=== PATIENT | female | born 1935 | race Caucasian/White ===

== ENCOUNTER 2016-11-28 15:11 | Inpatient (IN) | payer MEDICARE ==
[2016-11-28] MEDS ORDERED: NALOXONE 0.4 MG/ML 1 ML VIAL IV PRN (17:45)
[2016-11-28] MEDS ORDERED: ALPRAZolam 0.25 MG TAB PO PRN (17:45)
[2016-11-28] MEDS ORDERED: ACETAMINOPHEN TAB 500 MG TAB PO PRN (17:50)
[2016-11-28] MEDS ORDERED: HYDROmorphone 0.5 MG/0.5 ML SYRINGE IVP PRN (17:50)
[2016-11-28 18:13] LABS: Basophils % (A) 0 %; CH 30.9; CHCM 33.1; Eosinophils # (A) 0.3 k/uL (0-0.7); Eosinophils % (A) 2 %; HCT 27.5 % (34.0-46.0); HGB 9.2 gm/dL (11.4-16.0); Luc # (Auto) 0.17; Luc % (Auto) 1; Lymphocytes # (A) 1.4 k/uL (1.0-4.8); Lymphocytes % (A) 9 %; MCH 31.2 pg (25.0-35.0); MCHC 33.3 g/dL (31.0-37.0); MCV 93.7 fL (80.0-100.0); Mean Platelet Volume 7.3; Monocytes # (A) 0.8 k/uL (0-1.0); Monocytes % (A) 5 %; Neutrophils % (A) 83 %; RBC 2.93 m/uL (3.80-5.40); RDW 13.2 % (11.5-15.5); WBC 15.6 k/uL (3.8-10.6); WBC (Perox) 15.72
[2016-11-28] MEDS ORDERED: PANTOPRAZOLE 40 MG TABLET PO SCH (18:30)
[2016-11-28 18:33] LABS: ALT 32 U/L (9-52); AST 38 U/L (14-36); Alkaline Phosphatase 92 U/L (38-126); Anion Gap 9 mmol/L; Blood Urea Nitrogen 20 mg/dL (7-17); Calcium 8.6 mg/dL (8.4-10.2); Carbon Dioxide 27 mmol/L (22-30); Chloride 101 mmol/L (98-107); Glucose 113 mg/dL (74-99); Non-African American GFR(MDRD) >60 (>60 ml/min/1.73 sqM); Potassium 4.4 mmol/L (3.5-5.1); Sodium 137 mmol/L (137-145); Total Bilirubin 0.6 mg/dL (0.2-1.3); Total Protein 5.9 g/dL (6.3-8.2)
--- NOTE | 2016-11-28 18:38 | XR ---
EXAMINATION TYPE: XR chest 1V portable DATE OF EXAM: 11/28/2016 COMPARISON: NONE INDICATION: CHF left shoulder fracture TECHNIQUE: Single frontal view of the chest is obtained. Patient is rotated to the right FINDINGS: The heart size is normal. The pulmonary vasculature is normal. The lungs are clear. Displaced left shoulder fracture is not identified. Subtle lucency within the distal humeral head is evident which may be a nondisplaced fracture IMPRESSION: 1. No acute pulmonary process.
--- NOTE | 2016-11-28 18:43 | XR ---
EXAMINATION TYPE: XR Hip Complete LT DATE OF EXAM: 11/28/2016 COMPARISON: NONE HISTORY: Left hip pain TECHNIQUE: 2 view left hip FINDINGS: Left hip pin and lateral plate and screws are present. No acute fractures are identified. T here is some lucency within the neck of the femur and could be external artifact. Displaced fracture is not identified. IMPRESSION: 1. Nondisplaced fracture at the subcapital region of the left hip is not excluded. However, the hip pin is through this region and no displaced fractures evident.
[2016-11-28 18:46] LABS: Creatine Kinase MB 3.5 ng/mL (0.0-2.4); Troponin I 0.042 ng/mL (0.000-0.034)
[2016-11-28] MEDS ORDERED: FLUTICASONE 50MCG/SPRAY NASAL 16GM EA NOSTRIL PRN (19:15)
[2016-11-28] MEDS ORDERED: diphenhydrAMINE 25 MG CAP PO PRN (19:15)
[2016-11-28] MEDS ORDERED: predniSONE 10 MG TAB PO PRN (19:15)
--- NOTE | 2016-11-28 19:18 | HP ---
HISTORY AND PHYSICAL CHIEF COMPLAINTS: Fall as well as the left humerus fracture. HISTORY OF PRESENT ILLNESS: This 81-year-old woman with a past medical history of multiple medical problems, including multiple sclerosis, history of trigeminal neuralgia , history of chronic back pain, history of DJD, history constipation, history of gout, history of UTIs, history hypertension being followed by Dr. Sha Jones in the outpatient setting. Apparently living by herself. The patient apparently has multiple sclerosis and multiple falls. The patient apparently had 17 falls last year. The patient started on Copaxone which controlled the falls, according to her, and today the patient went outside the house. The patient has been careful, but while coming back, the patient tripped and fell and hit her head and the patient was unable to move for almost 12 hours. The patient was taken to [facility] and was found to have left humerus fracture and patient was also found to have left frontal hematoma with some bleeding and the patient was transferred to [facility] for admission at this time. The CK was elevated and troponins were also indeterminate in [facility]. There is no history of any chest pain. No history of palpitations. No history of headache, loss conscious or seizures. No history of any of nausea, vomiting, fever, rigors or chills at this time. PAST MEDICAL HISTORY: History of DJD, multiple sclerosis, history of trigeminal neuralgia, history of gout, history of hypothyroidism, history of hypertension. MEDICATIONS PRIOR TO ADMISSION: 1. Loratadine 10 mg p.o. daily. 2. EpiPen p.r.n. 3. Benadryl 25 mg q.h.s. p.r.n. 4. Vitamins. 5. Neurontin 300 mg p.o. t.i.d. 6. Tricor 200 mg p.o. t.i.d. 7. Copaxone 20 mg p.o. daily. 8. Vitamin B6 25 mg p.o. daily. 9. Flonase 2 sprays daily. 10.Synthroid 125 mcg p.o. daily. 11.Ultram 50 mg p.o. every 6 hours p.r.n. 12.Prednisone 10 mg once daily p.r.n. 13.Protonix 40 mg b.i.d. 14.Lasix 20 mg p.o. daily. 15.Potassium 10 mEq p.o. daily. 16.Metoprolol 25 mg p.o. b.i.d. 17.Lexapro 10 mg p.o. daily. ALLERGIES: MULTIPLE ALLERGIES,INCLUDING PENICILLIN AND SULFA DRUGS WELL IODINE, CODEINE FLOXIN, DARVOCET, MORPHINE WELL BEE POLLEN, WEEDS, SOAP, PSYLLIUM, SHELLFISH, STRAWBERRIES, JALAPENO, BANANAS, NUTS, AVOCADO, COCONUTS, ZUCCHINI, WHEAT FLOUR, DETERGENTS, PEACH, LATEX, LYRICA WELL SPANDEX. FAMILY HISTORY: No history of heart disease or strokes in the family. SOCIAL HISTORY: No history of smoking. No history of alcohol intake. REVIEW OF SYSTEMS: ENT: Diminished hearing. Diminished vision. CARDIOVASCULAR: No angina. RESPIRATORY: Occasional shortness of breath. GI: No nausea, vomiting. : No dysuria. NERVOUS: No numbness, weakness. Otherwise as mentioned earlier. ALLERGY/IMMUNOLOGY: No asthma or hay fever. MUSCULOSKELETAL: As mentioned earlier. HEMATOLOGY/ONCOLOGY: No history of anemia. ENDOCRINE: No history of diabetes, hypothyroidism. CONSTITUTIONAL: As mentioned earlier. DERMATOLOGY: Negative. RHEUMATOLOGY: Negative. PSYCHIATRY: As mentioned earlier. PHYSICAL EXAM: Patient is alert, oriented x3. Pulse is 80. The blood pressure 120/80, respirations 20, temperature is normal. HEENT: Conjunctivae normal. Mucosa moist. NECK: No jugular venous distention. No carotid bruits. No lymph node enlargement. CARDIOVASCULAR SYSTEM: S1, S2 muffled. No S3. No S4. RESPIRATORY: Breath sounds diminished in the bases. A few scattered rhonchi. No crackles. ABDOMEN: Soft, nontender. No mass palpable. No hepatosplenomegaly. LEGS: No edema. No swelling. NERVOUS SYSTEM: Higher functions as mentioned earlier. Moves all 4 limbs. No focal motor or sensory deficits. LYMPHATIC: No lymph nodes palpable in neck or axillae. SKIN: No ulcer, rash or bleeding. Left arm shows some swelling and is status post left humerus fracture. SCALP: Recent hematoma. ASSESSMENT: 1. Fall and left humerus fracture. 2. Left frontal scalp laceration. 3. History of multiple sclerosis. 4. History hypertension. Hypothyroidism. 5. Indeterminate troponins, elevated CK, possible acute rhabdomyolysis present from the labs elsewhere. 6. Trigeminal neuralgia history. 7. History of multiple sclerosis. 8. History of cellulitis. 9. History of gout. 10.History of recent shortness of breath. 11.History of central pontine myelinolysis. RECOMMENDATIONS AND DISCUSSION: In this 81-year-old woman who presented with multiple complex medical issues, will monitor the patient closely. Continue the current medications and continue symptomatic treatment. Will treat the patient conservatively with pain management. Otherwise, I would also recommend cautious IV fluids based on chest x-ray. Will obtain a orthopedic evaluation, repeat troponins and if there are any abnormal troponins or abnormal findings, Cardiology be consulted. Otherwise continue to monitor. Exact etiology of the shortness of breath is unknown at this time; however, the patient appears medically stable at this time. Will monitor the patient closely. DVT prophylaxis. See orders for further details. Discussed with the patient, who understands. Further recommendations to follow. A copy of the dictation will be forwarded to Sha Jones. CONRAD / XINN: [id number] /
[2016-11-28] MEDS ORDERED: ONDANSETRON 4 MG/2 ML VIAL IVP PRN (20:42)
[2016-11-28] MEDS: traMADol 50 MG TAB PO PRN (20:49)
[2016-11-28 20:53] LABS: Glucose,Whole Blood 141 mg/dL (75-99)
[2016-11-28] MEDS: SODIUM CHLORIDE 0.9% 1,000 ML IV SCH (22:25)
[2016-11-28] MEDS: ESCITALOPRAM 10 MG TAB PO SCH (22:26)
[2016-11-28] MEDS: FUROSEMIDE 20 MG TAB PO SCH (22:27)
[2016-11-28] MEDS: PANTOPRAZOLE 40 MG TABLET PO SCH (22:27)
[2016-11-28] MEDS: HEPARIN SODIUM,PORCINE 5,000 UNIT/ML 1 ML VIAL SQ SCH (22:28)
[2016-11-28] MEDS: METOPROLOL TARTRATE 25 MG TAB PO SCH (22:28)
[2016-11-28] MEDS: MELATONIN 3 MG TABLET PO SCH (22:28)
[2016-11-28] MEDS: GABAPENTIN 300 MG CAP PO SCH (22:30)
[2016-11-28] MEDS: INSULIN LISPRO (humaLOG) 300 UNIT/3 ML VIAL SQ SCH (22:39)
[2016-11-29 01:18] LABS: Troponin I 0.034 ng/mL (0.000-0.034)
[2016-11-29 01:26] LABS: Creatine Kinase MB 3.9 ng/mL (0.0-2.4)
--- NOTE | 2016-11-29 03:28 | P.GSCN ---
History of Present Illness Consult date: 11/29/16 Reason for Consult: history of fall. History of present illness: Patient is a very pleasant 81 year old who presented after having a fall. She has a recent history of repeat falls due to suspected MS> She gell down and was unable to get for more than 6 hours. No loss of conciseness, no incontinence, No light headeness. She slipped in the floor. She was having significant amount of pain from her Hip and back joints and due to generalized weakness was unable to get up . She was discovered the following morning. She was brought in later this afternoon. On examination she was just having gnerlazed pain. She has sever arthritic changes with known spondolistheiss and hip problems that has resulted in chronic pain for which she uses ultram. She is also complaining of pain in the left shoulder and is unable to move it full range. She is able to move her fingers and forearm but limited due to pain. She is having difficulty in sitting up fully due to pain in discomfort in the hips. Review of Systems - Constitutional Reports chronic pain, Reports fatigue, Reports malaise, Denies anorexia, Denies chills, Denies chronic headaches - EENT Eyes: denies blurred vision, denies bulging eye, denies decreased vision Ears: deny: decreased hearing, tinnitus Ears, nose, mouth and throat: Denies bleeding gums, Denies dental pain, Denies dysphagia, Denies epistaxis - Breasts Reports as per HPI - Cardiovascular Cardiovascular Comment(s): Patient has recently noted worsening chest discomfort and pain on exertion Reports chest pain, Reports decreased exercise tolerance, Reports dyspnea on exertion, Denies shortness of breath - Respiratory Denies cough, Denies 7 - Gastrointestinal Reports as per HPI, Denies abdominal pain, Denies belching, Denies bloating, Denies change in bowel habits, Denies constipation - Genitourinary Menstruation: Reports amenorrhea - Musculoskeletal Reports fractures, Reports frequent falls, Reports limitation of motion, Reports low back pain, Reports muscle weakness, Denies arm numbness/tingling, Denies atrophy bilateral: hip pain - Integumentary Reports as per HPI, Denies brittle nails, Denies color changes, Denies darkening of skin, Denies lesions - Neurological Reports balance difficulties, Reports weakness, Denies aphasia, Denies ataxia, Denies burning pain, Denies change in mentation, Denies change in smell/taste, Denies change in speech, Denies confusion, Denies headaches, Denies loss of vision, Denies memory loss, Denies migraines, Denies numbness, Denies paralysis , Denies paresthesias, Denies syncope, Denies tremors, Denies vertigo - Psychiatric Denies as per HPI, Denies anhedonia, Denies anxiety, Denies anxiety attacks, Denies change in appetite, Denies change in libido, Denies change in sleep habits, Denies confusion, Denies depression, Denies difficulty concentrating, Denies disorientation, Denies hallucinations, Denies hopelessness, Denies hypersomnia, Denies insomnia, Denies irritability, Denies memory loss, Denies mood swings, Denies paranoia, Denies sadness/tearfulness, Denies sleep disturbances, Denies suicidal ideation - Endocrine Denies as per HPI, Denies cold intolerance, Denies deepening of the voice, Denies excessive sweating, Denies excessive thirst, Denies fatigue, Denies flushing, Denies heat intolerance, Denies high blood sugars, Denies increase in ring/shoe/hat size, Denies low blood sugars, Denies nocturia, Denies palpitations, Denies polydipsia, Denies polyphagia, Denies polyuria, Denies proptosis, Denies recent glucocorticoid use, Denies thyroid mass, Denies weight change - Hematologic/Lymphatic Denies easy bleeding, Denies easy bruising Past Medical History Past Medical History: Atrial Fibrillation, Asthma, GERD/Reflux, Hypertension, Thyroid Disorder Additional Past Medical History / Comment(s): Trigeminal Neur., Multiple sclerosis, Hepatitis after blood transfusion, Fall 11/27/16 History of Any Multi-Drug Resistant Organisms: None Reported Past Surgical History: Adenoidectomy, Appendectomy, Back Surgery, Cholecystectomy, Joint Replacement, Tonsillectomy Additional Past Surgical History / Comment(s): Bilat. knee replacement Past Anesthesia/Blood Transfusion Reactions: No Reported Reaction Past Psychological History: No Psychological Hx Reported Smoking Status: Never smoker Medications and Allergies Home Medications Medication Instructions Recorded Confirmed Type EPINEPHrine [Epipen 2-Hawk] 0.3 mg IM ONCE PRN 11/28/16 11/28/16 History Escitalopram [Lexapro] 10 mg PO DAILY 11/28/16 11/28/16 History Fluticasone Nasal [place] [Flonase 2 spr EA NOSTRIL DAILY PRN 11/28/16 11/28/16 History Nasal [place]] Furosemide [Lasix] 20 mg PO DAILY 11/28/16 11/28/16 History Gabapentin [Neurontin] 300 mg PO TID 11/28/16 11/28/16 History Glatiramer Acetate [Copaxone] 20 mg SQ DAILY 11/28/16 11/28/16 History Levothyroxine Sodium [Synthroid] 125 mcg PO DAILY 11/28/16 11/28/16 History Loratadine [Claritin] 10 mg PO DAILY 11/28/16 11/28/16 History Metoprolol Tartrate [Lopressor] 25 mg PO BID 11/28/16 11/28/16 History Multivitamins, Thera [Multivitamin 1 tab PO DAILY 11/28/16 11/28/16 History (formulary)] Pantoprazole Sodium [Protonix] 40 mg PO BID 11/28/16 11/28/16 History Potassium Chloride ER [K-Dur 10] 10 meq PO DAILY 11/28/16 11/28/16 History Pyridoxine [Vitamin B-6] 25 mg PO DAILY 11/28/16 11/28/16 History carBAMazepine CHEW [TEGretol CHEW] 100 mg PO TID 11/28/16 11/28/16 History diphenhydrAMINE HCL [Benadryl] 25 mg PO HS PRN 11/28/16 11/28/16 History predniSONE 10 mg PO DAILY PRN 11/28/16 11/28/16 History traMADol HCL [Ultram] 50 mg PO Q6HR PRN 11/28/16 11/28/16 History Allergies Allergy/AdvReac Type Severity Reaction Status Date / Time adhesive tape Allergy Unknown Verified 11/28/16 18:21 avocado Allergy Anaphylaxis Verified 11/28/16 18:21 banana Allergy Anaphylaxis Verified 11/28/16 18:21 bee venom protein (honey bee) Allergy Unknown Verified 11/28/16 18:21 coconut Allergy Anaphylaxis Verified 11/28/16 18:21 codeine Allergy Unknown Verified 11/28/16 18:21 Iodine and Iodide Containing Allergy Anaphylaxis Verified 11/28/16 18:21 Produc latex Allergy Unknown Verified 11/28/16 18:21 nut - unspecified Allergy Anaphylaxis Verified 11/28/16 18:21 ofloxacin [From Floxin] Allergy Unknown Verified 11/28/16 18:21 peach Allergy Itching Verified 11/28/16 18:21 Penicillins Allergy Anaphylaxis Verified 11/28/16 18:21 pregabalin [From Lyrica] Allergy Unknown Verified 11/28/16 18:31 propoxyphene [From Darvon] Allergy Unknown Verified 11/28/16 18:21 psyllium Allergy Unknown Verified 11/28/16 18:21 Quinolones Allergy Unknown Verified 11/28/16 18:21 shellfish derived [Shellfish] Allergy Anaphylaxis Verified 11/28/16 18:21 soap Allergy Itching Verified 11/28/16 18:21 strawberry Allergy Rash/Hives Verified 11/28/16 18:21 Sulfa (Sulfonamide Allergy Anaphylaxis Verified 11/28/16 18:21 Antibiotics) Tetanus Vaccines and Toxoid Allergy Anaphylaxis Verified 11/28/16 18:21 wheat Allergy Unknown Verified 11/28/16 18:21 morphine AdvReac Mental Verified 11/28/16 18:21 Confusion detergent Allergy Itching Uncoded 11/28/16 18:21 jalapeno peppers Allergy Anaphylaxis Uncoded 11/28/16 18:21 spandex Allergy Unknown Uncoded 11/28/16 18:02 zucchini Allergy Unknown Uncoded 11/28/16 18:02 Surgical - Exam Vital Signs Temp Pulse Resp BP Pulse Ox 98.4 F 94 16 122/78 100 11/28/16 17:20 11/28/16 17:20 11/28/16 17:20 11/28/16 17:20 11/28/16 17:20 - General well developed, well nourished, moderate distress - Eyes PERRL, normal ocular movement, no pale, no icteric, no deviation, no loss of movement - ENT normal pinna, normal nares, normal mucosa, no hearing loss, no congestion, no decreased hearing, no nasal discharge - Neck no no masses, trachea midline, no venous distension, no deviated trachea, no limited ROM - Respiratory normal expansion, normal respiratory effort - Cardiovascular warm extermtieis, no edeam Rhythm: regular - Abdomen Abdomen: soft, non tender, surgical scars, no guarding, no rigid, no rebound, no distended - Integumentary left side of face small abaraision no rash - Neurologic normal coordination, normal sensation, no disoriented - Musculoskeletal normal posture - Psychiatric oriented to time, oriented to person, oriented to place, speech is normal, memory intact Results - Labs 11/28/16 18:09 11/28/16 18:09 Abnormal Lab Results - Last 24 Hours (Table) 11/28/16 11/28/16 11/28/16 Range/Units 18:09 18:09 18:09 WBC 15.6 H (3.8-10.6) k/uL RBC 2.93 L (3.80-5.40) m/uL Hgb 9.2 L (11.4-16.0) gm/dL Hct 27.5 L (34.0-46.0) % Neutrophils # 13.0 H (1.3-7.7) k/uL BUN 20 H (7-17) mg/dL Glucose 113 H (74-99) mg/dL POC Glucose (mg/dL) (75-99) mg/dL AST 38 H (14-36) U/L Total Creatine Kinase (30-135) U/L CK-MB (CK-2) 3.5 H* (0.0-2.4) ng/mL Troponin I 0.042 H* (0.000-0.034) ng/mL Total Protein 5.9 L (6.3-8.2) g/dL Albumin 3.4 L (3.5-5.0) g/dL 11/28/16 11/29/16 Range/Units 20:50 00:28 WBC (3.8-10.6) k/uL RBC (3.80-5.40) m/uL Hgb (11.4-16.0) gm/dL Hct (34.0-46.0) % Neutrophils # (1.3-7.7) k/uL BUN (7-17) mg/dL Glucose (74-99) mg/dL POC Glucose (mg/dL) 141 H (75-99) mg/dL AST (14-36) U/L Total Creatine Kinase 324 H (30-135) U/L CK-MB (CK-2) 3.9 H* (0.0-2.4) ng/mL Troponin I (0.000-0.034) ng/mL Total Protein (6.3-8.2) g/dL Albumin (3.5-5.0) g/dL Diabetes panel 11/28/16 Range/Units 18:09 Sodium 137 (137-145) mmol/L Potassium 4.4 (3.5-5.1) mmol/L Chloride 101 (98-107) mmol/L Carbon Dioxide 27 (22-30) mmol/L BUN 20 H (7-17) mg/dL Creatinine 0.72 (0.52-1.04) mg/dL Glucose 113 H (74-99) mg/dL Calcium 8.6 (8.4-10.2) mg/dL AST 38 H (14-36) U/L ALT 32 (9-52) U/L Alkaline Phosphatase 92 (38-126) U/L Total Protein 5.9 L (6.3-8.2) g/dL Albumin 3.4 L (3.5-5.0) g/dL Calcium panel 11/28/16 Range/Units 18:09 Calcium 8.6 (8.4-10.2) mg/dL Albumin 3.4 L (3.5-5.0) g/dL Pituitary panel 11/28/16 Range/Units 18:09 Sodium 137 (137-145) mmol/L Potassium 4.4 (3.5-5.1) mmol/L Chloride 101 (98-107) mmol/L Carbon Dioxide 27 (22-30) mmol/L BUN 20 H (7-17) mg/dL Creatinine 0.72 (0.52-1.04) mg/dL Glucose 113 H (74-99) mg/dL Calcium 8.6 (8.4-10.2) mg/dL Adrenal panel 11/28/16 Range/Units 18:09 Sodium 137 (137-145) mmol/L Potassium 4.4 (3.5-5.1) mmol/L Chloride 101 (98-107) mmol/L Carbon Dioxide 27 (22-30) mmol/L BUN 20 H (7-17) mg/dL Creatinine 0.72 (0.52-1.04) mg/dL Glucose 113 H (74-99) mg/dL Calcium 8.6 (8.4-10.2) mg/dL Total Bilirubin 0.6 (0.2-1.3) mg/dL AST 38 H (14-36) U/L ALT 32 (9-52) U/L Alkaline Phosphatase 92 (38-126) U/L Total Protein 5.9 L (6.3-8.2) g/dL Albumin 3.4 L (3.5-5.0) g/dL - Imaging Additional studies: ct reprots were reviewed and were normal. LEft hmeral head non displace fracture reported. Assessment and Plan (1) Fall Status: Acute (2) Multiple sclerosis Status: Acute (3) Hypothyroid Status: Acute (4) Chronic back pain Status: Acute (5) Osteoarthritis Status: Acute Plan: Patient slipped and fell, She did not loose conciousness.No abdominal complaints. Mostly exacerbation of the pain from her DJD and arthritis of the hups and known back pain with spondolistheisis. No other surgical intervention planned. Await ortho input. She will need a cardiology work up and neurology follow up for unconfirmed history of multiple sclerosis.
[2016-11-29] MEDS: traMADol 50 MG TAB PO PRN ×3 (06:14→21:12)
[2016-11-29] MEDS: LEVOTHYROXINE 125 MCG TAB PO SCH (06:14)
[2016-11-29 07:28] LABS: Glucose,Whole Blood 112 mg/dL (75-99)
[2016-11-29 08:38] LABS: Creatine Kinase MB 3.4 ng/mL (0.0-2.4); Troponin I 0.055 ng/mL (0.000-0.034)
[2016-11-29] MEDS: INSULIN LISPRO (humaLOG) 300 UNIT/3 ML VIAL SQ SCH ×4 (09:59→21:12)
[2016-11-29] MEDS: PANTOPRAZOLE 40 MG TABLET PO SCH ×2 (10:13→17:05)
[2016-11-29] MEDS: ESCITALOPRAM 10 MG TAB PO SCH (10:15)
[2016-11-29] MEDS: HEPARIN SODIUM,PORCINE 5,000 UNIT/ML 1 ML VIAL SQ SCH ×2 (10:15→20:41)
[2016-11-29] MEDS: FUROSEMIDE 20 MG TAB PO SCH (10:15)
[2016-11-29] MEDS: GABAPENTIN 300 MG CAP PO SCH ×4 (10:15→20:42)
[2016-11-29] MEDS: LORATADINE 10 MG TAB PO SCH (10:16)
[2016-11-29] MEDS: METOPROLOL TARTRATE 25 MG TAB PO SCH ×2 (10:16→20:41)
[2016-11-29] MEDS: predniSONE 10 MG TAB PO SCH (10:41)
--- NOTE | 2016-11-29 11:48 | P.CNOR ---
History of Present Illness - [facility] Consult date: 11/29/16 Requesting physician: Graham Alvarado Consult reason: fracture (Proximal humerus fracture and left hip pain) History of present illness: Patient is a very pleasant 81-year-old female who is seen and examined at the bedside by Dr. Alan Ceballos and myself after were consulted for further evaluation for a left humerus fracture and left hip pain. Patient has significant medical diagnoses including multiple sclerosis. She states she has sustained multiple falls over the years. Yesterday she states she walked out of her house to walk the dog. She states tripped, fell, hit her head and was unable to get up approximately 12 hours. She was transferred to the [facility] for further evaluation treatment. At that time she was found to have a left proximal humerus fracture and left frontal wound as well as elevated CK and troponin levels. Head wound was closed prior to transfer. There was also concern for rhabdomyolysis. She was transferred to [facility] for further evaluation and treatment. While being transferred to [facility] she also complained of left-sided hip pain. X- rays were taken of the left hip while here at [facility]. Repeat labs were also taken which continued to show elevated CK-MB and troponin. Medicine is currently planning for consultation with cardiology. Patient states at the bedside she's had ongoing hip pain and she is not currently experiencing any new onset hip pain. She does have history of previous left intertrochanteric hip fracture with intramedullary nail and plate fixation. She is able to move her left lower extremity in the bed today without significant difficulty. Her most significant complaint is pain at the left shoulder. She is currently placed in a sling. She is avoiding any activities with the left upper extremity. She also has some dried blood in her hair from her head wound. She is awake, alert, oriented 3. Imaging of the left upper extremity taken at [facility] has been loaded into synapse. Past Medical History Past Medical History: Atrial Fibrillation, Asthma, GERD/Reflux, Hypertension, Thyroid Disorder Additional Past Medical History / Comment(s): Trigeminal Neur., Multiple sclerosis, Hepatitis after blood transfusion, Fall 11/27/16 History of Any Multi-Drug Resistant Organisms: None Reported Past Surgical History: Adenoidectomy, Appendectomy, Back Surgery, Cholecystectomy, Joint Replacement, Tonsillectomy Additional Past Surgical History / Comment(s): Bilat. knee replacement Past Anesthesia/Blood Transfusion Reactions: No Reported Reaction Past Psychological History: No Psychological Hx Reported Smoking Status: Never smoker Medications and Allergies Home Medications Medication Instructions Recorded Confirmed Type EPINEPHrine [Epipen 2-Hawk] 0.3 mg IM ONCE PRN 11/28/16 11/28/16 History Escitalopram [Lexapro] 10 mg PO DAILY 11/28/16 11/28/16 History Fluticasone Nasal [place] [Flonase 2 spr EA NOSTRIL DAILY PRN 11/28/16 11/28/16 History Nasal [place]] Furosemide [Lasix] 20 mg PO DAILY 11/28/16 11/28/16 History Gabapentin [Neurontin] 300 mg PO TID 11/28/16 11/28/16 History Glatiramer Acetate [Copaxone] 20 mg SQ DAILY 11/28/16 11/28/16 History Levothyroxine Sodium [Synthroid] 125 mcg PO DAILY 11/28/16 11/28/16 History Loratadine [Claritin] 10 mg PO DAILY 11/28/16 11/28/16 History Metoprolol Tartrate [Lopressor] 25 mg PO BID 11/28/16 11/28/16 History Multivitamins, Thera [Multivitamin 1 tab PO DAILY 11/28/16 11/28/16 History (formulary)] Pantoprazole Sodium [Protonix] 40 mg PO BID 11/28/16 11/28/16 History Potassium Chloride ER [K-Dur 10] 10 meq PO DAILY 11/28/16 11/28/16 History Pyridoxine [Vitamin B-6] 25 mg PO DAILY 11/28/16 11/28/16 History carBAMazepine CHEW [TEGretol CHEW] 100 mg PO TID 11/28/16 11/28/16 History diphenhydrAMINE HCL [Benadryl] 25 mg PO HS PRN 11/28/16 11/28/16 History predniSONE 10 mg PO DAILY PRN 11/28/16 11/28/16 History traMADol HCL [Ultram] 50 mg PO Q6HR PRN 11/28/16 11/28/16 History Allergies Allergy/AdvReac Type Severity Reaction Status Date / Time adhesive tape Allergy Unknown Verified 11/28/16 18:21 avocado Allergy Anaphylaxis Verified 11/28/16 18:21 banana Allergy Anaphylaxis Verified 11/28/16 18:21 bee venom protein (honey bee) Allergy Unknown Verified 11/28/16 18:21 coconut Allergy Anaphylaxis Verified 11/28/16 18:21 codeine Allergy Unknown Verified 11/28/16 18:21 Iodine and Iodide Containing Allergy Anaphylaxis Verified 11/28/16 18:21 Produc latex Allergy Unknown Verified 11/28/16 18:21 nut - unspecified Allergy Anaphylaxis Verified 11/28/16 18:21 ofloxacin [From Floxin] Allergy Unknown Verified 11/28/16 18:21 peach Allergy Itching Verified 11/28/16 18:21 Penicillins Allergy Anaphylaxis Verified 11/28/16 18:21 pregabalin [From Lyrica] Allergy Unknown Verified 11/28/16 18:31 propoxyphene [From Darvon] Allergy Unknown Verified 11/28/16 18:21 psyllium Allergy Unknown Verified 11/28/16 18:21 Quinolones Allergy Unknown Verified 11/28/16 18:21 shellfish derived [Shellfish] Allergy Anaphylaxis Verified 11/28/16 18:21 soap Allergy Itching Verified 11/28/16 18:21 strawberry Allergy Rash/Hives Verified 11/28/16 18:21 Sulfa (Sulfonamide Allergy Anaphylaxis Verified 11/28/16 18:21 Antibiotics) Tetanus Vaccines and Toxoid Allergy Anaphylaxis Verified 11/28/16 18:21 wheat Allergy Unknown Verified 11/28/16 18:21 morphine AdvReac Mental Verified 11/28/16 18:21 Confusion detergent Allergy Itching Uncoded 11/28/16 18:21 jalapeno peppers Allergy Anaphylaxis Uncoded 11/28/16 18:21 spandex Allergy Unknown Uncoded 11/28/16 18:02 zucchini Allergy Unknown Uncoded 11/28/16 18:02 Physical Examination Physical Exam: Patient is awake, alert, and oriented 3 Vital signs stable Good chest excursion with deep inspiration and expiration Abdomen soft nontender No signs or symptoms of DVT; no calf pain Left upper extremity currently placed in a sling Active range of motion left fingers, thumb and wrist without significant difficulty Left shoulder is not put through active or passive range of motion Pain with palpation over the left proximal humerus Evidence of some dried blood over the left side of the head No evidence of active drainage over left head wound Adequate range of motion bilateral lower extremities without significant difficulty No pain with internal and external rotation of the bilateral hips Dorsiflexion and plantarflexion positive sustained bilateral lower extremities Results Pertinent studies: X-rays of the left hip: Nondisplaced fracture of the subcapital region of the left hip is not excluded; evidence of left hip pain and lateral plate appears to be in good position with no evidence of displaced fracture X-rays of the left upper extremity taken outside facility at [facility]: Evidence of 2 part minimally displaced left proximal humerus fracture - Labs Labs: Abnormal Lab Results - Last 24 Hours (Table) 11/28/16 11/28/16 11/28/16 Range/Units 18:09 18:09 18:09 WBC 15.6 H (3.8-10.6) k/uL RBC 2.93 L (3.80-5.40) m/uL Hgb 9.2 L (11.4-16.0) gm/dL Hct 27.5 L (34.0-46.0) % Neutrophils # 13.0 H (1.3-7.7) k/uL BUN 20 H (7-17) mg/dL Glucose 113 H (74-99) mg/dL POC Glucose (mg/dL) (75-99) mg/dL AST 38 H (14-36) U/L Total Creatine Kinase (30-135) U/L CK-MB (CK-2) 3.5 H* (0.0-2.4) ng/mL Troponin I 0.042 H* (0.000-0.034) ng/mL Total Protein 5.9 L (6.3-8.2) g/dL Albumin 3.4 L (3.5-5.0) g/dL 11/28/16 11/29/16 11/29/16 Range/Units 20:50 00:28 07:23 WBC (3.8-10.6) k/uL RBC (3.80-5.40) m/uL Hgb (11.4-16.0) gm/dL Hct (34.0-46.0) % Neutrophils # (1.3-7.7) k/uL BUN (7-17) mg/dL Glucose (74-99) mg/dL POC Glucose (mg/dL) 141 H 112 H (75-99) mg/dL AST (14-36) U/L Total Creatine Kinase 324 H (30-135) U/L CK-MB (CK-2) 3.9 H* (0.0-2.4) ng/mL Troponin I (0.000-0.034) ng/mL Total Protein (6.3-8.2) g/dL Albumin (3.5-5.0) g/dL 11/29/16 Range/Units 07:24 WBC (3.8-10.6) k/uL RBC (3.80-5.40) m/uL Hgb (11.4-16.0) gm/dL Hct (34.0-46.0) % Neutrophils # (1.3-7.7) k/uL BUN (7-17) mg/dL Glucose (74-99) mg/dL POC Glucose (mg/dL) (75-99) mg/dL AST (14-36) U/L Total Creatine Kinase 319 H (30-135) U/L CK-MB (CK-2) 3.4 H* (0.0-2.4) ng/mL Troponin I 0.055 H* (0.000-0.034) ng/mL Total Protein (6.3-8.2) g/dL Albumin (3.5-5.0) g/dL H & H 11/28/16 Range/Units 18:09 Hgb 9.2 L (11.4-16.0) gm/dL Hct 27.5 L (34.0-46.0) % Result Diagrams: 11/28/16 18:09 11/28/16 18:09 Assessment and Plan (1) Closed fracture of left proximal humerus Status: Acute (2) Left hip pain Status: Acute (3) Elevated troponin Status: Acute (4) Elevated CK-MB level Status: Acute (5) Wound, open, head Status: Acute (6) Fall Status: Acute Plan: Assessment: Left proximal humerus fracture Status post fall Left hip pain Elevated CK-MB and troponin Open head wound closed at [facility] Plan: 1. After further evaluation of the patient, reviewing imaging, and physical examination, we are not currently planning for surgical intervention in regards to her left proximal humerus fracture or left hip pain. Her left hip pain has been ongoing without significant change following her recent fall. She has active range of motion with the left hip without significant difficulty. She has no exacerbation of pain with passive motion of the left hip. In regards to her left proximal humerus fracture, patient will continue to be nonweightbearing left upper extremity and will continue to keep left sling intact for the left upper extremity. She does have evidence of a 2 part minimally displaced left proximal humerus fracture that does not require acute surgical intervention. We will continue to follow her closely with conservative treatment for her left proximal humerus fracture. She may remove the elbow from the sling to work on gentle range of motion. She should avoid lifting and other activities of the left upper extremity. We will continue to follow patient closely. At discharge, patient plan a follow-up in the outpatient setting for further evaluation for her left proximal humerus fracture left hip fracture in approximately 7-10 days. 2. Medicine will continue following the patient for other significant medical diagnoses including current increased CK-MB and troponin; notes state medicine is currently planning for consultation with cardiology 3. Following discharge, patient may follow-up with Gianfranco Arriola PA-C or Dr. Alan Ceballos at [facility] in approximately 7-10 days for further evaluation Time with Patient: Less than 30
[2016-11-29 12:01] LABS: Hemoglobin A1C 5.8 % (4.2-6.1)
[2016-11-29 12:04] LABS: Glucose,Whole Blood 95 mg/dL (75-99)
[2016-11-29 12:21] LABS: Appearance,Urine Clear (Clear); Bilirubin,Urine Negative (Negative); Glucose,Urine (UA) Negative (Negative); Ketones,Urine Negative (Negative); Leukocyte Esterase,Urine Moderate (Negative); Mucus,Urine Rare /hpf; Nitrite,Urine Negative (Negative); PH, Urine 5.5 (5.0-8.0); Particle Count 1906; Protein,Urine Negative (Negative); RBC,Urine <1 /hpf (0-5); Specific Gravity,Urine 1.008 (1.001-1.035); UA Billing (MACRO vs. MICRO) MICRO; Urobilinogen,Urine <2.0 mg/dL (<2.0); WBC,Urine 4 /hpf (0-5)
[2016-11-29] MEDS: MULTIVITAMINS, THERA 1 EACH TAB PO SCH (13:07)
--- NOTE | 2016-11-29 14:43 | P.PN ---
Progress Note - Text The patient is an 81-year-old female who fell. She is currently feeling very overwhelmed of her situation and I recommended to the nurse to talk to her to evaluate for suicidal ideation. This will be communicated to the primary care doctor Dr. Alvarado. From the surgical standpoint and she has no new complaints no nausea no vomiting no fever no chills. Abdomen is soft she's tolerating a clear liquid diet. The patient's arm motion not moving his left arm because of the pain. His no jaundice or icterus. She is afebrile his and stable. There is no significant peripheral edema at this time. Her breathing is unlabored. Assessment and plan of the surgical standpoint no intervention is needed agree with orthopedics evaluation he will follow up with them for that. I have discussed with the nurse to evaluate the patient for suicidal ideation possible counseling per the primary care doctor. She does not need any follow-up on discharge with general surgery thank you for the consult I will sign off at this time.
[2016-11-29] MEDS: SODIUM CHLORIDE 0.9% 1,000 ML IV SCH (17:04)
[2016-11-29 17:34] LABS: Glucose,Whole Blood 112 mg/dL (75-99)
[2016-11-29 20:36] LABS: Glucose,Whole Blood 113 mg/dL (75-99)
[2016-11-29] MEDS: Glatiramer Acetate [Copaxone] 20 MG SQ SCH (20:41)
[2016-11-29] MEDS: MELATONIN 3 MG TABLET PO SCH (20:41)
[2016-11-29 21:07] VITALS: RESP 16
[2016-11-30] MEDS: LEVOTHYROXINE 125 MCG TAB PO SCH (05:58)
[2016-11-30] MEDS: traMADol 50 MG TAB PO PRN ×3 (05:58→19:39)
[2016-11-30 07:18] LABS: Glucose,Whole Blood 122 mg/dL (75-99)
--- NOTE | 2016-11-30 08:56 | P.PN ---
Progress Note - Text Patient is a very pleasant 81-year-old female who is seen and examined at the bedside for follow-up evaluation for a left humerus fracture and left hip pain. Patient has significant medical diagnoses including multiple sclerosis. She states she has sustained multiple falls over the years. Since being seen and examined yesterday, she states her left hip pain has improved. She has been able to ambulate to the restroom with assistance without significant difficulty. She has not had an exacerbation of left hip pain while ambulating. Her most significant symptom is her ongoing left upper extremity pain at the left humerus fracture site. She has kept a sling intact to the left upper extremity. She has remained nonweightbearing on the left upper extremity. Patient was initially injured on 11/28/2016 after she states she walked out of her house to walk the dog. She states tripped, fell, hit her head and was unable to get up approximately 12 hours. She was transferred to the [facility] for further evaluation treatment. At that time she was found to have a left proximal humerus fracture and left frontal wound as well as elevated CK and troponin levels. Head wound was closed prior to transfer. There was also concern for rhabdomyolysis. She was transferred to [facility] for further evaluation and treatment. While being transferred to [facility] she also complained of left-sided hip pain. X- rays were taken of the left hip while here at [facility]. Repeat labs were also taken which continued to show elevated CK-MB and troponin. She does have history of previous left intertrochanteric hip fracture with intramedullary nail and plate fixation. She is awake, alert, oriented 3. Imaging of the left upper extremity taken at [facility] has been loaded into synapse. Physical Exam: Patient is awake, alert, and oriented 3 Vital signs stable Good chest excursion with deep inspiration and expiration Abdomen soft nontender No signs or symptoms of DVT; no calf pain Left upper extremity currently placed in a sling Active range of motion left fingers, thumb and wrist without significant difficulty Left shoulder is not put through active or passive range of motion Pain with palpation over the left proximal humerus Evidence of some dried blood over the left side of the head Evidence of a well closed left scalp laceration measuring approximately 7.5 cm No evidence of active drainage over left head wound Adequate range of motion bilateral lower extremities without significant difficulty No pain with internal and external rotation of the bilateral hips Dorsiflexion and plantarflexion positive sustained bilateral lower extremities Patient is able to move lower extremities to active range of motion without significant difficulty Pertinent studies: X-rays of the left hip: Nondisplaced fracture of the subcapital region of the left hip is not excluded; evidence of left hip pain and lateral plate appears to be in good position with no evidence of displaced fracture X-rays of the left upper extremity taken outside facility at [facility]: Evidence of 2 part minimally displaced left proximal humerus fracture Assessment: Left proximal humerus fracture Status post fall Left hip pain Elevated CK-MB and troponin Open head wound closed at [facility] Plan: 1. After further evaluation of the patient, reviewing imaging, and physical examination, we are not currently planning for surgical intervention in regards to her left proximal humerus fracture or left hip pain. We will continue with conservative treatment. Her left hip pain has improved since yesterday. She's been able to ambulate to the restroom with assistance without significant difficulty. He states again at the bedside her left hip pain has been ongoing without significant change following her recent fall. She has active range of motion with the left hip without significant difficulty. She has no exacerbation of pain with passive motion of the left hip. In regards to her left proximal humerus fracture, patient will continue to be nonweightbearing left upper extremity and will continue to keep left sling intact for the left upper extremity. She does have evidence of a 2 part minimally displaced left proximal humerus fracture that does not require acute surgical intervention. We will continue with conservative treatment for her left proximal humerus fracture. She may remove the elbow from the sling to work on gentle range of motion. She should avoid lifting and other activities of the left upper extremity. She should remain nonweightbearing with the left upper extremity. At this time, patient will be cleared for discharge from orthopedic standpoint. At discharge, patient will plan to follow-up in the outpatient setting for further evaluation for her left proximal humerus fracture left hip fracture in approximately 7 days. 2. Medicine will continue following the patient for other significant medical diagnoses including current increased CK-MB and troponin; notes state medicine is currently planning for consultation with cardiology 3. Following discharge, patient may follow-up with Gianfranco Arriola PA-C or Dr. Alan Ceballos at [facility] in approximately 7 days for further evaluation
--- NOTE | 2016-11-30 09:11 | ECHOF ---
Referral Reason:SYNCOPE/FALLS MEASUREMENTS -------- HEIGHT: 152.4 cm WEIGHT: 67.1 kg BP: 130/69 IVSd: 1.3 cm (0.6 - 1.1) LVIDd: 3.0 cm (3.9 - 5.3) LVPWd: 1.3 cm (0.6 - 1.1) IVSs: 1.7 cm LVIDs: 1.7 cm LVPWs: 1.6 cm Ao Diam: 3.0 cm (2.0 - 3.7) AV Cusp: 2.2 cm (1.5 - 2.6) LA Diam: 3.1 cm (2.7 - 3.8) MV EXCURSION: 5.900 mm (> 18.000) MV EF SLOPE: 30 mm/s (70 - 150) EPSS: 0.9 cm MV E Kristopher: 0.68 m/s MV DecT: 206 ms MV A Kristopher: 0.90 m/s MV E/A Ratio: 0.75 RAP: 5.00 mmHg RVSP: 22.57 mmHg FINDINGS -------- BBB This was a technically good study. The left ventricular size is normal. There is mild concentric left ventricular hypertrophy. Overall left ventricular systolic function is low-normal with, an EF between 50 - 55 %. The right ventricle is normal in size and function. The left atrium is normal in size. The right atrium is normal in size. Aortic valve is trileaflet and is mildly thickened. The mitral valve leaflets are mildly thickened. Mild mitral regurgitation is present. Mild tricuspid regurgitation present. The right ventricular systolic pressure, as measured by Doppler, is 22.57mmHg. Pulmonic valve appears structurally normal. The aortic root size is normal. The pericardium is normal. CONCLUSIONS -------- 1. BBB 2. The mitral valve leaflets are mildly thickened. 3. Mild mitral regurgitation is present. 4. Mild tricuspid regurgitation present. 5. The right ventricular systolic pressure, as measured by Doppler, is 22.57mmHg. 6. Pulmonic valve appears structurally normal. 7. The aortic root size is normal. 8. The pericardium is normal. 9. This was a technically good study. 10. The left ventricular size is normal. 11. There is mild concentric left ventricular hypertrophy. 12. Overall left ventricular systolic function is low-normal with, an EF between 50 - 55 %. 13. The right ventricle is normal in size and function. 14. The left atrium is normal in size. 15. The right atrium is normal in size. 16. Aortic valve is trileaflet and is mildly thickened. DATA VIRTUALIZATION CONSULTANT: Kathryn Lucia RDCS
[2016-11-30] MEDS: HYDROcodone/APAP 5-325MG 1 EACH TAB PO PRN ×2 (09:44→21:17)
[2016-11-30] MEDS: LORATADINE 10 MG TAB PO SCH (09:45)
[2016-11-30] MEDS: GABAPENTIN 300 MG CAP PO SCH ×3 (09:45→21:02)
[2016-11-30] MEDS: PANTOPRAZOLE 40 MG TABLET PO SCH ×2 (09:45→17:38)
[2016-11-30] MEDS: PYRIDOXINE 50 MG TAB PO SCH (09:45)
[2016-11-30] MEDS: FUROSEMIDE 20 MG TAB PO SCH (09:46)
[2016-11-30] MEDS: predniSONE 10 MG TAB PO SCH (09:46)
[2016-11-30] MEDS: ESCITALOPRAM 10 MG TAB PO SCH (09:46)
[2016-11-30] MEDS: METOPROLOL TARTRATE 25 MG TAB PO SCH ×2 (09:46→20:48)
[2016-11-30] MEDS: INSULIN LISPRO (humaLOG) 300 UNIT/3 ML VIAL SQ SCH ×4 (09:47→20:53)
[2016-11-30] MEDS: HEPARIN SODIUM,PORCINE 5,000 UNIT/ML 1 ML VIAL SQ SCH ×2 (09:47→20:54)
[2016-11-30 11:28] LABS: Glucose,Whole Blood 128 mg/dL (75-99)
[2016-11-30] MEDS: MULTIVITAMINS, THERA 1 EACH TAB PO SCH (12:51)
[2016-11-30] MEDS: SODIUM CHLORIDE 0.9% 1,000 ML IV SCH (12:53)
--- NOTE | 2016-11-30 13:33 | P.CRDCN ---
History of Present Illness Consult date: 11/30/16 History of present illness: This is a 81-year-old female with past medical history significant for paroxysmal atrial fibrillation and essential hypertension. We have been asked to see her in consultation mildly elevated troponins. She is admitted to the hospital with left humerus fracture s/p trip and fall. She is currently being medically managed with no plans of surgery at this time per ortho. She has a history of MS and a history of frequent falls. She denies chest pain, shortness of breath, dizziness or palpitations prior to falling. She does however complain of intermittent episodes of shortness of breath associated with exertion that has been getting worse over the previous year. Echocardiogram reveals preserved LV function with EF 50-55% with mild concentric LVH, mild MR, mild TR. She complains of left shoulder pain and some trace tenderness to left chest wall. Troponin 0.042, 0.034, 0.055. BUN 20, Cr 0.72. Potassium 4.4. She follows with Dr. Paris in the office. Review of Systems Extensive review of systems performed, negative except mentioned in HPI. Past Medical History Past Medical History: Atrial Fibrillation, Asthma, GERD/Reflux, Hypertension, Thyroid Disorder Additional Past Medical History / Comment(s): Trigeminal Neur., Multiple sclerosis, Hepatitis after blood transfusion, Fall 11/27/16 History of Any Multi-Drug Resistant Organisms: None Reported Past Surgical History: Adenoidectomy, Appendectomy, Back Surgery, Cholecystectomy, Joint Replacement, Tonsillectomy Additional Past Surgical History / Comment(s): Bilat. knee replacement Past Anesthesia/Blood Transfusion Reactions: No Reported Reaction Past Psychological History: No Psychological Hx Reported Smoking Status: Never smoker Medications and Allergies Home Medications Medication Instructions Recorded Confirmed Type EPINEPHrine [Epipen 2-Hawk] 0.3 mg IM ONCE PRN 11/28/16 11/28/16 History Escitalopram [Lexapro] 10 mg PO DAILY 11/28/16 11/28/16 History Fluticasone Nasal Nichols [Flonase 2 spr EA NOSTRIL DAILY PRN 11/28/16 11/28/16 History Nasal Nichols] Furosemide [Lasix] 20 mg PO DAILY 11/28/16 11/28/16 History Gabapentin [Neurontin] 300 mg PO TID 11/28/16 11/28/16 History Glatiramer Acetate [Copaxone] 20 mg SQ DAILY 11/28/16 11/28/16 History Levothyroxine Sodium [Synthroid] 125 mcg PO DAILY 11/28/16 11/28/16 History Loratadine [Claritin] 10 mg PO DAILY 11/28/16 11/28/16 History Metoprolol Tartrate [Lopressor] 25 mg PO BID 11/28/16 11/28/16 History Multivitamins, Thera [Multivitamin 1 tab PO DAILY 11/28/16 11/28/16 History (formulary)] Pantoprazole Sodium [Protonix] 40 mg PO BID 11/28/16 11/28/16 History Potassium Chloride ER [K-Dur 10] 10 meq PO DAILY 11/28/16 11/28/16 History Pyridoxine [Vitamin B-6] 25 mg PO DAILY 11/28/16 11/28/16 History carBAMazepine CHEW [TEGretol CHEW] 100 mg PO TID 11/28/16 11/28/16 History diphenhydrAMINE HCL [Benadryl] 25 mg PO HS PRN 11/28/16 11/28/16 History predniSONE 10 mg PO DAILY PRN 11/28/16 11/28/16 History traMADol HCL [Ultram] 50 mg PO Q6HR PRN 11/28/16 11/28/16 History Allergies Allergy/AdvReac Type Severity Reaction Status Date / Time adhesive tape Allergy Unknown Verified 11/28/16 18:21 avocado Allergy Anaphylaxis Verified 11/28/16 18:21 banana Allergy Anaphylaxis Verified 11/28/16 18:21 bee venom protein (honey bee) Allergy Unknown Verified 11/28/16 18:21 coconut Allergy Anaphylaxis Verified 11/28/16 18:21 codeine Allergy Unknown Verified 11/28/16 18:21 Iodine and Iodide Containing Allergy Anaphylaxis Verified 11/28/16 18:21 Produc latex Allergy Unknown Verified 11/28/16 18:21 nut - unspecified Allergy Anaphylaxis Verified 11/28/16 18:21 ofloxacin [From Floxin] Allergy Unknown Verified 11/28/16 18:21 peach Allergy Itching Verified 11/28/16 18:21 Penicillins Allergy Anaphylaxis Verified 11/28/16 18:21 pregabalin [From Lyrica] Allergy Unknown Verified 11/28/16 18:31 propoxyphene [From Darvon] Allergy Unknown Verified 11/28/16 18:21 psyllium Allergy Unknown Verified 11/28/16 18:21 Quinolones Allergy Unknown Verified 11/28/16 18:21 shellfish derived [Shellfish] Allergy Anaphylaxis Verified 11/28/16 18:21 soap Allergy Itching Verified 11/28/16 18:21 strawberry Allergy Rash/Hives Verified 11/28/16 18:21 Sulfa (Sulfonamide Allergy Anaphylaxis Verified 11/28/16 18:21 Antibiotics) Tetanus Vaccines and Toxoid Allergy Anaphylaxis Verified 11/28/16 18:21 wheat Allergy Unknown Verified 11/28/16 18:21 morphine AdvReac Mental Verified 11/28/16 18:21 Confusion detergent Allergy Itching Uncoded 11/28/16 18:21 jalapeno peppers Allergy Anaphylaxis Uncoded 11/28/16 18:21 spandex Allergy Unknown Uncoded 11/28/16 18:02 zucchini Allergy Unknown Uncoded 11/28/16 18:02 Physical Exam Vitals: Vital Signs Temp Pulse Resp BP Pulse Ox 11/30/16 08:00 98.1 F 78 16 157/56 96 11/30/16 01:25 97.9 F 69 16 130/69 93 L 11/30/16 00:00 16 11/29/16 20:30 97.6 F 86 16 132/68 96 11/29/16 15:00 98.6 F 73 17 130/70 97 Intake and Output 11/29/16 11/30/16 11/30/16 22:59 06:59 14:59 Intake Total 200 400 Balance 200 400 Intake: Intake, IV Titration 400 Amount Sodium Chloride 0.9% 1, 400 000 ml @ 50 mls/hr IV . Q20H [facility] Rx#:[id number] Oral 200 Other: Voiding Method Toilet # Voids 1 3 GENERAL: This is a 81-year-old female in no apparent distress at the time of my examination. HEENT: Head is atraumatic, normocephalic. Pupils are equal, round. Sclerae anicteric. Conjunctivae are clear. Mucous membranes of the mouth are moist. Neck is supple. There is no jugular venous distention. No carotid bruit is heard. LUNGS: Clear to auscultation no wheezes, rales or rhonchi. Mild chest wall tenderness is noted on palpation, none with deep breathing. HEART: Regular rate and rhythm without murmurs, rubs or gallops. S1 and S2 heard. ABDOMEN: Soft, nontender. Bowel sounds are heard. No organomegaly noted. EXTREMITIES: 2+ peripheral pulses with no evidence of peripheral edema and no calf tenderness noted. NEUROLOGIC: Patient is awake, alert and oriented x3. Results 11/28/16 18:09 11/28/16 18:09 Current Medications Generic Name Dose Route Start Last Admin Trade Name Freq PRN Reason Stop Dose Admin Acetaminophen 500 mg 11/28/16 17:50 Tylenol Tab PO Q6HR PRN Fever and/ or Pain Hydrocodone Bitart/Acetaminophen 0.5 each 11/28/16 17:50 11/30/16 09:44 Bruno 5-325 PO 0.5 each Q6HR PRN Administration Pain Alprazolam 0.25 mg 11/28/16 17:45 Xanax PO Q6HR PRN Anxiety Carbamazepine 100 mg 11/28/16 22:00 11/30/16 09:46 Tegretol Chew PO 100 mg TID RIAZ Administration Diphenhydramine HCl 25 mg 11/28/16 19:15 Benadryl PO HS PRN Insomnia/Itching Escitalopram Oxalate 10 mg 11/28/16 19:30 11/30/16 09:46 Lexapro PO 10 mg DAILY RIAZ Administration Fluticasone Propionate 2 spray 11/28/16 19:15 Flonase Nasal Nichols EA NOSTRIL DAILY PRN Allergy Symptoms Furosemide 20 mg 11/28/16 19:30 11/30/16 09:46 Lasix PO 20 mg DAILY RIAZ Administration Gabapentin 300 mg 11/28/16 22:00 11/30/16 09:45 Neurontin PO 300 mg TID RIAZ Administration Heparin Sodium (Porcine) 5,000 unit 11/28/16 21:00 11/30/16 09:47 Heparin SQ 5,000 unit Q12HR RIAZ Administration Hydromorphone HCl 0.25 mg 11/28/16 17:50 11/30/16 06:36 Dilaudid Syringe IVP 0.25 mg Q6HR PRN Administration Severe Pain Sodium Chloride 1,000 mls @ 50 mls/hr 11/28/16 18:45 11/30/16 12:53 Saline 0.9% IV 50 mls/hr .Q20H RIAZ Administration Insulin Human Lispro 0 unit 11/28/16 21:00 11/30/16 11:40 Humalog SQ Not Given ACHS [facility] Protocol Levothyroxine Sodium 125 mcg 11/29/16 06:30 11/30/16 05:58 Synthroid PO 125 mcg DAILY@0630 RIAZ Administration Loratadine 10 mg 11/29/16 09:00 11/30/16 09:45 Claritin PO 10 mg DAILY RIAZ Administration Melatonin 3 mg 11/28/16 21:00 11/29/16 20:41 Melatonin PO 3 mg HS RIAZ Administration Metoprolol Tartrate 25 mg 11/28/16 21:00 11/30/16 09:46 Lopressor PO 25 mg BID RIAZ Administration Multivitamins 1 each 11/29/16 12:00 11/30/16 12:51 Theragran PO 1 each DAILY@1200 RIAZ Administration Naloxone HCl 0.2 mg 11/28/16 17:45 Narcan IV Q2M PRN Opioid Reversal Glatiramer Acetate [ 1 each 11/29/16 19:45 11/29/16 20:41 Copaxone] 20 Mg SQ 1 each DAILY RIAZ Administration Ondansetron HCl 4 mg 11/28/16 20:42 Zofran IVP Q6HR PRN Nausea And Vomiting Pantoprazole Sodium 40 mg 11/28/16 19:30 11/30/16 09:45 Protonix PO 40 mg AC-BID RIAZ Administration Prednisone 10 mg 11/29/16 09:00 11/30/16 09:46 PO 10 mg DAILY RIAZ Administration Pyridoxine HCl 25 mg 11/30/16 09:00 11/30/16 09:45 Vitamin B-6 PO 25 mg DAILY RIAZ Administration Tramadol HCl 50 mg 11/28/16 19:18 11/30/16 12:51 Ultram PO 50 mg Q6HR PRN Administration Pain Intake and Output 11/29/16 11/30/16 11/30/16 22:59 06:59 14:59 Intake Total 200 400 Balance 200 400 Intake: Intake, IV Titration 400 Amount Sodium Chloride 0.9% 1, 400 000 ml @ 50 mls/hr IV . Q20H [facility] Rx#:[id number] Oral 200 Other: Voiding Method Toilet # Voids 1 3 11/28/16 18:09 11/28/16 18:09 EKG Interpretations (text) EKG ordered. Will evaluate upon completion. Assessment and Plan Plan: ASSESSMENT 1. Mildly elevated troponin 2. Essential hypertension 3. Left humerus fracture PLAN Troponin elevation is of unclear clinical significance with no pattern suggestive of an acute coronary event. The patient is asymptomatic denies chest pain. Continue current medical management. The patient can follow-up with Dr. Paris as an outpatient once her shoulder has healed in approximately 4- 6 weeks. At that time he can undergo further cardiac evaluation. Nurse Practitioner note has been reviewed, I agree with a documented findings and plan of care. Patient was seen and examined.
[2016-11-30] MEDS: Glatiramer Acetate [Copaxone] 20 MG SQ SCH (15:54)
--- NOTE | 2016-11-30 16:11 | PN ---
PROGRESS NOTE DATE OF SERVICE: 11/29/2016 INTERVAL HISTORY: This 81-year-old woman was admitted with fall and left hip femoral fracture also had scalp laceration. Patient troponins elevated. PAST MEDICAL HISTORY: Reviewed. REVIEW OF SYSTEMS: CARDIOVASCULAR: No angina. RESPIRATORY: As mentioned earlier. GI no nausea or vomiting. no dysuria. Nervous system: No numbness or weakness. Allergy/Immunology: No asthma or hayfever. CURRENT MEDICATIONS: Reviewed and include: 1. Tylenol. 2. [place]. 3. Benadryl. 4. Lexapro. 5. Neurontin. 6. Dilaudid. 7. Synthroid. 8. Claritin. 9. Lopressor. 10.Narcan. 11.Zofran. 12.Protonix. 13.Prednisone. 14.Ultram. 15.Doses noted. PHYSICAL EXAM: Patient is alert, oriented times three. The pulse is 73, blood pressure 137/77, respirations 17, temp 98.7, pulse ox 97% on room air. HEENT: Conjunctivae normal. Neck: No jugular venous distention. Cardiovascular : S1, S2 muffled. Respiratory: Breath sounds diminished at the bases. A few scattered rhonchi and crackles. ABDOMEN: Soft, nontender. No mass palpable. Central nervous system: Diffusely weak. Examination of left arm status post . Central nervous system: No focal deficits. LABS: Accu-Cheks noted. UA noted. WBC 15.6. ASSESSMENT: 1. Fall and left humerus fracture. 2. Left frontal scalp hematoma and laceration. 3. History of multiple sclerosis. 4. History of hypertension. 5. Hypothyroidism. 6. Increased troponin elevated, CK possible acute abnormalities present from labs elsewhere. 7. Trigeminal neuralgia history. 8. Troponin 0.05 indeterminate. 9. History of multiple sclerosis. 10.History of cellulitis. 11.History of gout. 12.History of recent shortness of breath. 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 14.Gait dysfunction. RECOMMENDATIONS AND DISCUSSION: Recommend to continue current management and continue symptomatic treatment. Otherwise at this time I recommend PT/OT evaluation. Possible ECF rehab. Continue the current medications. Repeat labs. Cardiology evaluation. Prognosis guarded because of multiple complex medical issues. Pain medications. Further recommendations to follow. MMODL / IJN: [id number] / MTDD
--- NOTE | 2016-11-30 16:29 | PN ---
PROGRESS NOTE DATE OF SERVICE: 11/30/2016 This 81-year-old woman who was admitted after a left humerus fracture also had multiple other medical problems, including possible rhabdomyolysis and elevated troponin. Patient is being closely monitored. No chest pain. No palpitations. Patient also has gait dysfunction. Patient apparently had 8 falls last month. The patient also has multiple sclerosis and other multiple complicated medical issues. No shortness of breath. PHYSICAL EXAMINATION: Alert and oriented x3. Pulse 86, blood pressure 130/68, respiration 16, temperature 97.2, pulse ox 97% on room air. HEENT: Conjunctivae normal. NECK: No jugular venous distention. CARDIOVASCULAR: S1, S2 muffled. RESPIRATORY: Breath sounds diminished at the bases. A few scattered rhonchi. No crackles. ABDOMEN: Soft, nontender. LEGS: No edema. No swelling. Left humerus fracture. NERVOUS SYSTEM: Diffusely weak and wasting. LABS: WBC 15.6, hemoglobin 9.2. Other labs are noted. ASSESSMENT: 1. Fall and left humerus fracture. 2. Left frontal scalp laceration. 3. History of multiple sclerosis with history of falls and high risk of falls. 4. History of hypertension. 5. Hypothyroidism. 6. Indeterminate troponins. 7. Elevated creatine kinase; possible acute rhabdomyolysis from the fall. 8. Trigeminal neuralgia history. 9. History of multiple sclerosis. 10.History of cellulitis. 11.History of gout. 12.History of recent shortness of breath. 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 14.Gait dysfunction. RECOMMENDATIONS AND DISCUSSION: In this 81-year-old woman who presented with multiple complex medical issues, I would recommend continuing with current medications. Continue symptomatic treatment. Continue pain management. Recommend p.r.n. medication, including IV pain medications. DVT prophylaxis. Continue the rest of the medications. PT/OT evaluation. The patient has a high risk of falls. Patient lives alone by herself. I would recommend that clinical social worker/casework manager work on the social aspects as well as other issues. It seems like the patient will require ECF rehab. Patient will definitely require more than 2 nights' inpatient hospital stay. Prognosis guarded. MMODL / IJN: [id number] /
[2016-11-30 16:56] LABS: Glucose,Whole Blood 133 mg/dL (75-99)
[2016-11-30] MEDS ORDERED: PATIENTS OWN MED SQ SCH (20:00)
[2016-11-30 20:41] LABS: Glucose,Whole Blood 126 mg/dL (75-99)
[2016-11-30] MEDS: MELATONIN 3 MG TABLET PO SCH (20:48)
[2016-12-01] MEDS: traMADol 50 MG TAB PO PRN ×2 (03:18→13:45)
[2016-12-01] MEDS: LEVOTHYROXINE 125 MCG TAB PO SCH (05:29)
[2016-12-01 07:01] LABS: Glucose,Whole Blood 107 mg/dL (75-99)
[2016-12-01 07:09] VITALS: PULSE 66
[2016-12-01] MEDS: INSULIN LISPRO (humaLOG) 300 UNIT/3 ML VIAL SQ SCH ×2 (07:36→12:11)
[2016-12-01] MEDS: PANTOPRAZOLE 40 MG TABLET PO SCH (07:59)
[2016-12-01] MEDS: FUROSEMIDE 20 MG TAB PO SCH (08:02)
[2016-12-01] MEDS: ESCITALOPRAM 10 MG TAB PO SCH (08:02)
[2016-12-01] MEDS: HEPARIN SODIUM,PORCINE 5,000 UNIT/ML 1 ML VIAL SQ SCH (08:03)
[2016-12-01] MEDS: GABAPENTIN 300 MG CAP PO SCH (08:03)
[2016-12-01] MEDS: LORATADINE 10 MG TAB PO SCH (08:04)
[2016-12-01] MEDS: METOPROLOL TARTRATE 25 MG TAB PO SCH (08:05)
[2016-12-01] MEDS: predniSONE 10 MG TAB PO SCH (08:06)
[2016-12-01] MEDS: PYRIDOXINE 50 MG TAB PO SCH (08:07)
--- NOTE | 2016-12-01 08:41 | P.PN ---
Progress Note - Text Patient is a very pleasant 81-year-old female who is seen and examined at the bedside for follow-up evaluation for a left humerus fracture and left hip pain. Patient has significant medical diagnoses including multiple sclerosis. She states she has sustained multiple falls over the years. Since being seen and examined yesterday, her symptoms have not significantly changed. She continues to deny significant left hip pain. She has been able to ambulate to the restroom with assistance without significant difficulty. She has not had an exacerbation of left hip pain while ambulating. Her most significant symptom is her ongoing left upper extremity pain at the left humerus fracture site. She has kept a sling intact to the left upper extremity. She has remained nonweightbearing on the left upper extremity. Patient was initially injured on 11/28/2016 after she states she walked out of her house to walk the dog. She states tripped, fell, hit her head and was unable to get up approximately 12 hours. She was transferred to the [facility] for further evaluation treatment. At that time she was found to have a left proximal humerus fracture and left frontal wound as well as elevated CK and troponin levels. Head wound was closed prior to transfer. There was also concern for rhabdomyolysis. She was transferred to [facility] for further evaluation and treatment. While being transferred to [facility] she also complained of left-sided hip pain. X-rays were taken of the left hip while here at [facility]. Repeat labs were also taken which continued to show elevated CK-MB and troponin. She does have history of previous left intertrochanteric hip fracture with intramedullary nail and plate fixation. She is awake, alert, oriented 3. Imaging of the left upper extremity taken at [facility] has been loaded into synapse. She is hoping to shower today. She has been examined by cardiology. Physical Exam: Patient is awake, alert, and oriented 3 Vital signs stable Good chest excursion with deep inspiration and expiration Abdomen soft nontender No signs or symptoms of DVT; no calf pain Left upper extremity currently placed in a sling Active range of motion left fingers, thumb and wrist without significant difficulty Left shoulder is not put through active or passive range of motion Pain with palpation over the left proximal humerus Evidence of some dried blood over the left side of the head Evidence of a well closed left scalp laceration measuring approximately 7.5 cm No evidence of active drainage over left head wound Adequate range of motion bilateral lower extremities without significant difficulty No pain with internal and external rotation of the bilateral hips Dorsiflexion and plantarflexion positive sustained bilateral lower extremities Patient is able to move lower extremities to active range of motion without significant difficulty Pertinent studies: X-rays of the left hip: Nondisplaced fracture of the subcapital region of the left hip is not excluded; evidence of left hip pain and lateral plate appears to be in good position with no evidence of displaced fracture X-rays of the left upper extremity taken outside facility at [facility]: Evidence of 2 part minimally displaced left proximal humerus fracture Assessment: Left proximal humerus fracture Status post fall Left hip pain Elevated CK-MB and troponin Open head wound closed at [facility] Plan: 1. After further evaluation of the patient, reviewing imaging, and physical examination, we are not currently planning for surgical intervention in regards to her left proximal humerus fracture or left hip pain. We will continue with conservative treatment. She is not currently complaining of any hip pain. She' s been able to ambulate to the restroom with assistance without significant difficulty. She states again at the bedside her left hip pain has been ongoing without significant change following her recent fall. She has active range of motion with the left hip without significant difficulty. She has no exacerbation of pain with passive motion of the left hip. In regards to her left proximal humerus fracture, patient will continue to be nonweightbearing left upper extremity and will continue to keep left sling intact for the left upper extremity. She does have evidence of a 2 part minimally displaced left proximal humerus fracture that does not require acute surgical intervention. We will continue with conservative treatment for her left proximal humerus fracture. She may remove the elbow from the sling to work on gentle range of motion. She should avoid lifting and other activities of the left upper extremity. She should remain nonweightbearing with the left upper extremity. At this time, patient is clear for discharge from an orthopedic standpoint. At discharge, patient will plan to follow-up in the outpatient setting for further evaluation for her left proximal humerus fracture left hip fracture in approximately 7 days. 2. Medicine will continue following the patient for other significant medical diagnoses including current increased CK-MB and troponin; consultation has been performed by cardiology 3. Following discharge, patient may follow-up with Gianfranco Arriola PA-C or Dr. Alan Ceballos at [facility] in approximately 7 days for further evaluation
[2016-12-01 11:02] LABS: Basophils # (A) 0.1 k/uL (0-0.2); Basophils % (A) 1 %; CH 30.4; CHCM 31.6; Eosinophils # (A) 0.4 k/uL (0-0.7); Eosinophils % (A) 4 %; HCT 24.1 % (34.0-46.0); HDW 2.24; Luc # (Auto) 0.19; Luc % (Auto) 2; Lymphocytes # (A) 1.2 k/uL (1.0-4.8); Lymphocytes % (A) 12 %; MCH 30.9 pg (25.0-35.0); MCHC 31.9 g/dL (31.0-37.0); MCV 96.8 fL (80.0-100.0); Mean Platelet Volume 6.9; Monocytes # (A) 0.5 k/uL (0-1.0); Monocytes % (A) 5 %; Neutrophils # (A) 7.5 k/uL (1.3-7.7); Neutrophils % (A) 76 %; RBC 2.49 m/uL (3.80-5.40); RDW 13.6 % (11.5-15.5); WBC 9.8 k/uL (3.8-10.6); WBC (Perox) 10.38
[2016-12-01 11:06] LABS: Anion Gap 9 mmol/L; Blood Urea Nitrogen 9 mg/dL (7-17); Calcium 8.4 mg/dL (8.4-10.2); Carbon Dioxide 26 mmol/L (22-30); Chloride 103 mmol/L (98-107); Glucose 113 mg/dL (74-99); Non-African American GFR(MDRD) >60 (>60 ml/min/1.73 sqM); Sodium 138 mmol/L (137-145)
--- NOTE | 2016-12-01 11:10 | P.DS ---
Providers Date of admission: 11/28/16 17:25 Attending physician: Graham Alvarado Consults: 11/28/16 18:02 Consult Physician Routine Consulting Provider: Carlos Ceballos Consult Reason/Comments: LEFT HUMERAL NECK FRACTURE/LEFT HIP PAIN Do you want consulting provider notified?: Yes 11/28/16 18:06 Consult Physician Routine Consulting Provider: Silverio Scott Consult Reason/Comments: FALL/TRAUMA Do you want consulting provider notified?: Yes [facility] Course: This 81-year-old woman with a past medical history multiple medical problems was admitted with fall and the left humerus fracture. The patient was being followed by Dr. Sha Jones in the outpatient setting. Patient also had a left frontal scalp lacerations. Patient also had long-standing history of multiple sclerosis with the multiple falls during the recent month. The patient apparently had up to 8 falls in a month. Patient also complaining of left hip pain. There was no evidence of fracture hip at this time. Orthopedics saw the patient. Recommended conservative plan of management. Please see orthopedics notes for further details. Patient also had gait dysfunction. Patient be discharged in a stable condition with guarded prognosis to [facility] for continued rehabilitation for safety reasons. On exam vitals stable. Cardio S1 and S2 normal. Respiratory system clear to auscultation. Abdomen soft nontender. Left arm status post fracture in a sling. Patient be discharged as mentioned earlier in a stable condition with guarded prognosis. Total time taken 35 minutes. Final diagnosis 1. Fall and left humerus fracture. 2. Left frontal scalp laceration. 3. History multiple multiple sclerosis with a history of falls and high risk of falls. 4. History hypertension. 5. Hypothyroidism. 6. Indeterminate troponins. 7. Elevated CPK Ganis possible acute rhabdomyolysis from fall. 8. Tylenol neurology history. 9. History of multiple sclerosis. 10. History of cellulitis. 11. History of gout. 12. History of recent shortness of breath. 13. History of a central pontine myelolysis. 14. Gait dysfunction. Plan - Discharge Summary New Discharge Prescriptions: New HYDROcodone/APAP 5-325MG [[place] 5-325] 0.5 each PO Q6HR PRN #20 tab PRN Reason: Pain Melatonin 3 mg PO HS PRN tab PRN Reason: Insomnia Continue Metoprolol Tartrate [Lopressor] 25 mg PO BID Furosemide [Lasix] 20 mg PO DAILY Escitalopram [Lexapro] 10 mg PO DAILY Pantoprazole Sodium [Protonix] 40 mg PO BID predniSONE 10 mg PO DAILY PRN PRN Reason: See Comments traMADol HCL [Ultram] 50 mg PO Q6HR PRN PRN Reason: Pain Potassium Chloride ER [K-Dur 10] 10 meq PO DAILY Levothyroxine Sodium [Synthroid] 125 mcg PO DAILY Fluticasone Nasal [place] [Flonase Nasal [place]] 2 spr EA NOSTRIL DAILY PRN PRN Reason: Allergy Symptoms carBAMazepine CHEW [TEGretol Chew] 100 mg PO TID Pyridoxine [Vitamin B-6] 25 mg PO DAILY Glatiramer Acetate [Copaxone] 20 mg SQ DAILY diphenhydrAMINE HCL [Benadryl] 25 mg PO HS PRN PRN Reason: Insomnia/Itching Multivitamins, Thera [Multivitamin (formulary)] 1 tab PO DAILY Gabapentin [Neurontin] 300 mg PO TID Loratadine [Claritin] 10 mg PO DAILY EPINEPHrine [Epipen 2-Hawk] 0.3 mg IM ONCE PRN PRN Reason: Anaphylaxis Discharge Medication List EPINEPHrine [Epipen 2-[place]awk] 0.3 mg IM ONCE PRN 11/28/16 [History] Escitalopram [Lexapro] 10 mg PO DAILY 11/28/16 [History] Fluticasone Nasal [place] [Flonase Nasal [place]] 2 spr EA NOSTRIL DAILY PRN [History] Furosemide [Lasix] 20 mg PO DAILY 11/28/16 [History] Gabapentin [Neurontin] 300 mg PO TID 11/28/16 [History] Glatiramer Acetate [Copaxone] 20 mg SQ DAILY 11/28/16 [History] Levothyroxine Sodium [Synthroid] 125 mcg PO DAILY 11/28/16 [History] Loratadine [Claritin] 10 mg PO DAILY 11/28/16 [History] Metoprolol Tartrate [Lopressor] 25 mg PO BID 11/28/16 [History] Multivitamins, Thera [Multivitamin (formulary)] 1 tab PO DAILY 11/28/16 [History ] Pantoprazole Sodium [Protonix] 40 mg PO BID 11/28/16 [History] Potassium Chloride ER [K-Dur 10] 10 meq PO DAILY 11/28/16 [History] Pyridoxine [Vitamin B-6] 25 mg PO DAILY 11/28/16 [History] carBAMazepine CHEW [TEGretol Chew] 100 mg PO TID 11/28/16 [History] diphenhydrAMINE HCL [Benadryl] 25 mg PO HS PRN 11/28/16 [History] predniSONE 10 mg PO DAILY PRN 11/28/16 [History] traMADol HCL [Ultram] 50 mg PO Q6HR PRN 11/28/16 [History] HYDROcodone/APAP 5-325MG [[place] 5-325] 0.5 each PO Q6HR PRN #20 tab 12/01/16 [Rx ] Melatonin 3 mg PO HS PRN tab 12/01/16 [Rx] Follow up Appointment(s)/Referral(s): Gianfranco Arriola, VINCE [PHYSICIAN CORRESPONDENT] - 1 Week (Patient may follow-up with Gianfranco Arriola PA-C or Dr. Alan Ceballos at [facility] in 1 week following discharge. ) Activity/Diet/Wound Care/Special Instructions: 1. Keep sling intact over the left upper extremity at all times except while removing elbow to put through gentle range of motion 2. Remain nonweightbearing left upper extremity 3. May weight-bear to tolerance on the left lower extremity
[2016-12-01 11:14] LABS: HGB 7.7 gm/dL (11.4-16.0)
[2016-12-01 11:18] LABS: Potassium 3.8 mmol/L (3.5-5.1)
[2016-12-01 11:25] VITALS: BP 139/60; TEMP 97.8
[2016-12-01 11:42] LABS: Glucose,Whole Blood 124 mg/dL (75-99)
[2016-12-01] MEDS: SODIUM CHLORIDE 0.9% 1,000 ML IV SCH (12:12)
[2016-12-01] MEDS: MULTIVITAMINS, THERA 1 EACH TAB PO SCH (13:45)
[2016-12-01] MEDS: HYDROcodone/APAP 5-325MG 1 EACH TAB PO PRN (16:45)
== END 2016-12-01 17:03 | disposition home or self-care (01) | DRG 563 ==
LOC: 3SUR 17:25
PROVIDERS: ADMIT Hospitalist; ATTEND Hospitalist
DX: S42.212A Unspecified displaced fracture of surgical neck of left humerus, initial encounter for closed fracture (principal); G35 Multiple sclerosis; R45.851 Suicidal ideations; I48.0 Paroxysmal atrial fibrillation; M62.82 Rhabdomyolysis; I10 Essential (primary) hypertension; E03.9 Hypothyroidism, unspecified; M10.9 Gout, unspecified; G89.29 Other chronic pain; R29.6 Repeated falls; J45.909 Unspecified asthma, uncomplicated; S01.01XA Laceration without foreign body of scalp, initial encounter; G50.0 Trigeminal neuralgia; K21.9 Gastro-esophageal reflux disease without esophagitis; M19.90 Unspecified osteoarthritis, unspecified site; Z79.899 Other long term (current) drug therapy; Z96.653 Presence of artificial knee joint, bilateral; Z91.81 History of falling; W01.0XXA Fall on same level from slipping, tripping and stumbling without subsequent striking against object, initial encounter; Z88.5 Allergy status to narcotic agent; Z91.040 Latex allergy status; Z88.0 Allergy status to penicillin; Z88.2 Allergy status to sulfonamides; Z88.7 Allergy status to serum and vaccine; Z91.018 Allergy to other foods; Z91.013 Allergy to seafood
CPT/HCPCS: 71010; 73502; 80048; 80053; 81001; 82550; 82553; 83036; 84484; 85025; 87077; 87086; 87186; 93005; 93306; 94760

== ENCOUNTER 2018-09-28 16:57 | Inpatient (IN) | payer MEDICARE ==
[2018-09-28 21:03] LABS: Creatine Kinase MB 5.3 ng/mL (0.0-2.4)
[2018-09-28] MEDS ORDERED: FLUTICASONE 50MCG/SPRAY NASAL 16GM EA NOSTRIL PRN (21:08)
[2018-09-28 21:20] LABS: Troponin I 2.3 ng/mL (0.000-0.034)
[2018-09-28] MEDS: METOPROLOL TARTRATE 25 MG TAB PO SCH (21:40)
[2018-09-28] MEDS: SODIUM CHLORIDE 0.9% 1,000 ML IV SCH (21:42)
[2018-09-28] MEDS: GABAPENTIN 300 MG CAP PO SCH (21:42)
[2018-09-28] MEDS ORDERED: traMADol 50 MG TAB PO SCH (22:00)
[2018-09-28] MEDS: NITROGLYCERIN OINT 1 INCH/GM PACKET TOPICAL SCH (23:18)
--- NOTE | 2018-09-29 00:25 | P.HPIM ---
History of Present Illness H&P Date: 09/28/18 Chief Complaint: Exertional chest pain Patient is a 82-year-old female with a known history of trigeminal neuralgia, GERD, allergic asthma, history of CVA/TIA, hypothyroidism and history of atrial fibrillation follows with initially presents to [facility] with complaints of chest pain. Patient was seen by neurology in the clinic on Wednesday where she had exertional dyspnea while walking to the clinic. Patient was suggested to go to ER at the time. Patient has been having exertional dyspnea and chest pain for the past 2 months. Chest pain is mainly left retrosternal and across the chest. Radiates down along the left arm. Patient has been sweating recently. Chest pain is associated with shortness of breath. No associated nausea vomiting. Patient does have leg swelling on and off. Patient denied any history of stent placement in the past. Patient is not on any anticoagulation at home. At [facility] patient was found to have elevated troponin level 2.212 BNP 2399 D-dimer 1.1 not elevated Chest x-ray was negative and EKG showed sinus rhythm with no ST-T wave elevation. Patient was placed on Nitropaste. Patient was also given therapeutic dose of Lovenox and transferred to [facility] for further evaluation by cardiology. Patient denies any chest pain currently. Review of Systems Constitutional: Patient denies any fever or chills . No generalized weakness or weight loss. Abdomen: Patient denied nausea vomiting and diarrhea and abdominal pain. Cardiovascular: Chest pain associated with shortness of breath.. no palpitations. Respiratory: patient denied any cough is from production. No shortness of breath Neurologic: Patient denied any numbness or tingling headache. Musculoskeletal: Patient denies any complaints of joint swelling or deformity. Skin: Negative Psychiatric: Depression Endocrine: No heat or cold intolerance. No recent weight gain. Genitourinary: No dysuria or hematuria. All other 14 point ROS negative except the above Past Medical History Past Medical History: Atrial Fibrillation, Asthma, Chest Pain / Angina, GERD/Reflux, Thyroid Disorder Additional Past Medical History / Comment(s): Trigeminal Neur right side. 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 knee replacement thyroid removal, Bilateral hip surgery/ repair. Past Anesthesia/Blood Transfusion Reactions: No Reported Reaction Past Psychological History: No Psychological Hx Reported Smoking Status: Never smoker Medications and Allergies Home Medications Medication Instructions Recorded Confirmed Type Escitalopram [Lexapro] 10 mg PO DAILY 11/28/16 09/28/18 History Fluticasone Nasal [place] [Flonase 2 spr EA NOSTRIL DAILY PRN 11/28/16 09/28/18 History Nasal [place]] Gabapentin [Neurontin] 300 mg PO TID 11/28/16 09/28/18 History Metoprolol Tartrate [Lopressor] 25 mg PO BID 11/28/16 09/28/18 History Pantoprazole Sodium [Protonix] 40 mg PO BID 11/28/16 09/28/18 History Potassium Chloride ER [K-Dur 10] 10 meq PO DAILY 11/28/16 09/28/18 History carBAMazepine CHEW [TEGretol Chew] 100 mg PO TID 11/28/16 09/28/18 History predniSONE 10 mg PO DAILY 11/28/16 09/28/18 History traMADol HCL [Ultram] 50 mg PO Q6HR PRN 11/28/16 09/28/18 History Cholecalciferol [Vitamin D3 (25 1,000 unit PO DAILY 09/28/18 09/28/18 History Mcg = 1000 Iu)] Levothyroxine Sodium [Synthroid] 150 mcg PO DAILY 09/28/18 09/28/18 History Allergies Allergy/AdvReac Type Severity Reaction Status Date / Time adhesive tape Allergy Unknown Verified 09/28/18 20:48 avocado Allergy Anaphylaxis Verified 09/28/18 20:48 banana Allergy Anaphylaxis Verified 09/28/18 20:48 bee venom protein (honey bee) Allergy Unknown Verified 09/28/18 20:48 coconut Allergy Anaphylaxis Verified 09/28/18 20:48 codeine Allergy Unknown Verified 09/28/18 20:48 Iodine and Iodide Containing Allergy Anaphylaxis Verified 09/28/18 20:48 Produc latex Allergy Unknown Verified 09/28/18 20:48 nut - unspecified Allergy Anaphylaxis Verified 09/28/18 20:48 ofloxacin [From Floxin] Allergy Unknown Verified 09/28/18 20:48 peach Allergy Itching Verified 09/28/18 20:48 Penicillins Allergy Anaphylaxis Verified 09/28/18 20:48 pregabalin [From Lyrica] Allergy Unknown Verified 09/28/18 20:48 propoxyphene [From Darvon] Allergy Unknown Verified 09/28/18 20:48 psyllium Allergy Unknown Verified 09/28/18 20:48 Quinolones Allergy Unknown Verified 09/28/18 20:48 shellfish derived [Shellfish] Allergy Anaphylaxis Verified 09/28/18 20:48 soap Allergy Itching Verified 09/28/18 20:48 strawberry Allergy Rash/Hives Verified 09/28/18 20:48 Sulfa (Sulfonamide Allergy Anaphylaxis Verified 09/28/18 20:48 Antibiotics) Tetanus Vaccines and Toxoid Allergy Anaphylaxis Verified 09/28/18 20:48 wheat Allergy Unknown Verified 09/28/18 20:48 morphine AdvReac Mental Verified 09/28/18 20:48 Confusion detergent Allergy Itching Uncoded 11/28/16 18:21 [email or web address] peppers Allergy Anaphylaxis Uncoded 11/28/16 18:21 spandex Allergy Unknown Uncoded 11/28/16 18:02 [email or web address] Allergy Unknown Uncoded 11/28/16 18:02 Physical Exam Vitals: Vital Signs Temp Pulse Resp BP Pulse Ox 09/28/18 23:08 63 16 128/64 96 09/28/18 20:00 97.9 F 65 16 125/66 98 Intake and Output 09/28/18 09/28/18 09/29/18 14:59 22:59 06:59 Other: Weight 72.575 kg PHYSICAL EXAMINATION: Patient is lying in the bed comfortably, no acute distress, awake alert and oriented.. HEENT: Normocephalic. Neck is supple. Pupils reactive. Conjunctivae are red [id number] crusting at the side of the eyes. Nostrils clear. Oral cavity is moist. Ears reveal no drainage. Neck reveals no JVD, carotid bruits, or thyromegaly. CHEST EXAMINATION: Trachea is central. Symmetrical expansion. Bibasilar diminished air entry. No wheezing or crackles. Lung gamino clear to auscultation and percussion. CARDIAC: Normal S1, S2 with no gallops. No murmurs ABDOMEN: Soft. Bowel sounds normal. No organomegaly. No abdominal bruits. Extremities: trace edema. No clubbing or cyanosis Neurologically awake, alert, oriented x3 with well-coordinated movements. No focal deficits noted Skin: No rash or skin lesions. Psychiatric: Coperative. Nonsuicidal at this time. Depressed. Musculoskeletal: No joint swelling or deformity. Normal range of motion. Results Labs: Abnormal Lab Results - Last 24 Hours (Table) 09/28/18 Range/Units 20:15 CK-MB (CK-2) 5.3 H (0.0-2.4) ng/mL Troponin I 2.300 H* (0.000-0.034) ng/mL Thrombosis Risk Factor Assmnt - DVT/VTE Prophylaxis DVT/VTE Prophylaxis: Pharmacologic Prophylaxis ordered - Choose All That Apply Each Factor Represents 1 point: Acute MO Other Risk Factors: Yes Each Risk Factor Represents 3 Points: Age 75 years or older Other congenital or acquired thrombophilia - If yes, enter type in comment: No Thrombosis Risk Factor Assessment Total Risk Factor Score: 4 Thrombosis Risk Factor Assessment Level: Moderate Risk Assessment and Plan Assessment: Acute non-STEMI with elevated Troponin. Exertional shortness of breath and chest pain Paroxysmal atrial fibrillation. Currently in sinus rhythm. Was not on anticoagulation at home Asthma allergic GERD Hypothyroidism Trigeminal neuralgia History of TIA History of back surgeries and multiple fractures Plan: Patient will be continued on telemetry monitoring. Serial EKG and troponins. Initial troponin was 2. 2 1. Patient was given a dose of Lovenox at [facility]. Currently on Nitropaste. No complaints of chest pain. Continue with home medications and follow-up closely. Cardiology was consulted. Patient may need cardiac catheterization. Time with Patient: Greater than 30
[2018-09-29] MEDS: traMADol 50 MG TAB PO PRN ×3 (02:42→22:38)
[2018-09-29 03:02] LABS: HCT 36.7 % (34.0-46.0); HGB 11.9 gm/dL (11.4-16.0); MCH 31.8 pg (25.0-35.0); MCHC 32.4 g/dL (31.0-37.0); MCV 98.4 fL (80.0-100.0); Mean Platelet Volume 7.3; Platelet Count 252 k/uL (150-450); RBC 3.73 m/uL (3.80-5.40); RDW 13.8 % (11.5-15.5); WBC 8.9 k/uL (3.8-10.6)
[2018-09-29 03:13] LABS: Calcium 8.5 mg/dL (8.4-10.2); Potassium 3.8 mmol/L (3.5-5.1)
[2018-09-29] MEDS: PANTOPRAZOLE 40 MG TABLET PO SCH ×2 (06:20→17:44)
[2018-09-29] MEDS: NITROGLYCERIN OINT 1 INCH/GM PACKET TOPICAL SCH ×4 (06:20→22:34)
[2018-09-29] MEDS: LEVOTHYROXINE 75 MCG TAB PO SCH (06:20)
--- NOTE | 2018-09-29 08:44 | XR ---
EXAMINATION TYPE: XR chest 1V DATE OF EXAM: 09/29/2018 COMPARISON: 11/28/2016 HISTORY: Chest pain TECHNIQUE: Single frontal view of the chest is obtained. FINDINGS: Arthropathy of the shoulders. No overt failure. Heart size stable. Atherosclerotic change aorta. Subsegmental changes both lung bases. No pleural effusion or pneumothorax. IMPRESSION: Basilar atelectasis favored over pneumonia. Correlate clinically.
[2018-09-29] MEDS ORDERED: predniSONE 10 MG TAB PO SCH (09:00)
[2018-09-29] MEDS: POTASSIUM CHLORIDE ER 10 MEQ TAB.ER.PRT PO SCH (09:47)
[2018-09-29] MEDS: GABAPENTIN 300 MG CAP PO SCH ×3 (09:47→22:33)
[2018-09-29] MEDS: METOPROLOL TARTRATE 25 MG TAB PO SCH ×2 (09:47→22:33)
[2018-09-29] MEDS: CHOLECALCIFEROL 1,000 UNIT TAB PO SCH (09:47)
[2018-09-29] MEDS: ESCITALOPRAM 10 MG TAB PO SCH (09:47)
--- NOTE | 2018-09-29 10:27 | P.CRDCN ---
History of Present Illness Consult date: 09/29/18 Requesting physician: Nasim Waterman Consult reason: chest pain Chief complaint: Chest pain History of present illness: This is an 82-year-old female who follows with Dr. Fitzpatrick in the office [facility], she has a history of paroxysmal atrial fibrillation, trigeminal neuralgia, GERD, prior TIA. She is a nonsmoker, no history of hypertension, nondiabetic, no hyperlipidemia. She presented to [facility] with symptoms of exertional chest discomfort which she states she's been having off and on for the past one to 2 months, worsening in intensity and frequency. She states that she would sit down and rest, and symptoms would subside, past few days, she states that even resisting longer each time, she even tried to take some medication for gas, which seem to give her some relief in symptoms. EKG shows normal sinus rhythm with a left bundle-branch block pattern. Blood pressure on arrival to [facility] 148/78, heart rate in the 60s, afebrile. BNP level at [facility] 2399, sodium 144, potassium 3.8, chloride 104, CO2 31, BUN 12, creatinine 1.0, troponin 2.2, d-dimer 1.1 which is within normal range according to the lab draws at [facility], INR 1.0 , patient was transferred here to [facility] because of the abnormality in troponin, she did have a chest x-ray performed at [facility] which did not reveal any acute cardiopulmonary disease and there was no change from prior study. White blood cell count 10.1, hemoglobin 13, platelet count 306. EKG performed on arrival here showed a sinus bradycardia with a left bundle-branch block pattern and ST-T wave changes noted in the lateral leads. Chest x-ray was also performed on arrival here which revealed basilar atelectasis favored over pneumonia. Blood pressure 148/70 with a heart rate in the 60s, 90% on room air. White blood cell count 8.9, the globe and 11.9, platelet count 252, sodium 138, potassium 3.8, BUN 18, creatinine 0.7. Troponins performed here, 2.3, 1.7, 1.2. At the time of my examination this morning, the patient is currently chest pain-free, but she has not been up ambulating in the room or hallway much either. Patient did receive a dose of Lovenox around 4:30 in the afternoon yesterday, not currently on IV heparin. We will put the patient on an aspirin, and initiate statin. Continue beta kayla. Danial has been advised that she will need to undergo cardiac catheterization, the risks and benefits were explained to the patient in detail and she is willing to proceed. Past Medical History Past Medical History: Atrial Fibrillation, Asthma, Chest Pain / Angina, GERD/Reflux, Thyroid Disorder Additional Past Medical History / Comment(s): Trigeminal Neur right side. 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 knee replacement thyroid removal, Bilateral hip surgery/ repair. Past Anesthesia/Blood Transfusion Reactions: No Reported Reaction Past Psychological History: No Psychological Hx Reported Smoking Status: Never smoker Medications and Allergies Home Medications Medication Instructions Recorded Confirmed Type Escitalopram [Lexapro] 10 mg PO DAILY 11/28/16 09/28/18 History Fluticasone Nasal [place] [Flonase 2 spr EA NOSTRIL DAILY PRN 11/28/16 09/28/18 History Nasal [place]] Gabapentin [Neurontin] 300 mg PO TID 11/28/16 09/28/18 History Metoprolol Tartrate [Lopressor] 25 mg PO BID 11/28/16 09/28/18 History Pantoprazole Sodium [Protonix] 40 mg PO BID 11/28/16 09/28/18 History Potassium Chloride ER [K-Dur 10] 10 meq PO DAILY 11/28/16 09/28/18 History carBAMazepine CHEW [TEGretol Chew] 100 mg PO TID 11/28/16 09/28/18 History predniSONE 10 mg PO DAILY 11/28/16 09/28/18 History traMADol HCL [Ultram] 50 mg PO Q6HR PRN 11/28/16 09/28/18 History Cholecalciferol [Vitamin D3 (25 1,000 unit PO DAILY 09/28/18 09/28/18 History Mcg = 1000 Iu)] Levothyroxine Sodium [Synthroid] 150 mcg PO DAILY 09/28/18 09/28/18 History Allergies Allergy/AdvReac Type Severity Reaction Status Date / Time adhesive tape Allergy Unknown Verified 09/28/18 20:48 avocado Allergy Anaphylaxis Verified 09/28/18 20:48 banana Allergy Anaphylaxis Verified 09/28/18 20:48 bee venom protein (honey bee) Allergy Unknown Verified 09/28/18 20:48 coconut Allergy Anaphylaxis Verified 09/28/18 20:48 codeine Allergy Unknown Verified 09/28/18 20:48 Iodine and Iodide Containing Allergy Anaphylaxis Verified 09/28/18 20:48 Produc latex Allergy Unknown Verified 09/28/18 20:48 nut - unspecified Allergy Anaphylaxis Verified 09/28/18 20:48 ofloxacin [From Floxin] Allergy Unknown Verified 09/28/18 20:48 peach Allergy Itching Verified 09/28/18 20:48 Penicillins Allergy Anaphylaxis Verified 09/28/18 20:48 pregabalin [From Lyrica] Allergy Unknown Verified 09/28/18 20:48 propoxyphene [From Darvon] Allergy Unknown Verified 09/28/18 20:48 psyllium Allergy Unknown Verified 09/28/18 20:48 Quinolones Allergy Unknown Verified 09/28/18 20:48 shellfish derived [Shellfish] Allergy Anaphylaxis Verified 09/28/18 20:48 soap Allergy Itching Verified 09/28/18 20:48 strawberry Allergy Rash/Hives Verified 09/28/18 20:48 Sulfa (Sulfonamide Allergy Anaphylaxis Verified 09/28/18 20:48 Antibiotics) Tetanus Vaccines and Toxoid Allergy Anaphylaxis Verified 09/28/18 20:48 wheat Allergy Unknown Verified 09/28/18 20:48 morphine AdvReac Mental Verified 09/28/18 20:48 Confusion detergent Allergy Itching Uncoded 11/28/16 18:21 jalapeno peppers Allergy Anaphylaxis Uncoded 11/28/16 18:21 spandex Allergy Unknown Uncoded 11/28/16 18:02 zucchini Allergy Unknown Uncoded 11/28/16 18:02 Physical Exam Vitals: Vital Signs Temp Pulse Resp BP Pulse Ox 09/29/18 09:15 98.1 F 67 16 149/71 99 09/29/18 04:00 60 15 09/29/18 02:46 97.8 F 60 15 159/78 97 09/28/18 23:08 63 16 128/64 96 09/28/18 20:00 97.9 F 65 16 125/66 98 Intake and Output 09/28/18 09/29/18 09/29/18 22:59 06:59 14:59 Intake Total 400 Balance 400 Intake: Intake, IV Titration 400 Amount Sodium Chloride 0.9% 1, 400 000 ml @ 50 mls/hr IV . Q20H [facility] Rx#:[id number] Other: Voiding Method Toilet Toilet Toilet # Voids 3 Weight 72.575 kg 72.8 kg PHYSICAL EXAMINATION: GENERAL: 82-year-old female in no acute distress at the time of my examination HEENT: Head is atraumatic, normocephalic. Pupils equal, round. Sclera anicteric. Conjunctiva are clear. Mucous membranes of the mouth are moist. Neck is supple. There is no elevated jugular venous pressure. No carotid bruit is heard. HEART EXAMINATION: Heart S1, S2 normal. No murmur or gallop heard. CHEST EXAMINATION: Lungs reveal fine crackles to the bases bilaterally ABDOMEN: Soft, nontender. Bowel sounds are heard. No organomegaly noted. EXTREMITIES: 2+ peripheral pulses with no evidence of peripheral edema and no calf tenderness noted. NEUROLOGIC patient is awake, alert and oriented 3 . . Results 09/29/18 02:26 09/29/18 02:26 Cardiac Enzymes 09/28/18 09/29/18 09/29/18 Range/Units 20:15 02:26 08:10 CK-MB (CK-2) 5.3 H (0.0-2.4) ng/mL Troponin I 2.300 H* 1.700 H* 1.280 H* (0.000-0.034) ng/mL CBC 09/29/18 Range/Units 02:26 WBC 8.9 (3.8-10.6) k/uL RBC 3.73 L (3.80-5.40) m/uL Hgb 11.9 (11.4-16.0) gm/dL Hct 36.7 (34.0-46.0) % Plt Count 252 (150-450) k/uL Comprehensive Metabolic Panel 09/29/18 Range/Units 02:26 Sodium 138 (137-145) mmol/L Potassium 3.8 (3.5-5.1) mmol/L Chloride 103 (98-107) mmol/L Carbon Dioxide 26 (22-30) mmol/L BUN 18 H (7-17) mg/dL Creatinine 0.78 (0.52-1.04) mg/dL Glucose 93 (74-99) mg/dL Calcium 8.5 (8.4-10.2) mg/dL Current Medications Generic Name Dose Route Start Last Admin Trade Name Freq PRN Reason Stop Dose Admin Carbamazepine 100 mg 09/28/18 22:00 09/29/18 09:47 Tegretol Chew PO 100 mg TID RIAZ Administration Cholecalciferol 1,000 unit 09/29/18 09:00 09/29/18 09:47 Vitamin D3 (25 Mcg = 1000 Iu) PO 1,000 unit DAILY RIAZ Administration Escitalopram Oxalate 10 mg 09/29/18 09:00 09/29/18 09:47 Lexapro PO 10 mg DAILY RIAZ Administration Fluticasone Propionate 2 spray 09/28/18 21:08 Flonase Nasal [place] EA NOSTRIL DAILY PRN Allergy Symptoms Gabapentin 300 mg 09/28/18 22:00 09/29/18 09:47 Neurontin PO 300 mg TID RIAZ Administration Sodium Chloride 1,000 mls @ 50 mls/hr 09/28/18 19:45 09/28/18 21:42 Saline 0.9% IV 50 mls/hr .Q20H RIAZ Administration Levothyroxine Sodium 150 mcg 09/29/18 06:30 09/29/18 06:20 Synthroid PO 150 mcg DAILY@0630 RIAZ Administration Metoprolol Tartrate 25 mg 09/28/18 21:10 09/29/18 09:47 Lopressor PO 25 mg BID RIAZ Administration Nitroglycerin 0.5 inch 09/29/18 00:00 09/29/18 06:20 Nitro-Bid Oint TOPICAL 0.5 inch Q6HR RIAZ Administration Pantoprazole Sodium 40 mg 09/29/18 07:30 09/29/18 06:20 Protonix PO 40 mg AC-BID RIAZ Administration Potassium Chloride 10 meq 09/29/18 09:00 09/29/18 09:47 K-Dur 10 PO 10 meq DAILY RIAZ Administration Prednisone 10 mg 09/29/18 09:00 09/29/18 09:47 PO 10 mg DAILY RIAZ Administration Tramadol HCl 50 mg 09/29/18 01:20 09/29/18 09:51 Ultram PO 50 mg Q6HR PRN Administration Pain Intake and Output 09/28/18 09/29/18 09/29/18 22:59 06:59 14:59 Intake Total 400 Balance 400 Intake: Intake, IV Titration 400 Amount Sodium Chloride 0.9% 1, 400 000 ml @ 50 mls/hr IV . Q20H [facility] Rx#:[id number] Other: Voiding Method Toilet Toilet Toilet # Voids 3 Weight 72.575 kg 72.8 kg 09/29/18 02:26 09/29/18 02:26 EKG Interpretations (text) EKG shows a normal sinus rhythm with left bundle branch block pattern and ST-T wave changes noted in the lateral leads. Assessment and Plan Plan: Assessment and plan #1 symptoms of exertional chest discomfort with associated shortness of breath, suggestive of non-Q-wave myocardial infarction. Troponins 2.3, 1.7, 1.2. EKG shows normal sinus rhythm with a left bundle-branch block pattern and ST-T wave changes noted in the lateral leads. #2 hypertension #3 paroxysmal atrial fibrillation, not currently on anticoagulation #4 trigeminal neuralgia #5 history of prior TIA Plan We will obtain an echocardiogram study. We will give the patient an aspirin, she received Lovenox yesterday afternoon at 4:30 and is not currently on IV heparin drip. We will start the patient on a statin beta kayla. She has been advised to undergo cardiac catheterization. The risks and the benefits were discussed with the patient in detail, sedation/analgesia as well as necessary blot blood product administration if indicated was also discussed with the patient, patient has clear understanding and accepts the risks of the procedure, she is willing to proceed. It is noted that the patient is ALLERGIC to shellfish so we will pretreat for possible IVP dye. Further recommendations based on these findings and clinical course. DNP note has been reviewed, I agree with a documented findings and plan of care. Patient was seen and examined.
[2018-09-29] MEDS ORDERED: SODIUM CHLORIDE 0.9% 1,000 ML in EMPTY BAG 1 BAG IV ONE (11:02)
[2018-09-29] MEDS ORDERED: NITROGLYCERIN SL TABS 0.4 MG TAB SUBLINGUAL PRN (11:02)
[2018-09-29] MEDS ORDERED: ATORVASTATIN 80 MG TAB PO STA (11:02)
[2018-09-29] MEDS ORDERED: ALPRAZolam 0.25 MG TAB PO PRN (11:02)
[2018-09-29] MEDS ORDERED: ALPRAZolam 0.5 MG TAB PO PRN (11:02)
[2018-09-29] MEDS ORDERED: ASPIRIN 325 MG TAB PO STA (11:02)
[2018-09-29] MEDS: ATORVASTATIN 40 MG TAB PO SCH ×2 (11:06→11:09)
[2018-09-29] MEDS: ASPIRIN 81 MG PO SCH ×2 (11:06→11:12)
[2018-09-29] MEDS ORDERED: methylPREDNISolone SOD SUCCI 125 MG/2 ML VIAL IVP STA (11:13)
[2018-09-29] MEDS ORDERED: predniSONE 10 MG TAB PO ONE (11:15)
[2018-09-29] MEDS ORDERED: predniSONE 20 MG TAB PO SCH (11:15)
[2018-09-29] MEDS: diphenhydrAMINE 25 MG CAP PO SCH ×2 (11:26→22:33)
--- NOTE | 2018-09-29 12:51 | P.PN ---
Progress Note - Text Progress Note Date: 09/29/18 This is an addendum to the cardiology consultation dictated today. Patient has been pain-free today, continues to be pain-free at this time. She did have an anaphylaxis reaction to IVP dye in the past, we will continue to pretreat her and schedule her for the cardiac catheterization first case tomorrow morning. DNP note has been reviewed, I agree with a documented findings and plan of care. Patient was seen and examined.
[2018-09-29] MEDS ORDERED: HEPARIN SODIUM,PORCINE 5,000 UNIT/ML 1 ML VIAL IV PRN (13:00)
--- NOTE | 2018-09-29 13:16 | P.PN ---
Subjective Patient was admitted for non-ST elevation microinfarction patient will undergo cardiac catheterization today. Constitutional: Denied any fatigue denied any fever. Cardio vascular: denied any chest pain, palpitations Gastrointestinal denied any nausea vomiting Pulmonary: Denied any shortness of breath cough Neurologic denied any new focal deficits All inpatient medications were reviewed and appropriate changes in these medications as dictated in the interval history and assessment and plan. Objective - Vital Signs Vital signs: Vital Signs Temp 98.2 F 09/29/18 11:30 Pulse 62 09/29/18 11:30 Resp 16 09/29/18 11:30 BP 153/71 09/29/18 11:30 Pulse Ox 97 09/29/18 11:30 Intake & Output 09/28/18 09/29/18 09/29/18 18:59 06:59 18:59 Intake Total 400 Balance 400 Weight 72.8 kg Intake: Intake, IV Titration 400 Amount Sodium Chloride 0.9% 1, 400 000 ml @ 50 mls/hr IV . Q20H [facility] Rx#:[id number] Other: Voiding Method Toilet Toilet # Voids 3 - Exam PHYSICAL EXAMINATION: GENERAL: The patient is alert and oriented x3, not in any acute distress. Well developed, well nourished. HEENT: Pupils are round and equally reacting to light. EOMI. No scleral icterus. No conjunctival pallor. Normocephalic, atraumatic. No pharyngeal erythema. No thyromegaly. CARDIOVASCULAR: S1 and S2 present. No murmurs, rubs, or gallops. PULMONARY: Chest is clear to auscultation, no wheezing or crackles. ABDOMEN: Soft, nontender, nondistended, normoactive bowel sounds. No palpable organomegaly. MUSCULOSKELETAL: No joint swelling or deformity. EXTREMITIES: No cyanosis, clubbing, or pedal edema. NEUROLOGICAL: Gross neurological examination did not reveal any focal deficits. SKIN: No rashes. - Labs CBC & Chem 7: 09/29/18 02:26 09/29/18 02:26 Labs: Abnormal Lab Results - Last 24 Hours (Table) 09/28/18 09/29/18 09/29/18 Range/Units 20:15 02:26 02:26 RBC 3.73 L (3.80-5.40) m/uL BUN (7-17) mg/dL CK-MB (CK-2) 5.3 H (0.0-2.4) ng/mL Troponin I 2.300 H* 1.700 H* (0.000-0.034) ng/mL 09/29/18 09/29/18 Range/Units 02:26 08:10 RBC (3.80-5.40) m/uL BUN 18 H (7-17) mg/dL CK-MB (CK-2) (0.0-2.4) ng/mL Troponin I 1.280 H* (0.000-0.034) ng/mL Assessment and Plan Plan: -Acute non-ST elevation microinfarction: Patient undergo cardiac catheterization continue with antiplatelet therapies statins. Patient received Lovenox last evening -Shortness of breath exertional secondary to coronary artery disease -Proximal atrial fibrillation currently sinus rhythm not anti-correlation and accommodation patient's as per cardiology -Asthma without any acute exacerbation extent her fingers dysphagia reflux disease -Hypothyroidism -History of TIA in the past -Chronic back pain
[2018-09-29] MEDS: HEPARIN SOD,PORK IN 0.45% NACL 25,000 UNIT in 0.45% NACL 1 250ML.BAG IV SCH (14:05)
[2018-09-29] MEDS: SODIUM CHLORIDE 0.9% 1,000 ML IV SCH (14:07)
[2018-09-29 14:13] LABS: HCT 39.8 % (34.0-46.0); HGB 12.8 gm/dL (11.4-16.0); MCH 31.8 pg (25.0-35.0); MCHC 32.3 g/dL (31.0-37.0); MCV 98.5 fL (80.0-100.0); Mean Platelet Volume 7.2; Platelet Count 274 k/uL (150-450); RBC 4.04 m/uL (3.80-5.40); RDW 13.9 % (11.5-15.5); WBC 10.2 k/uL (3.8-10.6)
[2018-09-29 14:23] LABS: Partial Thromboplastin Time 27.4 sec (22.0-30.0); Prothrombin Time 10.5 sec (9.0-12.0)
[2018-09-29 15:07] LABS: Lymphocytes # (M) 0.41 k/uL (1.0-4.8); Neutrophils # (M) 9.69 k/uL (1.3-7.7); Neutrophils % (M) 95 %; Nucleated Red Blood Cells 0 /100 WBC (0-0); Total Cells Counted 100
[2018-09-29] MEDS: predniSONE 20 MG TAB PO SCH (22:34)
[2018-09-30 04:42] LABS: Basophils % (A) 0 %; Eosinophils % (A) 1 %; HCT 36.2 % (34.0-46.0); HGB 11.8 gm/dL (11.4-16.0); Lymphocytes # (A) 0.8 k/uL (1.0-4.8); Lymphocytes % (A) 10 %; MCH 31.2 pg (25.0-35.0); MCHC 32.7 g/dL (31.0-37.0); MCV 95.5 fL (80.0-100.0); Mean Platelet Volume 7.1; Monocytes # (A) 0.2 k/uL (0-1.0); Monocytes % (A) 2 %; Neutrophils # (A) 6.8 k/uL (1.3-7.7); Neutrophils % (A) 86 %; Platelet Count 249 k/uL (150-450); RBC 3.79 m/uL (3.80-5.40); RDW 13.7 % (11.5-15.5); WBC 7.8 k/uL (3.8-10.6)
[2018-09-30] MEDS: ATORVASTATIN 40 MG TAB PO SCH (06:37)
[2018-09-30] MEDS: GABAPENTIN 300 MG CAP PO SCH ×3 (06:37→21:24)
[2018-09-30] MEDS: NITROGLYCERIN OINT 1 INCH/GM PACKET TOPICAL SCH ×4 (06:37→21:24)
[2018-09-30] MEDS: POTASSIUM CHLORIDE ER 10 MEQ TAB.ER.PRT PO SCH (06:38)
[2018-09-30] MEDS: predniSONE 20 MG TAB PO SCH ×2 (06:38→21:24)
[2018-09-30] MEDS: PANTOPRAZOLE 40 MG TABLET PO SCH ×2 (06:38→16:35)
[2018-09-30] MEDS: METOPROLOL TARTRATE 25 MG TAB PO SCH ×2 (06:38→21:24)
[2018-09-30] MEDS: ESCITALOPRAM 10 MG TAB PO SCH (06:38)
[2018-09-30] MEDS: diphenhydrAMINE 25 MG CAP PO SCH ×2 (06:38→21:23)
[2018-09-30] MEDS: LEVOTHYROXINE 75 MCG TAB PO SCH (06:38)
[2018-09-30] MEDS: ASPIRIN 81 MG PO SCH (06:46)
[2018-09-30] MEDS: traMADol 50 MG TAB PO PRN ×2 (06:46→23:38)
[2018-09-30] MEDS ORDERED: fentaNYL (PF) 50 MCG/ML 2 ML AMP ONE (07:14)
[2018-09-30] MEDS ORDERED: LIDOCAINE 1% INJ 10MG/ML (20 ML MDV) ONE ×2 (07:15→08:00)
[2018-09-30] MEDS ORDERED: fentaNYL (PF) 50 MCG/ML 2 ML AMP IV ONE (07:52)
[2018-09-30] MEDS ORDERED: SODIUM CHLORIDE 0.9% 1,000 ML IV ONE (07:53)
[2018-09-30] MEDS: MIDAZOLAM PF (FBP) 2 MG/2 ML VIAL IV ONE ×2 (07:53→07:56)
[2018-09-30] MEDS ORDERED: LIDOCAINE 1% INJ 10MG/ML (20 ML MDV) SQ ONE (07:55)
[2018-09-30] MEDS ORDERED: IOPAMIDOL-370 125ML BTL INJ ONE (08:57)
[2018-09-30] MEDS ORDERED: IOPAMIDOL-370 100ML BTL INJ ONE (09:26)
--- NOTE | 2018-09-30 10:01 | CC ---
CARDIAC CATHETERIZATION REPORT INDICATION: Non ST-segment elevation CA. PROCEDURE NOTE: After obtaining informed consent, left heart catheterization and coronary angiogram are performed via the right femoral artery using standard Ying catheters. The right coronary artery could not be engaged selectively by me using a Boni posterior jony Amplatz right. Subsequently, Dr. Rojas has tried to engage the right and found that the right is actually coming from the left coronary cusp. The only subselective image we got showed that the vessel was opened. It is a large dominant vessel and we did not see any significant disease. FINDINGS: 1. HEMODYNAMICS: Left ventricular end-diastolic pressure is 12 to 14 mm. There is no significant gradient across the aortic valve. 2. LEFT VENTRICULOGRAM: Left ventriculogram was not performed. 3. ANGIOGRAPHIC DATA: LEFT MAIN CORONARY ARTERY: Left main coronary artery appears calcified but is free of significant stenosis. Divides into left anterior descending coronary artery and circumflex coronary artery. Ostial portion of the circumflex coronary artery shows a 95% stenosis lad shows a moderate area of stenosis in its midportion. It seems to be a 50-60 percent stenosis. Right coronary artery is a large dominant vessel. The sub selective images obtained so far did not show significant stenosis. PLAN: I am going to consult cardiothoracic surgeon to as that the circumflex coronary artery lesion involves the ostium and Dr. Rojas does not think angioplasty is an option. If this surgeon does not think surgery is an option, then we might bring her back and do a high risk angioplasty. MMODL / IJN: [id number] /
--- NOTE | 2018-09-30 11:12 | ECHOF ---
Referral Reason:assess lvf MEASUREMENTS -------- HEIGHT: 152.4 cm WEIGHT: 72.6 kg BP: 149/71 RVIDd: 3.6 cm (< 3.3) IVSd: 1.3 cm (0.6 - 1.1) LVIDd: 3.1 cm (3.9 - 5.3) LVPWd: 1.4 cm (0.6 - 1.1) IVSs: 1.7 cm LVIDs: 1.9 cm LVPWs: 1.8 cm LAESV Index (A-L): 28.32 ml/m Ao Diam: 2.8 cm (2.0 - 3.7) AV Cusp: 1.6 cm (1.5 - 2.6) LA Diam: 4.4 cm (2.7 - 3.8) EPSS: 0.4 cm MV E Kristopher: 0.76 m/s MV DecT: 249 ms MV A Kristopher: 1.10 m/s MV E/A Ratio: 0.69 RAP: 5.00 mmHg RVSP: 41.83 mmHg MV EF SLOPE: 57.20 mm/s (70 - 150) MV EXCURSION: 1.24 cm (> 18.000) FINDINGS -------- Sinus rhythm. This was a technically difficult study with suboptimal apical views. The left ventricular size is normal. There is mild concentric left ventricular hypertrophy. Overa ll left ventricular systolic function is low-normal with, an EF between 50 - 55 %. Mitral Doppler i nflow pattern suggests diastolic filling abnormality. Mid lateral LV wall motion is hypokinetic. The right ventricle is mildly enlarged. Left atrium is normal size by volume. The right atrial size is normal. Lumason used Interatrial and interventricular septum intact. There is mild aortic valve sclerosis without stenosis. There is no evidence of aortic regurgitation . There is no evidence of aortic stenosis. Mild mitral annular calcification present. Izxe-fk-zsebnhyz mitral regurgitation is present. Ivfp-xr-xunptkos tricuspid regurgitation present. There is moderate pulmonary hypertension. The r ight ventricular systolic pressure, as measured by Doppler, is 41.83mmHg. Trace/mild (physiologic) pulmonic regurgitation. The aortic root size is normal. The inferior vena cava was not well visualized. There is no pericardial effusion. CONCLUSIONS -------- 1. Sinus rhythm. 2. This was a technically difficult study with suboptimal apical views. 3. The left ventricular size is normal. 4. There is mild concentric left ventricular hypertrophy. 5. Mitral Doppler inflow pattern suggests diastolic filling abnormality. 6. Mid lateral LV wall motion is hypokinetic. 7. The right ventricle is mildly enlarged. 8. Left atrium is normal size by volume. 9. The right atrial size is normal. 10. Lumason used 11. Interatrial and interventricular septum intact. 12. There is mild aortic valve sclerosis without stenosis. 13. There is no evidence of aortic regurgitation. 14. There is no evidence of aortic stenosis. 15. Mild mitral annular calcification present. 16. Soyw-pk-zfnpbrkz mitral regurgitation is present. 17. Fheb-gk-owuwbnrb tricuspid regurgitation present. 18. There is moderate pulmonary hypertension. 19. The right ventricular systolic pressure, as measured by Doppler, is 41.83mmHg. 20. Trace/mild (physiologic) pulmonic regurgitation. 21. The aortic root size is normal. 22. The inferior vena cava was not well visualized. 23. There is no pericardial effusion. PUBLIC HEALTH DIETITIAN: Negra Ramirez RDCS
--- NOTE | 2018-09-30 11:52 | US ---
EXAMINATION TYPE: US carotid duplex BILAT DATE OF EXAM: 09/30/2018 COMPARISON: NONE CLINICAL HISTORY: preop cabg. Weak chest pain. EXAM MEASUREMENTS: RIGHT: Peak Systolic Velocity (PSV) cm/sec ----- Right CCA: 37.7 ----- Right ICA: 75.5 ----- Right ECA: 68.2 ICA/CCA ratio: 2.0 RIGHT: End Diastole cm/sec ----- Right CCA: 12.9 ----- Right ICA: 17.3 ----- Right ECA: 0 LEFT: Peak Systolic Velocity (PSV) cm/sec ----- Left CCA: 50.7 ----- Left ICA: 88.5 ----- Left ECA: 76.9 ICA/CCA ratio: 1.7 LEFT: End Diastole cm/sec ----- Left CCA: 17.3 ----- Left ICA: 26.0 ----- Left ECA: 0 VERTEBRALS (direction of flow): Right Vertebral: Antegrade Left Vertebral: Antegrade Rhythm: Normal No significant stenosis seen Grayscale, color Doppler, spectral Doppler imaging performed, waveform analysis shows no stenosis IMPRESSION: No hemodynamic significant stenosis of the proximal internal carotid arteries bilaterall y by Doppler criteria, an indirect measurement of carotid stenosis
--- NOTE | 2018-09-30 12:05 | P.GSCN ---
<Kathryn Negro - Last Filed: 09/30/18 12:01> History of Present Illness Consult date: 09/30/18 Reason for Consult: Single-vessel coronary artery disease, surgical recommendations Requesting physician: Pato Paris History of present illness: This is an 82-year-old female patient who follows with nurse practitioner Sha Jones on an outpatient basis as well as Dr. Paris from [facility]. She has a previous medical history of multiple comorbidities including hypertension, paroxysmal atrial fibrillation, hypothyroid, TIA/CVA 2, chronic anemia, hepatitis, pancreatitis, trigeminal neuralgia, multiple surgeries, and family history of coronary artery disease. Apparently she has been having intermittent chest pain which she describes as a squeezing feeling with radiation to both arms over the last 2 years. She does state that the pain has been getting progressively worse including worse with exertion over the last 3 weeks. Associated symptoms include shortness of breath, diaphoresis, and dizziness, and is relieved with rest. In addition her pain is worse with laying flat and is relieved with sitting up. She does endorse occasional lower extremity edema. She presented to [facility] on September 28, EKG was completed demonstrating normal sinus rhythm without ST elevation. Troponins were elevated at 2.3 and the patient was ruled in for non-STEMI. BNP was 2399. She was transported to [facility] for further evaluation and treatment by cardiology. Transthoracic echocardiogram was completed yesterday demonstrating mild left ventricular hypertrophy, normal to low systolic function with EF 50-55%, mid lateral LV wall motion hypokinesis, mild to moderate mitral regurgitation with mitral annular calcification, and mild to moderate tricuspid regurgitation with moderate pulmonary hypertension. She was recommended to undergo heart catheterization which was completed today and which demonstrated an ostial circumflex stenosis of 95% with 50-60% mid circumflex stenosis. Dr. Klein was consulted for recommendations for coronary artery bypass surgery versus high risk stenting. Review of Systems Review of systems was completed and was negative except as noted. - Cardiovascular Reports as per HPI, Reports chest pain, Reports decreased exercise tolerance, Reports dyspnea on exertion, Reports leg edema, Reports orthopnea, Reports shortness of breath Past Medical History Past Medical History: Atrial Fibrillation, Asthma, Coronary Artery Disease (CAD), Chest Pain / Angina, CVA/TIA, GERD/Reflux, Hypertension, Myocardial Infarction ([place]), Thyroid Disorder Additional Past Medical History / Comment(s): Trigeminal Neur right side. Hepatitis after blood transfusion, Fall 11/27/16, pancreatitis, anemia History of Any Multi-Drug Resistant Organisms: None Reported Past Surgical History: Adenoidectomy, Appendectomy, Back Surgery, Cholecystectomy, Joint Replacement, Tonsillectomy Additional Past Surgical History / Comment(s): Bilat. knee replacement, partial thyroidectomy, Bilateral hip surgery/ repair. Past Anesthesia/Blood Transfusion Reactions: No Reported Reaction Past Psychological History: No Psychological Hx Reported Smoking Status: Never smoker Past Alcohol Use History: None Reported Past Drug Use History: None Reported - Past Family History Father Family Medical History: Renal Disease Brother(s) Additional Family Medical History / Comment(s): Non-Hodgkin's lymphoma Sister(s) Family Medical History: Coronary Artery Disease (CAD) Medications and Allergies Home Medications Medication Instructions Recorded Confirmed Type Escitalopram [Lexapro] 10 mg PO DAILY 11/28/16 09/28/18 History Fluticasone Nasal Amelia [Flonase 2 spr EA NOSTRIL DAILY PRN 11/28/16 09/28/18 History Nasal Amelia] Gabapentin [Neurontin] 300 mg PO TID 11/28/16 09/28/18 History Metoprolol Tartrate [Lopressor] 25 mg PO BID 11/28/16 09/28/18 History Pantoprazole Sodium [Protonix] 40 mg PO BID 11/28/16 09/28/18 History Potassium Chloride ER [K-Dur 10] 10 meq PO DAILY 11/28/16 09/28/18 History carBAMazepine CHEW [TEGretol Chew] 100 mg PO TID 11/28/16 09/28/18 History predniSONE 10 mg PO DAILY 11/28/16 09/28/18 History traMADol HCL [Ultram] 50 mg PO Q6HR PRN 11/28/16 09/28/18 History Cholecalciferol [Vitamin D3 (25 1,000 unit PO DAILY 09/28/18 09/28/18 History Mcg = 1000 Iu)] Levothyroxine Sodium [Synthroid] 150 mcg PO DAILY 09/28/18 09/28/18 History Allergies Allergy/AdvReac Type Severity Reaction Status Date / Time adhesive tape Allergy Unknown Verified 09/28/18 20:48 avocado Allergy Anaphylaxis Verified 09/28/18 20:48 banana Allergy Anaphylaxis Verified 09/28/18 20:48 bee venom protein (honey bee) Allergy Unknown Verified 09/28/18 20:48 coconut Allergy Anaphylaxis Verified 09/28/18 20:48 codeine Allergy Unknown Verified 09/28/18 20:48 Iodine and Iodide Containing Allergy Anaphylaxis Verified 09/28/18 20:48 Produc latex Allergy Unknown Verified 09/28/18 20:48 nut - unspecified Allergy Anaphylaxis Verified 09/28/18 20:48 ofloxacin [From Floxin] Allergy Unknown Verified 09/28/18 20:48 peach Allergy Itching Verified 09/28/18 20:48 Penicillins Allergy Anaphylaxis Verified 09/28/18 20:48 pregabalin [From Lyrica] Allergy Unknown Verified 09/28/18 20:48 propoxyphene [From Darvon] Allergy Unknown Verified 09/28/18 20:48 psyllium Allergy Unknown Verified 09/28/18 20:48 Quinolones Allergy Unknown Verified 09/28/18 20:48 shellfish derived [Shellfish] Allergy Anaphylaxis Verified 09/28/18 20:48 soap Allergy Itching Verified 09/28/18 20:48 strawberry Allergy Rash/Hives Verified 09/28/18 20:48 Sulfa (Sulfonamide Allergy Anaphylaxis Verified 09/28/18 20:48 Antibiotics) Tetanus Vaccines and Toxoid Allergy Anaphylaxis Verified 09/28/18 20:48 wheat Allergy Unknown Verified 09/28/18 20:48 morphine AdvReac Mental Verified 09/28/18 20:48 Confusion detergent Allergy Itching Uncoded 11/28/16 18:21 jalapeno peppers Allergy Anaphylaxis Uncoded 11/28/16 18:21 spandex Allergy Unknown Uncoded 11/28/16 18:02 zucchini Allergy Unknown Uncoded 11/28/16 18:02 Surgical - Exam Vital Signs Temp Pulse Resp BP Pulse Ox 97.9 F 65 16 125/66 98 09/28/18 20:00 09/28/18 20:00 09/28/18 20:00 09/28/18 20:00 09/28/18 20:00 - General well developed, well nourished, no distress, no pain - Eyes normal ocular movement - ENT no hearing loss - Neck no masses, no bruits, trachea midline - Respiratory Sounds diminished bilaterally. Respirations even, nonlabored. Currently on room air with oxygen saturation 97%. No chest wall deformities. No clubbing or cyanosis present. - Cardiovascular S1, S2 present. Regular rate and rhythm, sinus rhythm on telemetry. Palpable peripheral pulses bilaterally. No edema present. No calf pain or tenderness noted. No varicosities noted. Right groin heart catheterization site soft, nontender, without drainage. - Abdomen Abdomen: soft, non tender, bowel sounds - Genitourinary Deferred - Rectum Deferred - Integumentary Skin is warm and dry with evidence of good perfusion. - Neurologic normal coordination, normal sensation - Musculoskeletal normal posture - Psychiatric oriented to time, oriented to person, oriented to place, speech is normal Results - Labs 09/30/18 04:15 09/29/18 02:26 Abnormal Lab Results - Last 24 Hours (Table) 09/29/18 09/29/18 09/30/18 Range/Units 13:31 20:10 04:15 RBC 3.79 L (3.80-5.40) m/uL Neutrophils # (Manual) 9.69 H (1.3-7.7) k/uL Lymphocytes # 0.8 L (1.0-4.8) k/uL Lymphocytes # (Manual) 0.41 L (1.0-4.8) k/uL APTT 36.5 H (22.0-30.0) sec 09/30/18 Range/Units 04:15 RBC (3.80-5.40) m/uL Neutrophils # (Manual) (1.3-7.7) k/uL Lymphocytes # (1.0-4.8) k/uL Lymphocytes # (Manual) (1.0-4.8) k/uL APTT 78.3 H (22.0-30.0) sec - Imaging Chest x-ray: report reviewed, image reviewed EKG: image reviewed Additional studies: Heart catheterization films reviewed Assessment and Plan Assessment: 1. Coronary artery disease with 95% stenosis of the ostial circumflex artery 2. Hypertension 3. History of paroxysmal atrial fibrillation, currently in normal sinus rhythm 4. Hypothyroid, status post partial thyroidectomy 5. History of TIA/CVA 2 6. Chronic anemia 7. History of hepatitis 8. History of pancreatitis 9. History of trigeminal neuralgia 10. Family history of coronary artery disease Plan: The patient was seen and examined at the bedside. Son was present. Chart/diagnostics were reviewed including heart cath films. The usual perioperative course of open heart surgery was discussed in detail with the patient and her son, risks and benefits were reviewed, all questions were answered. Preoperative testing was initiated. Will review her catheterization films with Dr. Klein and discuss our recommendations with the patient and her family. Continue maximizing medical therapy with aspirin, statin, beta blocke rs. More recommendations to follow. Thank you Dr. Paris for this consult. We look forward to working with you in the care of your patient. Time with Patient: Greater than 30 <Rodrigo Klein R - Last Filed: 09/30/18 13:58> Surgical - Exam Vital Signs Temp Pulse Resp BP Pulse Ox 97.9 F 65 16 125/66 98 09/28/18 20:00 09/28/18 20:00 09/28/18 20:00 09/28/18 20:00 09/28/18 20:00 Results - Labs 09/30/18 04:15 09/29/18 02:26 Abnormal Lab Results - Last 24 Hours (Table) 09/29/18 09/29/18 09/30/18 Range/Units 13:31 20:10 04:15 RBC 3.79 L (3.80-5.40) m/uL Neutrophils # (Manual) 9.69 H (1.3-7.7) k/uL Lymphocytes # 0.8 L (1.0-4.8) k/uL Lymphocytes # (Manual) 0.41 L (1.0-4.8) k/uL APTT 36.5 H (22.0-30.0) sec LDL Cholesterol, Calc (0-99) mg/dL TSH (0.465-4.680) mIU/L 09/30/18 09/30/18 Range/Units 04:15 04:15 RBC (3.80-5.40) m/uL Neutrophils # (Manual) (1.3-7.7) k/uL Lymphocytes # (1.0-4.8) k/uL Lymphocytes # (Manual) (1.0-4.8) k/uL APTT 78.3 H (22.0-30.0) sec LDL Cholesterol, Calc 120 H (0-99) mg/dL TSH 0.158 L (0.465-4.680) mIU/L Diabetes panel 09/30/18 Range/Units 04:15 Triglycerides 49 (<150) mg/dL HDL Cholesterol 58 (40-60) mg/dL Thyroid panel 09/30/18 Range/Units 04:15 TSH 0.158 L (0.465-4.680) mIU/L Pituitary panel 09/30/18 Range/Units 04:15 TSH 0.158 L (0.465-4.680) mIU/L Assessment and Plan Assessment: Single vessel Cx CAD. Rec med mgmnt.
[2018-09-30 13:53] LABS: T4, Free (Free Thyroxine) 1.58 ng/dL (0.78-2.19)
--- NOTE | 2018-09-30 15:02 | P.PN ---
Subjective Patient was admitted for non-ST elevation myocardial infarction patient will undergo cardiac catheterization today. 09/30/2018 Patient the underwent cardiac catheterization had a tight lesion in proximal circumflex which apparently cannot be stented because of which could've thoracic surgery was consult Constitutional: Denied any fatigue denied any fever. Cardio vascular: denied any chest pain, palpitations Gastrointestinal denied any nausea vomiting Pulmonary: Denied any shortness of breath cough Neurologic denied any new focal deficits All inpatient medications were reviewed and appropriate changes in these medications as dictated in the interval history and assessment and plan. Objective - Vital Signs Vital signs: Vital Signs Temp 97.9 F 09/30/18 11:10 Pulse 59 L 09/30/18 11:10 Resp 18 09/30/18 11:10 BP 148/72 09/30/18 11:10 Pulse Ox 95 09/30/18 11:10 Intake & Output 09/29/18 09/30/18 09/30/18 18:59 06:59 18:59 Intake Total 360 156.702 920 Output Total 300 Balance 360 156.702 620 Weight 73.2 kg Intake: IV 800 Intake, IV Titration 156.702 Amount Heparin Sod,Pork in 0.45% 156.702 NaCl 25,000 unit In 0.45 % NaCl 1 250ml.bag @ 12 UNITS/KG/HR 8.736 mls/hr IV .Q24H [facility] Rx#: [id number] Oral 360 120 Output: Urine 300 Other: Voiding Method Toilet Toilet Toilet # Voids 1 1 1 - Exam PHYSICAL EXAMINATION: GENERAL: The patient is alert and oriented x3, not in any acute distress. Well developed, well nourished. HEENT: Pupils are round and equally reacting to light. EOMI. No scleral icterus. No conjunctival pallor. Normocephalic, atraumatic. No pharyngeal erythema. No thyromegaly. CARDIOVASCULAR: S1 and S2 present. No murmurs, rubs, or gallops. PULMONARY: Chest is clear to auscultation, no wheezing or crackles. ABDOMEN: Soft, nontender, nondistended, normoactive bowel sounds. No palpable organomegaly. MUSCULOSKELETAL: No joint swelling or deformity. EXTREMITIES: No cyanosis, clubbing, or pedal edema. NEUROLOGICAL: Gross neurological examination did not reveal any focal deficits. SKIN: No rashes. - Labs CBC & Chem 7: 08/02/19 04:15 09/29/18 02:26 Labs: Abnormal Lab Results - Last 24 Hours (Table) 09/29/18 09/29/18 09/30/18 Range/Units 13:31 20:10 04:15 RBC 3.79 L (3.80-5.40) m/uL Neutrophils # (Manual) 9.69 H (1.3-7.7) k/uL Lymphocytes # 0.8 L (1.0-4.8) k/uL Lymphocytes # (Manual) 0.41 L (1.0-4.8) k/uL APTT 36.5 H (22.0-30.0) sec LDL Cholesterol, Calc (0-99) mg/dL TSH (0.465-4.680) mIU/L 09/30/18 09/30/18 Range/Units 04:15 04:15 RBC (3.80-5.40) m/uL Neutrophils # (Manual) (1.3-7.7) k/uL Lymphocytes # (1.0-4.8) k/uL Lymphocytes # (Manual) (1.0-4.8) k/uL APTT 78.3 H (22.0-30.0) sec LDL Cholesterol, Calc 120 H (0-99) mg/dL TSH 0.158 L (0.465-4.680) mIU/L Assessment and Plan Plan: -Acute non-ST elevation microinfarction: Patient undergo cardiac catheterization continue with antiplatelet therapies statins. Patient has occlusion of the ostial circumflex, further management and referred to cardiology and cardiothoracic surgery -Shortness of breath exertional secondary to coronary artery disease, improved now -Proximal atrial fibrillation currently sinus rhythm not anti-correlation and accommodation patient's as per cardiology -Asthma without any acute exacerbation extent her fingers dysphagia reflux disease -Hypothyroidism -History of TIA in the past -Chronic back pain
[2018-09-30] MEDS: CHOLECALCIFEROL 1,000 UNIT TAB PO SCH (15:06)
[2018-09-30] MEDS: HEPARIN SOD,PORK IN 0.45% NACL 25,000 UNIT in 0.45% NACL 1 250ML.BAG IV SCH (15:06)
[2018-09-30] MEDS: SODIUM CHLORIDE 0.9% 1,000 ML IV SCH (15:07)
[2018-09-30] MEDS: HEPARIN SODIUM,PORCINE 5,000 UNIT/ML 1 ML VIAL SQ SCH (21:24)
[2018-10-01] MEDS: PANTOPRAZOLE 40 MG TABLET PO SCH ×2 (06:08→18:41)
[2018-10-01] MEDS: LEVOTHYROXINE 75 MCG TAB PO SCH (06:08)
[2018-10-01] MEDS: traMADol 50 MG TAB PO PRN ×3 (06:08→23:53)
[2018-10-01] MEDS: SODIUM CHLORIDE 0.9% 1,000 ML IV SCH (06:10)
[2018-10-01 06:42] LABS: HCT 32.2 % (34.0-46.0); HGB 10.7 gm/dL (11.4-16.0); MCH 31.7 pg (25.0-35.0); MCHC 33.1 g/dL (31.0-37.0); MCV 95.9 fL (80.0-100.0); Platelet Count 235 k/uL (150-450); RBC 3.36 m/uL (3.80-5.40); RDW 12.9 % (11.5-15.5); WBC 10.4 k/uL (3.8-10.6)
[2018-10-01 06:59] LABS: African American GFR (CKD) >90 (>60 ml/min/1.73 sqM); Anion Gap 8 mmol/L; Blood Urea Nitrogen 11 mg/dL (7-17); Calcium 8.6 mg/dL (8.4-10.2); Carbon Dioxide 28 mmol/L (22-30); Chloride 102 mmol/L (98-107); Glucose 129 mg/dL (74-99); Non-African American GFR(CKD) 78 (>60 ml/min/1.73 sqM); Potassium 4.1 mmol/L (3.5-5.1); Sodium 138 mmol/L (137-145)
[2018-10-01] MEDS: HEPARIN SODIUM,PORCINE 5,000 UNIT/ML 1 ML VIAL SQ SCH ×2 (09:09→20:54)
[2018-10-01] MEDS: diphenhydrAMINE 25 MG CAP PO SCH ×2 (09:11→20:54)
[2018-10-01] MEDS: predniSONE 20 MG TAB PO SCH ×2 (09:11→20:54)
[2018-10-01] MEDS: ASPIRIN 81 MG PO SCH (09:11)
[2018-10-01] MEDS: CHOLECALCIFEROL 1,000 UNIT TAB PO SCH (09:11)
[2018-10-01] MEDS: POTASSIUM CHLORIDE ER 10 MEQ TAB.ER.PRT PO SCH (09:11)
[2018-10-01] MEDS: ATORVASTATIN 40 MG TAB PO SCH (09:11)
[2018-10-01] MEDS: METOPROLOL TARTRATE 25 MG TAB PO SCH (09:11)
[2018-10-01] MEDS: ESCITALOPRAM 10 MG TAB PO SCH (09:11)
[2018-10-01] MEDS: GABAPENTIN 300 MG CAP PO SCH ×3 (09:11→20:54)
[2018-10-01] MEDS: CLOPIDOGREL 75 MG TAB PO SCH (09:11)
[2018-10-01] MEDS: NITROGLYCERIN OINT 1 INCH/GM PACKET TOPICAL SCH (09:13)
--- NOTE | 2018-10-01 11:24 | P.PN ---
Subjective Progress Note Date: 10/01/18 Principal diagnosis: Chest discomfort, NSTEMI. The patient is an 82-year-old female who is currently admitted with an NSTEMI. Coronary angiogram showed 95% lesion in her ostial left circumflex as well as a 50-60% lesion in her mid LAD. Due to the complexity of her ostial lesion, surgical consult was requested. Per Cardiothoracic team, medical management is recommended at this time. Echocardiogram shows LV function of 50-55% with moderate mitral regurgitation, moderate tricuspid regurgitation, and moderate pulmonary hypertension. Currently she is sitting comfortably up in her chair. She states she had some shortness of breath this morning while showering, however denies any dyspnea at rest. She also denies any chest discomfort, palpitations, dizziness or vertigo. GENERAL: Well-appearing, well-nourished and in no acute distress. NECK: Supple without JVD or thyromegaly. LUNGS: Breath sounds clear to auscultation bilaterally. Respiration equal and unlabored. No wheezes, rales or rhonchi. HEART: Regular rate and rhythm without murmurs, rubs or gallops. S1 and S2 heard. EXTREMITIES: Normal range of motion, no edema. No clubbing or cyanosis. Peripheral pulses intact and strong. Labs: Sodium 138, potassium 4.1, BUN 11, creatinine 0.72, hemoglobin A1c 6.0, TSH 0.158, LDL 120, HDL 58 Assessment and plan: #1 NSTEMI, medical management #2 hypertension, recently well controlled #3 paroxysmal atrial fibrillation, currently maintaining sinus rhythm #4 history of prior TIA Plan: We will increase her metoprolol to 50mg twice daily and start isosorbide 30mg daily at lunchtime. Encourage ambulation to accurately assess patient's symptoms. Objective - Vital Signs Vital signs: Vital Signs Temp 98.3 F 10/01/18 08:00 Pulse 69 10/01/18 08:00 Resp 20 10/01/18 08:00 BP 157/81 10/01/18 08:00 Pulse Ox 97 10/01/18 08:00 Intake & Output 09/30/18 10/01/18 10/01/18 18:59 06:59 18:59 Intake Total 1160 240 Output Total 300 Balance 860 240 Weight 73.8 kg Intake: IV 800 Oral 360 240 Output: Urine 300 Other: Voiding Method Toilet Toilet # Voids 1 2 - Labs CBC & Chem 7: 10/01/18 05:48 10/01/18 05:48 Labs: Abnormal Lab Results - Last 24 Hours (Table) 09/30/18 10/01/18 10/01/18 Range/Units 04:15 05:48 05:48 RBC 3.36 L (3.80-5.40) m/uL Hgb 10.7 L (11.4-16.0) gm/dL Hct 32.2 L (34.0-46.0) % Glucose 129 H (74-99) mg/dL LDL Cholesterol, Calc 120 H (0-99) mg/dL TSH 0.158 L (0.465-4.680) mIU/L
--- NOTE | 2018-10-01 13:12 | P.PN ---
Subjective Patient was admitted for non-ST elevation myocardial infarction patient will undergo cardiac catheterization today. 09/30/2018 Patient the underwent cardiac catheterization had a tight lesion in proximal circumflex which apparently cannot be stented because of which could've thoracic surgery was consult 10/01/2018 Patient was evaluated by cardiothoracic surgery, the recommending stenting are medical management. Cardiology evaluated the patient the increasing the dose of metoprolol and isosorbide mononitrate and will monitor here, cardiology to make the decision regarding stenting Constitutional: Denied any fatigue denied any fever. Cardio vascular: denied any chest pain, palpitations Gastrointestinal denied any nausea vomiting Pulmonary: Denied any shortness of breath cough Neurologic denied any new focal deficits All inpatient medications were reviewed and appropriate changes in these medications as dictated in the interval history and assessment and plan. Objective - Vital Signs Vital signs: Vital Signs Temp 98.3 F 10/01/18 08:00 Pulse 66 10/01/18 12:00 Resp 20 10/01/18 12:00 BP 150/79 10/01/18 12:00 Pulse Ox 97 10/01/18 12:00 Intake & Output 09/30/18 10/01/18 10/01/18 18:59 06:59 18:59 Intake Total 1160 240 Output Total 300 Balance 860 240 Weight 73.8 kg Intake: IV 800 Oral 360 240 Output: Urine 300 Other: Voiding Method Toilet Toilet # Voids 1 2 1 - Exam PHYSICAL EXAMINATION: GENERAL: The patient is alert and oriented x3, not in any acute distress. Well developed, well nourished. HEENT: Pupils are round and equally reacting to light. EOMI. No scleral icterus. No conjunctival pallor. Normocephalic, atraumatic. No pharyngeal erythema. No thyromegaly. CARDIOVASCULAR: S1 and S2 present. No murmurs, rubs, or gallops. PULMONARY: Chest is clear to auscultation, no wheezing or crackles. ABDOMEN: Soft, nontender, nondistended, normoactive bowel sounds. No palpable organomegaly. MUSCULOSKELETAL: No joint swelling or deformity. EXTREMITIES: No cyanosis, clubbing, or pedal edema. NEUROLOGICAL: Gross neurological examination did not reveal any focal deficits. SKIN: No rashes. - Labs CBC & Chem 7: 10/01/18 05:48 10/01/18 05:48 Labs: Abnormal Lab Results - Last 24 Hours (Table) 09/30/18 10/01/18 10/01/18 Range/Units 04:15 05:48 05:48 RBC 3.36 L (3.80-5.40) m/uL Hgb 10.7 L (11.4-16.0) gm/dL Hct 32.2 L (34.0-46.0) % Glucose 129 H (74-99) mg/dL LDL Cholesterol, Calc 120 H (0-99) mg/dL TSH 0.158 L (0.465-4.680) mIU/L Assessment and Plan Plan: -Acute non-ST elevation microinfarction: Patient undergo cardiac catheterization continue with antiplatelet therapies statins. Patient has occlusion of the ostial circumflex, further management as mentioned in the interval history -Shortness of breath exertional secondary to coronary artery disease, improved now -Proximal atrial fibrillation currently sinus rhythm not anti-coagulation and accommodation patient's as per cardiology -Asthma without any acute exacerbation extent her fingers dysphagia reflux disease -Hypothyroidism -History of TIA in the past -Chronic back pain
[2018-10-01] MEDS: METOPROLOL TARTRATE 50 MG TAB PO SCH (20:54)
[2018-10-01] MEDS: carBAMazepine 200 MG TAB PO SCH (20:59)
[2018-10-02] MEDS: SODIUM CHLORIDE 0.9% 1,000 ML IV SCH ×2 (01:49→21:15)
[2018-10-02] MEDS: traMADol 50 MG TAB PO PRN ×3 (06:46→23:02)
[2018-10-02] MEDS: LEVOTHYROXINE 75 MCG TAB PO SCH (06:46)
[2018-10-02] MEDS: PANTOPRAZOLE 40 MG TABLET PO SCH ×2 (06:46→16:39)
[2018-10-02] MEDS: carBAMazepine 200 MG TAB PO SCH ×3 (08:05→21:13)
[2018-10-02] MEDS: HEPARIN SODIUM,PORCINE 5,000 UNIT/ML 1 ML VIAL SQ SCH ×2 (08:05→21:00)
[2018-10-02] MEDS: ESCITALOPRAM 10 MG TAB PO SCH (08:06)
[2018-10-02] MEDS: POTASSIUM CHLORIDE ER 10 MEQ TAB.ER.PRT PO SCH (08:06)
[2018-10-02] MEDS: ATORVASTATIN 40 MG TAB PO SCH (08:06)
[2018-10-02] MEDS: CLOPIDOGREL 75 MG TAB PO SCH (08:06)
[2018-10-02] MEDS: predniSONE 20 MG TAB PO SCH ×2 (08:06→21:13)
[2018-10-02] MEDS: GABAPENTIN 300 MG CAP PO SCH ×3 (08:06→21:13)
[2018-10-02] MEDS: CHOLECALCIFEROL 1,000 UNIT TAB PO SCH (08:06)
[2018-10-02] MEDS: ISOSORBIDE MONONITRATE ER 30 MG TAB.ER.24H PO SCH (08:06)
[2018-10-02] MEDS: METOPROLOL TARTRATE 50 MG TAB PO SCH ×2 (08:07→21:13)
[2018-10-02] MEDS: diphenhydrAMINE 25 MG CAP PO SCH ×2 (08:07→21:13)
[2018-10-02] MEDS: ASPIRIN 81 MG PO SCH (08:07)
--- NOTE | 2018-10-02 12:47 | P.PN ---
Subjective Patient was admitted for non-ST elevation myocardial infarction patient will undergo cardiac catheterization today. 09/30/2018 Patient the underwent cardiac catheterization had a tight lesion in proximal circumflex which apparently cannot be stented because of which could've thoracic surgery was consult 10/01/2018 Patient was evaluated by cardiothoracic surgery, the recommending stenting are medical management. Cardiology evaluated the patient the increasing the dose of metoprolol and isosorbide mononitrate and will monitor here, cardiology to make the decision regarding stenting 10/02/2018 No overnight events patient is otherwise clinically doing well. No chest pain Constitutional: Denied any fatigue denied any fever. Cardio vascular: denied any chest pain, palpitations Gastrointestinal denied any nausea vomiting Pulmonary: Denied any shortness of breath cough Neurologic denied any new focal deficits All inpatient medications were reviewed and appropriate changes in these medications as dictated in the interval history and assessment and plan. Objective - Vital Signs Vital signs: Vital Signs Temp 97.8 F 10/02/18 08:00 Pulse 61 10/02/18 08:00 Resp 20 10/02/18 08:00 BP 138/77 10/02/18 08:00 Pulse Ox 93 L 10/02/18 08:00 Intake & Output 10/01/18 10/02/18 10/02/18 18:59 06:59 18:59 Intake Total 480 240 260 Balance 480 240 260 Weight 74.4 kg Intake: Oral 480 240 260 Other: Voiding Method Toilet # Voids 1 2 2 - Exam PHYSICAL EXAMINATION: GENERAL: The patient is alert and oriented x3, not in any acute distress. Well developed, well nourished. HEENT: Pupils are round and equally reacting to light. EOMI. No scleral icterus. No conjunctival pallor. Normocephalic, atraumatic. No pharyngeal erythema. No thyromegaly. CARDIOVASCULAR: S1 and S2 present. No murmurs, rubs, or gallops. PULMONARY: Chest is clear to auscultation, no wheezing or crackles. ABDOMEN: Soft, nontender, nondistended, normoactive bowel sounds. No palpable organomegaly. MUSCULOSKELETAL: No joint swelling or deformity. EXTREMITIES: No cyanosis, clubbing, or pedal edema. NEUROLOGICAL: Gross neurological examination did not reveal any focal deficits. SKIN: No rashes. - Labs CBC & Chem 7: 10/01/18 05:48 10/01/18 05:48 Assessment and Plan Plan: -Acute non-ST elevation microinfarction: Patient undergo cardiac catheterization continue with antiplatelet therapies statins. Patient has occlusion of the ostial circumflex, further management as mentioned in the interval history -Shortness of breath exertional secondary to coronary artery disease, improved now -Proximal atrial fibrillation currently sinus rhythm not anti-coagulation and accommodation patient's as per cardiology -Asthma without any acute exacerbation extent her fingers dysphagia reflux disease -Hypothyroidism -History of TIA in the past -Chronic back pain
--- NOTE | 2018-10-02 13:58 | P.PN ---
Subjective Progress Note Date: 10/02/18 Principal diagnosis: Chest discomfort, NSTEMI. The patient is an 82-year-old female who is currently admitted with an NSTEMI. Coronary angiogram showed 95% lesion in her ostial left circumflex as well as a 50-60% lesion in her mid LAD. Due to the complexity of her ostial lesion, surgical consult was requested. Per Cardiothoracic team, medical management is recommended at this time. Echocardiogram shows LV function of 50-55% with moderate mitral regurgitation, moderate tricuspid regurgitation, and moderate pulmonary hypertension. 10/02: Patient is resting in a chair eating her lunch appears to be in no acute distress. She is currently denying any chest pain or shortness of breath. She denies any palpitations, dizziness or lightheadedness. Yesterday, metoprolol wa s increased to 50 mg twice daily and patient was started on Imdur 30 mg at lunchtime. Patient is tolerating medication adjustments. Heart rate is in the 60s and blood pressure 150/77. GENERAL: Well-appearing, well-nourished and in no acute distress. NECK: Supple without JVD or thyromegaly. LUNGS: Breath sounds clear to auscultation bilaterally. Respiration equal and unlabored. No wheezes, rales or rhonchi. HEART: Regular rate and rhythm without murmurs, rubs or gallops. S1 and S2 heard. EXTREMITIES: Normal range of motion, no edema. No clubbing or cyanosis. Peripheral pulses intact and strong. Labs: Hemoglobin 10.7, BUN 11 creatinine 0.72, hemoglobin A1c 6.0, TSH 0.158, LDL 120, HDL 58 Assessment and plan: #1 NSTEMI, medical management #2 hypertension, controlled #3 paroxysmal atrial fibrillation, currently maintaining sinus rhythm #4 history of prior TIA Plan: Reevaluate on Wednesday to determine if high risk PTCA is option for patient. Patient tolerating increased dose of metoprolol at 50mg twice daily and addition of Isosorbide 30mg daily at lunchtime, continue at current dosing. Continue aspirin 81 mg daily, Lipitor 40 mg daily, Plavix 75 mg daily. Encourage ambulation to accurately assess patient's symptoms. Further recommendations to follow based upon clinical course. On this practitioner has been reviewed, I agree with a document of findings and plan of care. Patient was seen and examined. Objective - Vital Signs Vital signs: Vital Signs Temp 97.8 F 10/02/18 08:00 Pulse 61 10/02/18 08:00 Resp 20 10/02/18 08:00 BP 138/77 10/02/18 08:00 Pulse Ox 93 L 10/02/18 08:00 Intake & Output 10/01/18 10/02/18 10/02/18 18:59 06:59 18:59 Intake Total 480 240 500 Balance 480 240 500 Weight 74.4 kg Intake: Oral 480 240 500 Other: Voiding Method Toilet # Voids 1 2 2 - Labs CBC & Chem 7: 10/01/18 05:48 10/01/18 05:48
[2018-10-03] MEDS: PANTOPRAZOLE 40 MG TABLET PO SCH ×2 (06:53→16:30)
[2018-10-03] MEDS: LEVOTHYROXINE 75 MCG TAB PO SCH (06:53)
[2018-10-03] MEDS: ESCITALOPRAM 10 MG TAB PO SCH (08:49)
[2018-10-03] MEDS: METOPROLOL TARTRATE 50 MG TAB PO SCH ×2 (08:49→21:24)
[2018-10-03] MEDS: POTASSIUM CHLORIDE ER 10 MEQ TAB.ER.PRT PO SCH (08:49)
[2018-10-03] MEDS: ATORVASTATIN 40 MG TAB PO SCH (08:49)
[2018-10-03] MEDS: diphenhydrAMINE 25 MG CAP PO SCH ×2 (08:49→21:24)
[2018-10-03] MEDS: carBAMazepine 200 MG TAB PO SCH ×3 (08:49→21:25)
[2018-10-03] MEDS: HEPARIN SODIUM,PORCINE 5,000 UNIT/ML 1 ML VIAL SQ SCH ×2 (08:49→21:30)
[2018-10-03] MEDS: predniSONE 20 MG TAB PO SCH ×2 (08:49→21:25)
[2018-10-03] MEDS: CLOPIDOGREL 75 MG TAB PO SCH (08:49)
[2018-10-03] MEDS: ISOSORBIDE MONONITRATE ER 30 MG TAB.ER.24H PO SCH (08:49)
[2018-10-03] MEDS: GABAPENTIN 300 MG CAP PO SCH ×3 (08:50→21:25)
[2018-10-03] MEDS: ASPIRIN 81 MG PO SCH (08:50)
[2018-10-03] MEDS: traMADol 50 MG TAB PO PRN ×2 (08:50→21:25)
[2018-10-03] MEDS: CHOLECALCIFEROL 1,000 UNIT TAB PO SCH (08:50)
--- NOTE | 2018-10-03 10:53 | P.PN ---
Subjective Progress Note Date: 10/03/18 Principal diagnosis: Severe coronary artery disease This is an 82-year-old female patient was admitted to the hospital with a chest discomfort and ruled in for acute non-STEMI. She underwent a heart catheterization by Dr. Fitzpatrick and was found to have severe coronary artery diseas e. She was found to have subtotally occluded left circumflex coronary artery was disease in the left main with heavily calcified left coronary system. Giving her anatomy and her age, we did advise maximize medical treatment. 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 I am going to add Ranexa to the current medical regimen and follow-up with the patient for the next 24 hours. Objective - Vital Signs Vital signs: Vital Signs Temp 98.3 F 10/03/18 07:57 Pulse 62 10/03/18 07:57 Resp 16 10/03/18 07:57 BP 134/69 10/03/18 07:57 Pulse Ox 99 10/03/18 07:57 Intake & Output 10/02/18 10/03/18 10/03/18 18:59 06:59 18:59 Intake Total 618 358 Output Total 4 Balance 614 358 Weight 75.1 kg Intake: Oral 618 358 Output: Urine 4 Other: Voiding Method Toilet # Voids 2 2 - Constitutional General appearance: Present: no acute distress - Respiratory Respiratory: bilateral: CTA - Cardiovascular Rhythm: regular Heart sounds: normal: S1, S2 - Labs CBC & Chem 7: 10/01/18 05:48 10/01/18 05:48 Assessment and Plan Assessment: Assessment #1 severe coronary artery disease #2 hypertension #3 dyslipidemia Plan #1 continue the current medical regimen #2 at the Ranexa to the current medical regimen #3 follow-up with the patient
--- NOTE | 2018-10-03 11:48 | P.PN ---
Subjective Patient was admitted for non-ST elevation myocardial infarction patient will undergo cardiac catheterization today. 09/30/2018 Patient the underwent cardiac catheterization had a tight lesion in proximal circumflex which apparently cannot be stented because of which could've thoracic surgery was consult 10/01/2018 Patient was evaluated by cardiothoracic surgery, the recommending stenting are medical management. Cardiology evaluated the patient the increasing the dose of metoprolol and isosorbide mononitrate and will monitor here, cardiology to make the decision regarding stenting 10/02/2018 No overnight events patient is otherwise clinically doing well. No chest pain 10/03/2018 Patient is coming of chest pain today morning because of which the cardiology recommended 1 more day of hospital physician monitoring and patient will be started on Ranexa for maximal medical therapy. No plan at this time. Stenting. Constitutional: Denied any fatigue denied any fever. Cardio vascular: denied any palpitations Gastrointestinal denied any nausea vomiting Pulmonary: Denied any shortness of breath cough Neurologic denied any new focal deficits All inpatient medications were reviewed and appropriate changes in these medications as dictated in the interval history and assessment and plan. Objective - Vital Signs Vital signs: Vital Signs Temp 98.3 F 10/03/18 07:57 Pulse 53 L 10/03/18 11:10 Resp 16 10/03/18 11:10 BP 132/68 10/03/18 11:10 Pulse Ox 96 10/03/18 11:10 Intake & Output 10/02/18 10/03/18 10/03/18 18:59 06:59 18:59 Intake Total 618 358 Output Total 4 Balance 614 358 Weight 75.1 kg Intake: Oral 618 358 Output: Urine 4 Other: Voiding Method Toilet # Voids 2 2 1 - Exam PHYSICAL EXAMINATION: GENERAL: The patient is alert and oriented x3, not in any acute distress. Well developed, well nourished. HEENT: Pupils are round and equally reacting to light. EOMI. No scleral icterus. No conjunctival pallor. Normocephalic, atraumatic. No pharyngeal erythema. No thyromegaly. CARDIOVASCULAR: S1 and S2 present. No murmurs, rubs, or gallops. PULMONARY: Chest is clear to auscultation, no wheezing or crackles. ABDOMEN: Soft, nontender, nondistended, normoactive bowel sounds. No palpable organomegaly. MUSCULOSKELETAL: No joint swelling or deformity. EXTREMITIES: No cyanosis, clubbing, or pedal edema. NEUROLOGICAL: Gross neurological examination did not reveal any focal deficits. SKIN: No rashes. - Labs CBC & Chem 7: 10/01/18 05:48 10/01/18 05:48 Assessment and Plan Plan: -Acute non-ST elevation microinfarction: Patient undergo cardiac catheterization continue with antiplatelet therapies statins. Patient has occlusion of the ostial circumflex, plan now for maximal medical therapy, patient was started on imbued optimizing beta kayla and Renexa is being started -Shortness of breath exertional secondary to coronary artery disease, improved now -Proximal atrial fibrillation currently sinus rhythm not anti-coagulation and accommodation patient's as per cardiology -Asthma without any acute exacerbation extent her fingers dysphagia reflux disease -Hypothyroidism -History of TIA in the past -Chronic back pain
--- NOTE | 2018-10-03 15:30 | CDI ---
Documentation Clarification Form Date: 10/03/2018 3:18:09 PM From: Sandy Baltazar CCS, CCDS Admit Date: 09/28/2018 7:18:00 PM Patient Name: Shaina Garcia Visit Number: [id number] Discharge Date: ATTENTION: The Clinical Documentation Specialists (CDI) and [facility] Coding Staff appreciate your assistance in clarifying documentation. Please respond to the clarification below the line at the bottom and electronically sign. The CDI & [facility] Coding staff will review the response and follow-up if needed. Please note: Queries are made part of the Legal Health Record. If you have any questions, please contact the author of this message via ITS. Dr. Ross Guerrero: Allergic asthma is documented in the History & Physical and subsequent progress notes without further specificity. Also documented as "without acute exacerbation". History/risk factors: Paroxysmal atrial fibrillation, CAD, Hypertension, GERD, CVA, previous OR. Clinical Indicators: Presented from [facility] with elevated troponins, diagnosed with NSTEMI. Radiology: CXR: Basilar atelectasis favored over pneumonia. Vital Signs Stable. Treatment: po Prednisone, IV Solumedrol, IV Heparin drip, Left heart cath, no PTCA or stents, medical therapy only. In your professional opinion, can you please further specify the following, if known? Severity o Mild intermittent o Mild persistent o Moderate persistent o Severe persistent o Other, please specify ____ o Unable to determine Form or Type o Cough variant o Childhood o Exercise induced bronchospasm o Extrinsic allergic o Idiosyncratic o Intrinsic nonallergic o Late-onset o Mixed o Other, please specify____ o Unable to determine (Last Revision: May 2017) Unable to determine MTDD
[2018-10-03] MEDS: SODIUM CHLORIDE 0.9% 1,000 ML IV SCH (16:32)
[2018-10-03] MEDS: RANOLAZINE 500 MG TAB.ER.12H PO SCH (21:25)
[2018-10-04] MEDS: LEVOTHYROXINE 75 MCG TAB PO SCH (06:33)
[2018-10-04] MEDS: PANTOPRAZOLE 40 MG TABLET PO SCH (06:33)
[2018-10-04] MEDS: traMADol 50 MG TAB PO PRN ×2 (06:33→16:24)
[2018-10-04 07:35] VITALS: RESP 16
[2018-10-04] MEDS: ESCITALOPRAM 10 MG TAB PO SCH (08:39)
[2018-10-04] MEDS: CLOPIDOGREL 75 MG TAB PO SCH (08:39)
[2018-10-04] MEDS: ATORVASTATIN 40 MG TAB PO SCH (08:39)
[2018-10-04] MEDS: GABAPENTIN 300 MG CAP PO SCH ×2 (08:39→16:04)
[2018-10-04] MEDS: ISOSORBIDE MONONITRATE ER 30 MG TAB.ER.24H PO SCH (08:39)
[2018-10-04] MEDS: CHOLECALCIFEROL 1,000 UNIT TAB PO SCH (08:40)
[2018-10-04] MEDS: carBAMazepine 200 MG TAB PO SCH ×2 (08:40→16:04)
[2018-10-04] MEDS: HEPARIN SODIUM,PORCINE 5,000 UNIT/ML 1 ML VIAL SQ SCH (08:40)
[2018-10-04] MEDS: predniSONE 20 MG TAB PO SCH (08:40)
[2018-10-04] MEDS: METOPROLOL TARTRATE 50 MG TAB PO SCH (08:40)
[2018-10-04] MEDS: ASPIRIN 81 MG PO SCH (08:40)
[2018-10-04] MEDS: diphenhydrAMINE 25 MG CAP PO SCH (08:40)
[2018-10-04] MEDS: RANOLAZINE 500 MG TAB.ER.12H PO SCH (08:40)
[2018-10-04] MEDS: POTASSIUM CHLORIDE ER 10 MEQ TAB.ER.PRT PO SCH (08:40)
[2018-10-04 11:23] VITALS: BP 139/73; PULSE 56; TEMP 97.7
--- NOTE | 2018-10-04 11:56 | P.PN ---
Subjective Progress Note Date: 10/04/18 Principal diagnosis: Severe coronary artery disease This is an 82-year-old female patient was admitted to the hospital with a chest discomfort and ruled in for acute non-STEMI. She underwent a heart catheterization by Dr. Fitzpatrick and was found to have severe coronary artery diseas e. She was found to have subtotally occluded left circumflex coronary artery was disease in the left main with heavily calcified left coronary system. Giving her anatomy and her age, we did advise maximize medical treatment. On follow-up with the patient today, she seems to be asymptomatic. She did have some chest discomfort yesterday morning but no chest pain today. She was started on the Ranexa. From the cardiovascular standpoint of view, she might be able to be discharged home. Objective - Vital Signs Vital signs: Vital Signs Temp 97.7 F 10/04/18 11:18 Pulse 56 L 10/04/18 11:18 Resp 16 10/04/18 11:18 BP 139/73 10/04/18 11:18 Pulse Ox 96 10/04/18 04:00 Intake & Output 10/03/18 10/04/18 10/04/18 18:59 06:59 18:59 Intake Total 718 800 180 Balance 718 800 180 Weight 74.8 kg Intake: IV 800 0.9 800 Oral 718 180 Other: Voiding Method Toilet # Voids 1 1 1 - Constitutional General appearance: Present: no acute distress - Respiratory Respiratory: bilateral: CTA - Cardiovascular Rhythm: regular Heart sounds: normal: S1, S2 Abnormal Heart Sounds: Present: systolic murmur - Labs CBC & Chem 7: 10/01/18 05:48 10/01/18 05:48 Assessment and Plan Assessment: Assessment #1 severe coronary artery disease #2 hypertension #3 dyslipidemia Plan #1 continue the current medical regimen #2 the patient can be discharged home
[2018-10-04 11:57] VITALS: BMI 32.2
--- NOTE | 2018-10-04 16:05 | P.DS ---
Providers Date of admission: 09/28/18 19:18 Expected date of discharge: 10/04/18 Attending physician: Nasim Waterman Consults: 09/28/18 19:37 Consult Physician Routine Consulting Provider: Pato Paris Consult Reason/Comments: chest pain, elevated trop Do you want consulting provider notified?: Yes Placement Type Exists?: Yes 09/30/18 10:23 Consult Physician Routine Consulting Provider: Rodrigo Klein Consult Reason/Comments: open heart consultation Do you want consulting provider notified?: Already Contacted Primary care physician: Stated None Hospital Course: Final diagnosis Acute non-ST elevation myocardial infarction: Patient underwent cardiac catheterization and to continue with antiplatelet therapies, and statins. Patient has occlusion of the circumflex, plan now is for maximal medication therapy Shortness of breath exertional, secondary to coronary artery disease Proximal atrial fibrillation Asthma without any acute exacerbation Gastroesophageal reflux disease Hypothyroidism History of TIA in the past Chronic back pain Discharge disposition Patient is being discharged in a stable condition with guarded prognosis to home. Patient will follow-up with cardiology next week. History of present illness During this hospital stay patient underwent cardiac catheterization and was shown to have a tight lesion of the proximal circumflex which could not be stented in the plan is for maximal medical therapy. Patient was started on Ranexa per cardiology recommendations. Patient is denying any fatigue, shortness of breath, chest pain, or palpitations at this time. Patient states that she does experience some minor chest pain at home when working. 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 Patient denies any nausea or vomiting at this time and is tolerating diet. Patient remains afebrile. Patient is currently stable and much improved. Patient will follow up with cardiology in an outpatient basis. On exam vital signs are stable. Blood pressure is 139/73, pulse is 56, respirations are 16, temp is 97.7F, oxygen saturation is 96% on room air. Cardio S1 and S2 are normal. Respiratory system is clear to auscultation no wheezing or crackles noted. Abdomen is soft and non-tender. Nervous system shows no focal deficits and gait is steady. Please refer to medication reconciliation sheet for list of medications. Patient Condition at Discharge: Fair Plan - Discharge Summary Discharge Rx Participant: No New Discharge Prescriptions: New Ranolazine [Ranexa] 500 mg PO Q12HR #60 tab.er.12h Aspirin 81 mg PO DAILY #30 chew Isosorbide Mononitrate ER [Imdur] 30 mg PO DAILY #30 tab.er.24h Atorvastatin [Lipitor] 40 mg PO DAILY #30 tab Clopidogrel [Plavix] 75 mg PO DAILY #30 tab Continue Metoprolol Tartrate [Lopressor] 25 mg PO BID Escitalopram [Lexapro] 10 mg PO DAILY Pantoprazole Sodium [Protonix] 40 mg PO BID predniSONE 10 mg PO DAILY traMADol HCL [Ultram] 50 mg PO Q6HR PRN PRN Reason: Pain Potassium Chloride ER [K-Dur 10] 10 meq PO DAILY Fluticasone Nasal Markle [Flonase Nasal Markle] 2 spr EA NOSTRIL DAILY PRN PRN Reason: Allergy Symptoms carBAMazepine CHEW [TEGretol Chew] 100 mg PO TID Gabapentin [Neurontin] 300 mg PO TID Cholecalciferol [Vitamin D3 (25 Mcg = 1000 Iu)] 1,000 unit PO DAILY Levothyroxine Sodium [Synthroid] 150 mcg PO DAILY Discharge Medication List Escitalopram [Lexapro] 10 mg PO DAILY 11/28/16 [History] Fluticasone Nasal Markle [Flonase Nasal Markle] 2 spr EA NOSTRIL DAILY PRN 11/28/16 [History] Gabapentin [Neurontin] 300 mg PO TID 11/28/16 [History] Metoprolol Tartrate [Lopressor] 25 mg PO BID 11/28/16 [History] Pantoprazole Sodium [Protonix] 40 mg PO BID 11/28/16 [History] Potassium Chloride ER [K-Dur 10] 10 meq PO DAILY 11/28/16 [History] carBAMazepine CHEW [TEGretol Chew] 100 mg PO TID 11/28/16 [History] predniSONE 10 mg PO DAILY 11/28/16 [History] traMADol HCL [Ultram] 50 mg PO Q6HR PRN 11/28/16 [History] Cholecalciferol [Vitamin D3 (25 Mcg = 1000 Iu)] 1,000 unit PO DAILY 09/28/18 [History] Levothyroxine Sodium [Synthroid] 150 mcg PO DAILY 09/28/18 [History] Aspirin 81 mg PO DAILY #30 chew 10/04/18 [Rx] Atorvastatin [Lipitor] 40 mg PO DAILY #30 tab 08/06/19 [Rx] Clopidogrel [Plavix] 75 mg PO DAILY #30 tab 10/04/18 [Rx] Isosorbide Mononitrate ER [Imdur] 30 mg PO DAILY #30 tab.er.24h 10/04/18 [Rx] Ranolazine [Ranexa] 500 mg PO Q12HR #60 tab.er.12h 10/04/18 [Rx] Follow up Appointment(s)/Referral(s): Sha Jones NPC [REFERRING] - 10/06/18 10:30 am Pato Paris MD [STAFF PHYSICIAN] - 10/14/18 2:30 pm (In [place]. ) Patient Instructions/Handouts: *Surgery [facility] - After Heart Catheterization - Preparer Samples And Repairs Instructions, Coronary Artery Disease (DC), Heart Healthy Diet (DC) Activity/Diet/Wound Care/Special Instructions: Activity Limited until follow-up Continue current diet Follow-up with primary care provider and cardiology as scheduled Discharge Disposition: HOME SELF-CARE
[2018-10-04] MEDS: SODIUM CHLORIDE 0.9% 1,000 ML IV SCH (16:34)
== END 2018-10-04 16:53 | disposition home or self-care (01) | DRG 281 ==
LOC: 3SCARD 19:18
PROVIDERS: ADMIT Internal Medicine; ATTEND Internal Medicine
PROC: 4A023N7 Measurement of Cardiac Sampling and Pressure, Left Heart, Percutaneous Approach (ICD-10-PCS; principal; 2018-09-30 07:30)
PROC: B2111ZZ Fluoroscopy of Multiple Coronary Arteries using Low Osmolar Contrast (ICD-10-PCS; principal; 2018-09-30 07:30)
DX: I21.4 Non-ST elevation (NSTEMI) myocardial infarction (principal); J98.11 Atelectasis; I48.0 Paroxysmal atrial fibrillation; K21.9 Gastro-esophageal reflux disease without esophagitis; G50.0 Trigeminal neuralgia; I25.10 Atherosclerotic heart disease of native coronary artery without angina pectoris; I10 Essential (primary) hypertension; K75.9 Inflammatory liver disease, unspecified; I27.20 Pulmonary hypertension, unspecified; J45.909 Unspecified asthma, uncomplicated; E78.5 Hyperlipidemia, unspecified; I08.1 Rheumatic disorders of both mitral and tricuspid valves; G89.29 Other chronic pain; M54.9 Dorsalgia, unspecified; D64.9 Anemia, unspecified; E89.0 Postprocedural hypothyroidism; Z96.653 Presence of artificial knee joint, bilateral; Z90.49 Acquired absence of other specified parts of digestive tract; Z79.899 Other long term (current) drug therapy; I25.2 Old myocardial infarction; Z79.890 Hormone replacement therapy; Z79.52 Long term (current) use of systemic steroids; Z86.73 Personal history of transient ischemic attack (TIA), and cerebral infarction without residual deficits; Z82.49 Family history of ischemic heart disease and other diseases of the circulatory system; Z80.7 Family history of other malignant neoplasms of lymphoid, hematopoietic and related tissues; Z90.89 Acquired absence of other organs; Z98.890 Other specified postprocedural states; Z88.1 Allergy status to other antibiotic agents; Z91.041 Radiographic dye allergy status; Z91.040 Latex allergy status; Z88.5 Allergy status to narcotic agent; Z88.0 Allergy status to penicillin; Z91.013 Allergy to seafood; Z88.2 Allergy status to sulfonamides; Z88.7 Allergy status to serum and vaccine; Z91.018 Allergy to other foods; Z91.048 Other nonmedicinal substance allergy status; Z91.09 Other allergy status, other than to drugs and biological substances
CPT/HCPCS: 71045; 80048; 80061; 82550; 82553; 83036; 83735; 84439; 84443; 84484; 85025; 85027; 85610; 85730; 93306; 93458; 93880

== ENCOUNTER 2019-04-16 13:49 | Inpatient (IN) | payer MEDICARE ==
[2019-04-16] MEDS ORDERED: NALOXONE 0.4 MG/ML 1 ML VIAL IV PRN (16:52)
[2019-04-16] MEDS ORDERED: PANTOPRAZOLE 40 MG TABLET PO SCH (17:00)
[2019-04-16 17:28] LABS: Basophils # (A) 0.1 k/uL (0-0.2); Basophils % (A) 1 %; Eosinophils # (A) 0.3 k/uL (0-0.7); Eosinophils % (A) 2 %; HCT 34.1 % (34.0-46.0); Lymphocytes # (A) 1.5 k/uL (1.0-4.8); Lymphocytes % (A) 11 %; MCH 31.4 pg (25.0-35.0); MCHC 32.3 g/dL (31.0-37.0); MCV 97.3 fL (80.0-100.0); Mean Platelet Volume 6.6; Monocytes # (A) 0.5 k/uL (0-1.0); Monocytes % (A) 4 %; Neutrophils # (A) 10.4 k/uL (1.3-7.7); Neutrophils % (A) 81 %; Platelet Count 378 k/uL (150-450); RDW 13.1 % (11.5-15.5); WBC 12.9 k/uL (3.8-10.6)
[2019-04-16 17:53] LABS: ALT 36 U/L (4-34); AST 34 U/L (14-36); African American GFR (CKD) >90 (>60 ml/min/1.73 sqM); Albumin 3.7 g/dL (3.5-5.0); Alkaline Phosphatase 82 U/L (38-126); Anion Gap 6 mmol/L; Blood Urea Nitrogen 13 mg/dL (7-17); Calcium 8.8 mg/dL (8.4-10.2); Carbon Dioxide 31 mmol/L (22-30); Chloride 95 mmol/L (98-107); Glucose 89 mg/dL (74-99); Magnesium 1.9 mg/dL (1.6-2.3); Non-African American GFR(CKD) 84 (>60 ml/min/1.73 sqM); Potassium 4.6 mmol/L (3.5-5.1); Sodium 132 mmol/L (137-145); Total Bilirubin 0.7 mg/dL (0.2-1.3); Total Protein 6.2 g/dL (6.3-8.2)
--- NOTE | 2019-04-16 17:57 | XR ---
EXAMINATION TYPE: XR chest 1V portable DATE OF EXAM: 04/16/2019 COMPARISON: 09/29/2018 HISTORY: Redness of breath TECHNIQUE: Single frontal view of the chest is obtained. FINDINGS: There is no focal air space opacity, pleural effusion, or pneumothorax seen. The cardiac silhouette size is within normal limits. The osseous structures are intact. Prominence of the right hilum likely reflects patient rotation. No overt failure. Arthropathy of the shoulders. IMPRESSION: 1. No overt failure. There is prominence the right hilum likely secondary to positioning and rotation . Follow-up PA and lateral views of the chest recommended on a short-term basis.
[2019-04-16 20:01] LABS: Appearance,Urine Clear (Clear); Bilirubin,Urine Negative (Negative); Blood,Urine Negative (Negative); Color,Urine Yellow; Glucose,Urine (UA) 1+ (Negative); Ketones,Urine Negative (Negative); Protein,Urine Negative (Negative); Specific Gravity,Urine 1.005 (1.001-1.035); Urobilinogen,Urine <2.0 mg/dL (<2.0)
[2019-04-16 20:02] LABS: Leukocyte Esterase,Urine Negative (Negative); Nitrite,Urine Negative (Negative)
--- NOTE | 2019-04-16 20:54 | XR ---
EXAMINATION TYPE: XR pelvis AP view DATE OF EXAM: 04/16/2019 COMPARISON: Left hip 11/28/2016 HISTORY: Pain TECHNIQUE: Single view FINDINGS: Pelvic ring is intact. There is bilateral hip nailing fixing intertrochanteric fractures of the femurs. There are nondisplaced fractures of the right superior and inferior pubic rami. Fracture s appear acute. Sacroiliac joints are intact. IMPRESSION: Acute nondisplaced right pubic rami fractures. Fractures appear new compared to 11/28/2016 exam.
[2019-04-16] MEDS ORDERED: predniSONE 10 MG TAB PO PRN (21:30)
[2019-04-16] MEDS ORDERED: NITROGLYCERIN SL TABS 0.4 MG TAB SUBLINGUAL PRN (21:30)
[2019-04-16] MEDS ORDERED: ALPRAZolam 0.25 MG TAB PO PRN (21:32)
[2019-04-16] MEDS: SODIUM CHLORIDE 0.9% 1,000 ML IV SCH (22:02)
[2019-04-16] MEDS: METOPROLOL TARTRATE 50 MG TAB PO SCH (22:02)
[2019-04-16] MEDS: HEPARIN SODIUM,PORCINE 5,000 UNIT/ML 1 ML VIAL SQ SCH (22:02)
[2019-04-16] MEDS: traMADol 50 MG TAB PO PRN (22:03)
--- NOTE | 2019-04-16 23:25 | CONS ---
CONSULTATION DATE OF SERVICE: 04/16/2019. REASON FOR ADMISSION: Fall and hip fracture. HISTORY OF PRESENT ILLNESS: This 83-year-old woman with a past medical history of multiple medical problems including history of atrial fibrillation, history of asthma, CAD, CVA, TIA, GERD, hypertension, history of myocardial infarction, appendectomy, being followed by Dr. Sha Jones in the [place] area, apparently lost her balance and fell at the steps of the uatsdin this morning and the patient is complaining of severe leg pain. The patient came to [facility] and admitted to the [facility]. The patient had previous surgeries of both hips and both knees by Dr. Grissom. The evaluation including CT scan to [place] showed evidence of nondisplaced right pubic fracture and anterior acetabulum also. The patient is being closely monitored at this time. There is no history of fever, rigors. No history of headache, loss of consciousness, seizures. PAST MEDICAL HISTORY: Past medical history of the patient also had cardiac catheterization year and had single-vessel coronary artery disease with 95% of the ostial circumflex artery stenosis. Maximum medical treatment was recommended. No chest pain. No palpitation or palpitations at this time. No history of fever, rigors, chills at this time. PAST MEDICAL HISTORY: History of atrial fibrillation, history of asthma, CAD, history of CVA, GERD, myocardial infarction, history of regimen neurology. MEDICATIONS: Home medications are: 1. Ultram 50 mg q.8 p.r.n. 2. Prednisone taper. 3. Tegretol 200 mg p.o. t.i.d. 4. Norvasc 5 mg p.o. daily. 6. K-Dur 10 mEq p.o. daily. 7. Protonix 40 mg b.i.d. 8. Nitrostat 0.4 sublingual p.r.n. 9. Lopressor 50 mg p.o. daily. 10.Synthroid 150 mcg p.o. 11.Imdur 30 mg p.o. daily. 12.Neurontin 600 mg p.o. daily and 300 mg p.o. b.i.d. 13.Lexapro 10 mg p.o. 14.Plavix 75 mg. 15.Vitamin D 3000 daily. 16.Lipitor 40 mg p.o. daily. ALLERGIES: MULTIPLE ALLERGIES INCLUDE ADHESIVE TAPE, AVOCADO, BANANA, BEE VENOM, COCONUT AND CODEINE NUT, NUT BEECH, PENICILLIN, LYRICA, PSYLLIUM, [QAMARKER]SOAP, STRAWBERRY, WHEAT, MORPHINE. FAMILY HISTORY: History of renal disease, non-Hodgkin lymphoma. SOCIAL HISTORY: No history of smoking. No history of alcohol. REVIEW OF SYSTEMS: ENT: Diminished vision. Diminished hearing. CARDIOVASCULAR as mentioned earlier. RESPIRATORY: As mentioned earlier. GI no nausea or vomiting. no dysuria. NERVOUS SYSTEM: No numbness or weakness. ALLERGY/IMMUNOLOGY: No asthma or hayfever. MUSCULOSKELETAL as mentioned earlier. HEMATOLOGY/ONCOLOGY: No history of anemia. ENDOCRINE: No history of diabetes or hypothyroidism. CONSTITUTIONAL: As mentioned earlier. DERMATOLOGY: Negative. RHEUMATOLOGY negative. PSYCHIATRY as mentioned. PHYSICAL EXAMINATION: Alert and oriented x3. Pulse is 78. Blood pressure 161/69, respiration 18, temperature 98.8, pulse ox 93% on room air. HEENT: Conjunctivae normal. NECK: No JVD. CARDIOVASCULAR: S1, S2 muffled. RESPIRATIONS: Breath sounds diminished in the bases. A few scattered rhonchi and crackles. ABDOMEN: Soft, nontender. No mass palpable. LEGS: Movements are painful. NERVOUS SYSTEM: Higher functions as mentioned. Moves all four limbs. No focal motor or sensory deficits. LYMPHATICS: No lymph nodes palpable in the neck, axillae or groin. SKIN: No ulcer, rash or bleeding. JOINTS: No active deforming arthropathy. LABS: WBC 12.2, hemoglobin 11, sodium 132. ASSESSMENT: 1. Fall and possible pelvic fracture. 2. Gait dysfunction and severe pain. 3. Increased WBC. 4. Anemia, normocytic anemia of chronic disease. 5. Hyponatremia. 6. History of coronary artery disease. 7. History atrial fibrillation, history of asthma. 8. History of cerebrovascular accident/transient ischemic attack. 9. Gastroesophageal reflux disease. 10.Hypertension. 11.History of myocardial infarction. 12.Hypothyroidism. 13.History of trigeminal neuralgia. 14.History of hepatitis after blood transfusion. 15.History of pancreatitis. 16.Appendectomy. 17.Adenoidectomy. 18.FULL CODE. RECOMMENDATIONS AND DISCUSSION: In this 83-year-old woman who presented with multiple complex medical issues, we will monitor the patient closely, continue the current medications, management and symptomatic treatment. The patient had acute [id number]-[id number]-elevation myocardial infarction, as mentioned earlier last year and patient had cardiac catheterization and medical treatment was noted for the occlusion of the circumflex artery ostial stenosis. Otherwise, the patient so we will continue to closely follow with Orthopedic surgery. If any surgery is needed, patient will be cleared after cardiac clearance. Otherwise, we will continue to monitor. PT/OT evaluation. Resume the home medications. Prognosis guarded because of multiple complex medical issues. Further recommendations to follow. A copy of dictation being forwarded to Dr. Sha Jones who is the primary physician. MMODL / XINN: [id number] / MTDD
[2019-04-17] MEDS: ACETAMINOPHEN TAB 500 MG TAB PO PRN (05:07)
[2019-04-17] MEDS: LEVOTHYROXINE 50 MCG TAB PO SCH (05:08)
[2019-04-17] MEDS: traMADol 50 MG TAB PO PRN ×3 (06:15→19:48)
[2019-04-17 07:42] LABS: Basophils # (A) 0.1 k/uL (0-0.2); Basophils % (A) 1 %; Eosinophils # (A) 0.5 k/uL (0-0.7); Eosinophils % (A) 5 %; HCT 32.5 % (34.0-46.0); HGB 10.9 gm/dL (11.4-16.0); Lymphocytes # (A) 0.8 k/uL (1.0-4.8); Lymphocytes % (A) 9 %; MCH 31.9 pg (25.0-35.0); MCHC 33.6 g/dL (31.0-37.0); MCV 94.9 fL (80.0-100.0); Mean Platelet Volume 6.8; Monocytes # (A) 0.2 k/uL (0-1.0); Monocytes % (A) 2 %; Neutrophils # (A) 8.2 k/uL (1.3-7.7); Neutrophils % (A) 83 %; Platelet Count 342 k/uL (150-450); RBC 3.42 m/uL (3.80-5.40); RDW 13.2 % (11.5-15.5); WBC 9.9 k/uL (3.8-10.6)
[2019-04-17 08:06] LABS: African American GFR (CKD) >90 (>60 ml/min/1.73 sqM); Anion Gap 7 mmol/L; Blood Urea Nitrogen 13 mg/dL (7-17); Calcium 8.3 mg/dL (8.4-10.2); Carbon Dioxide 26 mmol/L (22-30); Chloride 95 mmol/L (98-107); Glucose 109 mg/dL (74-99); Non-African American GFR(CKD) 81 (>60 ml/min/1.73 sqM); Potassium 3.9 mmol/L (3.5-5.1); Sodium 128 mmol/L (137-145)
[2019-04-17] MEDS: ISOSORBIDE MONONITRATE ER 30 MG TAB.ER.24H PO SCH (09:00)
[2019-04-17] MEDS: ATORVASTATIN 40 MG TAB PO SCH (09:00)
[2019-04-17] MEDS: CHOLECALCIFEROL 1,000 UNIT TAB PO SCH (09:01)
[2019-04-17] MEDS: amLODIPine 5 MG TAB PO SCH (09:01)
[2019-04-17] MEDS: METOPROLOL TARTRATE 50 MG TAB PO SCH ×3 (09:01→19:47)
[2019-04-17] MEDS: POTASSIUM CHLORIDE ER 10 MEQ TAB.ER.PRT PO SCH (09:01)
[2019-04-17] MEDS: PANTOPRAZOLE 40 MG TABLET PO SCH ×2 (09:01→19:47)
[2019-04-17] MEDS: GABAPENTIN 300 MG CAP PO SCH ×3 (09:02→19:47)
[2019-04-17] MEDS: RANOLAZINE 500 MG TAB.ER.12H PO SCH ×2 (09:08→19:47)
[2019-04-17] MEDS: CHLORHEXIDINE GLUCONATE 15 ML CUP MUCOUS MEM SCH ×2 (09:09→19:47)
[2019-04-17] MEDS: ESCITALOPRAM 10 MG TAB PO SCH (09:09)
[2019-04-17] MEDS: HEPARIN SODIUM,PORCINE 5,000 UNIT/ML 1 ML VIAL SQ SCH ×2 (09:09→19:47)
[2019-04-17] MEDS: CLOPIDOGREL 75 MG TAB PO SCH (12:07)
--- NOTE | 2019-04-17 16:49 | P.CNOR ---
History of Present Illness - [facility] Consult date: 04/17/19 Consult reason: fracture History of present illness: Patient is an 83-year-old female who was transferred from [facility] to [facility] yesterday morning after sustaining a fall at [facility]. Patient has a significant history of frequent falls with multiple broken bones in surgery in the past. Patient was unable to weight-bear after the fall. Multiple imaging test were done at [facility], including a computed tomography scan of the pelvis and head. There were negative for any acute bleeds in the head, she had multiple fractures involving the right pelvis region, she was transferred to our hospital for further workup. Upon arrival to [facility], further lab tests were done. An AP pelvis x-ray was also done. She was admitted under internal medicine for further management, our orthopedic team was consult due to the fractures on the right side. Patient has a history of bilateral total knee replacements, she also has a history of bilateral intertrochanteric femur fractures that were fixed years ago. She's states that the surgeon was Dr. Vásquez at [facility]. She cannot murmur the exact dates of any of the surgeries. Patient was examined today at bedside, she is resting comfortably. She states that the pain medication on board is keeping her comfortable. She is not ambulated since the fall. Size the right hip/pelvic region, she has no other orthopedic complaints this time. She denies any chest pain or shortness of breath at this time. Review of Systems Constitutional: Reports as per HPI Past Medical History Past Medical History: Atrial Fibrillation, Asthma, Coronary Artery Disease (CAD), Chest Pain / Angina, CVA/TIA, GERD/Reflux, Hypertension, Myocardial Infarction (ME), Thyroid Disorder Additional Past Medical History / Comment(s): Trigeminal Neur right side. 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 knee replacement, partial thyroidectomy, Bilateral hip surgery/ repair. Past Anesthesia/Blood Transfusion Reactions: No Reported Reaction Past Psychological History: No Psychological Hx Reported Smoking Status: Never smoker Past Alcohol Use History: None Reported Past Drug Use History: None Reported - Past Family History Father Family Medical History: Renal Disease Brother(s) Additional Family Medical History / Comment(s): Non-Hodgkin's lymphoma Sister(s) Family Medical History: Coronary Artery Disease (CAD) Medications and Allergies Home Medications Medication Instructions Recorded Confirmed Type Escitalopram [Lexapro] 10 mg PO DAILY 11/28/16 04/16/19 History Gabapentin [Neurontin] 300 mg PO BID@1200,2100 11/28/16 04/16/19 History Pantoprazole Sodium [Protonix] 40 mg PO BID 11/28/16 04/16/19 History Potassium Chloride ER [K-Dur 10] 10 meq PO DAILY 11/28/16 04/16/19 History carBAMazepine CHEW [TEGretol Chew] 100 mg PO TID 11/28/16 04/16/19 History predniSONE 10 mg PO DAILY PRN 11/28/16 04/16/19 History traMADol HCL [Ultram] 50 mg PO Q8H PRN 11/28/16 04/16/19 History Cholecalciferol [Vitamin D3 (25 1,000 unit PO DAILY 09/28/18 04/16/19 History Mcg = 1000 Iu)] Levothyroxine Sodium [Synthroid] 150 mcg PO DAILY 09/28/18 04/16/19 History Atorvastatin [Lipitor] 40 mg PO DAILY #30 tab 10/04/18 04/16/19 Rx Clopidogrel [Plavix] 75 mg PO DAILY #30 tab 10/04/18 04/16/19 Rx Isosorbide Mononitrate ER [Imdur] 30 mg PO DAILY #30 tab.er.24h 10/04/18 04/16/19 Rx Ranolazine [Ranexa] 500 mg PO Q12HR #60 tab.er.12h 10/04/18 04/16/19 Rx Gabapentin [Neurontin] 600 mg PO DAILY 04/16/19 04/16/19 History Metoprolol Tartrate [Lopressor] 50 mg PO TID 04/16/19 04/16/19 History Nitroglycerin Sl Tabs [Nitrostat] 0.4 mg SUBLINGUAL Q5M PRN 04/16/19 04/16/19 History amLODIPine [Norvasc] 5 mg PO DAILY 04/16/19 04/16/19 History Allergies Allergy/AdvReac Type Severity Reaction Status Date / Time adhesive tape Allergy Unknown Verified 04/16/19 17:02 avocado Allergy Anaphylaxis Verified 04/16/19 17:02 banana Allergy Anaphylaxis Verified 04/16/19 17:02 bee venom protein (honey bee) Allergy Unknown Verified 04/16/19 17:02 coconut Allergy Anaphylaxis Verified 04/16/19 17:02 codeine Allergy Unknown Verified 04/16/19 17:02 Iodine and Iodide Containing Allergy Anaphylaxis Verified 04/16/19 17:02 Produc latex Allergy Unknown Verified 04/16/19 17:02 nut - unspecified Allergy Anaphylaxis Verified 04/16/19 17:02 ofloxacin [From Floxin] Allergy Unknown Verified 04/16/19 17:02 peach Allergy Itching Verified 04/16/19 17:02 Penicillins Allergy Anaphylaxis Verified 04/16/19 17:02 pregabalin [From Lyrica] Allergy Unknown Verified 04/16/19 17:02 propoxyphene [From Darvon] Allergy Unknown Verified 04/16/19 17:02 psyllium Allergy Unknown Verified 04/16/19 17:02 Quinolones Allergy Unknown Verified 04/16/19 17:02 shellfish derived [Shellfish] Allergy Anaphylaxis Verified 04/16/19 17:02 soap Allergy Itching Verified 04/16/19 17:02 strawberry Allergy Rash/Hives Verified 04/16/19 17:02 Sulfa (Sulfonamide Allergy Anaphylaxis Verified 04/16/19 17:02 Antibiotics) Tetanus Vaccines and Toxoid Allergy Anaphylaxis Verified 04/16/19 17:02 wheat Allergy Unknown Verified 04/16/19 17:02 morphine AdvReac Mental Verified 04/16/19 17:02 Confusion detergent Allergy Itching Uncoded 11/28/16 18:21 jalapeno peppers Allergy Anaphylaxis Uncoded 11/28/16 18:21 spandex Allergy Unknown Uncoded 11/28/16 18:02 zucchini Allergy Unknown Uncoded 11/28/16 18:02 Physical Examination General orthopedic exam: Exam of the bilateral lower extremities, she has surgical scars over the anterior aspect of the knee that are well-healed. There is no open lesions or sores present involving the lower extremities. There is no effusion present over either knee. No tenderness with palpation over the bilateral knees Plantar flexion, dorsiflexion, EHL, FHL are intact bilaterally. Sensory exam to light touch throughout bilateral extremities intact. Dorsalis pedis pulses are 2+ bilaterally Logroll maneuver on the left lower extremity reproduces no groin pain, she is able to flex the knee past 90 actively, internal and external rotation of the left hip reproduces no pain Logroll maneuver of the right lower extremity reproduces produces discomfort, active motion with regards to knee flexion and extension reproduces discomfort in the right pelvic region. She is unable to flex the hip at this time. She's tender with palpation throughout the lateral aspects of the upper leg Results - Labs Labs: Abnormal Lab Results - Last 24 Hours (Table) 04/16/19 04/16/19 04/17/19 Range/Units 17:21 17:21 06:59 WBC 12.9 H (3.8-10.6) k/uL RBC 3.50 L 3.42 L (3.80-5.40) m/uL Hgb 11.0 L 10.9 L (11.4-16.0) gm/dL Hct 32.5 L (34.0-46.0) % Neutrophils # 10.4 H 8.2 H (1.3-7.7) k/uL Lymphocytes # 0.8 L (1.0-4.8) k/uL Sodium 132 L (137-145) mmol/L Chloride 95 L (98-107) mmol/L Carbon Dioxide 31 H (22-30) mmol/L Glucose (74-99) mg/dL Calcium (8.4-10.2) mg/dL ALT 36 H (4-34) U/L Total Protein 6.2 L (6.3-8.2) g/dL 04/17/19 Range/Units 06:59 WBC (3.8-10.6) k/uL RBC (3.80-5.40) m/uL Hgb (11.4-16.0) gm/dL Hct (34.0-46.0) % Neutrophils # (1.3-7.7) k/uL Lymphocytes # (1.0-4.8) k/uL Sodium 128 L (137-145) mmol/L Chloride 95 L (98-107) mmol/L Carbon Dioxide (22-30) mmol/L Glucose 109 H (74-99) mg/dL Calcium 8.3 L (8.4-10.2) mg/dL ALT (4-34) U/L Total Protein (6.3-8.2) g/dL H & H 04/16/19 04/17/19 Range/Units 17:21 06:59 Hgb 11.0 L 10.9 L (11.4-16.0) gm/dL Hct 34.1 32.5 L (34.0-46.0) % Result Diagrams: 04/17/19 06:59 04/17/19 06:59 - Diagnostic results Hip x-ray: report reviewed, image reviewed Hip CT: report reviewed, image reviewed Assessment and Plan Plan: Imaging: AP pelvis x-rays were reviewed, hardware of the bilateral hips appears stable. I was able to review the report and images of the computed tomography scan of the pelvis that was taken at [facility]. Images to demonstrate nondisplaced superior and inferior pubic rami fractures. Anterior right nondisplaced acetabular fracture present, and a right sided sacral onelia nondisplaced fracture is present. Assessment: 1. Nondisplaced right-sided inferior and superior pubic rami fracture 2. Nondisplaced right anterior acetabular fracture 3. Nondisplaced right sacral fracture 4. History of bilateral total knee replacement 5. History of bilateral ORIF right intertrochanteric femur fractures 6. History of frequent falls 7. Multiple medical comorbidities Plan: I was able to discuss the case, including both physical exam findings and i maging studies my telling Dr. Simon. No orthopedic surgical intervention recommended at this time. Nonweightbearing right lower extremity, toe-touch when transferring from that site commode or chair Pain control per primary medical service GI and DVT prophylaxis per primary medical service Anticipated patient will need rehab for an extended period of time due to weightbearing restrictions and need for assistance with ADLs We'll continue to follow patient during inpatient stay Time with Patient: Less than 30
[2019-04-17] MEDS: SODIUM CHLORIDE 0.9% 1,000 ML IV SCH (18:11)
--- NOTE | 2019-04-17 21:14 | PN ---
PROGRESS NOTE DATE OF SERVICE: 04/17/2019 This 83-year-old woman was admitted with a fall and hip fracture, is being closely monitored. Orthopedic Surgery is following the patient. No chest pain. No palpitations. No fever. EXAM: Alert and oriented x3. Pulse is 81, blood pressure 140/60, respirations 16, temperature 99.2, pulse ox 92% on room air. HEENT: Conjunctivae normal. Oral mucosa moist. NECK: No jugular venous distention. No lymph node enlargement. CARDIOVASCULAR: S1, S2. RESPIRATORY: Diminished breath sounds at the bases. Scattered rhonchi, no crackles. ABDOMEN: Soft, nontender. LEGS: No edema, no swelling. NERVOUS SYSTEM: No focal deficits. LABS: At this time, WBC 9.9, hemoglobin 10.9 sodium 128. ASSESSMENT: 1. Fall and possible pelvic fracture. 2. Gait dysfunction with severe leg pain. 3. Increased WBC. 4. Anemia, normocytic anemia of chronic disease. 5. Hyponatremia. 6. History of coronary artery disease. 7. History atrial fibrillation. 8. History of cerebrovascular accident, transient ischemic attack. 9. History of gastroesophageal reflux disease. 10.Hypertension. 11.History of myocardial infarction. 12.History of hypothyroidism. 13.History of trigeminal neurology. 14.History of hepatitis after blood transfusion. 15.History of pancreatitis. 16.History of appendectomy. 17.History of adenoidectomy. 18.FULL CODE. RECOMMENDATIONS AND DISCUSSION: Recommend to continue current management and symptomatic treatment. Resume the home medications. PT/OT evaluation. Otherwise, follow closely with Orthopedic Surgery. We will also consider possible ECF rehab. Guarded prognosis because of multiple complex medical issues. Further recommendations to follow. Discussed with the family at length. MMODL / IJN: [id number] /
[2019-04-18] MEDS: ACETAMINOPHEN TAB 500 MG TAB PO PRN ×3 (02:32→23:09)
[2019-04-18] MEDS: traMADol 50 MG TAB PO PRN ×3 (03:35→19:47)
[2019-04-18] MEDS: ISOSORBIDE MONONITRATE ER 30 MG TAB.ER.24H PO SCH (07:30)
[2019-04-18] MEDS: HEPARIN SODIUM,PORCINE 5,000 UNIT/ML 1 ML VIAL SQ SCH ×2 (07:30→23:10)
[2019-04-18] MEDS: CHLORHEXIDINE GLUCONATE 15 ML CUP MUCOUS MEM SCH ×2 (07:30→23:10)
[2019-04-18] MEDS: METOPROLOL TARTRATE 50 MG TAB PO SCH ×3 (07:31→23:09)
[2019-04-18] MEDS: RANOLAZINE 500 MG TAB.ER.12H PO SCH (07:31)
[2019-04-18] MEDS: ATORVASTATIN 40 MG TAB PO SCH (07:32)
[2019-04-18] MEDS: PANTOPRAZOLE 40 MG TABLET PO SCH ×2 (07:32→23:09)
[2019-04-18] MEDS: GABAPENTIN 300 MG CAP PO SCH ×4 (07:32→23:09)
[2019-04-18] MEDS: amLODIPine 5 MG TAB PO SCH (07:32)
[2019-04-18] MEDS: ESCITALOPRAM 10 MG TAB PO SCH (07:32)
[2019-04-18] MEDS: CLOPIDOGREL 75 MG TAB PO SCH (07:32)
[2019-04-18] MEDS: POTASSIUM CHLORIDE ER 10 MEQ TAB.ER.PRT PO SCH (07:32)
[2019-04-18] MEDS: LEVOTHYROXINE 50 MCG TAB PO SCH (07:32)
[2019-04-18] MEDS: CHOLECALCIFEROL 1,000 UNIT TAB PO SCH (07:32)
[2019-04-18 07:46] LABS: Basophils % (A) 0 %; Eosinophils # (A) 0.6 k/uL (0-0.7); Eosinophils % (A) 6 %; HCT 31.6 % (34.0-46.0); HGB 10.5 gm/dL (11.4-16.0); Lymphocytes # (A) 0.9 k/uL (1.0-4.8); Lymphocytes % (A) 9 %; MCH 31.9 pg (25.0-35.0); MCHC 33.3 g/dL (31.0-37.0); MCV 95.9 fL (80.0-100.0); Mean Platelet Volume 7.2; Monocytes # (A) 0.4 k/uL (0-1.0); Monocytes % (A) 4 %; Neutrophils # (A) 7.8 k/uL (1.3-7.7); Neutrophils % (A) 80 %; Platelet Count 276 k/uL (150-450); RBC 3.29 m/uL (3.80-5.40); RDW 13.3 % (11.5-15.5); WBC 9.7 k/uL (3.8-10.6)
[2019-04-18 07:51] LABS: African American GFR (CKD) >90 (>60 ml/min/1.73 sqM); Anion Gap 7 mmol/L; Blood Urea Nitrogen 14 mg/dL (7-17); Calcium 8.2 mg/dL (8.4-10.2); Carbon Dioxide 25 mmol/L (22-30); Chloride 95 mmol/L (98-107); Glucose 106 mg/dL (74-99); Non-African American GFR(CKD) 81 (>60 ml/min/1.73 sqM); Potassium 4.3 mmol/L (3.5-5.1); Sodium 127 mmol/L (137-145)
--- NOTE | 2019-04-18 12:04 | P.PN ---
Subjective Progress Note Date: 04/18/19 Principal diagnosis: Right superior and inferior pubic rami fracture, right anterior acetabular fracture, right sacral ala fracture Patient is examined today, she was resting comfortably. She states that the pain is better today. She's been up to the chair and the bedside commode. She remains nonweightbearing, toe-touch when transferring with walker. Objective - Vital Signs Vital signs: Vital Signs Temp 98.3 F 04/18/19 07:00 Pulse 72 04/18/19 08:10 Resp 16 04/18/19 08:10 BP 134/74 04/18/19 07:00 Pulse Ox 92 L 04/18/19 07:00 Intake & Output 04/17/19 04/18/19 04/18/19 18:59 06:59 18:59 Output Total 300 250 Balance -300 -250 Output: Urine 300 250 Other: Voiding Method Bedpan Bedpan - Exam General orthopedic exam: Logroll maneuver and assisted motion of the right lower extremity reproduces less pain in the hip region Distal neurovascular exam is intact - Labs CBC & Chem 7: 04/18/19 06:33 04/18/19 06:33 Labs: Abnormal Lab Results - Last 24 Hours (Table) 04/18/19 04/18/19 Range/Units 06:33 06:33 RBC 3.29 L (3.80-5.40) m/uL Hgb 10.5 L (11.4-16.0) gm/dL Hct 31.6 L (34.0-46.0) % Neutrophils # 7.8 H (1.3-7.7) k/uL Lymphocytes # 0.9 L (1.0-4.8) k/uL Sodium 127 L (137-145) mmol/L Chloride 95 L (98-107) mmol/L Glucose 106 H (74-99) mg/dL Calcium 8.2 L (8.4-10.2) mg/dL Assessment and Plan Plan: Assessment: 1. Nondisplaced right-sided inferior and superior pubic rami fracture 2. Nondisplaced right anterior acetabular fracture 3. Nondisplaced right sacral fracture 4. History of bilateral total knee replacement 5. History of bilateral ORIF right intertrochanteric femur fractures 6. History of frequent falls 7. Multiple medical comorbidities Plan: Nonweightbearing right lower extremity, toe-touch when transferring from that site commode or chair Pain control per primary medical service GI and DVT prophylaxis per primary medical service Anticipated discharge to rehab in the next day or two Time with Patient: Less than 30
--- NOTE | 2019-04-18 23:53 | PN ---
PROGRESS NOTE DATE OF SERVICE: 04/18/2019 This 83-year-old woman who was admitted with fall and possible pelvic fracture is being closely monitored. Surgical intervention is not being planned at this time. No chest pain. No palpitations. Awaiting rehab placement at this time. PHYSICAL EXAMINATION: Alert and oriented x3. Pulse is 72, blood pressure 137/64, respirations 16, temperature 98.3, pulse ox 94% on room air. HEENT: Conjunctivae normal. NECK: No jugular venous distention. CARDIOVASCULAR SYSTEM: S1, S2 muffled. RESPIRATORY SYSTEM: Breath sounds diminished at the bases. No rhonchi. No crackles. ABDOMEN: Soft, non-tender. LEGS: No edema. No swelling. NERVOUS SYSTEM: No focal deficit. LABS: WBC 9.6, hemoglobin 10.4. Sodium 127. ASSESSMENT: 1. Fall and possible pelvic fracture with severe pain. 2. Gait dysfunction and severe leg pain. 3. Increased white count. 4. Anemia, normocytic; anemia of chronic disease. 5. Hyponatremia. 6. History of coronary artery disease. 7. History of atrial fibrillation. 8. Cerebrovascular accident, transient ischemic attack. 9. History of gastroesophageal reflux disease. 10.Hypertension. 11.History of myocardial infarction. 12.History of hypothyroidism. 13.History of trigeminal neuralgia. 14.History of hepatitis after blood transfusion. 15.History of pancreatitis. 16.History of appendectomy. 17.History of adenoidectomy. 18.FULL CODE. RECOMMENDATIONS AND DISCUSSION: I recommend to continue current medications, continue with the monitoring, symptomatic treatment. Otherwise at this time repeat labs. PT/OT evaluation, possible ECF rehab. Guarded prognosis. Further recommendations to follow. MMODL / IJN: [id number] /
[2019-04-19] MEDS: SODIUM CHLORIDE 0.9% 1,000 ML IV SCH ×2 (00:12→12:36)
[2019-04-19] MEDS: RANOLAZINE 500 MG TAB.ER.12H PO SCH ×3 (00:52→20:18)
[2019-04-19] MEDS: LEVOTHYROXINE 50 MCG TAB PO SCH (07:45)
[2019-04-19 07:59] LABS: African American GFR (CKD) >90 (>60 ml/min/1.73 sqM); Anion Gap 7 mmol/L; Blood Urea Nitrogen 13 mg/dL (7-17); Carbon Dioxide 24 mmol/L (22-30); Chloride 96 mmol/L (98-107); Glucose 94 mg/dL (74-99); Non-African American GFR(CKD) 85 (>60 ml/min/1.73 sqM); Sodium 127 mmol/L (137-145)
[2019-04-19] MEDS: CLOPIDOGREL 75 MG TAB PO SCH (08:04)
[2019-04-19] MEDS: METOPROLOL TARTRATE 50 MG TAB PO SCH ×3 (08:04→21:24)
[2019-04-19] MEDS: HEPARIN SODIUM,PORCINE 5,000 UNIT/ML 1 ML VIAL SQ SCH ×2 (08:04→20:18)
[2019-04-19] MEDS: POTASSIUM CHLORIDE ER 10 MEQ TAB.ER.PRT PO SCH (08:05)
[2019-04-19] MEDS: amLODIPine 5 MG TAB PO SCH (08:05)
[2019-04-19] MEDS: ATORVASTATIN 40 MG TAB PO SCH (08:06)
[2019-04-19] MEDS: ISOSORBIDE MONONITRATE ER 30 MG TAB.ER.24H PO SCH (08:06)
[2019-04-19 08:07] LABS: Potassium 4.9 mmol/L (3.5-5.1)
[2019-04-19] MEDS: PANTOPRAZOLE 40 MG TABLET PO SCH ×2 (08:07→20:18)
[2019-04-19] MEDS: traMADol 50 MG TAB PO PRN ×2 (08:07→21:30)
[2019-04-19] MEDS: CHOLECALCIFEROL 1,000 UNIT TAB PO SCH (08:08)
[2019-04-19] MEDS: ESCITALOPRAM 10 MG TAB PO SCH (08:09)
[2019-04-19] MEDS: CHLORHEXIDINE GLUCONATE 15 ML CUP MUCOUS MEM SCH ×2 (08:09→20:18)
[2019-04-19 08:16] LABS: Basophils % (A) 0 %; Eosinophils # (A) 0.6 k/uL (0-0.7); Eosinophils % (A) 9 %; HCT 29.2 % (34.0-46.0); HGB 9.9 gm/dL (11.4-16.0); Lymphocytes # (A) 0.8 k/uL (1.0-4.8); Lymphocytes % (A) 12 %; MCH 32.2 pg (25.0-35.0); MCHC 33.7 g/dL (31.0-37.0); MCV 95.5 fL (80.0-100.0); Mean Platelet Volume 6.9; Monocytes # (A) 0.5 k/uL (0-1.0); Monocytes % (A) 7 %; Neutrophils # (A) 4.9 k/uL (1.3-7.7); Neutrophils % (A) 70 %; Platelet Count 228 k/uL (150-450); RBC 3.06 m/uL (3.80-5.40); RDW 13.2 % (11.5-15.5); WBC 6.9 k/uL (3.8-10.6)
[2019-04-19] MEDS: GABAPENTIN 300 MG CAP PO SCH ×3 (08:32→20:18)
--- NOTE | 2019-04-19 09:44 | P.PN ---
Progress Note - Text No surgery required per orthopedic team, no pre-operative consultation was required and the patient was not seen by cardiology.
[2019-04-19] MEDS: ACETAMINOPHEN TAB 500 MG TAB PO PRN (12:36)
[2019-04-19 14:21] LABS: T4, Free (Free Thyroxine) 1.32 ng/dL (0.78-2.19)
--- NOTE | 2019-04-19 15:03 | P.PN ---
Subjective Patient is admitted for fracture of the right superior and inferior pubic rami and right anterior established fracture with sacral alar fracture. Patient is getting ready to go to rehab but the patient's serum sodium has been dropping down patient still has pain and spasms may be related to SIADH or intravascular the patient patient the will be started on IV fluids and will also order urine random sodium, urine random creatinine, urine and serum osmolality, TSH as a part of workup for hyponatremia before I give her IV fluids. Constitutional: Denied any fatigue denied any fever. Cardio vascular: denied any chest pain, palpitations Gastrointestinal denied any nausea vomiting Pulmonary: Denied any shortness of breath cough Neurologic denied any new focal deficits All inpatient medications were reviewed and appropriate changes in these m edications as dictated in the interval history and assessment and plan. Objective - Vital Signs Vital signs: Vital Signs Temp 97.6 F 04/19/19 07:00 Pulse 79 04/19/19 08:00 Resp 16 04/19/19 07:00 BP 127/64 04/19/19 07:00 Pulse Ox 97 04/19/19 07:00 Intake & Output 04/18/19 04/19/19 04/19/19 18:59 06:59 18:59 Intake Total 400 Output Total 700 Balance 400 -700 Intake: Oral 400 Output: Urine 700 Other: Voiding Method Bedpan Bedpan Bedpan - Exam PHYSICAL EXAMINATION: GENERAL: The patient is alert and oriented x3, not in any acute distress. Well developed, well nourished. HEENT: Pupils are round and equally reacting to light. EOMI. No scleral icterus. No conjunctival pallor. Normocephalic, atraumatic. No pharyngeal erythema. No thyromegaly. CARDIOVASCULAR: S1 and S2 present. No murmurs, rubs, or gallops. PULMONARY: Chest is clear to auscultation, no wheezing or crackles. ABDOMEN: Soft, nontender, nondistended, normoactive bowel sounds. No palpable organomegaly. MUSCULOSKELETAL: Deferred to orthopedic surgery EXTREMITIES: No cyanosis, clubbing, or pedal edema. NEUROLOGICAL: Gross neurological examination did not reveal any focal deficits. SKIN: No rashes. - Labs CBC & Chem 7: 04/19/19 07:27 04/19/19 07:27 Labs: Abnormal Lab Results - Last 24 Hours (Table) 0204/19/19 04/19/19 Range/Units 07:27 07:27 07:27 RBC 3.06 L (3.80-5.40) m/uL Hgb 9.9 L (11.4-16.0) gm/dL Hct 29.2 L (34.0-46.0) % Lymphocytes # 0.8 L (1.0-4.8) k/uL Sodium 127 L (137-145) mmol/L Chloride 96 L (98-107) mmol/L Osmolality 264 L (280-301) mosm/kg Calcium 8.0 L (8.4-10.2) mg/dL TSH 6.010 H (0.465-4.680) mIU/L Assessment and Plan Plan: -Pelvic fracture with the pain: Physical therapy pain management avoid opiates . -Hyponatremia etiology is not clearly the hypovolemic hyponatremia and SIADH from pain to be dealt lites tomorrow further workup as mentioned above -Coronary artery disease -Atrial fibrillation presently rate controlled and not an anticoagulation probably not a good idea to be erratic ideation because of her falls and patient is on beta kayla for rate control which will be continued -History of CVA in the past and that definitely high risk for CVA considering that she has history of A. fib and high Casey Arya score -Hypertension #4 gastroesophageal reflux disease -Hypothyroidism
[2019-04-19 20:13] LABS: Creatinine,Urine Random 58.6 mg/dL
[2019-04-20] MEDS: ACETAMINOPHEN TAB 500 MG TAB PO PRN (03:10)
[2019-04-20] MEDS: traMADol 50 MG TAB PO PRN ×2 (05:13→20:07)
[2019-04-20] MEDS: LEVOTHYROXINE 50 MCG TAB PO SCH (05:13)
[2019-04-20] MEDS: SODIUM CHLORIDE 0.9% 1,000 ML IV SCH (05:13)
[2019-04-20] MEDS: ATORVASTATIN 40 MG TAB PO SCH (08:31)
[2019-04-20] MEDS: METOPROLOL TARTRATE 50 MG TAB PO SCH ×3 (08:31→21:34)
[2019-04-20] MEDS: ISOSORBIDE MONONITRATE ER 30 MG TAB.ER.24H PO SCH (08:31)
[2019-04-20] MEDS: amLODIPine 5 MG TAB PO SCH (08:31)
[2019-04-20] MEDS: RANOLAZINE 500 MG TAB.ER.12H PO SCH ×2 (08:31→20:09)
[2019-04-20] MEDS: ESCITALOPRAM 10 MG TAB PO SCH (08:31)
[2019-04-20] MEDS: CLOPIDOGREL 75 MG TAB PO SCH (08:31)
[2019-04-20] MEDS: PANTOPRAZOLE 40 MG TABLET PO SCH ×2 (08:31→20:07)
[2019-04-20] MEDS: POTASSIUM CHLORIDE ER 10 MEQ TAB.ER.PRT PO SCH (08:31)
[2019-04-20] MEDS: CHOLECALCIFEROL 1,000 UNIT TAB PO SCH (08:32)
[2019-04-20] MEDS: HEPARIN SODIUM,PORCINE 5,000 UNIT/ML 1 ML VIAL SQ SCH ×2 (08:32→20:08)
[2019-04-20] MEDS: CHLORHEXIDINE GLUCONATE 15 ML CUP MUCOUS MEM SCH ×2 (08:32→20:09)
[2019-04-20] MEDS ORDERED: FUROSEMIDE 10 MG/ML 2 ML VIAL IV ONE (11:13)
--- NOTE | 2019-04-20 13:12 | XR ---
EXAMINATION TYPE: XR chest 1V DATE OF EXAM: 04/20/2019 COMPARISON: 04/16/2019 INDICATION: CHF TECHNIQUE: Single frontal view of the chest is obtained. FINDINGS: The heart size is normal. There is fullness in the right hilar region. Underlying mass should be quyen pected. Pulmonary vasculature is normal. No suspicious focal consolidation is evident. IMPRESSION: 1. Fullness within the right hilar region suspicious for underlying mass. Consider CT chest for addit ional evaluation.
[2019-04-20] MEDS: GABAPENTIN 300 MG CAP PO SCH ×2 (13:28→20:08)
--- NOTE | 2019-04-20 13:28 | P.PN ---
Subjective Patient is admitted for fracture of the right superior and inferior pubic rami and right anterior established fracture with sacral alar fracture. Patient is getting ready to go to rehab but the patient's serum sodium has been dropping down patient still has pain and spasms may be related to SIADH or intravascular the patient patient the will be started on IV fluids and will also order urine random sodium, urine random creatinine, urine and serum osmolality, TSH as a part of workup for hyponatremia before I give her IV fluids. 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 Patient will be fluid restricted to 1200 mL and the patient will be given a dose of Lasix Constitutional: Denied any fatigue denied any fever. Cardio vascular: denied any chest pain, palpitations Gastrointestinal denied any nausea vomiting Pulmonary: Denied any shortness of breath cough Neurologic denied any new focal deficits All inpatient medications were reviewed and appropriate changes in these medications as dictated in the interval history and assessment and plan. Objective - Vital Signs Vital signs: Vital Signs Temp 97.8 F 04/20/19 07:00 Pulse 64 04/20/19 07:00 Resp 16 04/20/19 07:00 BP 130/65 04/20/19 07:00 Pulse Ox 99 04/20/19 07:00 Intake & Output 04/19/19 04/20/19 04/20/19 18:59 06:59 18:59 Intake Total 225 Output Total 600 Balance -375 Intake: Intake, IV Titration 225 Amount Sodium Chloride 0.9% 1, 225 000 ml @ 75 mls/hr IV . [id number] [facility] Rx#:[id number] Output: Urine 600 Other: Voiding Method Bedpan Bedside Commode # Voids 1 1 # Bowel Movements 1 - Exam PHYSICAL EXAMINATION: GENERAL: The patient is alert and oriented x3, not in any acute distress. Well developed, well nourished. HEENT: Pupils are round and equally reacting to light. EOMI. No scleral icterus. No conjunctival pallor. Normocephalic, atraumatic. No pharyngeal erythema. No thyromegaly. CARDIOVASCULAR: S1 and S2 present. No murmurs, rubs, or gallops. PULMONARY: Patient has crackles in the right lower lung bases. ABDOMEN: Soft, nontender, nondistended, normoactive bowel sounds. No palpable organomegaly. MUSCULOSKELETAL: Deferred to orthopedic surgery EXTREMITIES: No cyanosis, clubbing, or pedal edema. NEUROLOGICAL: Gross neurological examination did not reveal any focal deficits. SKIN: No rashes. - Labs CBC & Chem 7: 04/19/19 07:27 04/19/19 07:27 Assessment and Plan Plan: -Pelvic fracture with the pain: Physical therapy pain management avoid opiates . -Hyponatremia SIADH further workup as mentioned above -Possibly of congestive heart failure with mild acute exacerbation will be given a dose of Lasix patient had EF of 30-35%. IV fluids will be discontinued -Coronary artery disease -Atrial fibrillation presently rate controlled and not an anticoagulation probably not a good idea because of her falls and patient is on beta kayla for rate control which will be continued -History of CVA in the past and that definitely high risk for CVA considering that she has history of A. fib and high Casey Vasc score -Hypertension #4 gastroesophageal reflux disease -Hypothyroidism
--- NOTE | 2019-04-20 15:32 | CT ---
EXAMINATION TYPE: CT chest wo con DATE OF EXAM: 04/20/2019 COMPARISON: CT chest 11/28/2016 HISTORY: No chest complaints at time of scan. CHF, abnormal chest x-ray CT DLP: 303 mGycm, Automated exposure control for dose reduction was used. CONTRAST: Performed injected with 0 mL of Isovue 300. TECHNIQUE: Axial images were obtained at 5 mm thick sections. Reconstructed images are reviewed on [facility] computer in the coronal plane. FINDINGS: Portion of the thyroid visualized is normal. No suspicious lung nodules or focal infiltrates are present. No enlarged mediastinal or hilar adenopathy is evident. The ascending aorta diameter at the level o f the main pulmonary artery is 3.6 cm. The main pulmonary artery diameter at the bifurcation is 3.4 cm. Moderately extensive vascular calcifications within coronary vessels. Limited CT sections are obtained through the upper abdomen. Multiple calcified granuloma are within t spleen. A few calcified granuloma are within the liver. Attention is paid to the right hilar region. Right main pulmonary artery is some prominence there is slight rotation present this may account for the fullness identified on the chest x-ray. Suspicious u nderlying mass or adenopathy is not identified. IMPRESSIONS: 1. No acute pulmonary process. 2. Slight mediastinal rotation and fullness of the right main pulmonary artery may account for the ap parent fullness on the chest x-ray. Appearance appears stable from 2016.
--- NOTE | 2019-04-20 20:51 | CONS ---
CONSULTATION REASON FOR CONSULT: Hyponatremia. HISTORY OF PRESENT ILLNESS: The patient is an 83-year-old female who was initially admitted to the hospital on 04/16/2019 after a fall and she sustained a right pubic fracture and anterior acetabulum fracture of the right hip. Patient was evaluated by Orthopedics, with no plans for surgery at this time. Patient's sodium was 132 on initial admission. It had dropped down to 127 on 04/18/2019. Patient was started on normal saline yesterday. I do not have labs back from today yet. Patient denies any prior history of hyponatremia. Blood pressure has not been low and patient is not on any new psychiatric medications, although she has been on the Tegretol for a long time. PAST MEDICAL HISTORY: Significant for atrial fibrillation, asthma, coronary artery disease, gastroesophageal reflux disease, CVA, TIA, NE, hypothyroidism, trigeminal neuralgia, pancreatitis, hepatitis; details not known. PAST SURGICAL HISTORY: Adenoidectomy, appendectomy, back surgery, cholecystectomy, tonsillectomy, bilateral knee arthroplasty, partial thyroidectomy. SOCIAL HISTORY: Negative for smoking, drug abuse or alcohol abuse. MEDICATIONS: Medications at home prior to admission include Protonix, Neurontin, Lexapro, K-Dur, Tegretol, prednisone, Ultram, vitamin D, Synthroid, Lipitor, Plavix, Imdur, Ranexa, Lopressor, Norvasc. ALLERGIES: ALLERGIES are multiple. Please see list. REVIEW OF SYSTEMS: As per HPI. Other systems negative. PHYSICAL EXAMINATION: On examination, patient is currently comfortable, awake, not in any acute distress. Alert and oriented x3. Blood pressure is 130/65, heart rate 64 per minute. Patient is afebrile. EXAMINATION OF THE HEART: S1 and S2. EXAMINATION OF LUNGS: Bilateral breath sounds are heard. Bilateral basal crackles are heard. ABDOMEN: Soft, non-tender. Examination of lower extremities shows no significant edema. CLINICAL REVIEW NURSE exam is grossly intact. LABS: Hemoglobin 9.9, sodium 127, potassium 4.9, chloride 96, BUN 13, creatinine 0.58. ASSESSMENT: 1. Hyponatremia; appears to be hypervolemic. Will give a dose of IV Lasix and repeat sodium this evening or in a.m. Urine osmolality was 397. TSH was slightly high at 6.0. Chest x-ray will be ordered as well. 2. Status post fall and hip fracture, undisplaced on the right side, with no plans for surgical intervention. PLAN: IV Lasix x1. Agree with chest x-ray. Maintain patient on fluid restriction. Repeat labs in a.m. and increase oral protein intake. Thank you for this consultation. Will continue to follow the patient with you during her hospitalization. MMODL / IJN: [id number] /
[2019-04-21] MEDS: LEVOTHYROXINE 50 MCG TAB PO SCH (05:43)
[2019-04-21] MEDS: traMADol 50 MG TAB PO PRN ×2 (05:45→19:38)
[2019-04-21 07:40] LABS: African American GFR (CKD) >90 (>60 ml/min/1.73 sqM); Anion Gap 8 mmol/L; Blood Urea Nitrogen 9 mg/dL (7-17); Calcium 8.4 mg/dL (8.4-10.2); Carbon Dioxide 25 mmol/L (22-30); Chloride 95 mmol/L (98-107); Glucose 113 mg/dL (74-99); Non-African American GFR(CKD) 85 (>60 ml/min/1.73 sqM); Sodium 128 mmol/L (137-145)
[2019-04-21 07:51] LABS: Potassium 4.1 mmol/L (3.5-5.1)
[2019-04-21] MEDS: ATORVASTATIN 40 MG TAB PO SCH (09:04)
[2019-04-21] MEDS: POTASSIUM CHLORIDE ER 10 MEQ TAB.ER.PRT PO SCH (09:04)
[2019-04-21] MEDS: CHOLECALCIFEROL 1,000 UNIT TAB PO SCH (09:04)
[2019-04-21] MEDS: PANTOPRAZOLE 40 MG TABLET PO SCH ×2 (09:04→20:33)
[2019-04-21] MEDS: GABAPENTIN 300 MG CAP PO SCH ×3 (09:04→20:32)
[2019-04-21] MEDS: ISOSORBIDE MONONITRATE ER 30 MG TAB.ER.24H PO SCH (09:04)
[2019-04-21] MEDS: CLOPIDOGREL 75 MG TAB PO SCH (09:04)
[2019-04-21] MEDS: amLODIPine 5 MG TAB PO SCH (09:04)
[2019-04-21] MEDS: METOPROLOL TARTRATE 50 MG TAB PO SCH ×3 (09:04→21:29)
[2019-04-21] MEDS: CHLORHEXIDINE GLUCONATE 15 ML CUP MUCOUS MEM SCH ×2 (09:05→20:29)
[2019-04-21] MEDS: HEPARIN SODIUM,PORCINE 5,000 UNIT/ML 1 ML VIAL SQ SCH ×2 (09:05→20:33)
[2019-04-21] MEDS: RANOLAZINE 500 MG TAB.ER.12H PO SCH ×2 (09:05→20:29)
[2019-04-21] MEDS: ESCITALOPRAM 10 MG TAB PO SCH (09:05)
[2019-04-21] MEDS ORDERED: FUROSEMIDE 10 MG/ML 2 ML VIAL IV STA (09:56)
--- NOTE | 2019-04-21 13:18 | P.DS ---
Providers Date of admission: 04/16/19 16:03 Attending physician: Nasim Waterman Consults: 04/16/19 16:54 Consult Physician Routine Consulting Provider: Regina Gomez Consult Reason/Comments: pre op Do you want consulting provider notified?: Yes 04/16/19 17:03 Consult Physician Routine Consulting Provider: Flip Simon Consult Reason/Comments: pelvic fx Do you want consulting provider notified?: Yes 04/20/19 11:13 Consult Physician Routine Consulting Provider: France Richard Consult Reason/Comments: Hyponatremia Do you want consulting provider notified?: Yes Primary care physician: Nasim Waterman [facility] Course: Patient is admitted for fracture of the right superior and inferior pubic rami and right anterior established fracture with sacral alar fracture. Patient is getting ready to go to rehab but the patient's serum sodium has been dropping down patient still has pain and spasms may be related to SIADH or intravascular the patient patient the will be started on IV fluids and will also order urine random sodium, urine random creatinine, urine and serum osmolality, TSH as a part of workup for hyponatremia before I give her IV fluids. 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 Patient will be fluid restricted to 1200 mL and the patient will be given a dose of Lasix. 04/21/2019 Patient's serum creatinine improved mildly compared to yesterday him expecting it to improve since there is improvement in serum creatinine with Lasix and also answering the patient has heart failure patient will be given a low dose of Lasix with close follow-up with basic metabolic profile and nephrology as an outpatient if her kidney function worsens Lasix need to be discontinued patient had EF of around 30-35% although not in heart failure exacerbation CT of the chest was obtained as was a concern of mass on the chest x-ray considering her SIADH although CT did not show any mass lesion. Patient is doing well pain is well-controlled will be discharged today. She still has crackles in the right lower lung bases may be pulmonary fibrosis or atelectasis PHYSICAL EXAMINATION: GENERAL: The patient is alert and oriented x3, not in any acute distress. Well developed, well nourished. HEENT: Pupils are round and equally reacting to light. EOMI. No scleral icterus. No conjunctival pallor. Normocephalic, atraumatic. No pharyngeal erythema. No thyromegaly. CARDIOVASCULAR: S1 and S2 present. No murmurs, rubs, or gallops. PULMONARY: Patient has crackles in the right lower lung bases. ABDOMEN: Soft, nontender, nondistended, normoactive bowel sounds. No palpable organomegaly. MUSCULOSKELETAL: Deferred to orthopedic surgery EXTREMITIES: No cyanosis, clubbing, or pedal edema. NEUROLOGICAL: Gross neurological examination did not reveal any focal deficits. SKIN: No rashes. Assessment and Plan Plan: -Pelvic fracture with the pain: Physical therapy pain management avoid opiates . -Hyponatremia SIADH further management as mentioned above -Possibly of congestive heart failure . patient had EF of 30-35%. She'll be discharged on low-dose of Lasix patient is not in heart failure exacerbation -Coronary artery disease -Atrial fibrillation presently rate controlled and not an anticoagulation probably not a good idea because of her falls and patient is on beta kayla for rate control which will be continued -History of CVA in the past and that definitely high risk for CVA considering that she has history of A. fib and high Casey Vasc score -Hypertension #4 gastroesophageal reflux disease -Hypothyroidism Plan - Discharge Summary Discharge Rx Participant: Yes New Discharge Prescriptions: New Acetaminophen Tab [Tylenol] 500 mg PO Q6HR PRN tab PRN Reason: Fever And/ Or Pain Continue Escitalopram [Lexapro] 10 mg PO DAILY Pantoprazole Sodium [Protonix] 40 mg PO BID Potassium Chloride ER [K-Dur 10] 10 meq PO DAILY carBAMazepine CHEW [TEGretol Chew] 100 mg PO TID Cholecalciferol [Vitamin D3 (25 Mcg = 1000 Iu)] 1,000 unit PO DAILY Ranolazine [Ranexa] 500 mg PO Q12HR #60 tab.er.12h Isosorbide Mononitrate ER [Imdur] 30 mg PO DAILY #30 tab.er.24h Atorvastatin [Lipitor] 40 mg PO DAILY #30 tab Clopidogrel [Plavix] 75 mg PO DAILY #30 tab Nitroglycerin Sl Tabs [Nitrostat] 0.4 mg SUBLINGUAL Q5M PRN PRN Reason: Chest Pain amLODIPine [Norvasc] 5 mg PO DAILY Metoprolol Tartrate [Lopressor] 50 mg PO TID traMADol HCL [Ultram] 50 mg PO Q8H PRN #10 tab PRN Reason: Pain Changed Levothyroxine Sodium [Synthroid] 175 mcg PO DAILY #0 Gabapentin [Neurontin] 300 mg PO TID #20 cap Discontinued predniSONE 10 mg PO DAILY PRN PRN Reason: Shortness Of Breath Gabapentin [Neurontin] 600 mg PO DAILY Discharge Medication List Escitalopram [Lexapro] 10 mg PO DAILY 11/28/16 [History] Pantoprazole Sodium [Protonix] 40 mg PO BID 11/28/16 [History] Potassium Chloride ER [K-Dur 10] 10 meq PO DAILY 11/28/16 [History] carBAMazepine CHEW [TEGretol Chew] 100 mg PO TID 11/28/16 [History] Cholecalciferol [Vitamin D3 (25 Mcg = 1000 Iu)] 1,000 unit PO DAILY 09/28/18 [History] Atorvastatin [Lipitor] 40 mg PO DAILY #30 tab 10/04/18 [Rx] Clopidogrel [Plavix] 75 mg PO DAILY #30 tab 10/04/18 [Rx] Isosorbide Mononitrate ER [Imdur] 30 mg PO DAILY #30 tab.er.24h 10/04/18 [Rx] Ranolazine [Ranexa] 500 mg PO Q12HR #60 tab.er.12h 10/04/18 [Rx] Metoprolol Tartrate [Lopressor] 50 mg PO TID 04/16/19 [History] Nitroglycerin Sl Tabs [Nitrostat] 0.4 mg SUBLINGUAL Q5M PRN 04/16/19 [History] amLODIPine [Norvasc] 5 mg PO DAILY 04/16/19 [History] Acetaminophen Tab [Tylenol] 500 mg PO Q6HR PRN tab 04/21/19 [Rx] Gabapentin [Neurontin] 300 mg PO TID #20 cap 04/21/19 [Rx] Levothyroxine Sodium [Synthroid] 175 mcg PO DAILY #0 04/21/19 [Rx] traMADol HCL [Ultram] 50 mg PO Q8H PRN #10 tab 04/21/19 [Rx] Follow up Appointment(s)/Referral(s): Flip Simon DO [Doctor of Osteopathic Medicine] - 05/09/19 2:10 pm Ambulatory/Diagnostic Orders: Basic Metabolic Panel [LAB.AMB] Time Frame: 3 Days, Location: None Selected Activity/Diet/Wound Care/Special Instructions: Orthopedic discharge instructions: 1. Nonweightbearing right lower extremity, toe touch with walker when transferring 2. Plan for follow-up at [facility] in 2 weeks for x-ray and clinical evaluation Discharge Disposition: TRANSFER TO SNF/ECF
[2019-04-21 14:53] VITALS: BMI 30.7
--- NOTE | 2019-04-21 16:04 | PN ---
PROGRESS NOTE The patient is seen for follow up for hyponatremia which is mainly hypervolemic. The patient received a dose of IV Lasix yesterday. Her sodium has improved to 128, however, somehow labs were not done yesterday. Overall, patient feels fairly well. Her chest x-ray did not show any significant CHF although there was some hilar prominence for which a CT scan was done and the CT scan did not reveal any significant masses, fluid or infiltrate. PHYSICAL EXAMINATION: Today, blood pressure was 147/79, heart rate 64 per minute. The patient is afebrile. Examination of the heart: S1 and S2. Examination of the lungs: Decreased breath sounds at the bases. Abdomen is soft, nontender. Examination of the lower extremities shows no significant edema. LABORATORY DATA: Laboratories show sodium 128, potassium 4.1, BUN 9, serum creatinine 0.58. ASSESSMENT: Hypervolemic hyponatremia, improved with mild diuresis. I will repeat another dose of IV Lasix today and recheck sodium this evening. I will keep the patient for one more day and we can discharge her tomorrow. She is maintained on fluid restriction as well. The patient is advised to maintain good oral protein intake. She also has hypothyroidism for which her Synthroid has been adjusted. MMODL / IJN: [id number] /
[2019-04-22] MEDS: traMADol 50 MG TAB PO PRN ×2 (03:27→13:55)
[2019-04-22] MEDS: LEVOTHYROXINE 50 MCG TAB PO SCH (05:57)
[2019-04-22 07:22] VITALS: BP 129/66; RESP 12; TEMP 98.3
[2019-04-22] MEDS: CHLORHEXIDINE GLUCONATE 15 ML CUP MUCOUS MEM SCH (09:13)
[2019-04-22] MEDS: CLOPIDOGREL 75 MG TAB PO SCH (09:13)
[2019-04-22] MEDS: ACETAMINOPHEN TAB 500 MG TAB PO PRN (09:13)
[2019-04-22] MEDS: HEPARIN SODIUM,PORCINE 5,000 UNIT/ML 1 ML VIAL SQ SCH (09:13)
[2019-04-22] MEDS: METOPROLOL TARTRATE 50 MG TAB PO SCH (09:14)
[2019-04-22] MEDS: POTASSIUM CHLORIDE ER 10 MEQ TAB.ER.PRT PO SCH (09:14)
[2019-04-22] MEDS: ISOSORBIDE MONONITRATE ER 30 MG TAB.ER.24H PO SCH (09:14)
[2019-04-22] MEDS: PANTOPRAZOLE 40 MG TABLET PO SCH (09:14)
[2019-04-22] MEDS: amLODIPine 5 MG TAB PO SCH (09:14)
[2019-04-22] MEDS: CHOLECALCIFEROL 1,000 UNIT TAB PO SCH (09:14)
[2019-04-22] MEDS: ESCITALOPRAM 10 MG TAB PO SCH (09:14)
[2019-04-22] MEDS: RANOLAZINE 500 MG TAB.ER.12H PO SCH (09:14)
[2019-04-22] MEDS: ATORVASTATIN 40 MG TAB PO SCH (09:14)
[2019-04-22] MEDS: GABAPENTIN 300 MG CAP PO SCH ×2 (09:21→11:40)
[2019-04-22 09:33] VITALS: PULSE 62
--- NOTE | 2019-04-22 09:41 | P.PN ---
Subjective Progress Note Date: 04/22/19 Principal diagnosis: This is an 83-year-old female seen in consultation because of hyponatremia likely from SIADH. Initially the possibility of volume excess was entertained and she was diuresed gently. Her sodium remains in the 127 range. Urine osmolality is 397 urine sodium is 71 Creatinine is 0.58 BUN is 9. Her TSH somewhat high at 6.01 normal range being up to 4.6. Free T4 is normal at 1.3 to She continues to be in pain from her fall and Nondisplaced right-sided inferior and superior pubic rami fracture, Nondisplaced right anterior acetabular fracture. Nondisplaced right sacral fracture, she had History of bilateral ORIF right intertrochanteric femur fractures She is on a 1200 mL fluid restriction. She has mouth sores that may eating difficult after recent dental workup. No nausea vomiting chest pain shortness of breath cough. Objective - Vital Signs Vital signs: Vital Signs Temp 98.3 F 04/22/19 07:00 Pulse 65 04/22/19 07:00 Resp 12 04/22/19 07:00 BP 129/66 04/22/19 07:00 Pulse Ox 98 04/22/19 07:00 Intake & Output 04/21/19 04/22/19 04/22/19 18:59 06:59 18:59 Output Total 100 Balance -100 Weight 71.5 kg Output: Urine 100 Other: # Voids 3 1 Examined and she is awake alert oriented comfortable sitting in chair HEENT exam no JVP neck is supple no facial asymmetry Lungs clear to auscultation good air entry bilaterally Heart sounds are unremarkable for any murmur rub gallop Abdomen soft nontender Extremity exam was no edema Neurologically awake alert oriented - Labs CBC & Chem 7: 04/19/19 07:27 04/21/19 15:50 Labs: Abnormal Lab Results - Last 24 Hours (Table) 04/21/19 Range/Units 15:50 Sodium 127 L (137-145) mmol/L Assessment and Plan Assessment: Impression 1. 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 TSH is slightly high possibility of hypothyroidism and is considered. She is on replacement with levothyroxine 150 g. Her sodium is 127 stable 2. Status post fall and multiple fractures as mentioned about. 3. History of frequent falls 4. History of atrial fibrillation Recommendation 1. Continue fluid restriction at 1200 mL 2. We will recheck her labs tomorrow she could be discharged if his sodium is stable or improved. 3. Increase total intake patient is aware of it and was should try to eat more protein.
--- NOTE | 2019-04-22 13:02 | P.DS ---
Providers Date of admission: 04/16/19 16:03 Attending physician: Nasim Waterman Consults: 04/16/19 16:54 Consult Physician Routine Consulting Provider: Regina Gomez Consult Reason/Comments: pre op Do you want consulting provider notified?: Yes 04/16/19 17:03 Consult Physician Routine Consulting Provider: Flip Simon Consult Reason/Comments: pelvic fx Do you want consulting provider notified?: Yes 04/20/19 11:13 Consult Physician Routine Consulting Provider: France Richard Consult Reason/Comments: Hyponatremia Do you want consulting provider notified?: Yes Primary care physician: Nasim Waterman [facility] Course: Patient is admitted for fracture of the right superior and inferior pubic rami and right anterior established fracture with sacral alar fracture. Patient is getting ready to go to rehab but the patient's serum sodium has been dropping down patient still has pain and spasms may be related to SIADH or intravascular the patient patient the will be started on IV fluids and will also order urine random sodium, urine random creatinine, urine and serum osmolality, TSH as a part of workup for hyponatremia before I give her IV fluids. 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 Patient will be fluid restricted to 1200 mL and the patient will be given a dose of Lasix. 04/21/2019 Patient's serum creatinine improved mildly compared to yesterday him expecting it to improve since there is improvement in serum creatinine with Lasix and also answering the patient has heart failure patient will be given a low dose of Lasix with close follow-up with basic metabolic profile and nephrology as an outpatient if her kidney function worsens Lasix need to be discontinued patient had EF of around 30-35% although not in heart failure exacerbation CT of the chest was obtained as was a concern of mass on the chest x-ray considering her SIADH although CT did not show any mass lesion. Patient is doing well pain is well-controlled will be discharged today. She still has crackles in the right lower lung bases may be pulmonary fibrosis or atelectasis 04/22/2019 Patient's serum sodium remains at 127, is expected to stay little lower for few days and patient will be discharged on Lasix cleared by nephrology and if her serum sodium goes down again nephrology to be notified. PHYSICAL EXAMINATION: GENERAL: The patient is alert and oriented x3, not in any acute distress. Well developed, well nourished. HEENT: Pupils are round and equally reacting to light. EOMI. No scleral icterus. No conjunctival pallor. Normocephalic, atraumatic. No pharyngeal erythema. No thyromegaly. CARDIOVASCULAR: S1 and S2 present. No murmurs, rubs, or gallops. PULMONARY: Patient has crackles in the right lower lung bases. ABDOMEN: Soft, nontender, nondistended, normoactive bowel sounds. No palpable organomegaly. MUSCULOSKELETAL: Deferred to orthopedic surgery EXTREMITIES: No cyanosis, clubbing, or pedal edema. NEUROLOGICAL: Gross neurological examination did not reveal any focal deficits. SKIN: No rashes. Assessment and Plan Plan: -Pelvic fracture with the pain: Physical therapy pain management avoid opiates . -Hyponatremia SIADH further management as mentioned above -Possibly of congestive heart failure . patient had EF of 30-35%. She'll be discharged on low-dose of Lasix patient is not in heart failure exacerbation -Coronary artery disease -Atrial fibrillation presently rate controlled and not an anticoagulation probably not a good idea because of her falls and patient is on beta kayla for rate control which will be continued -History of CVA in the past and that definitely high risk for CVA considering that she has history of A. fib and high Casey Vasc score -Hypertension #4 gastroesophageal reflux disease -Hypothyroidism Plan - Discharge Summary Discharge Rx Participant: Yes New Discharge Prescriptions: New Acetaminophen Tab [Tylenol] 500 mg PO Q6HR PRN tab PRN Reason: Fever And/ Or Pain Furosemide [Lasix] 20 mg PO DAILY #10 tab Continue Escitalopram [Lexapro] 10 mg PO DAILY Pantoprazole Sodium [Protonix] 40 mg PO BID Potassium Chloride ER [K-Dur 10] 10 meq PO DAILY carBAMazepine CHEW [TEGretol Chew] 100 mg PO TID Cholecalciferol [Vitamin D3 (25 Mcg = 1000 Iu)] 1,000 unit PO DAILY Ranolazine [Ranexa] 500 mg PO Q12HR #60 tab.er.12h Isosorbide Mononitrate ER [Imdur] 30 mg PO DAILY #30 tab.er.24h Atorvastatin [Lipitor] 40 mg PO DAILY #30 tab Clopidogrel [Plavix] 75 mg PO DAILY #30 tab Nitroglycerin Sl Tabs [Nitrostat] 0.4 mg SUBLINGUAL Q5M PRN PRN Reason: Chest Pain amLODIPine [Norvasc] 5 mg PO DAILY Metoprolol Tartrate [Lopressor] 50 mg PO TID traMADol HCL [Ultram] 50 mg PO Q8H PRN #10 tab PRN Reason: Pain Changed Levothyroxine Sodium [Synthroid] 175 mcg PO DAILY #0 Gabapentin [Neurontin] 300 mg PO TID #20 cap Discontinued predniSONE 10 mg PO DAILY PRN PRN Reason: Shortness Of Breath Gabapentin [Neurontin] 600 mg PO DAILY Discharge Medication List Escitalopram [Lexapro] 10 mg PO DAILY 11/28/16 [History] Pantoprazole Sodium [Protonix] 40 mg PO BID 11/28/16 [History] Potassium Chloride ER [K-Dur 10] 10 meq PO DAILY 11/28/16 [History] carBAMazepine CHEW [TEGretol Chew] 100 mg PO TID 11/28/16 [History] Cholecalciferol [Vitamin D3 (25 Mcg = 1000 Iu)] 1,000 unit PO DAILY 09/28/18 [History] Atorvastatin [Lipitor] 40 mg PO DAILY #30 tab 10/04/18 [Rx] Clopidogrel [Plavix] 75 mg PO DAILY #30 tab 10/04/18 [Rx] Isosorbide Mononitrate ER [Imdur] 30 mg PO DAILY #30 tab.er.24h 10/04/18 [Rx] Ranolazine [Ranexa] 500 mg PO Q12HR #60 tab.er.12h 10/04/18 [Rx] Metoprolol Tartrate [Lopressor] 50 mg PO TID 04/16/19 [History] Nitroglycerin Sl Tabs [Nitrostat] 0.4 mg SUBLINGUAL Q5M PRN 04/16/19 [History] amLODIPine [Norvasc] 5 mg PO DAILY 04/16/19 [History] Acetaminophen Tab [Tylenol] 500 mg PO Q6HR PRN tab 04/21/19 [Rx] Furosemide [Lasix] 20 mg PO DAILY #10 tab 04/21/19 [Rx] Gabapentin [Neurontin] 300 mg PO TID #20 cap 04/21/19 [Rx] Levothyroxine Sodium [Synthroid] 175 mcg PO DAILY #0 04/21/19 [Rx] traMADol HCL [Ultram] 50 mg PO Q8H PRN #10 tab 04/21/19 [Rx] Follow up Appointment(s)/Referral(s): France Richard MD [STAFF PHYSICIAN] - 1 Week Mat Alexis MD [STAFF PHYSICIAN] - 1-2 Days Flip Simon DO [Doctor of Osteopathic Medicine] - 05/09/19 2:10 pm Ambulatory/Diagnostic Orders: Basic Metabolic Panel [LAB.AMB] Time Frame: 3 Days, Location: None Selected Activity/Diet/Wound Care/Special Instructions: Orthopedic discharge instructions: 1. Nonweightbearing right lower extremity, toe touch with walker when transferring 2. Plan for follow-up at [facility] in 2 weeks for x-ray and clinical evaluation Fluid restricted 1200 mL cardiac diet Discharge Disposition: TRANSFER TO SNF/ECF
--- NOTE | 2019-04-27 15:29 | P.CRDCN ---
History of Present Illness History of present illness: This is Donna Gunter PA-C dictating a consult on this patient Case discussed with Dr. Mckenna and he agrees with the plan of care HPI Patient is a 83-year-old female with a past medical history significant for paroxysmal atrial fibrillation, CAD with myocardial infarction, trigeminal neuralgia, GERD, prior TIA presented after a fall. She is a patient of Dr. Paris. In September 2018 she underwent coronary angiogram showing 95% stenosis in the ostial portion of the circumflex and the decision was made to pursue medical management. On Wednesday she was at [employer] when she slipped on ice and fell. She states she did not pass out. No preceding dizziness or palpitations, chest pain or shortness of breath. She was taken to [facility] and then transferred to [facility] for further evaluation after being found to have multiple fractures involving the right pelvis. Cardiology was consulted for presurgical evaluation although at this time orthopedics have evaluated the patient and has chosen to pursue medical management. Patient seen and examined resting in bed. States she is very sore. She does have some trouble breathing due to ALLERGIES and sinus issues but denies any worsening shortness of breath. No chest pain. ROS: No fevers, chills or rigors, no cough, phlegm or expectoration, no nausea, vomiting or diarrhea, no hematuria, dysuria, Positive for hip pain no strokes or seizures, no skin lesions. EXAMINATION: Patient is afebrile, pulse in the 70s, respirations 16, blood pressure 134/74, oxygen saturation 92% on room air Patient seen and examined resting in bed, does not appear to be in any acute distress Lungs are clear to auscultation bilaterally Heart is regular, no audible murmurs REVIEW OF LABS, ECG & MEDICAL DATA WBC 9.7, hemoglobin 10.5, platelets 276, potassium 4.3, BUN 14, creatinine 0.66 EKG shows sinus mechanism with left bundle branch block Echocardiogram in September 2018 shows EF 50-55%, IMPRESSION / ASSESSMENT: non displaced right-sided inferior and superior pubic rami fracture, nondisplaced right anterior acetabular fracture, nondisplaced right sacral fracture secondary to a mechanical fall CAD and prior NH Hypertension History of paroxysmal atrial fibrillation, not currently on anticoagulation Trigeminal neuralgia Prior TIA Frequent falls PLAN: Continue atorvastatin, antihypertensive therapy, Plavix, metoprolol, Ranexa Anticoagulation would be indicated based on her risk of stroke however she is a lso high bleeding risk due to her frequent falls, final decision regarding anticoagulation for primary care team Past Medical History Past Medical History: Atrial Fibrillation, Asthma, Coronary Artery Disease (CAD), Chest Pain / Angina, CVA/TIA, GERD/Reflux, Hypertension, Myocardial Infarction (NH), Thyroid Disorder Additional Past Medical History / Comment(s): Trigeminal Neur right side. 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 knee replacement, partial thyroidectomy, Bilateral hip surgery/ repair. Past Anesthesia/Blood Transfusion Reactions: No Reported Reaction Past Psychological History: No Psychological Hx Reported Smoking Status: Never smoker Past Alcohol Use History: None Reported Past Drug Use History: None Reported - Past Family History Father Family Medical History: Renal Disease Brother(s) Additional Family Medical History / Comment(s): Non-Hodgkin's lymphoma Sister(s) Family Medical History: Coronary Artery Disease (CAD) Medications and Allergies Home Medications Medication Instructions Recorded Confirmed Type Escitalopram [Lexapro] 10 mg PO DAILY 11/28/16 04/16/19 History Pantoprazole Sodium [Protonix] 40 mg PO BID 11/28/16 04/16/19 History Potassium Chloride ER [K-Dur 10] 10 meq PO DAILY 11/28/16 04/16/19 History carBAMazepine CHEW [TEGretol Chew] 100 mg PO TID 11/28/16 04/16/19 History Cholecalciferol [Vitamin D3 (25 1,000 unit PO DAILY 09/28/18 04/16/19 History Mcg = 1000 Iu)] Atorvastatin [Lipitor] 40 mg PO DAILY #30 tab 10/04/18 04/16/19 Rx Clopidogrel [Plavix] 75 mg PO DAILY #30 tab 10/04/18 04/16/19 Rx Isosorbide Mononitrate ER [Imdur] 30 mg PO DAILY #30 tab.er.24h 10/04/18 04/16/19 Rx Ranolazine [Ranexa] 500 mg PO Q12HR #60 tab.er.12h 10/04/18 04/16/19 Rx Metoprolol Tartrate [Lopressor] 50 mg PO TID 04/16/19 04/16/19 History Nitroglycerin Sl Tabs [Nitrostat] 0.4 mg SUBLINGUAL Q5M PRN 04/16/19 04/16/19 History amLODIPine [Norvasc] 5 mg PO DAILY 04/16/19 04/16/19 History Acetaminophen Tab [Tylenol] 500 mg PO Q6HR PRN tab 04/21/19 Rx Furosemide [Lasix] 20 mg PO DAILY #10 tab 04/21/19 Rx Gabapentin [Neurontin] 300 mg PO TID #20 cap 04/21/19 Rx Levothyroxine Sodium [Synthroid] 175 mcg PO DAILY #0 04/21/19 04/16/19 Rx traMADol HCL [Ultram] 50 mg PO Q8H PRN #10 tab 04/21/19 Rx Allergies Allergy/AdvReac Type Severity Reaction Status Date / Time adhesive tape Allergy Unknown Verified 04/16/19 17:02 avocado Allergy Anaphylaxis Verified 04/16/19 17:02 banana Allergy Anaphylaxis Verified 04/16/19 17:02 bee venom protein (honey bee) Allergy Unknown Verified 04/16/19 17:02 coconut Allergy Anaphylaxis Verified 04/16/19 17:02 codeine Allergy Unknown Verified 04/16/19 17:02 Iodine and Iodide Containing Allergy Anaphylaxis Verified 04/16/19 17:02 Produc latex Allergy Unknown Verified 04/16/19 17:02 nut - unspecified Allergy Anaphylaxis Verified 04/16/19 17:02 ofloxacin [From Floxin] Allergy Unknown Verified 04/16/19 17:02 peach Allergy Itching Verified 04/16/19 17:02 Penicillins Allergy Anaphylaxis Verified 04/16/19 17:02 pregabalin [From Lyrica] Allergy Unknown Verified 04/16/19 17:02 propoxyphene [From Darvon] Allergy Unknown Verified 04/16/19 17:02 psyllium Allergy Unknown Verified 04/16/19 17:02 Quinolones Allergy Unknown Verified 04/16/19 17:02 shellfish derived [Shellfish] Allergy Anaphylaxis Verified 04/16/19 17:02 soap Allergy Itching Verified 04/16/19 17:02 strawberry Allergy Rash/Hives Verified 04/16/19 17:02 Sulfa (Sulfonamide Allergy Anaphylaxis Verified 04/16/19 17:02 Antibiotics) Tetanus Vaccines and Toxoid Allergy Anaphylaxis Verified 04/16/19 17:02 wheat Allergy Unknown Verified 04/16/19 17:02 morphine AdvReac Mental Verified 04/16/19 17:02 Confusion detergent Allergy Itching Uncoded 11/28/16 18:21 jalapeno peppers Allergy Anaphylaxis Uncoded 11/28/16 18:21 spandex Allergy Unknown Uncoded 11/28/16 18:02 zucchini Allergy Unknown Uncoded 11/28/16 18:02 Physical Exam Vitals: Vital Signs Temp Pulse Pulse Resp BP Pulse Ox 04/18/19 08:10 72 16 04/18/19 07:00 98.3 F 71 16 134/74 92 L 04/18/19 02:47 99.1 F 72 18 152/73 92 L 04/17/19 20:03 98.9 F 76 18 134/67 93 L Intake and Output 04/18/19 04/18/19 04/18/19 06:59 14:59 22:59 Intake Total 400 Output Total 150 Balance -150 400 Intake: Oral 400 Output: Urine 150 Other: Voiding Method Bedpan Bedpan Results 04/19/19 07:27 04/21/19 15:50 CBC 04/18/19 Range/Units 06:33 WBC 9.7 (3.8-10.6) k/uL RBC 3.29 L (3.80-5.40) m/uL Hgb 10.5 L (11.4-16.0) gm/dL Hct 31.6 L (34.0-46.0) % Plt Count 276 (150-450) k/uL Comprehensive Metabolic Panel 04/18/19 Range/Units 06:33 Sodium 127 L (137-145) mmol/L Potassium 4.3 (3.5-5.1) mmol/L Chloride 95 L (98-107) mmol/L Carbon Dioxide 25 (22-30) mmol/L BUN 14 (7-17) mg/dL Creatinine 0.66 (0.52-1.04) mg/dL Glucose 106 H (74-99) mg/dL Calcium 8.2 L (8.4-10.2) mg/dL Current Medications Generic Name Dose Route Start Last Admin Trade Name Freq PRN Reason Stop Dose Admin Acetaminophen 500 mg 04/16/19 21:32 04/18/19 07:33 Tylenol Tab PO 500 mg Q6HR PRN Administration Fever and/ or Pain Alprazolam 0.25 mg 04/16/19 21:32 Xanax PO TID PRN Anxiety Amlodipine Besylate 5 mg 04/17/19 09:00 04/18/19 07:32 Norvasc PO 5 mg DAILY RIAZ Administration Atorvastatin Calcium 40 mg 04/17/19 09:00 04/18/19 07:32 Lipitor PO 40 mg DAILY RIAZ Administration Carbamazepine 100 mg 04/16/19 22:00 04/18/19 07:31 Tegretol Chew PO 100 mg TID RIAZ Administration Chlorhexidine Gluconate 15 ml 04/17/19 09:00 04/18/19 07:30 Peridex MUCOUS MEM 15 ml BID RIAZ Administration Cholecalciferol 1,000 unit 04/17/19 09:00 04/18/19 07:32 Vitamin D3 (25 Mcg = 1000 Iu) PO 1,000 unit DAILY RIAZ Administration Clopidogrel Bisulfate 75 mg 04/17/19 09:00 04/18/19 07:32 Plavix PO 75 mg DAILY RIAZ Administration Escitalopram Oxalate 10 mg 04/17/19 09:00 04/18/19 07:32 Lexapro PO 10 mg DAILY RIAZ Administration Gabapentin 600 mg 04/17/19 09:00 04/18/19 12:56 Neurontin PO 600 mg DAILY RIAZ Administration Gabapentin 300 mg 04/17/19 12:00 04/18/19 14:27 Neurontin PO 300 mg BID@1200,2100 RIAZ Administration Heparin Sodium (Porcine) 5,000 unit 04/16/19 21:00 04/18/19 07:30 Heparin SQ 5,000 unit Q12HR RIAZ Administration Sodium Chloride 1,000 mls @ 20 mls/hr 04/16/19 17:00 04/17/19 18:11 Saline 0.9% IV Not Given .Q24H RIAZ Isosorbide Mononitrate 30 mg 04/17/19 09:00 04/18/19 07:30 Imdur PO 30 mg DAILY RIAZ Administration Levothyroxine Sodium 150 mcg 04/17/19 06:30 04/18/19 07:32 Synthroid PO 150 mcg DAILY@0630 RIAZ Administration Metoprolol Tartrate 50 mg 04/16/19 22:00 04/18/19 07:31 Lopressor PO 50 mg TID RIAZ Administration Naloxone HCl 0.2 mg 04/16/19 16:52 Narcan IV Q2M PRN Opioid Reversal Pantoprazole Sodium 40 mg 04/17/19 09:00 04/18/19 07:32 Protonix PO 40 mg BID RIAZ Administration Potassium Chloride 10 meq 04/17/19 09:00 04/18/19 07:32 K-Dur 10 PO 10 meq DAILY RIAZ Administration Ranolazine 500 mg 04/17/19 09:00 04/18/19 07:31 Ranexa PO 500 mg Q12HR RIAZ Administration Tramadol HCl 50 mg 04/16/19 21:30 04/18/19 10:45 Ultram PO 50 mg Q8H PRN Administration Pain Intake and Output 04/18/19 04/18/19 04/18/19 06:59 14:59 22:59 Intake Total 400 Output Total 150 Balance -150 400 Intake: Oral 400 Output: Urine 150 Other: Voiding Method Bedpan Bedpan 04/18/19 06:33 04/18/19 06:33
--- NOTE | 2019-04-28 12:42 | CDI ---
Documentation Clarification Form Date: 04/28/2019 12:28:59 PM From: Vanita Lyons Phone: If you have a question about this query, please contact Soraya Pool Writing Manager at [phone] between 8am and 5pm. Admit Date: 04/16/2019 04:03:00 PM Patient Name: Shaina Garcia Visit Number: [id number] Discharge Date: 04/22/2019 02:31:00 PM ATTENTION: The Clinical Documentation Specialists (CDI) and [facility] Coding Staff appreciate your assistance in clarifying documentation. Please respond to the clarification below the line at the bottom and electronically sign. The CDI & [facility] Coding staff will review the response and follow-up if needed. Please note: Queries are made part of the Legal Health Record. If you have any questions, please contact the author of this message via ITS. Dr. Flip Simon Patient has been diagnosed with a non displaced right anterior acetabular fracture in your consult. Imaging does not support this diagnosis and states pelvic ring intact. Please clarify if patient had a non displaced right anterior acetabular fracture. History/Risk Factors: Fracture of superior and inferior pubic rami fx. X-Ray Results nondisplaced fracture of right superior and inferior pubic rami. Sacroiliac joints intact. In your professional opinion, please specify the following: right anterior acetabular fracture right anterior acetabular fracture ruled out Other (please specify): Unable to determine CT scan from outside facility confirmed acetabular fractuer MTDD
== END 2019-04-22 14:31 | DRG 535 ==
LOC: 4SSUR 16:03
PROVIDERS: ADMIT Internal Medicine; ATTEND Internal Medicine
DX: S32.591A Other specified fracture of right pubis, initial encounter for closed fracture (principal); S32.491A Other specified fracture of right acetabulum, initial encounter for closed fracture; S32.119A Unspecified Zone I fracture of sacrum, initial encounter for closed fracture; E22.2 Syndrome of inappropriate secretion of antidiuretic hormone; W19.XXXA Unspecified fall, initial encounter; Z91.81 History of falling; R29.6 Repeated falls; D63.8 Anemia in other chronic diseases classified elsewhere; E89.0 Postprocedural hypothyroidism; I11.0 Hypertensive heart disease with heart failure; I25.10 Atherosclerotic heart disease of native coronary artery without angina pectoris; I25.2 Old myocardial infarction; I48.91 Unspecified atrial fibrillation; I50.9 Heart failure, unspecified; J45.909 Unspecified asthma, uncomplicated; K21.9 Gastro-esophageal reflux disease without esophagitis; W10.9XXA Fall (on) (from) unspecified stairs and steps, initial encounter; Z79.890 Hormone replacement therapy; Z79.02 Long term (current) use of antithrombotics/antiplatelets; Z79.899 Other long term (current) drug therapy; Z80.7 Family history of other malignant neoplasms of lymphoid, hematopoietic and related tissues; Z82.49 Family history of ischemic heart disease and other diseases of the circulatory system; Z86.73 Personal history of transient ischemic attack (TIA), and cerebral infarction without residual deficits; Z90.49 Acquired absence of other specified parts of digestive tract; Z96.653 Presence of artificial knee joint, bilateral; I48.0 Paroxysmal atrial fibrillation
CPT/HCPCS: 71045; 71250; 72170; 80048; 80053; 81003; 82570; 83735; 83880; 83930; 83935; 84295; 84300; 84439; 84443; 85025; 93005

== ENCOUNTER 2021-09-08 19:25 | Inpatient (IN) | payer MEDICARE ==
--- NOTE | 2021-09-08 19:32 | ED ---
General Adult HPI - General Stated complaint: NSTEMI Time Seen by Provider: 09/08/21 19:25 Source: patient, RN notes reviewed, old records reviewed - History of Present Illness Initial comments: As is an 85-year-old female who presents emergency department from [facility]. Patient states she's been having intermittent chest pain all week long with shortness of breath. Patient states anytime she exerts herself the p ain would come and anytime she rests it would go away. At [facility] patient had an EKG done that showed left bundle branch block however her troponin was 4.5. Patient states she no longer has any chest pain as long she been lying in bed resting. Patient is on heparin. An patient was transferred to us because they have no floral designer. Patient is a diabetic and has a history of high blood pressure and a previous heart attack - Related Data Home Medications Medication Instructions Recorded Confirmed Escitalopram [Lexapro] 10 mg PO DAILY 11/28/16 04/16/19 Pantoprazole Sodium [Protonix] 40 mg PO BID 11/28/16 04/16/19 Potassium Chloride ER [K-Dur 10] 10 meq PO DAILY 11/28/16 04/16/19 carBAMazepine CHEW [TEGretol Chew] 100 mg PO TID 11/28/16 04/16/19 Cholecalciferol [Vitamin D3 (25 1,000 unit PO DAILY 09/28/18 04/16/19 Mcg = 1000 Iu)] Metoprolol Tartrate [Lopressor] 50 mg PO TID 04/16/19 04/16/19 Nitroglycerin Sl Tabs [Nitrostat] 0.4 mg SUBLINGUAL Q5M PRN 04/16/19 04/16/19 amLODIPine [Norvasc] 5 mg PO DAILY 04/16/19 04/16/19 Previous Rx's Medication Instructions Recorded Atorvastatin [Lipitor] 40 mg PO DAILY #30 tab 10/04/18 Clopidogrel [Plavix] 75 mg PO DAILY #30 tab 10/04/18 Isosorbide Mononitrate ER [Imdur] 30 mg PO DAILY #30 tab.er.24h 10/04/18 Ranolazine [Ranexa] 500 mg PO Q12HR #60 tab.er.12h 10/04/18 Acetaminophen Tab [Tylenol] 500 mg PO Q6HR PRN tab 04/21/19 Furosemide [Lasix] 20 mg PO DAILY #10 tab 04/21/19 Gabapentin [Neurontin] 300 mg PO TID #20 cap 04/21/19 Levothyroxine Sodium [Synthroid] 175 mcg PO DAILY #0 04/21/19 traMADol HCL [Ultram] 50 mg PO Q8H PRN #10 tab 04/21/19 Allergies Allergy/AdvReac Type Severity Reaction Status Date / Time adhesive tape Allergy Unknown Verified 09/08/21 20:05 avocado Allergy Anaphylaxis Verified 09/08/21 20:05 banana Allergy Anaphylaxis Verified 09/08/21 20:05 bee venom protein (honey bee) Allergy Unknown Verified 09/08/21 20:05 coconut Allergy Anaphylaxis Verified 09/08/21 20:05 codeine Allergy Unknown Verified 09/08/21 20:05 Iodine and Iodide Containing Allergy Anaphylaxis Verified 09/08/21 20:05 Produc latex Allergy Unknown Verified 09/08/21 20:05 nut - unspecified Allergy Anaphylaxis Verified 09/08/21 20:05 ofloxacin [From Floxin] Allergy Unknown Verified 09/08/21 20:05 peach Allergy Itching Verified 09/08/21 20:05 Penicillins Allergy Anaphylaxis Verified 09/08/21 20:05 pregabalin [From Lyrica] Allergy Unknown Verified 09/08/21 20:05 propoxyphene [From Darvon] Allergy Unknown Verified 09/08/21 20:05 psyllium Allergy Unknown Verified 09/08/21 20:05 Quinolones Allergy Unknown Verified 09/08/21 20:05 shellfish derived [Shellfish] Allergy Anaphylaxis Verified 09/08/21 20:05 soap Allergy Itching Verified 09/08/21 20:05 strawberry Allergy Rash/Hives Verified 09/08/21 20:05 Sulfa (Sulfonamide Allergy Anaphylaxis Verified 09/08/21 20:05 Antibiotics) Tetanus Vaccines and Toxoid Allergy Anaphylaxis Verified 09/08/21 20:05 wheat Allergy Unknown Verified 09/08/21 20:05 morphine AdvReac Mental Verified 09/08/21 20:05 Confusion detergent Allergy Itching Uncoded 11/28/16 18:21 jalapeno peppers Allergy Anaphylaxis Uncoded 11/28/16 18:21 spandex Allergy Unknown Uncoded 11/28/16 18:02 zucchini Allergy Unknown Uncoded 11/28/16 18:02 Review of Systems ROS Statement: Those systems with pertinent positive or pertinent negative responses have been documented in the HPI. ROS Other: All systems not noted in ROS Statement are negative. Past Medical History Past Medical History: Atrial Fibrillation, Asthma, Coronary Artery Disease (CAD), Chest Pain / Angina, CVA/TIA, GERD/Reflux, Hypertension, Myocardial Infarction ([place]), Thyroid Disorder Additional Past Medical History / Comment(s): Trigeminal Neur right side. 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 knee replacement, partial thyroidectomy, Bilateral hip surgery/ repair. Past Anesthesia/Blood Transfusion Reactions: No Reported Reaction Past Psychological History: No Psychological Hx Reported Past Alcohol Use History: None Reported Past Drug Use History: None Reported - Past Family History Father Family Medical History: Renal Disease Brother(s) Additional Family Medical History / Comment(s): Non-Hodgkin's lymphoma Sister(s) Family Medical History: Coronary Artery Disease (CAD) General Exam - General Exam Comments Initial Comments: GENERAL: Patient is well-developed and well-nourished. Patient is nontoxic and well- hydrated and is in mild distress. ENT: Neck is soft and supple. No significant lymphadenopathy is noted. Oropharynx is clear. Moist mucous membranes. Neck has full range of motion without eliciting any pain. EYES: The sclera were anicteric and conjunctiva were pink and moist. Extraocular movements were intact and pupils were equal round and reactive to light. Eyelids were unremarkable. PULMONARY: Unlabored respirations. Good breath sounds bilaterally. No audible rales rhonchi or wheezing was noted. CARDIOVASCULAR: There is a regular rate and rhythm without any murmurs gallops or rubs. ABDOMEN: Soft and nontender with normal bowel sounds. SKIN: Skin is clear with no lesions or rashes and otherwise unremarkable. NEUROLOGIC: Patient is alert and oriented x3. Cranial nerves II through XII are grossly intact. Motor and sensory are also intact. Normal speech, volume and content. Symmetrical smile. MUSCULOSKELETAL: Normal extremities with adequate strength and full range of motion. No lower extremity swelling or edema. No calf tenderness. LYMPHATICS: No significant lymphadenopathy is noted PSYCHIATRIC: Normal psychiatric evaluation. Course Vital Signs 09/08/21 19:37 Temperature 97.8 F Pulse Rate 71 Respiratory 18 Rate Blood Pressure 135/81 O2 Sat by Pulse 96 Oximetry Medical Decision Making - Medical Decision Making Patient was chest pain-free on arrival I did however continue the heparin. EKG shows sinus rhythm with a left bundle branch block at 70 bpm NC interval 292 QRS is 157 Q-T intervals 471 QTC is 491 per patient's EKG shows no ST segment elevation or depression. Disposition Clinical Impression: Non-STEMI (non-ST elevated myocardial infarction), UTI (urinary tract infection) Disposition: ADMITTED IP TO THIS HOSP Referrals: Nasim Waterman MD [Primary Care Provider] - 1-2 days Time of Disposition: 20:06
[2021-09-08] MEDS: HEPARIN SOD,PORK IN 0.45% NACL 25,000 UNIT in 0.45% NACL 1 250ML.BAG IV SCH (19:51)
[2021-09-08] MEDS ORDERED: NITROGLYCERIN SL TABS 0.4 MG TAB SUBLINGUAL PRN (20:07)
[2021-09-09] MEDS: NITROGLYCERIN OINT 1 INCH/GM PACKET TOPICAL SCH ×3 (02:53→12:02)
[2021-09-09 03:04] LABS: Basophils # (A) 0.2 k/uL (0-0.2); Basophils % (A) 1 %; Eosinophils # (A) 0.4 k/uL (0-0.7); Eosinophils % (A) 4 %; HCT 36.3 % (34.0-46.0); HGB 12.4 gm/dL (11.4-16.0); Lymphocytes # (A) 1.6 k/uL (1.0-4.8); Lymphocytes % (A) 14 %; MCH 32.9 pg (25.0-35.0); MCHC 34.1 g/dL (31.0-37.0); MCV 96.5 fL (80.0-100.0); Mean Platelet Volume 7.1; Monocytes # (A) 0.6 k/uL (0-1.0); Monocytes % (A) 6 %; Neutrophils # (A) 8.6 k/uL (1.3-7.7); Neutrophils % (A) 75 %; Platelet Count 271 k/uL (150-450); RBC 3.76 m/uL (3.80-5.40); RDW 12.3 % (11.5-15.5); WBC 11.4 k/uL (3.8-10.6)
[2021-09-09 04:07] LABS: African American GFR (CKD) 67 (>60 ml/min/1.73 sqM); Anion Gap 6 mmol/L; Blood Urea Nitrogen 18 mg/dL (7-17); Calcium 8.5 mg/dL (8.4-10.2); Carbon Dioxide 30 mmol/L (22-30); Chloride 95 mmol/L (98-107); Glucose 111 mg/dL (74-99); Non-African American GFR(CKD) 58 (>60 ml/min/1.73 sqM); Potassium 3.9 mmol/L (3.5-5.1); Sodium 131 mmol/L (137-145)
[2021-09-09] MEDS ORDERED: ASPIRIN 325 MG TAB PO SCH (09:00)
[2021-09-09] MEDS ORDERED: traMADol 50 MG TAB PO SCH (09:00)
[2021-09-09] MEDS ORDERED: CALCIUM CARBONATE 500 MG CHEWABLE PO PRN (09:20)
[2021-09-09 09:34] LABS: Chol/HDL Ratio 1.69 Ratio; LDL Cholesterol,Calculated 43.6 mg/dL (0.0-131.0); VLDL Calculation 11.98 mg/dL (5.00-40.00)
[2021-09-09] MEDS: GABAPENTIN 300 MG CAP PO SCH ×3 (09:41→20:46)
[2021-09-09] MEDS: traMADol 50 MG TAB PO PRN ×2 (09:42→16:25)
[2021-09-09] MEDS ORDERED: FUROSEMIDE 10 MG/ML 2 ML VIAL IV ONE (10:51)
[2021-09-09] MEDS ORDERED: ASPIRIN 81 MG PO STA (10:52)
[2021-09-09] MEDS ORDERED: SODIUM CHLORIDE 0.9% 1,000 ML IV SCH (11:00)
[2021-09-09 11:52] LABS: Glucose,Whole Blood 116 mg/dL (70-110)
--- NOTE | 2021-09-09 11:52 | XR ---
EXAMINATION TYPE: XR chest 2V DATE OF EXAM: 09/09/2021 10:54 AM COMPARISON: Chest radiographs from 04/20/2021, CT chest 04/20/2021. TECHNIQUE: XR chest 2V Frontal and lateral views of the chest. CLINICAL INDICATION:Female, 85 years old with history of hypoxia; FINDINGS: Lungs/Pleura: There is no evidence of pleural effusion, focal consolidation, or pneumothorax. Persis tent elevated right diaphragm. Pulmonary vascularity: Unremarkable. Heart/mediastinum: Cardiomediastinal silhouette is unremarkable. Similar fullness to the right pulmon almita hilum which was CT evaluated on and was most consistent with prominent vessels. Musculoskeletal: Degenerative changes of the shoulder joints. Irregular morphology to the right arm p roximal humerus. IMPRESSION: 1. No acute cardiopulmonary disease/process. 2. Irregular right proximal humerus morphology correlate for prior fracture, consider dedicated [facility] t humerus radiograph's pictures history of trauma.
[2021-09-09] MEDS ORDERED: BACLOFEN 10 MG TAB PO PRN (12:26)
--- NOTE | 2021-09-09 12:50 | CA ---
Transthoracic Echo Report Name: Shaina Garcia Age: 85 Gender: F : 1935 Exam Date: 09/09/2021 11:26 Exam Location: [facility] Ht (in): 60 Wt (lb): 152 Ordering Physician: Colleen Hough MD ([id number]) Attending/Referring Phys: Scow Captain Fauzia Massey RDCS Procedure CPT: Indications: N-Stemi Cardiac Hx: Technical Quality: Fair Contrast 1: Total Dose (mL): Contrast 2: Total Dose (mL): MEASUREMENTS (Male / Female) Normal Values 2D ECHO LV Diastolic Diameter PLAX 4.2 cm 4.2 - 5.9 / 3.9 - 5.3 cm LV Systolic Diameter PLAX 3.2 cm IVS Diastolic Thickness 1.1 cm 0.6 - 1.0 / 0.6 - 0.9 cm LVPW Diastolic Thickness 1.1 cm 0.6 - 1.0 / 0.6 - 0.9 cm LV Relative Wall Thickness 0.5 RV Internal Dim ED PLAX 2.8 cm LA Systolic Diameter LX 3.5 cm 3.0 - 4.0 / 2.7 - 3.8 cm LA Volume 46.6 cm??? 18 - 58 / 22 - 52 cm??? M-MODE Aortic Root Diameter MM 2.8 cm MV E Point Septal Separation 0.8 cm AV Cusp Separation MM 2.0 cm DOPPLER AV Peak Velocity 109.2 cm/s AV Peak Gradient 4.8 mmHg MV Area PHT 3.5 cm??? Mitral E Point Velocity 63.7 cm/s Mitral A Point Velocity 110.1 cm/s Mitral E to A Ratio 0.6 MV Deceleration Time 218.1 ms MV E' Velocity 3.4 cm/s Mitral E to MV E' Ratio 18.8 TR Peak Velocity 302.4 cm/s TR Peak Gradient 36.6 mmHg Right Ventricular Systolic Press 41.1 mmHg FINDINGS Left Ventricle Left ventricular ejection fraction is estimated at 50-55 %. Left ventricular cavity size normal. Borderline left ventricular hypertrophy. Mid lateral wall hypokinesis Right Ventricle Normal right ventricular size and function. Mild pulmonary hypertension. Right Atrium Normal right atrial size. Left Atrium Normal left atrial size. No evidence for an atrial septal defect. Mitral Valve Mild mitral annular calcification. Mild mitral regurgitation. Aortic Valve Focal thickening of the aortic valve cusps. Tricuspid Valve Mild tricuspid regurgitation. Tricuspid valve appears to be normal Pulmonic Valve Pulmonic valve not well visualized. Pericardium Normal pericardium. No pericardial effusion. Aorta Normal size aortic root and proximal ascending aorta. CONCLUSIONS 1. Borderline left ventricle systolic function with mid lateral wall ischemia 2. Mild mitral and tricuspid regurgitation 3. No pericardial effusion Previewed by: Dr. Toribio Shipley MD (Electronically Signed) Final Date: 09 September 2021 12:50
--- NOTE | 2021-09-09 13:32 | CONS ---
CONSULTATION Shaina Garcia is an 85-year-old lady with a known history of CAD who was seen and evaluated by Dr. Paris in 2019, underwent a cardiac cath at that time, had a significant ostial circumflex lesion was evaluated by Dr. Rojas and subsequently by Dr. Klein. According to the patient, she was suggested medical therapy and no intervention. She has since then been doing well on medical therapy. Comes into the hospital with episode of chest pain, transferred from [place] emergency room. She is comfortable resting. The troponin went up to 4.0, has already come down. She is resting comfortably without symptoms. Patient is reluctant to have any invasive procedures performed since she was told that she should be on medical therapy. I explained to her that she does have a troponin rise, but we will pursue medical therapy. I will add nitrates and we will resume all her medications including beta blockers. She is resting comfortably at the time of my evaluation. EKG revealed a sinus mechanism with a left bundle, but no other ST-segment changes. Laboratory data suggests that the troponin went up to 4.5 on arrival, is already coming down to 2.2. She is asymptomatic at the time of my evaluation, has some shortness of breath but no chest discomfort. PAST MEDICAL HISTORY: 1. CAD with a prior cardiac cath and advised medical therapy after surgical and coronary interventional evaluation. 2. Hypertension. 3. Hyperlipidemia. 4. There is a question of atrial fibrillation. 5. There is a question of trigeminal neuralgia. 6. She has also had a history of hypertension and questionable TIA in the past. MEDICATIONS: Medications at home did not include any anticoagulant medications. She is on atorvastatin, Plavix, Lasix 20 mg b.i.d., Lopressor 50 mg b.i.d. and also ranolazine. PHYSICAL EXAMINATION: On examination, blood pressure is 140/70, pulse rate is 80 per minute regular. HEENT unremarkable. Fundus was not examined by me. Neck is supple. There is no JVD. I do not hear a carotid bruit. Heart exam reveals S1, S2 with a short systolic murmur. Lungs reveal diminished air entry. Abdomen is distended. Lower extremities reveal diminished pulses. Central nervous system is grossly within normal limits. EKG revealed sinus mechanism, left bundle. IMPRESSION: 1. Non ST elevation myocardial infarction in a patient with known significant coronary artery disease. Patient wishes medical therapy. 2. Hypertension. 3. Hyperlipidemia. RECOMMENDATIONS: I reduced aspirin to 81 mg daily. Continue her other medications including the Plavix and also I will add Imdur 30 mg daily to her regimen and based on clinical course, we will make further recommendations. Patient is aware of the fact she has an [place], wishes medical therapy. She is doing better. We will continue to see how she does. MMMELEL / XINN: [id number] /
[2021-09-09] MEDS ORDERED: BACLOFEN 10 MG TAB PO SCH (14:00)
[2021-09-09] MEDS: INSULIN ASPART (NovoLOG) 100 UNIT/ML VIAL SQ SCH ×3 (14:59→21:32)
--- NOTE | 2021-09-09 15:01 | P.HPIM ---
History of Present Illness H&P Date: 09/09/21 This is an 85 year old female with medical history of Diabetes, atrial fibrillation, thyroid disorder, hypertension, previous VT presents to the hospital from [place] with complaints of intermittent chest pain for the last week. Chest pain is exertional. She is also concern with recent medicati on changes and has felt the patient has been mildly confused at home. EKG completed a [place] shows left bundle-branch block with troponin level of 4.5. Patient currently denies chest pain. Labs on admission show white count 11.4, sodium 131, BUN 18, creatinine 0.90. Troponin levels have been trended here at 4.080, 3.070, and 2.230. She has been started on IV heparin. BNP found to be 5360 and suspect patient is in mild congestive heart failure exacerbation. Echocardiogram has been completed showing an EF of 50-55% with mild lateral wall ischemia with mild mitral and tricuspid regurgitation. Mild pulmonary hypertension. Patient is admitted for acute non ST elevation VT and consult has been placed to cardiology. REVIEW OF SYSTEMS: CONSTITUTIONAL: No fever, no malaise, no fatigue. HEENT: No recent visual problems or hearing problems. Denied any sore throat. CARDIOVASCULAR: No chest pain, orthopnea, PND, no palpitations, no syncope. PULMONARY: No shortness of breath, no cough, no hemoptysis. GASTROINTESTINAL: No diarrhea, no nausea, no vomiting, no abdominal pain. NEUROLOGICAL: No headaches, no weakness, no numbness. HEMATOLOGICAL: Denies any bleeding or petechiae. GENITOURINARY: Denies any burning micturition, frequency, or urgency. MUSCULOSKELETAL/RHEUMATOLOGICAL: Denies any joint pain, swelling, or any muscle pain. ENDOCRINE: Denies any polyuria or polydipsia. The rest of the 14-point review of systems is negative. PHYSICAL EXAMINATION: GENERAL: The patient is alert and oriented x3, not in any acute distress. Well developed, well nourished. HEENT: Pupils are round and equally reacting to light. EOMI. No scleral icterus. No conjunctival pallor. Normocephalic, atraumatic. No pharyngeal erythema. No thyromegaly. CARDIOVASCULAR: S1 and S2 present. No murmurs, rubs, or gallops. PULMONARY: Chest is diminished, no wheezing noted. ABDOMEN: Soft, nontender, nondistended, normoactive bowel sounds. No palpable organomegaly. MUSCULOSKELETAL: No joint swelling or deformity. EXTREMITIES: No cyanosis, clubbing, Mild peripheral edema NEUROLOGICAL: Gross neurological examination did not reveal any focal deficits. SKIN: No rashes. Assessment and Plan Assessment Acute non-ST elevation VT Acute heart failure Leukocytosis most likely reactive Hyponatremia, most likely hypervolemic Hypertension Hyperlipidemia History of coronary artery disease status post heart catheterization History of questionable atrial fibrillation History of trigeminal neuralgia History of thyroid disorder Tremors Generalized weakness Frequent falls Obesity GI Prophylaxis DVT Prophylaxis Do Not Resuscitate Plan Cardiology consultation Patient has opted for medication management regarding nstemi 2D echo has been completed Patient received a dose of IV lasix today PT/OT has been consulted Resume appropriate home medications The impression and plan of care has been dictated by Cony Maya Nurse Practitioner as directed. Dr. Cesar MD I have performed a history and physical examination and medical decision making of this patient, discussed the same with the dictator, and agree with the dictators assessment and plan as written, documented as a scribe. Based on total visit time, I have performed more than 50% of this visit. Past Medical History Past Medical History: Atrial Fibrillation, Asthma, Coronary Artery Disease (CAD), Chest Pain / Angina, CVA/TIA, GERD/Reflux, Hypertension, Myocardial Infarction (VT), Thyroid Disorder Additional Past Medical History / Comment(s): Trigeminal Neur right side. 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 knee replacement, partial thyroidectomy, Bilateral hip surgery/ repair. Past Anesthesia/Blood Transfusion Reactions: No Reported Reaction Past Psychological History: No Psychological Hx Reported Smoking Status: Never smoker Past Alcohol Use History: None Reported Past Drug Use History: None Reported - Past Family History Father Family Medical History: Renal Disease Brother(s) Additional Family Medical History / Comment(s): Non-Hodgkin's lymphoma Sister(s) Family Medical History: Coronary Artery Disease (CAD) Medications and Allergies Home Medications Medication Instructions Recorded Confirmed Type Escitalopram [Lexapro] 10 mg PO HS@199911/28/16 09/08/21 History Pantoprazole Sodium [Protonix] 40 mg PO DAILY@82911/28/16 09/08/21 History Potassium Chloride ER [K-Dur 10] 10 meq PO DAILY@82911/28/16 09/08/21 History carBAMazepine CHEW [TEGretol Chew] 100 mg PO TID@0830,1399,199911/28/16 09/08/21 History Metoprolol Tartrate [Lopressor] 50 mg PO BID@829,199904/16/19 09/08/21 History Nitroglycerin Sl Tabs [Nitrostat] 0.4 mg SUBLINGUAL Q5M PRN 04/16/19 09/08/21 History Atorvastatin [Lipitor] 40 mg PO HS@199909/08/21 09/08/21 History Baclofen 10 mg PO BID@0830,139909/08/21 09/08/21 History Calcium Carbonate [Calcium] 600 mg PO DAILY@82909/08/21 09/08/21 History Calcium Carbonate [Tums] 500 mg PO DIRECTED PRN 09/08/21 09/08/21 History Chlorhexidine Gluconate [Hibiclens] 1 applic TOPICAL DAILY PRN 09/08/21 09/08/21 History Cholecalciferol [Vitamin D3 (25 50 mcg PO DAILY@139909/08/21 09/08/21 History Mcg = 1000 Iu)] Clopidogrel [Plavix] 75 mg PO DAILY@82909/08/21 09/08/21 History EPINEPHrine (Auto Inject) [Epipen] 0.3 mg IM ONCE PRN 09/08/21 09/08/21 History Eye Drops 1 dose BOTH EYES DIRECTED PRN 09/08/21 09/08/21 History Ferrous Sulfate [Feosol] 325 mg PO BID@1399,199909/08/21 09/08/21 History Fluticasone Nasal [place] [Flonase 1 spray EA NOSTRIL HS@199909/08/21 09/08/21 History Nasal [place]] Folic Acid 1 mg PO DAILY@82909/08/21 09/08/21 History Furosemide [Lasix] 20 mg PO BID@0830,139909/08/21 09/08/21 History Gabapentin [Neurontin] 300 mg PO TID@0830,1399,199909/08/21 09/08/21 History Gas Relief 180mg 1 dose PO DIRECTED PRN 09/08/21 09/08/21 History Isosorbide Mononitrate ER [Imdur] 60 mg PO DAILY@30 09/08/21 09/08/21 History Levothyroxine Sodium [Synthroid] 150 mcg PO DAILY@0709/08/21 09/08/21 History Loratadine [Claritin] 10 mg PO HS@199909/08/21 09/08/21 History Memantine [Namenda] 10 mg PO BID@08,199909/08/21 09/08/21 History Methylcellulose (with Sugar) 1 dose PO Q72H PRN 09/08/21 09/08/21 History [Citrucel Powder] Multivitamins, Thera [Multivitamin 1 tab PO DAILY@82909/08/21 09/08/21 History (formulary)] Muscle Rub 1 applic TOPICAL DAILY PRN 09/08/21 09/08/21 History Pyridoxine HCl (Vitamin B6) 100 mg PO DAILY@139909/08/21 09/08/21 History [Vitamin B-6] Ranolazine [Ranexa] 500 mg PO BID@08,199909/08/21 09/08/21 History Vitamin K2 100 mcg PO DAILY@139909/08/21 09/08/21 History diphenhydrAMINE [Benadryl] 25 mg PO HS PRN 09/08/21 09/08/21 History predniSONE 10 mg PO DAILY@30 09/08/21 09/08/21 History traMADol HCL [Ultram] 50 mg PO TID@0830,1399,199909/08/21 09/08/21 History Allergies Allergy/AdvReac Type Severity Reaction Status Date / Time adhesive tape Allergy Unknown Verified 09/08/21 20:05 avocado Allergy Anaphylaxis Verified 09/08/21 20:05 banana Allergy Anaphylaxis Verified 09/08/21 20:05 bee venom protein (honey bee) Allergy Unknown Verified 09/08/21 20:05 coconut Allergy Anaphylaxis Verified 09/08/21 20:05 codeine Allergy Unknown Verified 09/08/21 20:05 Iodine and Iodide Containing Allergy Anaphylaxis Verified 09/08/21 20:05 Produc latex Allergy Unknown Verified 09/08/21 20:05 nut - unspecified Allergy Anaphylaxis Verified 09/08/21 20:05 ofloxacin [From Floxin] Allergy Unknown Verified 09/08/21 20:05 peach Allergy Itching Verified 09/08/21 20:05 Penicillins Allergy Anaphylaxis Verified 09/08/21 20:05 pregabalin [From Lyrica] Allergy Unknown Verified 09/08/21 20:05 propoxyphene [From Darvon] Allergy Unknown Verified 09/08/21 20:05 psyllium Allergy Unknown Verified 09/08/21 20:05 Quinolones Allergy Unknown Verified 09/08/21 20:05 shellfish derived [Shellfish] Allergy Anaphylaxis Verified 09/08/21 20:05 soap Allergy Itching Verified 09/08/21 20:05 strawberry Allergy Rash/Hives Verified 09/08/21 20:05 Sulfa (Sulfonamide Allergy Anaphylaxis Verified 09/08/21 20:05 Antibiotics) Tetanus Vaccines and Toxoid Allergy Anaphylaxis Verified 09/08/21 20:05 wheat Allergy Unknown Verified 09/08/21 20:05 morphine AdvReac Mental Verified 09/08/21 20:05 Confusion detergent Allergy Itching Uncoded 11/28/16 18:21 jalapeno peppers Allergy Anaphylaxis Uncoded 11/28/16 18:21 spandex Allergy Unknown Uncoded 11/28/16 18:02 zucchini Allergy Unknown Uncoded 11/28/16 18:02 Physical Exam Vitals: Vital Signs Temp Pulse Resp BP BP Pulse Ox 09/09/21 03:24 97.7 F 18 168/76 92 L 09/08/21 23:32 98.4 F 16 136/60 94 L 09/08/21 22:44 76 18 175/81 95 09/08/21 19:37 97.8 F 71 18 135/81 96 Intake and Output 09/08/21 09/09/21 09/09/21 22:59 06:59 14:59 Intake Total 69.591 Balance 69.591 Intake: Intake, IV Titration 69.591 Amount Heparin Sod,Pork in 0.45% 69.591 NaCl 25,000 unit In 0.45 % NaCl 1 250ml.bag @ 12 UNITS/KG/HR 9.362 mls/hr IV .Q24H [facility] Rx#: [id number] Oral 0 Other: Voiding Method External Catheter Weight 78.018 kg Results CBC & Chem 7: 09/09/21 02:39 09/09/21 02:39 Labs: Abnormal Lab Results - Last 24 Hours (Table) 09/08/21 09/08/21 09/09/21 Range/Units 19:48 23:02 02:39 WBC (3.8-10.6) k/uL RBC (3.80-5.40) m/uL Neutrophils # (1.3-7.7) k/uL APTT (22.0-30.0) sec Sodium (137-145) mmol/L Chloride (98-107) mmol/L BUN (7-17) mg/dL Glucose (74-99) mg/dL Troponin I 4.080 H* 3.070 H* 2.230 H* (0.000-0.034) ng/mL 09/09/21 09/09/21 09/09/21 Range/Units 02:39 02:39 02:39 WBC 11.4 H (3.8-10.6) k/uL RBC 3.76 L (3.80-5.40) m/uL Neutrophils # 8.6 H (1.3-7.7) k/uL APTT 82.1 H (22.0-30.0) sec Sodium 131 L (137-145) mmol/L Chloride 95 L (98-107) mmol/L BUN 18 H (7-17) mg/dL Glucose 111 H (74-99) mg/dL Troponin I (0.000-0.034) ng/mL Thrombosis Risk Factor Assmnt - Choose All That Apply Each Factor Represents 1 point: Heart failure (<1month), Swollen legs (current) Each Risk Factor Represents 3 Points: Age 75 years or older Other congenital or acquired thrombophilia - If yes, enter type in comment: No Thrombosis Risk Factor Assessment Total Risk Factor Score: 5 Thrombosis Risk Factor Assessment Level: High Risk Assessment and Plan Time with Patient: Less than 30
[2021-09-09] MEDS: CHOLECALCIFEROL 25 MCG (1000 IU) TABLET PO SCH (16:20)
[2021-09-09] MEDS: FUROSEMIDE 20 MG TAB PO SCH (16:20)
[2021-09-09] MEDS: PYRIDOXINE 50 MG TAB PO SCH (16:20)
[2021-09-09] MEDS: FERROUS SULFATE 325 MG TAB PO SCH ×2 (16:20→20:46)
[2021-09-09] MEDS: ISOSORBIDE MONONITRATE ER 30 MG TAB.ER.24H PO SCH (16:23)
[2021-09-09 16:49] LABS: Glucose,Whole Blood 129 mg/dL (70-110)
[2021-09-09 19:29] LABS: Appearance,Urine Turbid (Clear); Bacteria,Urine Rare /hpf; Bilirubin,Urine Negative (Negative); Blood,Urine Small (Negative); Color,Urine Light Yellow; Glucose,Urine (UA) Negative (Negative); Ketones,Urine Negative (Negative); Leukocyte Esterase,Urine Large (Negative); Nitrite,Urine Positive (Negative); Protein,Urine 1+ (Negative); RBC,Urine 3 /hpf (0-5); Specific Gravity,Urine 1.015 (1.001-1.035); Squamous Epithelial Cell,Urine 2 /hpf (0-4); Urobilinogen,Urine <2.0 mg/dL (<2.0); WBC,Urine >182 /hpf (0-5)
[2021-09-09] MEDS: RANOLAZINE 500 MG TAB.ER.12H PO SCH (20:45)
[2021-09-09] MEDS: FLUTICASONE 50MCG/SPRAY NASAL 16GM EA NOSTRIL SCH (20:45)
[2021-09-09] MEDS: LORATADINE 10 MG TAB PO SCH (20:46)
[2021-09-09] MEDS: METOPROLOL TARTRATE 50 MG TAB PO SCH (20:46)
[2021-09-09] MEDS: MEMANTINE 10 MG TAB PO SCH (20:46)
[2021-09-09] MEDS: ATORVASTATIN 40 MG TAB PO SCH (20:46)
[2021-09-09] MEDS: ESCITALOPRAM 10 MG TAB PO SCH (20:46)
[2021-09-09 20:50] LABS: Glucose,Whole Blood 128 mg/dL (70-110)
[2021-09-10] MEDS: HEPARIN SOD,PORK IN 0.45% NACL 25,000 UNIT in 0.45% NACL 1 250ML.BAG IV SCH ×2 (03:17→03:27)
[2021-09-10 06:24] LABS: Glucose,Whole Blood 156 mg/dL (70-110)
[2021-09-10] MEDS: LEVOTHYROXINE 75 MCG TAB PO SCH (06:56)
[2021-09-10] MEDS: INSULIN ASPART (NovoLOG) 100 UNIT/ML VIAL SQ SCH ×4 (06:56→20:39)
[2021-09-10 08:51] LABS: Basophils # (A) 0.1 k/uL (0-0.2); Basophils % (A) 1 %; Eosinophils # (A) 0.5 k/uL (0-0.7); Eosinophils % (A) 4 %; HGB 12.6 gm/dL (11.4-16.0); Lymphocytes # (A) 1.5 k/uL (1.0-4.8); Lymphocytes % (A) 14 %; MCH 32.8 pg (25.0-35.0); MCV 99.3 fL (80.0-100.0); Mean Platelet Volume 7.1; Monocytes # (A) 0.6 k/uL (0-1.0); Monocytes % (A) 6 %; Neutrophils # (A) 7.8 k/uL (1.3-7.7); Neutrophils % (A) 73 %; Platelet Count 303 k/uL (150-450); RBC 3.83 m/uL (3.80-5.40); RDW 12.8 % (11.5-15.5); WBC 10.7 k/uL (3.8-10.6)
[2021-09-10 09:05] LABS: Calcium 8.4 mg/dL (8.4-10.2); Magnesium 2.1 mg/dL (1.6-2.3)
[2021-09-10] MEDS: FUROSEMIDE 20 MG TAB PO SCH (09:25)
[2021-09-10] MEDS: ISOSORBIDE MONONITRATE ER 30 MG TAB.ER.24H PO SCH (09:26)
[2021-09-10] MEDS: METOPROLOL TARTRATE 50 MG TAB PO SCH ×2 (09:26→20:58)
[2021-09-10] MEDS: MEMANTINE 10 MG TAB PO SCH ×2 (09:26→21:23)
[2021-09-10] MEDS: predniSONE 10 MG TAB PO SCH (09:26)
[2021-09-10] MEDS: PYRIDOXINE 50 MG TAB PO SCH (09:26)
[2021-09-10] MEDS: GABAPENTIN 300 MG CAP PO SCH ×3 (09:26→21:02)
[2021-09-10] MEDS: FOLIC ACID 1 MG TAB PO SCH (09:26)
[2021-09-10] MEDS: ASPIRIN 81 MG PO SCH (09:26)
[2021-09-10] MEDS: MULTIVITAMINS, THERA 1 EACH TAB PO SCH (09:26)
[2021-09-10] MEDS: PANTOPRAZOLE 40 MG TABLET PO SCH (09:27)
[2021-09-10] MEDS: CLOPIDOGREL 75 MG TAB PO SCH (09:27)
[2021-09-10] MEDS: RANOLAZINE 500 MG TAB.ER.12H PO SCH ×2 (09:27→21:23)
[2021-09-10] MEDS: POTASSIUM CHLORIDE ER 10 MEQ TAB.ER.PRT PO SCH (09:27)
[2021-09-10 11:48] LABS: Glucose,Whole Blood 123 mg/dL (70-110)
[2021-09-10] MEDS: traMADol 50 MG TAB PO PRN (12:33)
[2021-09-10] MEDS ORDERED: polyethylene glycoL 3350 17 GM POWD.PACK PO PRN (12:42)
[2021-09-10] MEDS: CHOLECALCIFEROL 25 MCG (1000 IU) TABLET PO SCH (14:50)
[2021-09-10] MEDS: FERROUS SULFATE 325 MG TAB PO SCH ×2 (14:50→20:58)
[2021-09-10] MEDS: SENNOSIDES-DOCUSATE SODIUM 1 EACH TAB PO SCH (14:50)
--- NOTE | 2021-09-10 14:51 | P.CONS ---
History of Present Illness - Reason for Consult Consult date: 09/10/21 goals of care Requesting physician: Ross Guerrero - Chief Complaint chest pain - History of Present Illness This is an 85 year old female with medical history significant for diabetes, atrial fibrillation, thyroid disorder, hypertension, and a previous GA. She presented to the hospital,from [place] on 09/08/21, with complaints of intermittent chest pain for the last week. Chest pain is exertional. EKG completed a [place] shows left bundle-branch block with troponin level of 4.5. Patient currently denies chest pain. Labs on admission show white count 11.4, sodium 131, BUN 18, creatinine 0.90. Troponin levels have been trended here at 4.080, 3.070, and 2.230. She has been started on IV heparin. BNP found to be 5360 and suspect patient is in mild congestive heart failure exacerbation. Echocardiogram has been completed showing an EF of 50-55% with mild lateral wall ischemia with mild mitral and tricuspid regurgitation. Mild pulmonary hypertension. Patient is admitted for acute non ST elevation GA and consult has been placed to cardiology. Cardiology recommends treating her NSTEMI medically. Review of Systems Review Of Systems: Constitutional: No fever, no chills, no night sweats. No weight change. Rep orst weakness, fatigue or lethargy. HEENT: No headache. No blurred vision or double vision, no loss of vision. No loss of Hearing, no ringing in the ears, no dizziness. Lungs: Reports shortness of breath with exertion. No cough or sputum production. No wheezing. Cardiovascular: No chest pain, no lower extremity edema. No palpitations. Abdominal: No abdominal pain. No nausea, vomiting. No diarrhea. No bloody or tarry stools.. No loss of appetite. Genitourinary: No dysuria, increased frequency, urgency. No urinary retention. Musculoskeletal: No myalgias. Reports some muscle weakness and frequent falls. No back pain. Integumentary: No wounds, no lesions. No rash or pruritus. No unusual bruising. No change in hair or nails. Neurologic: No aphasia. No facial droop. No change in mentation. No head injury. No headache. No paralysis. No paresthesia. Psychiatric: No depression. No anxiety. No mood swings. Past Medical History Past Medical History: Atrial Fibrillation, Asthma, Coronary Artery Disease (CAD), Chest Pain / Angina, CVA/TIA, GERD/Reflux, Hypertension, Myocardial Infarction (GA), Thyroid Disorder Additional Past Medical History / Comment(s): Trigeminal Neur right side. 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 knee replacement, partial thyroidectomy, Bilateral hip surgery/ repair. Past Anesthesia/Blood Transfusion Reactions: No Reported Reaction Past Psychological History: No Psychological Hx Reported Smoking Status: Never smoker Past Alcohol Use History: None Reported Past Drug Use History: None Reported - Past Family History Father Family Medical History: Renal Disease Brother(s) Additional Family Medical History / Comment(s): Non-Hodgkin's lymphoma Sister(s) Family Medical History: Coronary Artery Disease (CAD) Medications and Allergies Home Medications Medication Instructions Recorded Confirmed Type Escitalopram [Lexapro] 10 mg PO HS@199911/28/16 09/08/21 History Pantoprazole Sodium [Protonix] 40 mg PO DAILY@82911/28/16 09/08/21 History Potassium Chloride ER [K-Dur 10] 10 meq PO DAILY@82911/28/16 09/08/21 History carBAMazepine CHEW [TEGretol Chew] 100 mg PO TID@0830,1399,199911/28/16 09/08/21 History Metoprolol Tartrate [Lopressor] 50 mg PO BID@829,199904/16/19 09/08/21 History Nitroglycerin Sl Tabs [Nitrostat] 0.4 mg SUBLINGUAL Q5M PRN 04/16/19 09/08/21 History Atorvastatin [Lipitor] 40 mg PO HS@199909/08/21 09/08/21 History Baclofen 10 mg PO BID@0830,1400 09/08/21 09/08/21 History Calcium Carbonate [Calcium] 600 mg PO DAILY@0830 09/08/21 09/08/21 History Calcium Carbonate [Tums] 500 mg PO DIRECTED PRN 09/08/21 09/08/21 History Chlorhexidine Gluconate [Hibiclens] 1 applic TOPICAL DAILY PRN 09/08/21 09/08/21 History Cholecalciferol [Vitamin D3 (25 50 mcg PO DAILY@139909/08/21 09/08/21 History Mcg = 1000 Iu)] Clopidogrel [Plavix] 75 mg PO DAILY@82909/08/21 09/08/21 History EPINEPHrine (Auto Inject) [Epipen] 0.3 mg IM ONCE PRN 09/08/21 09/08/21 History Eye Drops 1 dose BOTH EYES DIRECTED PRN 09/08/21 09/08/21 History Ferrous Sulfate [Feosol] 325 mg PO BID@1399,199909/08/21 09/08/21 History Fluticasone Nasal [place] [Flonase 1 spray EA NOSTRIL HS@199909/08/21 09/08/21 History Nasal [place]] Folic Acid 1 mg PO DAILY@82909/08/21 09/08/21 History Furosemide [Lasix] 20 mg PO BID@0830,139909/08/21 09/08/21 History Gabapentin [Neurontin] 300 mg PO TID@0830,1399,199909/08/21 09/08/21 History Gas Relief 180mg 1 dose PO DIRECTED PRN 09/08/21 09/08/21 History Isosorbide Mononitrate ER [Imdur] 60 mg PO DAILY@82909/08/21 09/08/21 History Levothyroxine Sodium [Synthroid] 150 mcg PO DAILY@0709/08/21 09/08/21 History Loratadine [Claritin] 10 mg PO HS@199909/08/21 09/08/21 History Memantine [Namenda] 10 mg PO BID@0830,199909/08/21 09/08/21 History Methylcellulose (with Sugar) 1 dose PO Q72H PRN 09/08/21 09/08/21 History [Citrucel Powder] Multivitamins, Thera [Multivitamin 1 tab PO DAILY@82909/08/21 09/08/21 History (formulary)] Muscle Rub 1 applic TOPICAL DAILY PRN 09/08/21 09/08/21 History Pyridoxine HCl (Vitamin B6) 100 mg PO DAILY@139909/08/21 09/08/21 History [Vitamin B-6] Ranolazine [Ranexa] 500 mg PO BID@0800,199909/08/21 09/08/21 History Vitamin K2 100 mcg PO DAILY@1400 09/08/21 09/08/21 History diphenhydrAMINE [Benadryl] 25 mg PO HS PRN 09/08/21 09/08/21 History predniSONE 10 mg PO DAILY@0830 09/08/21 09/08/21 History traMADol HCL [Ultram] 50 mg PO TID@0830,1400,199909/08/21 09/08/21 History Allergies Allergy/AdvReac Type Severity Reaction Status Date / Time adhesive tape Allergy Unknown Verified 09/08/21 20:05 avocado Allergy Anaphylaxis Verified 09/08/21 20:05 banana Allergy Anaphylaxis Verified 09/08/21 20:05 bee venom protein (honey bee) Allergy Unknown Verified 09/08/21 20:05 coconut Allergy Anaphylaxis Verified 09/08/21 20:05 codeine Allergy Unknown Verified 09/08/21 20:05 Iodine and Iodide Containing Allergy Anaphylaxis Verified 09/08/21 20:05 Produc latex Allergy Unknown Verified 09/08/21 20:05 nut - unspecified Allergy Anaphylaxis Verified 09/08/21 20:05 ofloxacin [From Floxin] Allergy Unknown Verified 09/08/21 20:05 peach Allergy Itching Verified 09/08/21 20:05 Penicillins Allergy Anaphylaxis Verified 09/08/21 20:05 pregabalin [From Lyrica] Allergy Unknown Verified 09/08/21 20:05 propoxyphene [From Darvon] Allergy Unknown Verified 09/08/21 20:05 psyllium Allergy Unknown Verified 09/08/21 20:05 Quinolones Allergy Unknown Verified 09/08/21 20:05 shellfish derived [Shellfish] Allergy Anaphylaxis Verified 09/08/21 20:05 soap Allergy Itching Verified 09/08/21 20:05 strawberry Allergy Rash/Hives Verified 09/08/21 20:05 Sulfa (Sulfonamide Allergy Anaphylaxis Verified 09/08/21 20:05 Antibiotics) Tetanus Vaccines and Toxoid Allergy Anaphylaxis Verified 09/08/21 20:05 wheat Allergy Unknown Verified 09/08/21 20:05 morphine AdvReac Mental Verified 09/08/21 20:05 Confusion detergent Allergy Itching Uncoded 11/28/16 18:21 jalapeno peppers Allergy Anaphylaxis Uncoded 11/28/16 18:21 spandex Allergy Unknown Uncoded 11/28/16 18:02 zucchini Allergy Unknown Uncoded 11/28/16 18:02 Physical Exam Vitals: Vital Signs Temp Pulse Resp BP Pulse Ox 09/10/21 11:51 98.0 F 75 16 137/80 98 09/10/21 08:50 98.2 F 79 17 148/77 99 09/10/21 03:33 97.1 F L 86 16 145/75 98 09/10/21 00:00 98.2 F 75 20 160/76 97 09/09/21 22:00 96 09/09/21 20:00 98.0 F 99 18 148/73 96 09/09/21 16:00 97.2 F L 88 16 121/66 97 09/09/21 12:39 98.0 F 81 16 163/70 97 Intake and Output 09/09/21 09/10/21 09/10/21 22:59 06:59 14:59 Intake Total 99.085 321.324 120 Output Total 900 500 Balance -800.915 321.324 -380 Intake: Intake, IV Titration 99.085 81.324 Amount Heparin Sod,Pork in 0.45% 99.085 81.324 NaCl 25,000 unit In 0.45 % NaCl 1 250ml.bag @ 12 UNITS/KG/HR 9.362 mls/hr IV .Q24H [facility] Rx#: [id number] Oral 240 120 Output: Urine 900 500 Straight 200 Other: Voiding Method External Catheter External Catheter External Catheter # Voids 3 General: Patient awake alert and oriented x 3. No acute distress. HEENT: Head is atraumatic, normocephalic Neck is supple. Sclerae are clear. Pupils equal, round and reactive to light bilaterally. CV: Heart regular in rate and rhythm positive S1 and S2. No clicks, rubs or murmurs.Peripheral pulses equal. 2/4 Lungs: Clear to auscultation bilaterally. No wheezes rales or rhonchi. Respirations even and nonlabored. No intercostal retractions.On 2L NC Abdomen/GI: Soft. Bowel sounds present in all 4 quadrants. Bowel sounds normoactive. No abdominal tenderness. : external catheter with clear yellow urine Musculoskeletal/ Extremities: No joint swelling or deformity. Vascular: Radial pulses equal. 2/4. trace peripheral edema Skin: Warm and dry. No rash. Neurologic: Awake, alert and oriented times 3. CN II-XII grossly intact Psychiatric: Appropriate mood and affect. Results CBC & Chem 7: 09/10/21 08:35 09/10/21 08:35 Labs: Abnormal Lab Results - Last 24 Hours (Table) 09/09/21 09/09/21 09/09/21 Range/Units 16:47 18:20 20:39 WBC (3.8-10.6) k/uL Neutrophils # (1.3-7.7) k/uL APTT (22.0-30.0) sec Sodium (137-145) mmol/L Chloride (98-107) mmol/L Glucose (74-99) mg/dL POC Glucose (mg/dL) 129 H 128 H (70-110) mg/dL Urine Appearance Turbid H (Clear) Urine Protein 1+ H (Negative) Urine Blood Small H (Negative) Urine Nitrite Positive H (Negative) Ur Leukocyte Esterase Large H (Negative) Urine WBC >182 H (0-5) /hpf Urine WBC Clumps Many H (None) /hpf Urine Bacteria Rare H (None) /hpf 09/10/21 09/10/21 09/10/21 Range/Units 06:02 08:35 08:35 WBC 10.7 H (3.8-10.6) k/uL Neutrophils # 7.8 H (1.3-7.7) k/uL APTT (22.0-30.0) sec Sodium 132 L (137-145) mmol/L Chloride 96 L (98-107) mmol/L Glucose 139 H (74-99) mg/dL POC Glucose (mg/dL) 156 H (70-110) mg/dL Urine Appearance (Clear) Urine Protein (Negative) Urine Blood (Negative) Urine Nitrite (Negative) Ur Leukocyte Esterase (Negative) Urine WBC (0-5) /hpf Urine WBC Clumps (None) /hpf Urine Bacteria (None) /hpf 09/10/21 09/10/21 Range/Units 08:35 11:46 WBC (3.8-10.6) k/uL Neutrophils # (1.3-7.7) k/uL APTT 38.4 H (22.0-30.0) sec Sodium (137-145) mmol/L Chloride (98-107) mmol/L Glucose (74-99) mg/dL POC Glucose (mg/dL) 123 H (70-110) mg/dL Urine Appearance (Clear) Urine Protein (Negative) Urine Blood (Negative) Urine Nitrite (Negative) Ur Leukocyte Esterase (Negative) Urine WBC (0-5) /hpf Urine WBC Clumps (None) /hpf Urine Bacteria (None) /hpf Microbiology - Last 24 Hours (Table) 09/09/21 18:20 Urine Culture - Preliminary Urine,Voided Chest x-ray: report reviewed Assessment and Plan Assessment: Social * Occupation - Retired/pt worked at [employer] in [place] for several years * Marital status - * Children/grandchildren - 4 children - all boys. 1 * Residence - [facility] in [place] * ETOH - No * Tobacco - Never smoked * Illicit drugs - No Spiritual/Cultural * A spiritual person - Yes * Anabaptist - Scientology * Belong to a particular hinduism - [facility] * Beliefs a source of comfort and strength - Yes * Holiness or cultural practices restrictions - no * EOL considerations/rituals? none Functional Assessment * Able to walk independently - Yes * Assistive devices - Walker * Able to use the bathroom independently - Yes * Continent - occasional incontinence * Require assistance bathing- yes * Able to feed self - yes * Who prepares meals - [facility] staff * How many meals a day eaten - 3 * What percentage of meals eaten daily -100% * Able to clean house/do laundry - no * Transportation - her sons * Able to shop - yes, occasionally goes to store with son and uses scooter * Who manages medications - [facility] staff * Who manages finances - linnea Pat Psychological/Emotional * Dementia present - No * Insight and judgment - Intact * Depression - Yes * Suicidal thoughts - No * Good support system - Yes * Patients goals - Comfort * Frequent hospitalizations - No * Desire to keep coming back to the hospital for treatment - No Symptoms * Pain - 3/10 arm pain, denies chest pain. Continue Ultram, Prednisone, Nitro, Neurotin, and Baclofen * Fatigue - Generalized weakness and fatigue * SOB - Dyspnea with exertion. Continue Lasix, Flonase, Claritin * Insomnia - Yes, Melatonin added * N/V - Occasional nausea * Anxiety - Yes, Continue Lexapro * Depression - Yes, continue Lexapro * Confusion - No * Agitation - No * Hallucinations - No * Appetite/weight loss - No loss of appetite - continue heart healthy diet. No recent weight loss * Dysphagia -No * Constipation - Yes, Senokot and Miralax added. Paatient requesting prune juice * Incontinence - Occasional, patient has external catheter * Itch - No Plan: Summary/Goals - The patient is resting in bed and appears comfortable. Zay lliative care philosophies and services explained to her. Education regarding her heart disease provided. She stated that she is feeling down/depressed. She states she has had a couple of heart attacks in the past. She also reports falling frequently and recently breaking her arm. She stated she does not want to come back to the hospital if she has another episode. Her main focus is on comfort and quality of life. She is requesting a hospice informational meeting and would like her son, Bi, to be present. production reproduction manager and hospice team notified. Recommendations - AFC with hospice Advanced Directives - None on file, information provided Code Status - DNR Thank you for this consult Tessa Leon [facility]- Palliative Care Spectralink [id number] Email: [email or web address] Time with Patient: Greater than 30
--- NOTE | 2021-09-10 15:04 | P.PN ---
Subjective Progress Note Date: 09/10/21 This is an 85 year old female with medical history of Diabetes, atrial fibrillation, thyroid disorder, hypertension, previous [place] presents to the hospital from [place] with complaints of intermittent chest pain for the last week. Chest pain is exertional. She is also concern with recent medication changes and has felt the patient has been mildly confused at home. EKG completed a [place] shows left bundle-branch block with troponin level of 4.5. Patient currently denies chest pain. Labs on admission show white count 11.4, sodium 131, BUN 18, creatinine 0.90. Troponin levels have been trended here at 4.080, 3.070, and 2.230. She has been started on IV heparin. BNP found to be 5360 and suspect patient is in mild congestive heart failure exacerbation. Echocardiogram has been completed showing an EF of 50-55% with mild lateral wall ischemia with mild mitral and tricuspid regurgitation. Mild pulmonary hypertension. Patient is admitted for acute non ST elevation [place] and consult has been placed to cardiology. 09/10/2021 Patient evaluated today sitting up in the chair. She reports improvement in chest pain. Medications have been adjusted by cardiology yesterday, she has been started on imdur. She received a one time dose of IV lasix yesterday, sodium has improved slightly to 132. We will continue IV lasix overnight and repeat sodium tomorrow. Potassium 4.0 today. Blood glucose 120s today. White count is now 10.7. Urinalysis was completed in follow up from [place] which they found positive UA there and gave patient rocephin. She does have white count and urine positive for nitrates and bacteria we will continue rocephin empirically and culture is pending. Palliative care has been consulted. Review of Systems Constitutional: Denied any fatigue denied any fever. Cardio vascular: denied any chest pain, palpitations Gastrointestinal: denied any nausea, vomiting, diarrhea Pulmonary: Denied any shortness of breath cough Neurologic denied any new focal deficits All inpatient medications were reviewed and appropriate changes in these medications as dictated in the interval history and assessment and plan. PHYSICAL EXAMINATION: GENERAL: The patient is alert and oriented x3, not in any acute distress. Well developed, well nourished. HEENT: Pupils are round and equally reacting to light. EOMI. No scleral icterus. No conjunctival pallor. Normocephalic, atraumatic. No pharyngeal erythema. No thyromegaly. CARDIOVASCULAR: S1 and S2 present. No murmurs, rubs, or gallops. PULMONARY: Chest is diminished, no wheezing noted. ABDOMEN: Soft, nontender, nondistended, normoactive bowel sounds. No palpable organomegaly. MUSCULOSKELETAL: No joint swelling or deformity. EXTREMITIES: No cyanosis, clubbing, Mild peripheral edema NEUROLOGICAL: Gross neurological examination did not reveal any focal deficits. SKIN: No rashes. Assessment and Plan Assessment Acute non-ST elevation FL Acute heart failure Asymptomatic bacteriuria with leukocytosis Hyponatremia, most likely hypervolemic Hypertension Hyperlipidemia History of coronary artery disease status post prior heart catheterization History of questionable atrial fibrillation History of trigeminal neuralgia History of thyroid disorder Tremors Generalized weakness Frequent falls Obesity GI Prophylaxis DVT Prophylaxis Do Not Resuscitate Plan Cardiology consultation Patient has opted for medication management regarding nstemi 2D echo has been completed We will continue on IV lasix and strict intake and output Continue empiric antibiotics and urine culture is pending Repeat CBC/BMP in AM Plan for discharge back to [facility] on discharge with home care when medically stable The impression and plan of care has been dictated by Cony Maya, Nurse Practitioner as directed. Dr. Cesar MD I have performed a history and physical examination and medical decision making of this patient, discussed the same with the dictator, and agree with the d ictators assessment and plan as written, documented as a scribe. Based on total visit time, I have performed more than 50% of this visit. Objective - Vital Signs Vital signs: Vital Signs Temp 98.0 F 09/10/21 11:51 Pulse 75 09/10/21 11:51 Resp 16 09/10/21 11:51 BP 137/80 09/10/21 11:51 Pulse Ox 98 09/10/21 11:51 FiO2 Intake & Output 09/09/21 09/10/21 09/10/21 18:59 06:59 18:59 Intake Total 219.085 321.324 120 Output Total 1375 500 Balance -1155.915 321.324 -380 Intake: Intake, IV Titration 99.085 81.324 Amount Heparin Sod,Pork in 0.45% 99.085 81.324 NaCl 25,000 unit In 0.45 % NaCl 1 250ml.bag @ 12 UNITS/KG/HR 9.362 mls/hr IV .Q24H [facility] Rx#: [id number] Oral 120 240 120 Output: Urine 1375 500 Straight 200 Other: Voiding Method External Catheter External Catheter External Catheter # Voids 3 - Labs CBC & Chem 7: 09/10/21 08:35 09/10/21 08:35 Labs: Abnormal Lab Results - Last 24 Hours (Table) 09/09/21 09/09/21 09/09/21 Range/Units 16:47 18:20 20:39 WBC (3.8-10.6) k/uL Neutrophils # (1.3-7.7) k/uL APTT (22.0-30.0) sec Sodium (137-145) mmol/L Chloride (98-107) mmol/L Glucose (74-99) mg/dL POC Glucose (mg/dL) 129 H 128 H (70-110) mg/dL Urine Appearance Turbid H (Clear) Urine Protein 1+ H (Negative) Urine Blood Small H (Negative) Urine Nitrite Positive H (Negative) Ur Leukocyte Esterase Large H (Negative) Urine WBC >182 H (0-5) /hpf Urine WBC Clumps Many H (None) /hpf Urine Bacteria Rare H (None) /hpf 09/10/21 09/10/21 09/10/21 Range/Units 06:02 08:35 08:35 WBC 10.7 H (3.8-10.6) k/uL Neutrophils # 7.8 H (1.3-7.7) k/uL APTT (22.0-30.0) sec Sodium 132 L (137-145) mmol/L Chloride 96 L (98-107) mmol/L Glucose 139 H (74-99) mg/dL POC Glucose (mg/dL) 156 H (70-110) mg/dL Urine Appearance (Clear) Urine Protein (Negative) Urine Blood (Negative) Urine Nitrite (Negative) Ur Leukocyte Esterase (Negative) Urine WBC (0-5) /hpf Urine WBC Clumps (None) /hpf Urine Bacteria (None) /hpf 09/10/21 09/10/21 Range/Units 08:35 11:46 WBC (3.8-10.6) k/uL Neutrophils # (1.3-7.7) k/uL APTT 38.4 H (22.0-30.0) sec Sodium (137-145) mmol/L Chloride (98-107) mmol/L Glucose (74-99) mg/dL POC Glucose (mg/dL) 123 H (70-110) mg/dL Urine Appearance (Clear) Urine Protein (Negative) Urine Blood (Negative) Urine Nitrite (Negative) Ur Leukocyte Esterase (Negative) Urine WBC (0-5) /hpf Urine WBC Clumps (None) /hpf Urine Bacteria (None) /hpf Microbiology - Last 24 Hours (Table) 09/09/21 18:20 Urine Culture - Preliminary Urine,Voided Assessment and Plan Time with Patient: Less than 30
[2021-09-10 16:33] LABS: Glucose,Whole Blood 141 mg/dL (70-110)
[2021-09-10 20:40] LABS: Glucose,Whole Blood 121 mg/dL (70-110)
[2021-09-10] MEDS: ATORVASTATIN 40 MG TAB PO SCH (20:58)
[2021-09-10] MEDS: HEPARIN SODIUM,PORCINE/PF 5,000 UNIT/0.5 ML SYRINGE SQ SCH (20:58)
[2021-09-10] MEDS: MELATONIN 3 MG TABLET PO SCH (20:58)
[2021-09-10] MEDS: FUROSEMIDE 10 MG/ML 4 ML VIAL IV SCH (20:58)
[2021-09-10] MEDS: LORATADINE 10 MG TAB PO SCH (20:58)
[2021-09-10] MEDS: FLUTICASONE 50MCG/SPRAY NASAL 16GM EA NOSTRIL SCH (21:23)
[2021-09-10] MEDS: ESCITALOPRAM 10 MG TAB PO SCH (21:23)
[2021-09-11 06:59] LABS: Glucose,Whole Blood 105 mg/dL (70-110)
[2021-09-11] MEDS: METOPROLOL TARTRATE 50 MG TAB PO SCH ×2 (07:49→20:38)
[2021-09-11] MEDS: HEPARIN SODIUM,PORCINE/PF 5,000 UNIT/0.5 ML SYRINGE SQ SCH ×2 (07:49→20:38)
[2021-09-11] MEDS: PANTOPRAZOLE 40 MG TABLET PO SCH (07:49)
[2021-09-11] MEDS: SENNOSIDES-DOCUSATE SODIUM 1 EACH TAB PO SCH (07:49)
[2021-09-11] MEDS: LEVOTHYROXINE 75 MCG TAB PO SCH (07:49)
[2021-09-11] MEDS: predniSONE 10 MG TAB PO SCH (07:49)
[2021-09-11] MEDS: CLOPIDOGREL 75 MG TAB PO SCH (07:49)
[2021-09-11] MEDS: GABAPENTIN 300 MG CAP PO SCH ×3 (07:49→21:18)
[2021-09-11] MEDS: FOLIC ACID 1 MG TAB PO SCH (07:49)
[2021-09-11] MEDS: FUROSEMIDE 10 MG/ML 4 ML VIAL IV SCH (07:50)
[2021-09-11] MEDS: ASPIRIN 81 MG PO SCH (07:50)
[2021-09-11] MEDS: ISOSORBIDE MONONITRATE ER 30 MG TAB.ER.24H PO SCH (07:50)
[2021-09-11] MEDS: POTASSIUM CHLORIDE ER 10 MEQ TAB.ER.PRT PO SCH (07:50)
[2021-09-11] MEDS: MULTIVITAMINS, THERA 1 EACH TAB PO SCH (07:50)
[2021-09-11 09:00] LABS: Basophils # (A) 0.06 X 10*3/uL (0.00-0.10); Basophils % (A) 0.7 %; Eosinophils # (A) 0.33 X 10*3/uL (0.04-0.35); Eosinophils % (A) 3.7 %; HCT 38.2 % (37.2-46.3); HGB 12.2 g/dL (12.0-15.0); Immature Grans, Automated 0.3 %; Lymphocytes # (A) 1.88 X 10*3/uL (0.90-5.00); Lymphocytes % (A) 21.1 %; MCH 30.9 pg (27.0-32.0); MCHC 31.9 g/dL (32.0-37.0); MCV 96.7 fL (80.0-97.0); Mean Platelet Volume 9.8 fL (9.5-12.2); Monocytes # (A) 1.05 X 10*3/uL (0.20-1.00); Monocytes % (A) 11.8 %; NRBC Per 100 WBC 0 /100 WBCS (0.0-0.0); Neutrophils # (A) 5.55 X 10*3/uL (1.80-7.70); Neutrophils % (A) 62.4 %; Platelet Count 304 X 10*3/uL (140-440); RBC 3.95 X 10*6/uL (4.10-5.20); RDW 12.6 % (11.5-14.5)
[2021-09-11 09:01] LABS: African American GFR (CKD) 67.1 (60.0-200.0); Anion Gap 15.5 mmol/L (10.00-18.00); BUN/Creat Ratio 17.44 Ratio (12.00-20.00); Blood Urea Nitrogen 15.7 mg/dL (9.0-27.0); Calcium 8.8 mg/dL (8.7-10.3); Carbon Dioxide 26.5 mmol/L (20.0-27.5); Non-African American GFR(CKD) 57.9 (60.0-200.0)
[2021-09-11] MEDS: MEMANTINE 10 MG TAB PO SCH ×2 (09:37→21:18)
[2021-09-11] MEDS: RANOLAZINE 500 MG TAB.ER.12H PO SCH ×2 (09:37→21:18)
[2021-09-11] MEDS: traMADol 50 MG TAB PO PRN ×2 (10:12→21:21)
--- NOTE | 2021-09-11 10:23 | P.PN ---
Subjective Progress Note Date: 09/11/21 Principal diagnosis: NSTEMI, UTI This is an 85 year old female with medical history significant for diabetes, atrial fibrillation, thyroid disorder, hypertension, and a previous MN. She presented to the hospital,from [place] on 09/08/21, with complaints of intermittent chest pain for the last week. Chest pain is exertional. EKG completed a [place] shows left bundle-branch block with troponin level of 4.5. Patient currently denies chest pain. Labs on admission show white count 11.4, sodium 131, BUN 18, creatinine 0.90. Troponin levels have been trended here at 4.080, 3.070, and 2.230. She has been started on IV heparin. BNP found to be 5360 and suspect patient is in mild congestive heart failure exacerbation. Echocardiogram has been completed showing an EF of 50-55% with mild lateral wall ischemia with mild mitral and tricuspid regurgitation. Mild pulmonary hypertension. Patient is admitted for acute non ST elevation MN and consult has been placed to cardiology. Cardiology recommends treating her NSTEMI medically. The patient is resting in bed and appears comfortable. Palliative care philosophies and services explained to her. Education regarding her heart disease provided. She stated that she is feeling down/depressed. She states she has had a couple of heart attacks in the past. She also reports falling frequently and recently breaking her arm. She stated she does not want to come back to the hospital if she has another episode. Her main focus is on comfort and quality of life. She is requesting a hospice informational meeting and would like her son, Bi, to be present. coding compliance manager and hospice team notified. Objective - Vital Signs Vital signs: Vital Signs Temp 98.0 F 09/11/21 05:00 Pulse 76 09/11/21 08:00 Resp 18 09/11/21 05:00 BP 132/78 09/11/21 08:00 Pulse Ox 94 L 09/11/21 05:00 FiO2 Intake & Output 09/10/21 09/11/21 09/11/21 18:59 06:59 18:59 Intake Total 330 600 Output Total 500 Balance -170 600 Intake: Oral 330 600 Output: Urine 500 Other: Voiding Method External Catheter External Catheter # Voids 1 3 # Bowel Movements 1 1 - Exam General: Patient awake alert and oriented x 3. No acute distress. HEENT: Head is atraumatic, normocephalic Neck is supple. Sclerae are clear. Pupils equal, round and reactive to light bilaterally. CV: Heart regular in rate and rhythm positive S1 and S2. No clicks, rubs or murmurs.Peripheral pulses equal. 2/4 Lungs: Clear to auscultation bilaterally. No wheezes rales or rhonchi. Respirations even and nonlabored. No intercostal retractions.On RA Abdomen/GI: Soft. Bowel sounds present in all 4 quadrants. Bowel sounds normoactive. No abdominal tenderness. Musculoskeletal/ Extremities: No joint swelling or deformity. Vascular: Radial pulses equal. 2/4. trace peripheral edema Skin: Warm and dry. No rash. Neurologic: Awake, alert and oriented times 3, but forgetful. CN II-XII grossly intact, Psychiatric: Appropriate mood and affect. - Labs CBC & Chem 7: 09/11/21 05:22 09/11/21 05:22 Labs: Abnormal Lab Results - Last 24 Hours (Table) 09/10/21 09/10/21 09/10/21 Range/Units 11:46 16:31 20:37 RBC (4.10-5.20) X 10*6/uL MCHC (32.0-37.0) g/dL Monocytes # (0.20-1.00) X 10*3/uL Sodium (135-145) mmol/L Chloride (96-109) mmol/L Est GFR (CKD-EPI)NonAf (60.0-200.0) POC Glucose (mg/dL) 123 H 141 H 121 H (70-110) mg/dL 09/11/21 09/11/21 Range/Units 05:22 05:22 RBC 3.95 L (4.10-5.20) X 10*6/uL MCHC 31.9 L (32.0-37.0) g/dL Monocytes # 1.05 H (0.20-1.00) X 10*3/uL Sodium 134 L (135-145) mmol/L Chloride 92 L (96-109) mmol/L Est GFR (CKD-EPI)NonAf 57.9 L (60.0-200.0) POC Glucose (mg/dL) (70-110) mg/dL Microbiology - Last 24 Hours (Table) 07/12/22 18:20 Urine Culture - Preliminary Urine,Voided Gram Neg Bacilli Assessment and Plan Assessment: Symptoms * Pain - 3/10 right arm and back pain, denies chest pain. Continue Ultram, Prednisone, Nitro, Neurotin, and Baclofen * Fatigue - Generalized weakness and fatigue - improving * SOB - Dyspnea with exertion - improving. Continue Lasix, Flonase, Claritin, on RA today * Insomnia - Yes, Melatonin added * N/V - No * Anxiety - Yes, Continue Lexapro * Depression - Yes, continue Lexapro * Confusion - Oriented 3, but forgetful * Agitation - No * Hallucinations - No * Appetite/weight loss - No loss of appetite - continue heart healthy diet. No recent weight loss * Dysphagia -No * Constipation - Yes, Senokot and Miralax added. Patient requesting prune juice * Incontinence - Occasional, patient struggling to make it to the bathroom in time * Itch - No Plan: Summary/Goals - The patient is sitting on the side of the bed smiling. She is on RA. She states she feels stronger today. She does not remember much of our meeting yesterday. Spoke with the patient's son, Bi, via telephone. Explained Palliative care and Hospice philosophies and services at length. Education provided regarding the patient's medical conditions. It was also explained that his mother's goals of care/wishes were discussed with her yesterday. She asked about hospice and an informational meeting was requested. Bi stated he spoke with the hospice team and does not think she is ready for hospice at this time. He thinks continuing with Palliative Care as OP is a better fit. Recommendations - AFC with OP palliative care Advanced Directives - None on file, information provided Code Status - DNR Thank you for this consult Tessa Leon [facility] Palliative Care Spectralink [phone] Email: [email or web address] Time with Patient: Greater than 30
--- NOTE | 2021-09-11 10:56 | P.PN ---
Subjective This is a 85-year-old female past medical history of coronary artery disease and advise medical therapy after CT surgery and cardiology evaluation, hypertension, dyslipidemia, asthma, questionable atrial fibrillation, trigeminal neuralgia, hypothyroidism. She did fall with Dr. Paris in 2019, at that time patient underwent a cardiac cath and has a significant ostial circumflex lesion was evaluated by Dr. Rojas and subsequently Dr. Klein and advise maximize medical treatment. Patient overall is doing well medical therapy. However presented to the emergency department with chest pain. Her troponins peaked at 4.0. Patient was initially evaluated with Dr. Hough and patient decided that she wanted to continue with medical therapy. 09/11/2021 Patient seen and examined at bedside, no acute distress. She denies any chest pain or shortness of breath. Overall she is stable. Patient was on IV Lasix with -835mL fluid balance over the past 24 hours. Vital signs are stable. Echo revealed EF of 5055 %, mild mitral regurgitation, mild tricuspid regurgitation, mid lateral wall ischemia noted Labs: Sodium 134, potassium 4.0, BUN 15, serum creatinine 0.9, WBC 8.9, hemoglobin 12, platelets 304 Meds: Aspirin 81 mg daily, atorvastatin 40 mg nightly, Plavix and 5 mg daily, IV Lasix 40 mg twice a day, Imdur 30 mg daily, metoprolol tartrate 50 mg twice a day, Ranexa 500 mg twice a day GENERAL: Well-appearing, In no acute distress. NECK: Supple without JVD LUNGS: Breath sounds diminished, mild crackles in the bases to auscultation bilaterally. Respiration equal and unlabored. No wheezes HEART: Regular rate and rhythm without murmurs, rubs or gallops. S1 and S2 heard. EXTREMITIES: Normal range of motion, no edema. No clubbing or cyanosis. Peripheral pulses intact. ASSESSMENT NSTEMI in patient with known significant coronary artery disease, Patient wishes medical therapy Hypertension Hyperlipidemia Asthma Questionable atrial fibrillation History of Trigeminal neuralgia Hypothyroidism PLAN Transition to PO Lasix Continue medical therapy with aspirin, satin, plavix, beta kayla, imdur Palliative is following patient and plan for informational meeting with hospice From a cardiology perspective, ok to discharge when cleared by medicine and other consultants Further recommendations based on clinical course Nurse Practitioner note has been reviewed, I agree with a documented findings and plan of care. Patient was seen and examined. Objective - Vital Signs Vital signs: Vital Signs Temp 98.0 F 09/11/21 05:00 Pulse 76 09/11/21 08:00 Resp 18 09/11/21 05:00 BP 132/78 09/11/21 08:00 Pulse Ox 94 L 09/11/21 05:00 FiO2 Intake & Output 09/10/21 09/11/21 09/11/21 18:59 06:59 18:59 Intake Total 330 600 Output Total 500 Balance -170 600 Intake: Oral 330 600 Output: Urine 500 Other: Voiding Method External Catheter External Catheter # Voids 1 3 # Bowel Movements 1 1 - Labs CBC & Chem 7: 09/11/21 05:22 09/11/21 05:22 Labs: Abnormal Lab Results - Last 24 Hours (Table) 09/10/21 09/10/21 09/10/21 Range/Units 11:46 16:31 20:37 RBC (4.10-5.20) X 10*6/uL MCHC (32.0-37.0) g/dL Monocytes # (0.20-1.00) X 10*3/uL Sodium (135-145) mmol/L Chloride (96-109) mmol/L Est GFR (CKD-EPI)NonAf (60.0-200.0) POC Glucose (mg/dL) 123 H 141 H 121 H (70-110) mg/dL 09/11/21 09/11/21 Range/Units 05:22 05:22 RBC 3.95 L (4.10-5.20) X 10*6/uL MCHC 31.9 L (32.0-37.0) g/dL Monocytes # 1.05 H (0.20-1.00) X 10*3/uL Sodium 134 L (135-145) mmol/L Chloride 92 L (96-109) mmol/L Est GFR (CKD-EPI)NonAf 57.9 L (60.0-200.0) POC Glucose (mg/dL) (70-110) mg/dL Microbiology - Last 24 Hours (Table) 09/09/21 18:20 Urine Culture - Preliminary Urine,Voided Gram Neg Bacilli
[2021-09-11] MEDS: INSULIN ASPART (NovoLOG) 100 UNIT/ML VIAL SQ SCH ×4 (11:09→20:33)
[2021-09-11 11:27] LABS: Glucose,Whole Blood 123 mg/dL (70-110)
[2021-09-11] MEDS: CHOLECALCIFEROL 25 MCG (1000 IU) TABLET PO SCH (13:59)
[2021-09-11] MEDS: FERROUS SULFATE 325 MG TAB PO SCH ×2 (13:59→20:38)
[2021-09-11] MEDS: PYRIDOXINE 50 MG TAB PO SCH (13:59)
--- NOTE | 2021-09-11 14:41 | P.PN ---
Subjective Progress Note Date: 09/11/21 This is an 85 year old female with medical history of Diabetes, atrial fibrillation, thyroid disorder, hypertension, previous UT presents to the hospital from [place] with complaints of intermittent chest pain for the last week. Chest pain is exertional. She is also concern with recent medication changes and has felt the patient has been mildly confused at home. EKG completed a [place] shows left bundle-branch block with troponin level of 4.5. Patient currently denies chest pain. Labs on admission show white count 11.4, sodium 131, BUN 18, creatinine 0.90. Troponin levels have been trended here at 4.080, 3.070, and 2.230. She has been started on IV heparin. BNP found to be 5360 and suspect patient is in mild congestive heart failure exacerbation. Echocardiogram has been completed showing an EF of 50-55% with mild lateral wall ischemia with mild mitral and tricuspid regurgitation. Mild pulmonary hypertension. Patient is admitted for acute non ST elevation UT and consult has been placed to cardiology. 09/10/2021 Patient evaluated today sitting up in the chair. She reports improvement in chest pain. Medications have been adjusted by cardiology yesterday, she has been started on imdur. She received a one time dose of IV lasix yesterday, sodium has improved slightly to 132. We will continue IV lasix overnight and repeat sodium tomorrow. Potassium 4.0 today. Blood glucose 120s today. White count is now 10.7. Urinalysis was completed in follow up from [place] which they found positive UA there and gave patient rocephin. She does have white count and urine positive for nitrates and bacteria we will continue rocephin empirically and culture is pending. Palliative care has been consulted. 09/11/2021 Patient is sitting up in chair with family at the bedside today. She is up ambulating. She does report back pain as her main complaint which is chronic and she does take tramadol. Her urine is cloudy she does deny dysuria, however, urine culture is showing gram negative bacilli. She will continue on IV rocephin and discharge is pending finalized cultures. Her son has been updated on this. She is seeing palliative care. Patient continued on IV lasix overnight with output of 0.8 Liters and she was transitioned today to oral lasix by cardiology. Plan is to discharge back to [facility] when stable. She is afebrile, heart rate 69, blood pressure 135/70, temperature 95. Labs reviewed today showing sodium 134, blood glucose in the 120s. Review of Systems Constitutional: Denied any fatigue denied any fever. Cardio vascular: denied any chest pain, palpitations Gastrointestinal: denied any nausea, vomiting, diarrhea Pulmonary: Denied any shortness of breath cough Neurologic denied any new focal deficits All inpatient medications were reviewed and appropriate changes in these medications as dictated in the interval history and assessment and plan. PHYSICAL EXAMINATION: GENERAL: The patient is alert and oriented x3, not in any acute distress. Well developed, well nourished. HEENT: Pupils are round and equally reacting to light. EOMI. No scleral icterus. No conjunctival pallor. Normocephalic, atraumatic. No pharyngeal erythema. No thyromegaly. CARDIOVASCULAR: S1 and S2 present. No murmurs, rubs, or gallops. PULMONARY: Chest is diminished, no wheezing noted. ABDOMEN: Soft, nontender, nondistended, normoactive bowel sounds. No palpable organomegaly. MUSCULOSKELETAL: No joint swelling or deformity. EXTREMITIES: No cyanosis, clubbing, Mild peripheral edema NEUROLOGICAL: Gross neurological examination did not reveal any focal deficits. SKIN: No rashes. Assessment and Plan Assessment Acute non-ST elevation UT Acute heart failure UTI, present on admission, with gram negative bacilli Hyponatremia, most likely hypervolemic improving with lasix Hypertension Hyperlipidemia History of coronary artery disease status post prior heart catheterization History of questionable atrial fibrillation History of trigeminal neuralgia History of thyroid disorder Tremors Generalized weakness Frequent falls Obesity GI Prophylaxis DVT Prophylaxis Do Not Resuscitate Plan Cardiology consultation Patient has opted for medication management regarding nstemi 2D echo has been completed She has been transitioned to oral lasix Continue empiric antibiotics and urine culture is pending for discharge antibiotics Plan for discharge back to [facility] on discharge with home care when medically stable, possibly in the next 24 hours. The impression and plan of care has been dictated by Cony Maya Nurse Practitioner as directed. Dr. Cesar MD I have performed a history and physical examination and medical decision making of this patient, discussed the same with the dictator, and agree with the dic tators assessment and plan as written, documented as a scribe. Based on total visit time, I have performed more than 50% of this visit. Objective - Vital Signs Vital signs: Vital Signs Temp 98.1 F 09/11/21 11:20 Pulse 69 09/11/21 11:20 Resp 18 09/11/21 11:20 BP 135/70 09/11/21 11:20 Pulse Ox 95 09/11/21 11:20 FiO2 Intake & Output 09/10/21 09/11/21 09/11/21 18:59 06:59 18:59 Intake Total 330 600 Output Total 500 Balance -170 600 Intake: Oral 330 600 Output: Urine 500 Other: Voiding Method External Catheter External Catheter # Voids 1 3 # Bowel Movements 1 1 - Labs CBC & Chem 7: 09/11/21 05:22 09/11/21 05:22 Labs: Abnormal Lab Results - Last 24 Hours (Table) 09/10/21 09/10/21 09/11/21 Range/Units 16:31 20:37 05:22 RBC 3.95 L (4.10-5.20) X 10*6/uL MCHC 31.9 L (32.0-37.0) g/dL Monocytes # 1.05 H (0.20-1.00) X 10*3/uL Sodium (135-145) mmol/L Chloride (96-109) mmol/L Est GFR (CKD-EPI)NonAf (60.0-200.0) POC Glucose (mg/dL) 141 H 121 H (70-110) mg/dL 09/11/21 09/11/21 Range/Units 05:22 11:25 RBC (4.10-5.20) X 10*6/uL MCHC (32.0-37.0) g/dL Monocytes # (0.20-1.00) X 10*3/uL Sodium 134 L (135-145) mmol/L Chloride 92 L (96-109) mmol/L Est GFR (CKD-EPI)NonAf 57.9 L (60.0-200.0) POC Glucose (mg/dL) 123 H (70-110) mg/dL Microbiology - Last 24 Hours (Table) 09/09/21 18:20 Urine Culture - Preliminary Urine,Voided Gram Neg Bacilli Assessment and Plan Time with Patient: Less than 30
[2021-09-11] MEDS: FUROSEMIDE 40 MG TAB PO SCH (16:04)
[2021-09-11 17:06] LABS: Glucose,Whole Blood 135 mg/dL (70-110)
[2021-09-11 20:25] LABS: Glucose,Whole Blood 122 mg/dL (70-110)
[2021-09-11] MEDS: LORATADINE 10 MG TAB PO SCH (20:37)
[2021-09-11] MEDS: FLUTICASONE 50MCG/SPRAY NASAL 16GM EA NOSTRIL SCH (20:38)
[2021-09-11] MEDS: ATORVASTATIN 40 MG TAB PO SCH (20:38)
[2021-09-11] MEDS: MELATONIN 3 MG TABLET PO SCH (20:38)
[2021-09-11] MEDS: ESCITALOPRAM 10 MG TAB PO SCH (21:18)
[2021-09-12 07:10] LABS: Glucose,Whole Blood 107 mg/dL (70-110)
[2021-09-12 07:55] VITALS: RESP 16
[2021-09-12] MEDS: HEPARIN SODIUM,PORCINE/PF 5,000 UNIT/0.5 ML SYRINGE SQ SCH (08:25)
[2021-09-12] MEDS: POTASSIUM CHLORIDE ER 10 MEQ TAB.ER.PRT PO SCH (08:26)
[2021-09-12] MEDS: MULTIVITAMINS, THERA 1 EACH TAB PO SCH (08:26)
[2021-09-12] MEDS: CLOPIDOGREL 75 MG TAB PO SCH (08:26)
[2021-09-12] MEDS: METOPROLOL TARTRATE 50 MG TAB PO SCH (08:26)
[2021-09-12] MEDS: MEMANTINE 10 MG TAB PO SCH (08:26)
[2021-09-12] MEDS: ASPIRIN 81 MG PO SCH (08:26)
[2021-09-12] MEDS: FUROSEMIDE 40 MG TAB PO SCH (08:26)
[2021-09-12] MEDS: PANTOPRAZOLE 40 MG TABLET PO SCH (08:26)
[2021-09-12] MEDS: RANOLAZINE 500 MG TAB.ER.12H PO SCH (08:26)
[2021-09-12] MEDS: SENNOSIDES-DOCUSATE SODIUM 1 EACH TAB PO SCH (08:26)
[2021-09-12] MEDS: LEVOTHYROXINE 75 MCG TAB PO SCH (08:27)
[2021-09-12] MEDS: predniSONE 10 MG TAB PO SCH (08:27)
[2021-09-12] MEDS: FOLIC ACID 1 MG TAB PO SCH (08:27)
[2021-09-12] MEDS: GABAPENTIN 300 MG CAP PO SCH (08:27)
[2021-09-12] MEDS: INSULIN ASPART (NovoLOG) 100 UNIT/ML VIAL SQ SCH ×2 (08:27→13:11)
[2021-09-12] MEDS: ISOSORBIDE MONONITRATE ER 30 MG TAB.ER.24H PO SCH (08:27)
[2021-09-12 09:07] LABS: African American GFR (CKD) 52.6 (60.0-200.0); Anion Gap 12.2 mmol/L (10.00-18.00); BUN/Creat Ratio 17.55 Ratio (12.00-20.00); Blood Urea Nitrogen 19.3 mg/dL (9.0-27.0); Calcium 8.8 mg/dL (8.7-10.3); Carbon Dioxide 28.8 mmol/L (20.0-27.5); Non-African American GFR(CKD) 45.4 (60.0-200.0); Potassium 3.9 mmol/L (3.5-5.5)
--- NOTE | 2021-09-12 10:27 | P.PN ---
Subjective Progress Note Date: 09/12/21 Principal diagnosis: NSTEMI, UTI This is an 85 year old female with medical history significant for diabetes, atrial fibrillation, thyroid disorder, hypertension, and a previous AR. She presented to the hospital,from [place] on 09/08/21, with complaints of intermittent chest pain for the last week. Chest pain is exertional. EKG completed a [place] shows left bundle-branch block with troponin level of 4.5. Patient currently denies chest pain. Labs on admission show white count 11.4, sodium 131, BUN 18, creatinine 0.90. Troponin levels have been trended here at 4.080, 3.070, and 2.230. She has been started on IV heparin. BNP found to be 5360 and suspect patient is in mild congestive heart failure exacerbation. Echocardiogram has been completed showing an EF of 50-55% with mild lateral wall ischemia with mild mitral and tricuspid regurgitation. Mild pulmonary hypertension. Patient is admitted for acute non ST elevation AR and consult has been placed to cardiology. Cardiology recommends treating her NSTEMI medically. The patient is resting in bed and appears comfortable. Palliative care philosophies and services explained to her. Education regarding her heart disease provided. She stated that she is feeling down/depressed. She states she has had a couple of heart attacks in the past. She also reports falling frequently and recently breaking her arm. She stated she does not want to come back to the hospital if she has another episode. Her main focus is on comfort and quality of life. She is requesting a hospice informational meeting and would like her son, Bi, to be present. rate manager and hospice team notified. 09/11 The patient is sitting on the side of the bed smiling. She is on RA. She states she feels stronger today. She does not remember much of our meeting yesterday. Spoke with the patient's son, Bi, via telephone. Explained Palliative care and Hospice philosophies and services at length. Education provided regarding the patient's medical conditions. It was also explained that his mother's goals of care/wishes were discussed with her yesterday. She asked about hospice and an informational meeting was requested. Bi stated he spoke with the hospice team and does not think she is ready for hospice at this time. He thinks continuing with Palliative Care as OP is a better fit. Objective - Vital Signs Vital signs: Vital Signs Temp 97.9 F 09/12/21 07:53 Pulse 80 09/12/21 08:24 Resp 16 09/12/21 07:53 BP 122/77 09/12/21 08:24 Pulse Ox 93 L 09/12/21 07:53 FiO2 Intake & Output 09/11/21 09/12/21 09/12/21 18:59 06:59 18:59 Intake Total 600 Balance 600 Intake: Oral 600 Other: Voiding Method Toilet Diaper # Voids 8 3 1 - Exam General: Patient awake alert and oriented x 3. No acute distress. HEENT: Head is atraumatic, normocephalic Neck is supple. Sclerae are clear. Pupils equal, round and reactive to light bilaterally. CV: Heart regular in rate and rhythm positive S1 and S2. No clicks, rubs or murmurs.Peripheral pulses equal. 2/4 Lungs: Clear to auscultation bilaterally. No wheezes rales or rhonchi. Respirations even and nonlabored. No intercostal retractions.On RA Abdomen/GI: Soft. Bowel sounds present in all 4 quadrants. Bowel sounds normoactive. No abdominal tenderness. Musculoskeletal/ Extremities: No joint swelling or deformity. Vascular: Radial pulses equal. 2/4. trace peripheral edema Skin: Warm and dry. No rash. Neurologic: Awake, alert and oriented times 3, but forgetful. CN II-XII grossly intact, Psychiatric: Appropriate mood and affect. - Labs CBC & Chem 7: 09/11/21 05:22 09/12/21 06:42 Labs: Abnormal Lab Results - Last 24 Hours (Table) 09/11/21 09/11/21 09/11/21 Range/Units 11:25 17:03 20:23 Sodium (135-145) mmol/L Chloride (96-109) mmol/L Carbon Dioxide (20.0-27.5) mmol/L Est GFR (CKD-EPI)AfAm (60.0-200.0) Est GFR (CKD-EPI)NonAf (60.0-200.0) POC Glucose (mg/dL) 123 H 135 H 122 H (70-110) mg/dL 09/12/21 Range/Units 06:42 Sodium 133 L (135-145) mmol/L Chloride 92 L (96-109) mmol/L Carbon Dioxide 28.8 H (20.0-27.5) mmol/L Est GFR (CKD-EPI)AfAm 52.6 L (60.0-200.0) Est GFR (CKD-EPI)NonAf 45.4 L (60.0-200.0) POC Glucose (mg/dL) (70-110) mg/dL Microbiology - Last 24 Hours (Table) 09/09/21 18:20 Urine Culture - Final Urine,Voided Escherichia coli Assessment and Plan Assessment: Symptoms * Pain - 3/10 back pain, denies chest pain. Continue Ultram, Prednisone, Nitro, Neurotin, and Baclofen * Fatigue - Generalized weakness and fatigue - improving * SOB - Dyspnea with exertion - improving. Continue Lasix, Flonase, Claritin, on RA today * Insomnia - Yes, Melatonin added * N/V - No * Anxiety - Yes, Continue Lexapro * Depression - Yes, continue Lexapro * Confusion - Oriented x 3, but forgetful * Agitation - No * Hallucinations - No * Appetite/weight loss - No loss of appetite - continue heart healthy diet. No recent weight loss * Dysphagia -No * Constipation - Yes, Senokot and Miralax added. Patient requesting prune juice * Incontinence - Occasional, patient struggling to make it to the bathroom in time * Itch - No Plan: Summary/Goals - Patient sitting up in the chair. She stated she has just had a shower and feels good today. Patient does not remember most of our conversation from yesterday. She was updated again on the plan of care. Awaiting final urine cultures for discharge. Anticipating discharge back to [facility] today. Recommendations - A[facility] with OP palliative care Advanced Directives - None on file, information provided Code Status - DNR Thank you for this consult Tessa Leon [facility]- Palliative Care Spectralink [phone] Email: [email or web address] Time with Patient: Less than 30
[2021-09-12 11:36] LABS: Glucose,Whole Blood 118 mg/dL (70-110)
[2021-09-12 12:10] VITALS: BP 121/72; PULSE 67; TEMP 97.3
[2021-09-12] MEDS: FERROUS SULFATE 325 MG TAB PO SCH (14:02)
[2021-09-12] MEDS: CHOLECALCIFEROL 25 MCG (1000 IU) TABLET PO SCH (14:02)
[2021-09-12] MEDS: PYRIDOXINE 50 MG TAB PO SCH (14:03)
--- NOTE | 2021-09-12 14:45 | CDI ---
Documentation Clarification Form Date: 09/12/2021 02:24:53 PM From: Domenica Arcos RN, CCDS Admit Date: 09/08/2021 08:07:00 PM Patient Name: Shaina Garcia Visit Number: [id number] Discharge Date: ATTENTION: The Clinical Documentation Specialists (CDI) and [facility] Coding Staff appreciate your assistance in clarifying documentation. Please respond to the clarification below the line at the bottom and electronically sign. The CDI & [facility] Coding staff will review the response and follow-up if needed. Please note: Queries are made part of the Legal Health Record. If you have any questions, please contact the author of this message via ITS. Dr. Ross Guerrero Your patient has the documented diagnosis of unspecified acute heart failure in the H/P and subsequent progress notes. Additional information regarding the type of CHF is requested. History/Risk Factors: Diabetes Mellitus, Atrial fibrillation, Hypertension, Clinical Indicators: 85-year-old female present from [place] with complaints of intermittent chest pain for the last week. EKG shows left bundle-branch block with troponin level of 4.5 BNP found to be 5360 and suspect patient is in mild congestive heart failure exacerbation. She was admitted for acute non ST elevation [place]. 09/08 VS/Pulse OX: 135/81 71 18 97.8 96 % RA BNP: 5360 09/09 Echocardiogram Results: Borderline left ventricle systolic function with mid lateral wall ischemia mild mitral and tricuspid regurgitation. EF 50-55 % 09/09 Chest X Ray: No acute cardiopulmonary disease/process Treatment: Cardiac/Telemetry monitoring Lasix 20MG IV ONCE (09/09 then 40 GM IVQ 12 09/10-09/11 Atorvastatin 40 MG PO HS, ASA 81 MG PO Daily, Plavix 75MG PO Daily, Lasix 40 MG PO BID (09/11 Imdur 30 MG PO Daily, Lopressor 50 MG PO BID, Ranexa 500 MG PO BID. In your professional opinion, can you please clarify the type of acute CHF if known? [ ] Acute Systolic Heart Failure (reduced EF) [ ] Acute on Chronic Systolic Heart Failure (reduced EF) [ ] Acute Diastolic Heart Failure (preserved EF) [ ] Acute on Chronic Diastolic Heart Failure (preserved EF) [ ] Acute Systolic & Diastolic Heart Failure [ ] Acute on Chronic Heart Failure Systolic & Diastolic Heart Failure [ ] Other, please specify [ x ] Unable to determine (Template Last Revised: April 2020) MTDD
--- NOTE | 2021-09-12 15:01 | CDI ---
Documentation Clarification Form Date: 09/12/2021 From: Domenica Arcos RN, CCDS Admit Date: 09/08/2021 08:07:00 PM Patient Name: Shaina Garcia Visit Number: [id number] Discharge Date: ATTENTION: The Clinical Documentation Specialists (CDI) and [facility] Coding Staff appreciate your assistance in clarifying documentation. Please respond to the clarification below the line at the bottom and electronically sign. The CDI & [facility] Coding staff will review the response and follow-up if needed. Please note: Queries are made part of the Legal Health Record. If you have any questions, please contact the author of this message via ITS. Dr. Colleen Hough Questionable Atrial Fibrillation is documented in the cardiology consult and subsequent progress notes. Additional clarification regarding the type of atrial fibrillation is requested or has this uncertain diagnosis been ruled out. History/Risk Factors: Diabetes Mellitus, Atrial fibrillation, Hypertension, Clinical Indicators: 85-year-old female present from [place] with complaints of intermittent chest pain for the last week. EKG shows left bundle-branch block with troponin level of 4.5 BNP found to be 5360 and suspect patient is in mild congestive heart failure exacerbation. She was admitted for acute non ST elevation OR. EKG/telemetry: sinus mechanism with a left bundle at 70 bpm, no ST-segment changes. 09/08 VS/Pulse OX: 135/81 71 18 97.8 96 % RA BNP: 5360 09/09 Echocardiogram Results: Borderline left ventricle systolic function with mid lateral wall ischemia mild mitral and tricuspid regurgitation. EF 50-55 % 09/09 Chest X Ray: No acute cardiopulmonary disease/process Treatment: Cardiac/Telemetry monitoring Lasix 20MG IV ONCE (09/09 then 40 GM IVQ 12 09/10-09/11 Atorvastatin 40 MG PO HS, ASA 81 MG PO Daily, Plavix 75MG PO Daily, Lasix 40 MG PO BID (09/11 Imdur 30 MG PO Daily, Lopressor 50 MG PO BID, Ranexa 500 MG PO BID. Please clarify the type of atrial fibrillation, if known or ruled out: [ ] Chronic [ ] Permanent [ ] Paroxysmal [ ] Persistent [ ] Other, please specify [ ] Unable to determine (Template Last Revised: June 2020) Unable to determine MTDD
--- NOTE | 2021-09-12 23:01 | P.DS ---
Providers Date of admission: 09/08/21 20:07 Attending physician: Graham Alvarado Consults: 09/08/21 20:07 Consult Physician Urgent Consulting Provider: [facility] Consult Reason/Comments: Non-STEMI Do you want consulting provider notified?: Yes 09/09/21 12:13 Consult to Palliative Care Routine Consulting Provider: Tessa Leon Consult Reason/Comments: n stemi non surgical canidate, frequent fallss Do you want consulting provider notified?: Yes [facility] Course: Diagnoses Acute non-ST elevation CA , patient preferred medical management with no surgical intervention and patient is asymptomatic and cleared by engineering aide for discharge Acute heart failure UTI, present on admission, secondary to E. coli Hyponatremia, most likely hypervolemic improving with lasix Hypertension Hyperlipidemia History of coronary artery disease status post prior heart catheterization History of questionable atrial fibrillation History of trigeminal neuralgia History of thyroid disorder Tremors Generalized weakness Frequent falls Obesity Hospital course: This is an 85 year old female with medical history of Diabetes, atrial fibrillation, thyroid disorder, hypertension, previous CA presents to the hospital from [place] with complaints of intermittent chest pain for the last week. Patient found to have elevated troponin and diagnosed with non-STEMI however opted to continue with medical treatment and engineering aide recommended no intervention because of that, currently she is kept on aspirin Plavix and statin. Patient is as symptomatic and she was cleared for discharge by engineering aide Also she has evidence of urinary tract infection, secondary to sensitive E. coli and she is brought to treatment to ceftriaxone and switched to Ceftin 7 days upon discharge. Patient symptoms also improved. She is fully awake and oriented and she denies any dyspnea or chest pain, no abdominal pain or vomiting or diarrhea. No dysuria. No headache or dizziness or weakness or numbness. No fever. Patient evaluated by PT/OT recommended to go back to [facility] home, son talked to hospice team and felt patient not ready for hospice and she will continue with palliative care as an outpatient Problems and management plan were discussed with the patient and he verbalized understanding and acceptance Patient was found stable and can be discharged to her [facility] home in guarded prognosis however he needs follow-up as an outpatient. Patient was instructed to follow up with PCP within one week and patient agrees, stating that she has a visiting physician Patient was instructed to follow up with her engineering aide Dr. Tumma in one week and she agrees to call and make appointment Physical exam Gen: patient is a AAOx3, no distress CVS: S1-S2, RRR, no murmur Lungs: B/L CTA, no wheezing Abdomen: soft, no distention, no tenderness, positive bowel sounds Extremity: no leg edema or induration Time spent more than 35 minutes Plan - Discharge Summary Discharge Rx Participant: No New Discharge Prescriptions: New Aspirin 81 mg PO DAILY #30 tab Cefuroxime [Ceftin] 250 mg PO BID 7 Days #14 tab Furosemide [Lasix] 40 mg PO BID@0900,1600 #60 tab Continue Escitalopram [Lexapro] 10 mg PO HS@1999 Pantoprazole Sodium [Protonix] 40 mg PO DAILY@0830 Potassium Chloride ER [K-Dur 10] 10 meq PO DAILY@0830 carBAMazepine CHEW [TEGretol Chew] 100 mg PO TID@08,1399,1999 Nitroglycerin Sl Tabs [Nitrostat] 0.4 mg SUBLINGUAL Q5M PRN PRN Reason: Chest Pain Metoprolol Tartrate [Lopressor] 50 mg PO BID@829,1999 Calcium Carbonate [Tums] 500 mg PO DIRECTED PRN PRN Reason: Heartburn EPINEPHrine (Auto Inject) [Epipen] 0.3 mg IM ONCE PRN PRN Reason: Anaphylaxis Pyridoxine HCl (Vitamin B6) [Vitamin B-6] 100 mg PO DAILY@1400 Cholecalciferol [Vitamin D3 (25 Mcg = 1000 Iu)] 50 mcg PO DAILY@1400 Loratadine [Claritin] 10 mg PO HS@1999 Folic Acid 1 mg PO DAILY@0830 Ferrous Sulfate [Iron (65 MG Elemental)] 325 mg PO BID@1399,1999 traMADol HCL [Ultram] 50 mg PO TID@08,1399,1999 Ranolazine [Ranexa] 500 mg PO BID@0800,1999 Vitamin K2 100 mcg PO DAILY@1400 predniSONE 10 mg PO DAILY@0830 Multivitamins, Thera [Multivitamin (formulary)] 1 tab PO DAILY@0830 Memantine [Namenda] 10 mg PO BID@08,1999 Fluticasone Nasal [place] [Flonase Nasal [place]] 1 spray EA NOSTRIL HS@2000 Calcium Carbonate [Calcium] 600 mg PO DAILY@0830 Levothyroxine Sodium [Synthroid] 150 mcg PO DAILY@0700 Gabapentin [Neurontin] 300 mg PO TID@0830,1399,1999 Atorvastatin [Lipitor] 40 mg PO HS@1999 Isosorbide Mononitrate ER [Imdur] 60 mg PO DAILY@0830 #30 tab Changed Clopidogrel [Plavix] 75 mg PO DAILY@0830 #30 tab Discontinued Furosemide [Lasix] 20 mg PO BID@0830,1400 diphenhydrAMINE [Benadryl] 25 mg PO HS PRN PRN Reason: itching Baclofen 10 mg PO BID@0830,1400 No Action Chlorhexidine Gluconate [Hibiclens] 1 applic TOPICAL DAILY PRN PRN Reason: irritation Methylcellulose (with Sugar) [Citrucel Powder] 1 dose PO Q72H PRN PRN Reason: Constipation Eye Drops 1 dose BOTH EYES DIRECTED PRN PRN Reason: dry eyes Muscle Rub 1 applic TOPICAL DAILY PRN PRN Reason: Pain Gas Relief 180mg 1 dose PO DIRECTED PRN PRN Reason: gas Discharge Medication List Escitalopram [Lexapro] 10 mg PO HS@199911/28/16 [History] Pantoprazole Sodium [Protonix] 40 mg PO DAILY@82911/28/16 [History] Potassium Chloride ER [K-Dur 10] 10 meq PO DAILY@82911/28/16 [History] carBAMazepine CHEW [TEGretol Chew] 100 mg PO TID@0830,1399,199911/28/16 [History] Metoprolol Tartrate [Lopressor] 50 mg PO BID@829,199904/16/19 [History] Nitroglycerin Sl Tabs [Nitrostat] 0.4 mg SUBLINGUAL Q5M PRN 04/16/19 [History] Atorvastatin [Lipitor] 40 mg PO HS@199909/08/21 [History] Calcium Carbonate [Calcium] 600 mg PO DAILY@82909/08/21 [History] Calcium Carbonate [Tums] 500 mg PO DIRECTED PRN 09/08/21 [History] Chlorhexidine Gluconate [Hibiclens] 1 applic TOPICAL DAILY PRN 09/08/21 [History] Cholecalciferol [Vitamin D3 (25 Mcg = 1000 Iu)] 50 mcg PO DAILY@1400 09/08/21 [History] EPINEPHrine (Auto Inject) [Epipen] 0.3 mg IM ONCE PRN 09/08/21 [History] Eye Drops 1 dose BOTH EYES DIRECTED PRN 09/08/21 [History] Ferrous Sulfate [Iron (65 MG Elemental)] 325 mg PO BID@1399,199909/08/21 [History] Fluticasone Nasal [place] [Flonase Nasal [place]] 1 spray EA NOSTRIL HS@199909/08/21 [History] Folic Acid 1 mg PO DAILY@82909/08/21 [History] Gabapentin [Neurontin] 300 mg PO TID@829,1399,199909/08/21 [History] Gas Relief 180mg 1 dose PO DIRECTED PRN 09/08/21 [History] Levothyroxine Sodium [Synthroid] 150 mcg PO DAILY@69909/08/21 [History] Loratadine [Claritin] 10 mg PO HS@199909/08/21 [History] Memantine [Namenda] 10 mg PO BID@829,199909/08/21 [History] Methylcellulose (with Sugar) [Citrucel Powder] 1 dose PO Q72H PRN 09/08/21 [History] Multivitamins, Thera [Multivitamin (formulary)] 1 tab PO DAILY@82909/08/21 [History] Muscle Rub 1 applic TOPICAL DAILY PRN 09/08/21 [History] Pyridoxine HCl (Vitamin B6) [Vitamin B-6] 100 mg PO DAILY@139909/08/21 [History] Ranolazine [Ranexa] 500 mg PO BID@799,199909/08/21 [History] Vitamin K2 100 mcg PO DAILY@139909/08/21 [History] predniSONE 10 mg PO DAILY@82909/08/21 [History] traMADol HCL [Ultram] 50 mg PO TID@0830,1399,199909/08/21 [History] Aspirin 81 mg PO DAILY #30 tab 09/12/21 [Rx] Cefuroxime [Ceftin] 250 mg PO BID 7 Days #14 tab 09/12/21 [Rx] Clopidogrel [Plavix] 75 mg PO DAILY@0830 #30 tab 09/12/21 [Rx] Furosemide [Lasix] 40 mg PO BID@0900,1600 #60 tab 09/12/21 [Rx] Isosorbide Mononitrate ER [Imdur] 60 mg PO DAILY@0830 #30 tab 09/12/21 [Rx] Follow up Appointment(s)/Referral(s): [facility], [NON-STAFF] - As Needed (PALLIATIVE CARE) Care,[facility] [NON-STAFF] - Pato Paris MD [STAFF PHYSICIAN] - 1 Week (new patient office will call and set up appointment time and date with patient) [facility] [NON-STAFF] - 1-2 Days Patient Instructions/Handouts: Cefuroxime (By mouth), Furosemide (By mouth), Aspirin (By mouth), Isosorbide Mononitrate (By mouth), Clopidogrel (By mouth), Heart Attack (DC), Urinary Tract Infection in Older Adults (DC) Activity/Diet/Wound Care/Special Instructions: heart healthy diet activity is restricted till you see your doctor Discharge Disposition: HOME WITH HOME HEALTH SERVICES
--- NOTE | 2021-09-22 11:24 | CDI ---
Documentation Clarification Form Date: 09/12/2021 02:24:00 PM From: Domenica Arcos RN, CCDS Admit Date: 09/08/2021 08:07:00 PM Patient Name: Shaina Garcia Visit Number: [id number] Discharge Date: 09/12/2021 03:30:00 PM ATTENTION: The Clinical Documentation Specialists (CDI) and [facility] Coding Staff appreciate your assistance in clarifying documentation. Please respond to the clarification below the line at the bottom and electronically sign. The CDI & [facility] Coding staff will review the response and follow-up if needed. Please note: Queries are made part of the Legal Health Record. If you have any questions, please contact the author of this message via ITS. Dr. Colleen Hough The patient has the documented diagnosis of unspecified acute heart failure in the H/P and subsequent progress notes. Additional information regarding the type of CHF is requested. 09/12 Cardiology progress note BNP found to be 5360 and suspect patient is in mild congestive heart failure exacerbation. History/Risk Factors: Diabetes Mellitus, Atrial fibrillation, Hypertension, Clinical Indicators: 85-year-old female present from [place] with complaints of intermittent chest pain for the last week. EKG shows left bundle-branch block with troponin level of 4.5 BNP found to be 5360 and suspect patient is in mild congestive heart failure exacerbation. She was admitted for acute non ST elevation NE. 09/08 VS/Pulse OX: 135/81 71 18 97.8 96 % RA BNP: 5360 09/09 Echocardiogram Results: Borderline left ventricle systolic function with mid lateral wall ischemia mild mitral and tricuspid regurgitation. EF 50-55 % 09/09 Chest X Ray: No acute cardiopulmonary disease/process Treatment: Cardiac/Telemetry monitoring Lasix 20MG IV ONCE (09/09 then 40 GM IVQ 12 09/10-09/11 Atorvastatin 40 MG PO HS, ASA 81 MG PO Daily, Plavix 75MG PO Daily, Lasix 40 MG PO BID (09/11 Imdur 30 MG PO Daily, Lopressor 50 MG PO BID, Ranexa 500 MG PO BID. In your professional opinion, can you please clarify the type of acute CHF if known? [ ] Acute Systolic Heart Failure (reduced EF) [ ] Acute on Chronic Systolic Heart Failure (reduced EF) [ ] Acute Diastolic Heart Failure (preserved EF) [ ] Acute on Chronic Diastolic Heart Failure (preserved EF) [ ] Acute Systolic & Diastolic Heart Failure [ ] Acute on Chronic Heart Failure Systolic & Diastolic Heart Failure [ ] Other, please specify [ ] Unable to determine (Template Last Revised: April 2020) Unable to determine MTDD
== END 2021-09-12 15:30 | disposition home health service (06) | DRG 281 ==
LOC: EC 19:25 → 3SCARD 20:07 → 5NMEDONC 09-10 19:43
PROVIDERS: ADMIT Hospitalist; ATTEND Hospitalist
DX: I21.4 Non-ST elevation (NSTEMI) myocardial infarction (principal); E87.1 Hypo-osmolality and hyponatremia; N39.0 Urinary tract infection, site not specified; I50.9 Heart failure, unspecified; I11.0 Hypertensive heart disease with heart failure; B96.20 Unspecified Escherichia coli [E. coli] as the cause of diseases classified elsewhere; E03.9 Hypothyroidism, unspecified; I25.10 Atherosclerotic heart disease of native coronary artery without angina pectoris; I27.20 Pulmonary hypertension, unspecified; I08.3 Combined rheumatic disorders of mitral, aortic and tricuspid valves; I44.7 Left bundle-branch block, unspecified; I48.91 Unspecified atrial fibrillation; R53.1 Weakness; G50.0 Trigeminal neuralgia; R29.6 Repeated falls; E87.70 Fluid overload, unspecified; E11.9 Type 2 diabetes mellitus without complications; E78.5 Hyperlipidemia, unspecified; Z79.02 Long term (current) use of antithrombotics/antiplatelets; E66.9 Obesity, unspecified; F32.A Depression, unspecified; F41.9 Anxiety disorder, unspecified; G47.00 Insomnia, unspecified; I25.2 Old myocardial infarction; J45.909 Unspecified asthma, uncomplicated; R32 Unspecified urinary incontinence; Z51.5 Encounter for palliative care; Z66 Do not resuscitate; Z79.890 Hormone replacement therapy; Z79.899 Other long term (current) drug therapy; Z80.7 Family history of other malignant neoplasms of lymphoid, hematopoietic and related tissues; Z82.49 Family history of ischemic heart disease and other diseases of the circulatory system; Z86.73 Personal history of transient ischemic attack (TIA), and cerebral infarction without residual deficits; Z96.653 Presence of artificial knee joint, bilateral
CPT/HCPCS: 36415; 71046; 80048; 80061; 81001; 83036; 83735; 83880; 84484; 85025; 85730; 87077; 87086; 87186; 93005; 93306; 94760; 96365; 96366; 99285

== ENCOUNTER 2022-01-05 10:08 | Emergency (ER) | payer MEDICARE ==
[2022-01-05] MEDS ORDERED: ACETAMINOPHEN TAB 500 MG TAB PO STA (10:27)
[2022-01-05] MEDS ORDERED: ASPIRIN 81 MG PO STA (10:27)
--- NOTE | 2022-01-05 10:58 | ED ---
General Adult HPI - General Chief complaint: Chest Pain Stated complaint: Chest Pain Time Seen by Provider: 01/05/22 10:19 Source: patient, EMS, RN notes reviewed, old records reviewed Mode of arrival: EMS - History of Present Illness Initial comments: Patient is an 86-year-old female who presents emergency Department complaining of a recent fall as well as some left lower hip, back pain. EMS states the patient complained of chest pain, however patient denies this chest pain at this time. States she complained to nursing staff at her [facility] home with chest pain. This was yesterday. Patient states she fell 2 days ago. No pain other than the left lower back. She denies any abdominal pain, nausea, vomiting. Denies any chest pain, shortness of breath. Patient does appear slightly confused and is intermittently slow to respond to questions but does respond appropriately. She is alert and oriented 3-4 at this time. Denies any worsening lower extremity edema. Is a poor historian regarding her past medical history. Does not believe she is on blood thinners. Is concerned regarding her left lower back pain. - Related Data Home Medications Medication Instructions Recorded Confirmed Pantoprazole Sodium [Protonix] 40 mg PO BID@0800,199911/28/16 01/05/22 Potassium Chloride ER [K-Dur 10] 10 meq PO DAILY@0830 11/28/16 01/05/22 carBAMazepine CHEW [TEGretol Chew] 100 mg PO TID@0830,1399,199911/28/16 01/05/22 Metoprolol Tartrate [Lopressor] 50 mg PO BID@0830,199904/16/19 01/05/22 Nitroglycerin Sl Tabs [Nitrostat] 0.4 mg SL Q5M PRN 04/16/19 01/05/22 Atorvastatin [Lipitor] 40 mg PO HS@199909/08/21 01/05/22 Calcium Carbonate [Tums] 500 mg PO DIRECTED PRN 09/08/21 01/05/22 Chlorhexidine Gluconate [Hibiclens] 1 applic TOPICAL DAILY PRN 09/08/21 01/05/22 Cholecalciferol [Vitamin D3 (25 50 mcg PO DAILY@1400 09/08/21 01/05/22 Mcg = 1000 Iu)] EPINEPHrine (Auto Inject) [Epipen] 0.3 mg IM ONCE PRN 09/08/21 01/05/22 Ferrous Sulfate [Iron (65 MG 325 mg PO BID@1399,199909/08/21 01/05/22 Elemental)] Fluticasone Nasal Counselor [Flonase 2 spr EA NOSTRIL HS@199909/08/21 01/05/22 Nasal Counselor] Folic Acid 1 mg PO DAILY@82909/08/21 01/05/22 Gabapentin [Neurontin] 300 mg PO TID@08,1399,199909/08/21 01/05/22 Levothyroxine Sodium [Synthroid] 150 mcg PO DAILY@69909/08/21 01/05/22 Loratadine [Claritin] 10 mg PO HS@199909/08/21 01/05/22 Memantine [Namenda] 10 mg PO BID@829,199909/08/21 01/05/22 Methylcellulose (with Sugar) 1 tsp PO Q72H PRN 09/08/21 01/05/22 [Citrucel Powder] Multivitamins, Thera [Multivitamin 1 tab PO DAILY@82909/08/21 01/05/22 (formulary)] Muscle Rub 1 applic TOPICAL DAILY PRN 09/08/21 01/05/22 Pyridoxine HCl (Vitamin B6) 100 mg PO DAILY@139909/08/21 01/05/22 [Vitamin B-6] Ranolazine [Ranexa] 500 mg PO BID@799,199909/08/21 01/05/22 Vitamin K2 100 mcg PO DAILY@139909/08/21 01/05/22 Acetaminophen-Codeine 300-30mg 1 tab PO Q6H PRN 01/05/22 01/05/22 [Tylenol w/codeine #3] Artificial Tears-Hypromellose 1 drop BOTH EYES DAILY PRN 01/05/22 01/05/22 [Artificial Tear Drops] Aspirin EC [Ecotrin Low Dose] 81 mg PO DAILY@82901/05/22 01/05/22 Calcium Carbonate/Vitamin D3 1 tab PO DAILY@82901/05/22 01/05/22 [Calcium 600-Vit D3 5 Mcg (200 Iu)] Carboxymethylcellulose Sodium 1 drop BOTH EYES BID@799,199901/05/22 01/05/22 [Refresh Tears] Docusate [Colace] 100 mg PO DAILY PRN 01/05/22 01/05/22 Escitalopram [Lexapro] 20 mg PO HS@199901/05/22 01/05/22 Furosemide [Lasix] 60 mg PO BID@0830,199901/05/22 01/05/22 HYDROcodone/APAP 5-325MG [[place] 1 tab PO TID@0800,1400,199901/05/22 01/05/22 5-325] Isosorbide Mononitrate ER [Imdur] 60 mg PO DAILY@0800 01/05/22 01/05/22 Lactulose 20 gm PO DAILY PRN 01/05/22 01/05/22 Lidocaine/Menthol 1 patch TRANSDERM DAILY PRN 01/05/22 01/05/22 [Lidocaine-Menthol 4%-1% Patch] Magnesium Hydroxide [Milk of 2,400 mg PO Q72H PRN 01/05/22 01/05/22 Magnesia] Simethicone 180 mg PO DAILY PRN 01/05/22 01/05/22 predniSONE 5 mg PO DAILY@0830 01/05/22 01/05/22 Previous Rx's Medication Instructions Recorded Clopidogrel [Plavix] 75 mg PO DAILY@829 #30 tab 09/12/21 Allergies Allergy/AdvReac Type Severity Reaction Status Date / Time adhesive tape Allergy Unknown Verified 01/05/22 12:45 avocado Allergy Anaphylaxis Verified 01/05/22 12:45 banana Allergy Anaphylaxis Verified 01/05/22 12:45 bee venom protein (honey bee) Allergy Unknown Verified 01/05/22 12:45 coconut Allergy Anaphylaxis Verified 01/05/22 12:45 codeine Allergy Unknown Verified 01/05/22 12:45 iobenguane iodine I-123 Allergy Anaphylaxis Verified 01/05/22 12:45 iobenguane sulfate I-123 Allergy Anaphylaxis Verified 01/05/22 12:45 Iodine and Iodide Containing Allergy Anaphylaxis Verified 01/05/22 12:45 Produc latex Allergy Unknown Verified 01/05/22 12:45 nut - unspecified Allergy Anaphylaxis Verified 01/05/22 12:45 ofloxacin [From Floxin] Allergy Unknown Verified 01/05/22 12:45 peach Allergy Itching Verified 01/05/22 12:45 peanut Allergy Unknown Verified 01/05/22 12:45 Penicillins Allergy Anaphylaxis Verified 01/05/22 12:45 pregabalin [From Lyrica] Allergy Unknown Verified 01/05/22 12:45 propoxyphene [From Darvon] Allergy Unknown Verified 01/05/22 12:45 psyllium Allergy Unknown Verified 01/05/22 12:45 Quinolones Allergy Unknown Verified 01/05/22 12:45 shellfish derived [Shellfish] Allergy Anaphylaxis Verified 01/05/22 12:45 soap Allergy Itching Verified 01/05/22 12:45 strawberry Allergy Rash/Hives Verified 01/05/22 12:45 Sulfa (Sulfonamide Allergy Anaphylaxis Verified 01/05/22 12:45 Antibiotics) Tetanus Vaccines and Toxoid Allergy Anaphylaxis Verified 01/05/22 12:45 wheat Allergy Unknown Verified 01/05/22 12:45 morphine AdvReac Mental Verified 01/05/22 12:45 Confusion detergent Allergy Itching Uncoded 01/05/22 12:45 jalapeno peppers Allergy Anaphylaxis Uncoded 01/05/22 12:45 spandex Allergy Unknown Uncoded 01/05/22 12:45 zucchini Allergy Unknown Uncoded 01/05/22 12:45 Review of Systems ROS Statement: Those systems with pertinent positive or pertinent negative responses have been documented in the HPI. Review of Systems: CONST: Denies fever EYES: Denies blurry vision ENT: Denies nasal congestion C/V: Denies Chest pain RESP: Denies shortness of breath GI: Denies abdominal pain : Denies dysuria SKIN: Denies rash. MSK: Endorses left hip/left lower back pain. NEURO: Denies headache ROS Other: All systems not noted in ROS Statement are negative. Past Medical History Past Medical History: Atrial Fibrillation, Asthma, Coronary Artery Disease (CAD), Chest Pain / Angina, CVA/TIA, GERD/Reflux, Hypertension, Myocardial Infarction (GA), Thyroid Disorder Additional Past Medical History / Comment(s): Trigeminal Neur right side. 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 knee replacement, partial thyroidectomy, Bilateral hip surgery/ repair. Past Anesthesia/Blood Transfusion Reactions: No Reported Reaction Past Psychological History: No Psychological Hx Reported Smoking Status: Never smoker Past Alcohol Use History: None Reported Past Drug Use History: None Reported - Past Family History Father Family Medical History: Renal Disease Brother(s) Additional Family Medical History / Comment(s): Non-Hodgkin's lymphoma Sister(s) Family Medical History: Coronary Artery Disease (CAD) General Exam - General Exam Comments Initial Comments: General: Appears in no acute distress. HEAD: Normal with no signs of head trauma. EYES: PERRLA, EOMI, conjunctiva normal, no discharge. Pupils are 3 mm and equal bilaterally. ENT: Hearing grossly intact, normal oropharynx. RESPIRATORY: Clear breath sounds bilaterally. He is to maybe have rhonchorous breath sounds in the left lower lobe. C/V: Regular rate and rhythm. S1 and S2 auscultated. Bilateral lower extremity pitting edema 1+ at the level bilateral knees. Peripheral pulses 2+ and intact throughout. ABD: Abd is soft, nontender, nondistended EXT: Normal range of motion, no obvious deformity SKIN: No rashes or lesions observed on exposed skin. NEURO: Alert and oriented 3-4. No focal deficits. Somewhat generalized weakness. Course Vital Signs 01/05/22 01/05/22 01/05/22 10:13 11:23 12:00 Temperature 98.4 F 97.7 F Pulse Rate 77 72 66 Respiratory 18 18 30 H Rate Blood Pressure 107/84 110/81 96/37 O2 Sat by Pulse 99 96 97 Oximetry Procedures - Central Line Placement Left Femoral Consent Obtained: emergent situation Patient Placed on Monitor/Pulse Ox: Yes MD Prep: mask, gown, gloves Central Line Prep: Chlorhexidine scrub, sterile drapes applied Local Anesthesia Used: Lidocaine 1% Amount of Anesthesia Used (mls): 5 Ultrasound Used for Placement: Yes Central Line Lumen Inserted: triple Bloods Obtained for Lab: No Central Line Position: good blood return, all ports aspirated, flushed, capped, sutured in place with nylon Dressing Applied: Tegaderm Patient Tolerated Procedure: well Complications: none - Intubation Sedative: Etomidate Mg Given: 20 Paralytic: Rocuronium Mg Given: 70 Laryngoscope: other (glidescope) Size: 4 ET Tube Size: 8 Tube Secured Depth (cm): 24 Tube Secured Location: lips Tube Placement Confirmation: visualized tube passing through cords, equal breath sounds bilaterally, confirmation by capnometry Patient Tolerated Procedure: well Intubation Complications: none Medical Decision Making - Medical Decision Making Based on the patient's presentation and physical exam, I'm concerned for her slight altered mental status as well as possible injury from the fall. Cannot rule out cardiac pulmonary etiology to to the uncertain history of chest pain. We will obtain cardio pulmonary labs, CT brain, CT abdomen and pelvis, imaging and the back, pelvis, chest. Patient was in agreement with this plan. She will be symptomatically treated with an aspirin, Tylenol. We will hold fluids at this time as there is concern for possible history of heart failure the patient is a poor historian. Vital signs otherwise within acceptable limits. Initial EKG showed chronic left bundle branch block with no evidence of acute ischemia. Pelvis x-ray showed no acute traumatic injury. Abdomen pelvis CT revealed no acute injury or process. Lumbar spine CT revealed no acute injury or process. Brain CT revealed no acute intracranial process. There is degenerative changes that are present. Chest x-ray as interpreted by myself revealed possible bilateral patchy opacities which could be an infiltrate. Laboratory studies were remarkable for a elevated white blood cell, 13. ABG was relatively unremarkable. Patient has an RAJIV on CK D. LFTs were elevated. Alcohol level is undetectable. Covid is negative. Troponin, BNP, lactic acid are still pending at this time. At this time it was 12:15, patient met sepsis criteria over concern for possible pneumonia. I did order broad-spectrum antibiotics. We will continue to monitor fluid status and she will not receive 30 mL per KG as there is concern for heart failure and volume overload at this time. She'll receive a small amount of fluids and we will continue to monitor. Patient is hemodynamically stable at this time. At this time nursing staff myself did reevaluate the patient, and patient seemed more lethargic. Patient was nonresponsive. GCS is 7. This is a definite change since her presentation. At this time I did recheck to the sun over concern for possible intubation and he was in agreement with the plan. We did get notified by lab at this time the patient's troponin was 21.8. Lactic acid was elevated to 11.3. As I was on the phone with the patient's son, I did instruct nursing staff to take the patient to the trauma bay for intubation over concern for likely GA versus sepsis. I did briefly discuss the case with cardiology Dr. Arce as well was in agreement with the plan and recommended heparin initiation. They will evaluate the patient. Upon arrival much trauma bay, as we were preparing activation patient began to bradycardia down. She became bradycardic and we lost pulses. ACLS protocol was immediately initiated. Chest compressions were started. Patient was intubated via Glidescope by myself. She tolerated the procedure well. Pulses were initially lost at 1241. She received a total of 4 epinephrines. She also received 2 calciums and 2 bicarbs. Received a total of 1 the fibrillation with pulseless V. tach on the monitor. Pulses returned at 1251. Post ROSC ekg showed no obvious ischemic changes. We will continue to monitor. At this time central line was placed by myself and left Alex Bud. She was started on a Levophed drip. Blood sugar was rechecked at 159. Patient became bradycardic again despite being on the Levophed drip as well as IV fluids. We did attempt 2 doses of atropine. These were unsuccessful. Pulses were lost at 1309. CPR and ACLS protocol her once again restarted. She received a total of 3 additional doses of epinephrine and an additional calcium and bicarbonate. Patient remained in PA arrest throughout this time. At 1319, following prolonged downtime, the decision was made by the resuscitation team to terminate resuscitation. She remained PA on the monitor. Time of was called at 1319. The patient . I did speak with the patient's son over the phone, Bi and updated him. He expressed understanding. I answered all questions that he had. We'll contact him further with more information regarding home arrangements. I did contact the medical language specialist, and it was cleared by the medical language specialist. Body was released. Case number is [id number]. If the was notified by nursing staff and they placed a hold on the body at this time. The patient is . - Lab Data Result diagrams: 01/05/22 11:11 01/05/22 11:11 Lab Results 01/05/22 01/05/22 01/05/22 Range/Units 11:11 11:11 11:11 WBC 13.1 H (3.8-10.6) k/uL RBC 4.29 (3.80-5.40) m/uL Hgb 14.1 (11.4-16.0) gm/dL Hct 43.5 (34.0-46.0) % MCV 101.4 H (80.0-100.0) fL MCH 32.9 (25.0-35.0) pg MCHC 32.4 (31.0-37.0) g/dL RDW 12.2 (11.5-15.5) % Plt Count 260 (150-450) k/uL MPV 8.4 Neutrophils % 87 % Lymphocytes % 8 % Monocytes % 4 % Eosinophils % 0 % Basophils % 0 % Neutrophils # 11.3 H (1.3-7.7) k/uL Lymphocytes # 1.0 (1.0-4.8) k/uL Monocytes # 0.6 (0-1.0) k/uL Eosinophils # 0.0 (0-0.7) k/uL Basophils # 0.0 (0-0.2) k/uL PT 12.1 H (9.0-12.0) sec INR 1.1 (<1.2) APTT 27.0 (22.0-30.0) sec VBG pH (7.31-7.41) VBG pCO2 (37-51) mmHg VBG HCO3 (24-28) mmol/L Sodium 139 (137-145) mmol/L Potassium 4.6 (3.5-5.1) mmol/L Chloride 98 (98-107) mmol/L Carbon Dioxide 20 L (22-30) mmol/L Anion Gap 21 mmol/L BUN 25 H (7-17) mg/dL Creatinine 1.38 H (0.52-1.04) mg/dL Est GFR (CKD-EPI)AfAm 40 (>60 ml/min/1.73 sqM) Est GFR (CKD-EPI)NonAf 34 (>60 ml/min/1.73 sqM) Glucose 172 H (74-99) mg/dL POC Glucose (mg/dL) (70-110) mg/dL POC Glu Journalism Professor ID Lactic Ac Sepsis Rflx Plasma Lactic Acid Seth (0.7-2.0) mmol/L Calcium 9.0 (8.4-10.2) mg/dL Total Bilirubin 2.8 H (0.2-1.3) mg/dL AST 1584 H (14-36) U/L ALT 1040 H (4-34) U/L Alkaline Phosphatase 84 (38-126) U/L Ammonia (<30) umol/L Troponin I (0.000-0.034) ng/mL NT-Pro-B Natriuret Pep pg/mL Total Protein 7.4 (6.3-8.2) g/dL Albumin 4.8 (3.5-5.0) g/dL Serum Alcohol <10 mg/dL Coronavirus (PCR) (Not Detectd) HIV (1&2) Ag/Ab (Rapid) (Nonreactive) 01/05/22 01/05/22 01/05/22 Range/Units 11:11 11:11 11:11 WBC (3.8-10.6) k/uL RBC (3.80-5.40) m/uL Hgb (11.4-16.0) gm/dL Hct (34.0-46.0) % MCV (80.0-100.0) fL MCH (25.0-35.0) pg MCHC (31.0-37.0) g/dL RDW (11.5-15.5) % Plt Count (150-450) k/uL MPV Neutrophils % % Lymphocytes % % Monocytes % % Eosinophils % % Basophils % % Neutrophils # (1.3-7.7) k/uL Lymphocytes # (1.0-4.8) k/uL Monocytes # (0-1.0) k/uL Eosinophils # (0-0.7) k/uL Basophils # (0-0.2) k/uL PT (9.0-12.0) sec INR (<1.2) APTT (22.0-30.0) sec VBG pH (7.31-7.41) VBG pCO2 (37-51) mmHg VBG HCO3 (24-28) mmol/L Sodium (137-145) mmol/L Potassium (3.5-5.1) mmol/L Chloride (98-107) mmol/L Carbon Dioxide (22-30) mmol/L Anion Gap mmol/L BUN (7-17) mg/dL Creatinine (0.52-1.04) mg/dL Est GFR (CKD-EPI)AfAm (>60 ml/min/1.73 sqM) Est GFR (CKD-EPI)NonAf (>60 ml/min/1.73 sqM) Glucose (74-99) mg/dL POC Glucose (mg/dL) (70-110) mg/dL POC Glu Journalism Professor ID Lactic Ac Sepsis Rflx Plasma Lactic Acid Seth (0.7-2.0) mmol/L Calcium (8.4-10.2) mg/dL Total Bilirubin (0.2-1.3) mg/dL AST (14-36) U/L ALT (4-34) U/L Alkaline Phosphatase (38-126) U/L Ammonia 38 H (<30) umol/L Troponin I 21.800 H* (0.000-0.034) ng/mL NT-Pro-B Natriuret Pep pg/mL Total Protein (6.3-8.2) g/dL Albumin (3.5-5.0) g/dL Serum Alcohol mg/dL Coronavirus (PCR) Not Detected (Not Detectd) HIV (1&2) Ag/Ab (Rapid) (Nonreactive) 01/05/22 01/05/22 01/05/22 Range/Units 11:11 11:11 12:08 WBC (3.8-10.6) k/uL RBC (3.80-5.40) m/uL Hgb (11.4-16.0) gm/dL Hct (34.0-46.0) % MCV (80.0-100.0) fL MCH (25.0-35.0) pg MCHC (31.0-37.0) g/dL RDW (11.5-15.5) % Plt Count (150-450) k/uL MPV Neutrophils % % Lymphocytes % % Monocytes % % Eosinophils % % Basophils % % Neutrophils # (1.3-7.7) k/uL Lymphocytes # (1.0-4.8) k/uL Monocytes # (0-1.0) k/uL Eosinophils # (0-0.7) k/uL Basophils # (0-0.2) k/uL PT (9.0-12.0) sec INR (<1.2) APTT (22.0-30.0) sec VBG pH 7.26 L (7.31-7.41) VBG pCO2 50 (37-51) mmHg VBG HCO3 22 L (24-28) mmol/L Sodium (137-145) mmol/L Potassium (3.5-5.1) mmol/L Chloride (98-107) mmol/L Carbon Dioxide (22-30) mmol/L Anion Gap mmol/L BUN (7-17) mg/dL Creatinine (0.52-1.04) mg/dL Est GFR (CKD-EPI)AfAm (>60 ml/min/1.73 sqM) Est GFR (CKD-EPI)NonAf (>60 ml/min/1.73 sqM) Glucose (74-99) mg/dL POC Glucose (mg/dL) 133 H (70-110) mg/dL POC Glu Journalism Professor ID Mychal Hawkinsle Lactic Ac Sepsis Rflx Plasma Lactic Acid Seth (0.7-2.0) mmol/L Calcium (8.4-10.2) mg/dL Total Bilirubin (0.2-1.3) mg/dL AST (14-36) U/L ALT (4-34) U/L Alkaline Phosphatase (38-126) U/L Ammonia (<30) umol/L Troponin I (0.000-0.034) ng/mL NT-Pro-B Natriuret Pep 40740 pg/mL Total Protein (6.3-8.2) g/dL Albumin (3.5-5.0) g/dL Serum Alcohol mg/dL Coronavirus (PCR) (Not Detectd) HIV (1&2) Ag/Ab (Rapid) (Nonreactive) 01/05/22 01/05/22 01/05/22 Range/Units 12:35 12:57 13:01 WBC (3.8-10.6) k/uL RBC (3.80-5.40) m/uL Hgb (11.4-16.0) gm/dL Hct (34.0-46.0) % MCV (80.0-100.0) fL MCH (25.0-35.0) pg MCHC (31.0-37.0) g/dL RDW (11.5-15.5) % Plt Count (150-450) k/uL MPV Neutrophils % % Lymphocytes % % Monocytes % % Eosinophils % % Basophils % % Neutrophils # (1.3-7.7) k/uL Lymphocytes # (1.0-4.8) k/uL Monocytes # (0-1.0) k/uL Eosinophils # (0-0.7) k/uL Basophils # (0-0.2) k/uL PT (9.0-12.0) sec INR (<1.2) APTT (22.0-30.0) sec VBG pH (7.31-7.41) VBG pCO2 (37-51) mmHg VBG HCO3 (24-28) mmol/L Sodium (137-145) mmol/L Potassium (3.5-5.1) mmol/L Chloride (98-107) mmol/L Carbon Dioxide (22-30) mmol/L Anion Gap mmol/L BUN (7-17) mg/dL Creatinine (0.52-1.04) mg/dL Est GFR (CKD-EPI)AfAm (>60 ml/min/1.73 sqM) Est GFR (CKD-EPI)NonAf (>60 ml/min/1.73 sqM) Glucose (74-99) mg/dL POC Glucose (mg/dL) 159 H (70-110) mg/dL POC Glu Journalism Professor ID Kishore Butler Lactic Ac Sepsis Rflx Y Plasma Lactic Acid Seth 11.3 H* (0.7-2.0) mmol/L Calcium (8.4-10.2) mg/dL Total Bilirubin (0.2-1.3) mg/dL AST (14-36) U/L ALT (4-34) U/L Alkaline Phosphatase (38-126) U/L Ammonia (<30) umol/L Troponin I (0.000-0.034) ng/mL NT-Pro-B Natriuret Pep pg/mL Total Protein (6.3-8.2) g/dL Albumin (3.5-5.0) g/dL Serum Alcohol mg/dL Coronavirus (PCR) (Not Detectd) HIV (1&2) Ag/Ab (Rapid) (Nonreactive) 01/05/22 Range/Units 13:19 WBC (3.8-10.6) k/uL RBC (3.80-5.40) m/uL Hgb (11.4-16.0) gm/dL Hct (34.0-46.0) % MCV (80.0-100.0) fL MCH (25.0-35.0) pg MCHC (31.0-37.0) g/dL RDW (11.5-15.5) % Plt Count (150-450) k/uL MPV Neutrophils % % Lymphocytes % % Monocytes % % Eosinophils % % Basophils % % Neutrophils # (1.3-7.7) k/uL Lymphocytes # (1.0-4.8) k/uL Monocytes # (0-1.0) k/uL Eosinophils # (0-0.7) k/uL Basophils # (0-0.2) k/uL PT (9.0-12.0) sec INR (<1.2) APTT (22.0-30.0) sec VBG pH (7.31-7.41) VBG pCO2 (37-51) mmHg VBG HCO3 (24-28) mmol/L Sodium (137-145) mmol/L Potassium (3.5-5.1) mmol/L Chloride (98-107) mmol/L Carbon Dioxide (22-30) mmol/L Anion Gap mmol/L BUN (7-17) mg/dL Creatinine (0.52-1.04) mg/dL Est GFR (CKD-EPI)AfAm (>60 ml/min/1.73 sqM) Est GFR (CKD-EPI)NonAf (>60 ml/min/1.73 sqM) Glucose (74-99) mg/dL POC Glucose (mg/dL) (70-110) mg/dL POC Glu Journalism Professor ID Lactic Ac Sepsis Rflx Plasma Lactic Acid Seth (0.7-2.0) mmol/L Calcium (8.4-10.2) mg/dL Total Bilirubin (0.2-1.3) mg/dL AST (14-36) U/L ALT (4-34) U/L Alkaline Phosphatase (38-126) U/L Ammonia (<30) umol/L Troponin I (0.000-0.034) ng/mL NT-Pro-B Natriuret Pep pg/mL Total Protein (6.3-8.2) g/dL Albumin (3.5-5.0) g/dL Serum Alcohol mg/dL Coronavirus (PCR) (Not Detectd) HIV (1&2) Ag/Ab (Rapid) Nonreactive (Nonreactive) - EKG Data -: EKG Interpreted by Me EKG Comments: 12-lead Electrocardiogram Interpretation Note EKG was reviewed and interpreted by myself. 12-lead ECG performed at 1018 is interpreted by me as revealing normal sinus rhythm with a left bundle-branch block at a rate of 77 beats per minute. Left axis deviation. QRS durations 165 ms. QTC is 436 seconds. There were no ST or T wave abnormalities to suggest myocardial ischemia or injury. R wave progression across the precordium was satisfactory. By my interpretation this EKG is non-diagnostic for acute ischemia. Findings resemble prior EKGs in our system. 12-lead Electrocardiogram Interpretation Note EKG was reviewed and interpreted by myself. 12-lead ECG performed at 1236 is interpreted by me as revealing normal sinus rhythm at a rate of 52 beats per minute. Left bundle branch block which is chronic.. Left axis deviation. QRS durations 162 ms, QTc is 437 ms. Patient may have slightly worsening ST seg ment depression in lead V4. No evidence of ST segment elevations.. R wave progression across the precordium was satisfactory. By my interpretation this EKG is concerning for possible acute ischemia. 12-lead Electrocardiogram Interpretation Note EKG was reviewed and interpreted by myself. 12-lead ECG performed at 1254 is interpreted by me as revealing what appears to be sinus rhythm with left bundle branch block morphology at a rate of 95 beats per minute. Left axis deviation. AL interval is 173 ms, QRS durations 134 ms, QTc is 422 ms.. There were no obvious acute ST or T wave abnormalities to suggest myocardial ischemia or injury. R wave progression across the precordium was satisfactory. By my interpretation this EKG is non-diagnostic for acute ischemia. This EKG is immediately postROSC. We'll continue to monitor. Critical Care Time Critical Care Time: Yes Total Critical Care Time: 35 Critical Care Time: Upon my evaluation, this patient had a high probability of imminent or life- threatening deterioration due to cardiac arrest, suspected myocardial infarction/nstemi, , which required my direct attention, intervention, and personal management. I have personally provided 35 minutes of critical care time exclusive of time spent on separately billable procedures. Time includes review of laboratory data, radiology results, discussion with consultants, and monitoring for potential decompensation. Interventions were performed as documented in my note. Disposition Clinical Impression: Acute non-ST elevation myocardial infarction (NSTEMI), Elevated LFTs, RAJIV (acute kidney injury), Cardiopulmonary arrest, Sepsis, Pneumonia, Lactic acidosis, Disposition: Referrals: Danny Charlton MD [Primary Care Provider] - 1-2 days Time of Disposition: 13:19 Preliminary Cause of : cardiopulmonary arrest
[2022-01-05 11:27] LABS: Basophils % (A) 0 %; Eosinophils % (A) 0 %; HCT 43.5 % (34.0-46.0); HGB 14.1 gm/dL (11.4-16.0); Lymphocytes % (A) 8 %; MCH 32.9 pg (25.0-35.0); MCHC 32.4 g/dL (31.0-37.0); MCV 101.4 fL (80.0-100.0); Mean Platelet Volume 8.4; Monocytes # (A) 0.6 k/uL (0-1.0); Monocytes % (A) 4 %; Neutrophils # (A) 11.3 k/uL (1.3-7.7); Neutrophils % (A) 87 %; Platelet Count 260 k/uL (150-450); RBC 4.29 m/uL (3.80-5.40); RDW 12.2 % (11.5-15.5); WBC 13.1 k/uL (3.8-10.6)
[2022-01-05 11:31] LABS: VBG PH 7.26 (7.31-7.41)
[2022-01-05 11:43] LABS: African American GFR (CKD) 40 (>60 ml/min/1.73 sqM); Albumin 4.8 g/dL (3.5-5.0); Alcohol <10 mg/dL; Alkaline Phosphatase 84 U/L (38-126); Anion Gap 21 mmol/L; Blood Urea Nitrogen 25 mg/dL (7-17); Carbon Dioxide 20 mmol/L (22-30); Chloride 98 mmol/L (98-107); Glucose 172 mg/dL (74-99); Non-African American GFR(CKD) 34 (>60 ml/min/1.73 sqM); Potassium 4.6 mmol/L (3.5-5.1); Sodium 139 mmol/L (137-145); Total Bilirubin 2.8 mg/dL (0.2-1.3); Total Protein 7.4 g/dL (6.3-8.2)
[2022-01-05 11:49] LABS: INR 1.1 (<1.2); Prothrombin Time 12.1 sec (9.0-12.0)
--- NOTE | 2022-01-05 11:59 | XR ---
EXAMINATION TYPE: XR pelvis AP view DATE OF EXAM: 01/05/2022 CLINICAL HISTORY: Fall injury with pain TECHNIQUE: A single AP view of the pelvis is obtained. COMPARISON: Same day CT abdomen and pelvis study. FINDINGS: Partial visualization of fixating hardware in the bilateral proximal femurs. Suspicious yomi ent area medial aspect subcapital region right proximal femur without fracture at this level seen on same-day CT No acute displaced fracture is otherwise seen. Slightly suboptimal due to rotation and po or positioning. Pubic symphysis remains intact. Sacroiliac joints grossly preserved. Vascular calcifi cation bilateral groin region is redemonstrated. IMPRESSION: There is no acute displaced fracture in the pelvis.
[2022-01-05 12:02] VITALS: BP 96/37; PULSE 66; RESP 30; TEMP 97.7
--- NOTE | 2022-01-05 12:04 | XR ---
EXAMINATION TYPE: XR chest 2V DATE OF EXAM: 01/05/2022 11:51 AM COMPARISON: Chest radiographs from 09/17/2021. TECHNIQUE: XR chest 2V Frontal and lateral views of the chest. CLINICAL INDICATION:Female, 86 years old with history of altered mental status; FINDINGS: Patient is rotated which limits evaluation. Lungs/Pleura: No pneumothorax or pleural effusion. Subtle bibasilar patchy airspace opacities. Elevat ion the right hemidiaphragm redemonstrated. Pulmonary vascularity: Unremarkable. Heart/mediastinum: Cardiomediastinal silhouette is able. Similar fullness to the right pulmonary hilu m. Musculoskeletal: No acute osseous pathology. Degenerative changes of visualized spine. Bilateral shou lder arthropathy. IMPRESSION: Subtle bibasilar patchy opacities which may represent atelectasis and/or infiltrate.
[2022-01-05 12:05] LABS: ALT 1040 U/L (4-34)
--- NOTE | 2022-01-05 12:05 | CT ---
EXAMINATION TYPE: CT abdomen pelvis wo con, CT lumbar spine wo con DATE OF EXAM: 01/05/2022 HISTORY: abd pain (accession [id number]), back pain (accession [id number]). Recent fall injury. CT DLP: 1849.4 mGycm. Automated Exposure Control for Dose Reduction was Utilized. TECHNIQUE: CT scan of the abdomen and pelvis is performed without oral or IV contrast. COMPARISON: Outside whole-body CT November 28, 2016 FINDINGS: Within the limitations of a non-contrast study, the following observations are made. There is motion artifact making evaluation slightly suboptimal. LUNG BASES: Severe three-vessel coronary artery calcification is redemonstrated. Trace bilateral pleu ral effusions current study. Overall mosaic attenuation suggesting mild edema. Prominent pulmonary ar teries suggests underlying pulmonary artery hypertension. LIVER/GB: Scattered punctate calcifications throughout the liver. PANCREAS: No significant abnormality is seen. SPLEEN: Scattered punctate calcifications throughout the spleen redemonstrated. Liver and spleen find ings consistent with products of old granulomatous disease. ADRENALS: No significant abnormality is seen. KIDNEYS: Cortical thinning in both kidneys. There is punctate 2 to 3 mm nonobstructing calculus in th e right kidney coronal image 52 redemonstrated. Poorly distended bladder with mild concentric wall th ickening. BOWEL: No suspicious small or large bowel dilatation. Moderate to severe colonic fecal prominence in the sigmoid rectal colon. Correlate clinically. GENITAL ORGANS: No gross abnormality seen. LYMPH NODES: No greater than 1cm abdominal or pelvic lymph nodes are appreciated. OSSEOUS STRUCTURES: Metallic hardware from bilateral femur surgery is partially imaged causing streak artifact somewhat limiting evaluation of pelvic structures. OTHER: Severe vessel calcification in the aorta extends into smaller branch vessels. Lumbar spine: There are 5 lumbar-type vertebra demonstrated. There is dorsal convex scoliosis centere d at L3 level redemonstrated. There is moderate to severe multilevel disc space narrowing with modera te multilevel anterior spurring. Multilevel vacuum disc phenomenon is seen. Stable grade 1 anterolist hesis L4 on L5. No acute displaced fractures are present. Review of axial images shows multilevel dis c herniations efface the anterior thecal sac greatest at L1-L2 level there is calcified disc herniati on noted. There is multilevel facet arthropathy in the mid to lower lumbar spine. There is left-sided laminectomy defect at L4 level redemonstrated. No acute displaced fracture is seen. Multilevel spino us process hypertrophy is redemonstrated. IMPRESSION: 1. No acute displaced fracture in the lumbar spine. 2. Suboptimal study without enteric contrast and motion artifact degradation. No obvious acute posttr aumatic finding in the abdomen or pelvis noted
[2022-01-05 12:09] LABS: Glucose,Whole Blood 133 mg/dL (70-110)
--- NOTE | 2022-01-05 12:09 | CT ---
EXAMINATION TYPE: CT brain wo con DATE OF EXAM: 01/05/2022 COMPARISON: 04/16/2019 HISTORY: ams CT DLP: 1088.4 mGycm Automated exposure control for dose reduction was used. FINDINGS: Moderate generalized degenerative change. Calcifications in the basal ganglia are stable from prior e xam. Low-attenuation white matter are nonspecific but most remote microvascular ischemia. Calvarium is intact. Orbits are symmetric. Intracranial atherosclerotic changes are seen. No midline shift or mass effect. No acute hemorrhage. IMPRESSION: DEGENERATIVE AND NONSPECIFIC WHITE MATTER CHANGES MOST TYPICAL OF REMOTE ISCHEMIA. IF CONCERN FOR ACU TE ISCHEMIA CORRELATE WITH MRI CLINICALLY WARRANTED
[2022-01-05] MEDS ORDERED: SODIUM CHLORIDE 0.9% 1,000 ML IV STA (12:17)
[2022-01-05] MEDS ORDERED: VANCOMYCIN IV PER PHARMACY 1 EACH MISC MISCELLANE PRN (12:20)
[2022-01-05] MEDS ORDERED: CEFEPIME 2 GM in SODIUM CHLORIDE 0.9% 100 ML IVPB STA (12:23)
[2022-01-05] MEDS ORDERED: HEPARIN SODIUM 1,000 UN/ML (10ML VL) IV ONE (12:28)
[2022-01-05] MEDS ORDERED: HEPARIN SODIUM 1,000 UN/ML (10ML VL) IV PRN (12:28)
[2022-01-05 12:29] LABS: AST 1584 U/L (14-36)
[2022-01-05] MEDS ORDERED: HEPARIN SOD,PORK IN 0.45% NACL 25,000 UNIT in 0.45% NACL 1 250ML.BAG IV SCH (12:30)
[2022-01-05] MEDS ORDERED: VANCOMYCIN 1,250 MG in SODIUM CHLORIDE 0.9% 250 ML IVPB ONE (13:00)
[2022-01-05 13:08] LABS: Glucose,Whole Blood 159 mg/dL (70-110)
--- NOTE | 2022-01-05 13:33 | P.CRDCN ---
History of Present Illness History of present illness: Cardiology team notified by Dr. Pfeiffer of elevated troponin, possible NSTEMI. Attempted to see patient in the ER, however, patient undergoing CPR/ACLS. Will evaluate patient pending outcome of cardiac arrest. Past Medical History Past Medical History: Atrial Fibrillation, Asthma, Coronary Artery Disease (CAD), Chest Pain / Angina, CVA/TIA, GERD/Reflux, Hypertension, Myocardial Infarction ([place]), Thyroid Disorder Additional Past Medical History / Comment(s): Trigeminal Neur right side. 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 knee replacement, partial thyroidectomy, Bilateral hip surgery/ repair. Past Anesthesia/Blood Transfusion Reactions: No Reported Reaction Past Psychological History: No Psychological Hx Reported Smoking Status: Never smoker Past Alcohol Use History: None Reported Past Drug Use History: None Reported - Past Family History Father Family Medical History: Renal Disease Brother(s) Additional Family Medical History / Comment(s): Non-Hodgkin's lymphoma Sister(s) Family Medical History: Coronary Artery Disease (CAD) Medications and Allergies Home Medications Medication Instructions Recorded Confirmed Type Pantoprazole Sodium [Protonix] 40 mg PO BID@0800,199911/28/16 01/05/22 History Potassium Chloride ER [K-Dur 10] 10 meq PO DAILY@0830 11/28/16 01/05/22 History carBAMazepine CHEW [TEGretol Chew] 100 mg PO TID@0830,1400,199911/28/16 01/05/22 History Metoprolol Tartrate [Lopressor] 50 mg PO BID@0830,199904/16/19 01/05/22 History Nitroglycerin Sl Tabs [Nitrostat] 0.4 mg SL Q5M PRN 04/16/19 01/05/22 History Atorvastatin [Lipitor] 40 mg PO HS@199909/08/21 01/05/22 History Calcium Carbonate [Tums] 500 mg PO DIRECTED PRN 09/08/21 01/05/22 History Chlorhexidine Gluconate [Hibiclens] 1 applic TOPICAL DAILY PRN 09/08/21 01/05/22 History Cholecalciferol [Vitamin D3 (25 50 mcg PO DAILY@139909/08/21 01/05/22 History Mcg = 1000 Iu)] EPINEPHrine (Auto Inject) [Epipen] 0.3 mg IM ONCE PRN 09/08/21 01/05/22 History Ferrous Sulfate [Iron (65 MG 325 mg PO BID@1399,199909/08/21 01/05/22 History Elemental)] Fluticasone Nasal Kennedy [Flonase 2 spr EA NOSTRIL HS@199909/08/21 01/05/22 History Nasal Kennedy] Folic Acid 1 mg PO DAILY@82909/08/21 01/05/22 History Gabapentin [Neurontin] 300 mg PO TID@0830,1399,199909/08/21 01/05/22 History Levothyroxine Sodium [Synthroid] 150 mcg PO DAILY@69909/08/21 01/05/22 History Loratadine [Claritin] 10 mg PO HS@199909/08/21 01/05/22 History Memantine [Namenda] 10 mg PO BID@08,199909/08/21 01/05/22 History Methylcellulose (with Sugar) 1 tsp PO Q72H PRN 09/08/21 01/05/22 History [Citrucel Powder] Multivitamins, Thera [Multivitamin 1 tab PO DAILY@82909/08/21 01/05/22 History (formulary)] Muscle Rub 1 applic TOPICAL DAILY PRN 09/08/21 01/05/22 History Pyridoxine HCl (Vitamin B6) 100 mg PO DAILY@139909/08/21 01/05/22 History [Vitamin B-6] Ranolazine [Ranexa] 500 mg PO BID@799,199909/08/21 01/05/22 History Vitamin K2 100 mcg PO DAILY@139909/08/21 01/05/22 History Clopidogrel [Plavix] 75 mg PO DAILY@30 #30 tab 09/12/21 01/05/22 Rx Acetaminophen-Codeine 300-30mg 1 tab PO Q6H PRN 01/05/22 01/05/22 History [Tylenol w/codeine #3] Artificial Tears-Hypromellose 1 drop BOTH EYES DAILY PRN 01/05/22 01/05/22 History [Artificial Tear Drops] Aspirin EC [Ecotrin Low Dose] 81 mg PO DAILY@0830 01/05/22 01/05/22 History Calcium Carbonate/Vitamin D3 1 tab PO DAILY@0830 01/05/22 01/05/22 History [Calcium 600-Vit D3 5 Mcg (200 Iu)] Carboxymethylcellulose Sodium 1 drop BOTH EYES BID@799,199901/05/22 01/05/22 History [Refresh Tears] Docusate [Colace] 100 mg PO DAILY PRN 01/05/22 01/05/22 History Escitalopram [Lexapro] 20 mg PO HS@199901/05/22 01/05/22 History Furosemide [Lasix] 60 mg PO BID@08,199901/05/22 01/05/22 History HYDROcodone/APAP 5-325MG [Henderson 1 tab PO TID@0800,1399,199901/05/22 01/05/22 History 5-325] Isosorbide Mononitrate ER [Imdur] 60 mg PO DAILY@0800 01/05/22 01/05/22 History Lactulose 20 gm PO DAILY PRN 01/05/22 01/05/22 History Lidocaine/Menthol 1 patch TRANSDERM DAILY PRN 01/05/22 01/05/22 History [Lidocaine-Menthol 4%-1% Patch] Magnesium Hydroxide [Milk of 2,400 mg PO Q72H PRN 01/05/22 01/05/22 History Magnesia] Simethicone 180 mg PO DAILY PRN 01/05/22 01/05/22 History predniSONE 5 mg PO DAILY@0830 01/05/22 01/05/22 History Allergies Allergy/AdvReac Type Severity Reaction Status Date / Time adhesive tape Allergy Unknown Verified 01/05/22 12:45 avocado Allergy Anaphylaxis Verified 01/05/22 12:45 banana Allergy Anaphylaxis Verified 01/05/22 12:45 bee venom protein (honey bee) Allergy Unknown Verified 01/05/22 12:45 coconut Allergy Anaphylaxis Verified 01/05/22 12:45 codeine Allergy Unknown Verified 01/05/22 12:45 iobenguane iodine I-123 Allergy Anaphylaxis Verified 01/05/22 12:45 iobenguane sulfate I-123 Allergy Anaphylaxis Verified 01/05/22 12:45 Iodine and Iodide Containing Allergy Anaphylaxis Verified 01/05/22 12:45 Produc latex Allergy Unknown Verified 01/05/22 12:45 nut - unspecified Allergy Anaphylaxis Verified 01/05/22 12:45 ofloxacin [From Floxin] Allergy Unknown Verified 01/05/22 12:45 peach Allergy Itching Verified 01/05/22 12:45 peanut Allergy Unknown Verified 01/05/22 12:45 Penicillins Allergy Anaphylaxis Verified 01/05/22 12:45 pregabalin [From Lyrica] Allergy Unknown Verified 01/05/22 12:45 propoxyphene [From Darvon] Allergy Unknown Verified 01/05/22 12:45 psyllium Allergy Unknown Verified 01/05/22 12:45 Quinolones Allergy Unknown Verified 01/05/22 12:45 shellfish derived [Shellfish] Allergy Anaphylaxis Verified 01/05/22 12:45 soap Allergy Itching Verified 01/05/22 12:45 strawberry Allergy Rash/Hives Verified 01/05/22 12:45 Sulfa (Sulfonamide Allergy Anaphylaxis Verified 01/05/22 12:45 Antibiotics) Tetanus Vaccines and Toxoid Allergy Anaphylaxis Verified 01/05/22 12:45 wheat Allergy Unknown Verified 01/05/22 12:45 morphine AdvReac Mental Verified 01/05/22 12:45 Confusion detergent Allergy Itching Uncoded 01/05/22 12:45 jalapeno peppers Allergy Anaphylaxis Uncoded 01/05/22 12:45 spandex Allergy Unknown Uncoded 01/05/22 12:45 zucchini Allergy Unknown Uncoded 01/05/22 12:45 Physical Exam Vitals: Vital Signs Temp Pulse Resp BP Pulse Ox 01/05/22 12:00 97.7 F 66 30 H 96/37 97 01/05/22 11:23 72 18 110/81 96 01/05/22 10:13 98.4 F 77 18 107/84 99 Intake and Output 01/04/22 01/05/22 01/05/22 22:59 06:59 14:59 Other: Weight 68.039 kg Results 01/05/22 11:11 01/05/22 11:11 Cardiac Enzymes 01/05/22 01/05/22 Range/Units 11:11 11:11 AST 1584 H (14-36) U/L Troponin I 21.800 H* (0.000-0.034) ng/mL Coagulation 01/05/22 Range/Units 11:11 PT 12.1 H (9.0-12.0) sec APTT 27.0 (22.0-30.0) sec CBC 01/05/22 Range/Units 11:11 WBC 13.1 H (3.8-10.6) k/uL RBC 4.29 (3.80-5.40) m/uL Hgb 14.1 (11.4-16.0) gm/dL Hct 43.5 (34.0-46.0) % Plt Count 260 (150-450) k/uL Comprehensive Metabolic Panel 01/05/22 Range/Units 11:11 Sodium 139 (137-145) mmol/L Potassium 4.6 (3.5-5.1) mmol/L Chloride 98 (98-107) mmol/L Carbon Dioxide 20 L (22-30) mmol/L BUN 25 H (7-17) mg/dL Creatinine 1.38 H (0.52-1.04) mg/dL Glucose 172 H (74-99) mg/dL Calcium 9.0 (8.4-10.2) mg/dL AST 1584 H (14-36) U/L ALT 1040 H (4-34) U/L Alkaline Phosphatase 84 (38-126) U/L Total Protein 7.4 (6.3-8.2) g/dL Albumin 4.8 (3.5-5.0) g/dL Current Medications Generic Name Dose Route Start Last Admin Trade Name Freq PRN Reason Stop Dose Admin Heparin Sodium (Porcine) 0 unit 01/05/22 12:28 Heparin Sodium 1,000 Un/Ml (10ml Vl) IV PER PROTOCOL PRN Low PTT Protocol Sodium Chloride 1,000 mls @ 999 mls/hr 01/05/22 12:17 Saline 0.9% IV 01/05/22 13:17 .Q1H1M STA Cefepime HCl 2 gm/ Sodium 100 mls @ 25 mls/hr 01/05/22 16:00 Chloride IVPB Q8HR RIAZ Protocol Cefepime HCl 2 gm/ Sodium 100 mls @ 200 mls/hr 01/05/22 12:23 Chloride IVPB 01/05/22 12:52 ONCE STA Vancomycin HCl 1,250 mg/ 250 mls @ 125 mls/hr 01/05/22 13:00 Sodium Chloride IVPB 01/05/22 14:59 ONCE ONE Heparin Sodium/Sodium Chloride 250 mls @ 8.165 mls/hr 01/05/22 12:30 25,000 unit/ Sodium Chloride IV .Q24H RIAZ Protocol 12 UNITS/KG/HR Vancomycin HCl 1,000 mg/ 250 mls @ 125 mls/hr 01/06/22 09:00 Sodium Chloride IVPB Q24H RIAZ Intake and Output 01/04/22 01/05/22 01/05/22 22:59 06:59 14:59 Other: Weight 68.039 kg Patient Weight 01/06/22 06:59 Weight 68.039 kg 01/05/22 11:11 01/05/22 11:11
[2022-01-05] MEDS ORDERED: CEFEPIME 2 GM in SODIUM CHLORIDE 0.9% 100 ML IVPB SCH (16:00)
[2022-01-05 18:45] LABS: Hepatitis B Surface Antigen Nonreactive (Nonreactive); Hepatitis C IgG Antibody Nonreactive (Nonreactive)
[2022-01-06] MEDS ORDERED: VANCOMYCIN 1,000 MG in SODIUM CHLORIDE 0.9% 250 ML IVPB SCH (09:00)
== END 2022-01-05 16:18 | disposition expired ==
LOC: EC 10:08
DX: I21.4 Non-ST elevation (NSTEMI) myocardial infarction (principal); R74.01 Elevation of levels of liver transaminase levels; N17.9 Acute kidney failure, unspecified; I46.2 Cardiac arrest due to underlying cardiac condition; A41.9 Sepsis, unspecified organism; J18.9 Pneumonia, unspecified organism; I10 Essential (primary) hypertension; I48.91 Unspecified atrial fibrillation; J45.909 Unspecified asthma, uncomplicated; I25.10 Atherosclerotic heart disease of native coronary artery without angina pectoris; K21.9 Gastro-esophageal reflux disease without esophagitis; I25.2 Old myocardial infarction; E03.9 Hypothyroidism, unspecified; Z79.83 Long term (current) use of bisphosphonates; Z79.899 Other long term (current) drug therapy; Z79.890 Hormone replacement therapy; Z91.010 Allergy to peanuts; Z91.018 Allergy to other foods; Z91.040 Latex allergy status; Z88.2 Allergy status to sulfonamides; Z88.0 Allergy status to penicillin; Z88.8 Allergy status to other drugs, medicaments and biological substances; Z88.5 Allergy status to narcotic agent; Z88.6 Allergy status to analgesic agent; Z91.013 Allergy to seafood; Z88.1 Allergy status to other antibiotic agents; Z20.822 Contact with and (suspected) exposure to COVID-19
CPT/HCPCS: 99291; 31500; 93005; 86803; 86701; 83880; 80053; 82140; 82803; 83605; 84484; 85025; 85610; 85730; 87340; 87040; 86704; 87635; 72170; 71046; 72131; 70450; 74176; G0480; 36415; 80320